=== PATIENT | female | born 2000 | race Caucasian/White ===

== ENCOUNTER 2023-10-19 17:16 | Outpatient (CLI) | payer MEDICAID, SELFPAY ==
[2023-10-19 15:05] LABS: HCG Quant, Pregnancy 15 mIU/mL (1-3)
--- OUTSIDE RECORDS SUMMARY | 2023-10-19 17:19 | XMS_ITS | Encounter Summary ---
Author Organization [facility] Address [address] [place] [address] Care Team Providers Care Home Organizer Name Role Phone Kristine Jackson Primary Care Provider [phone] Encounter Details Date Type Department Care Team (Late st Contact Info) Description 07/05/2023 Lab Requisition [facility] Pathology & Laboratory Medicine - [facility] [address] [place] [address] Outr Resulting Lab, Provider Social History Tobacco Use Types Packs/Day Years Used Date Smoking Tobacco: Never Smokeless Tobacco: Never Alcohol Use Standard Drinks/Week Comments No 0 (1 standard drink = 0.6 oz pur e alcohol) Interpersonal Safety Answer Date Record ed Physically Hurt Never 10/08/2019 Verbally Threaten Not on file 10/08/2019 Sex and Gender Information Value Date Recorded Sex Assigned at Not on file Gender Identity Female 03/07/2022 7:44 EST Sexual Orientation Not on file documented as of this encounter Functional Status Functional Status Response Date of Assess ment Are you deaf or do you have serious difficulty h earing? No 03/06/2022 Are you blind or do you have serious difficulty seeing, even when wearing glasses? No 03/06/2022 Do you have serious difficul ty walking or climbing stairs? (5 years old or older) No 03/06/2022 Do you have difficulty dress ing or bathing? (5 years old or older) No 03/06/2022 Because of a physical, menta l, or emotional condition, do you have difficulty doing errands alone such as visiting a doctor's office or shopping? (15 years old or older) No 03/06/2022 Cognitive Status Response Date of Assessm ent Because of a physical, menta l, or emotional condition, do you have serious difficulty concentrating, remembering, or making decisions? (5 years old or older) No-hx of TBI that affects memory 03/06/2022 documented as of this encounter Plan of Treatment Not on file documented as of this encounter Procedures Procedure Name Priority Date/Time Associated Diagnosis Comments SYPHILIS SEROLOGY Routine 07/05/2023 17: 03 EDT HEPATITIS C AB W REFLEX TO HCV RNA BY PCR Routine 07/05/2023 17:03 EDT PROGESTERONE Routine 07/05/2023 17:03 EDT RUBELLA IGG ANTIBODY Routine 07/05/2023 17:03 EDT HEPATITIS B SURFACE ANTIGEN Routine 07/05/2023 17:03 EDT HIV 1/2 ANTIGEN AND ANTIBODY, 4TH GENERATION Routine 07/05/2023 17:03 EDT documented in this encounter Results * HEPATITIS C AB W REFLEX TO HCV RNA BY PCR (07/05/2023 17:03 EDT) Hep C Antibody Negative Negative 07/07/2023 8:28 EDT [facility] Blood VENOUS BLOOD / Unknown 07/05/2023 17:03 EDT 07/06/2023 21:17 EDT Provider Outr Resulting Lab CHEMISTRY & BLOOD GAS ORDERABLES [facility] [address] [place] [address] * SYPHILIS SEROLOGY (07/05/2023 17:03 EDT) Syphilis Serology Negative Negative 07/07/2023 10:54 EDT [facility] Blood VENOUS BLOOD / Unknown 07/05/2023 17:03 EDT 07/06/2023 21:17 EDT Provider Outr Resulting Lab IMMUNOLOGY A ND SEROLOGY ORDERABLES Performing Organization Address City/[facility]/ZIP Co de Phone Number [facility] [address] [place] [address] * HIV 1/2 ANTIGEN AND ANTIBODY, 4TH GENERATION (07/05/2023 17:03 EDT) HIV 1 and 2 Antibody/p24 Antigen, 4th Generation Negative Negative 07/07/2023 9:53 EDT [facility] Comment:If acute HIV-1 infec tion is suspected in a high risk patient, submit plasma specimen for HIV-1 RNA quantitation test. Blood VENOUS BLOOD / Unknown 07/05/2023 17:03 EDT 07/06/2023 21:17 EDT Narrative [facility] - 07/07/2023 9:53 EDT Fourth Generation assay performed on the Siemens Centaur XPT. Provider Outr Resulting Lab IMMUNOLOGY A ND SEROLOGY ORDERABLES Performing Organization Address [facility]/RUST Co de Phone Number [facility] [address] [place] [id number] * RUBELLA IGG ANTIBODY (07/05/2023 17:03 EDT) Rubella IgG Ab Positive See Note 07/07/2023 10:56 EDT [facility] Comment:Positive for IgG ant ibodies to Rubella virus. Blood VENOUS BLOOD / Unknown 07/05/2023 17:03 EDT 07/06/2023 21:17 EDT Provider Outr Resulting Lab CHEMISTRY & BLOOD GAS ORDERABLES Performing Organization Address City/[facility]/ZIP Co de Phone Number [facility] [address] [place], [place] [address] * HEPATITIS B SURFACE ANTIGEN (07/05/2023 17:03 EDT) Pathologist [facility] Hep B Surface Ag Negative Negative 07/07/2023 9:21 EDT [facility] Blood VENOUS BLOOD / Unknown 07/05/2023 17:03 EDT 07/06/2023 21:17 EDT Provider Outr Resulting Lab CHEMISTRY & BLOOD GAS ORDERABLES [facility] [address] [place] [address] * PROGESTERONE (07/05/2023 17:03 EDT) [facility] [place] Progesterone 3.7 See Table ng/mL 07/06/2023 23:14 EDT [facility] Comment: Female Reference Ranges: PHYSIOLOGICAL STATUS ?REFERENCE RANGE ? Pre-Pubertal: ? <= 0.2 ng/mL Menstruating: (Non-) Follicular Phase: ? <= 1.4 ng/mL Luteal Phase: ? 3.3 - 25.6 ng/mL Mid-luteal Phase: ? 4.4 - 28.0 ng/mL Postmenopausal: ? <= 0.7 ng/mL : -------- First Trimester: ?11.2 - 90.0 ng/mL Second Trimester: ? 25.6 - 89.4 ng/mL Third Trimester: ?48.4 - 422.5ng/mL For ectopic , consult a pathologist. Blood VENOUS BLOOD / Unknown 07/05/2023 17:03 EDT 07/06/2023 21:17 EDT Provider Outr Resulting Lab CHEMISTRY & BLOOD GAS ORDERABLES [facility] [address] [place], [place] [id number] documented in this encounter Visit Diagnoses Not on filedocumented in this encounter Care Teams Home Organizer Relationship Specialty Start Date End Date Kristine Jackson [address] [place] [address] [address] [place] [id number] PCP - General 03/06/22 documented as of this encounter
--- OUTSIDE RECORDS SUMMARY | 2023-10-19 17:19 | XMS_ITS | Clinical Summary ---
Author Organization [facility] Address [address] [place] [address] Care Team Providers Care Data Lead Name Role Phone Kristine Jackson Primary Care Provider [phone] Allergies Active Allergy Reactions Criticality Noted Date Comments Sulfamethoprim 01/06/2017 Hives per patient and step mother Penicillins 01/06/2017 Hives per step mother Medications Medication Sig Dispensed Refills Start Date End Date Status oxyCODONE (ROXICODONE) 5 mg immediate release tablet Take 1 Tablet by mouth every 4 hours as needed for Pain. Daily Max: 30 mg 7 Tablet 03/12/2022 Active Additional Information Patient not taking.Reported on 03/17/2022 polyethylene glycol 3350 (MIRALAX) 17 gram packet Take 17 g by mouth 2 times daily as needed (constipation). 10 Each 03/12/2022 Active Additional Information Patient not taking.Reported on 03/17/2022 Active Problems Problem Noted Date Diagnosed Date Pre-eclampsia in third trimester 03/06/2022 Last Assessment & Plan: - BP check today, normotensive. Plan to reduce her meds to 200mg Labetalol PO BID. - Plan for repeat BP check in clinic today. Recommend making the appointment and then cancelling if she ends up getting seen closer to home 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 ([facility]) 12/27/2016 Overview: Subdural hemorrhage, right parietal skull fracture, suspected diffuse axonal injury Fracture of temporal bone with routine healing 1 Poor growth affecting management of mother in third trimester Antepartum anhydramnios in third trimester Breech presentation, no version Encounters Date Type Department Care Team Description 10/19/2023 Lab Requisition [facility] Pathology & Laboratory Medicine - [address] [address] Outr Resulting Lab, Provider from Last 3 Months Surgical History Surgery Date Site/Laterality Comments APPENDECTOMY SALPINGECTOMY ruptured ectopic Medical History Medical History Date Comments 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 ([facility]) 12/27/2016 Subdural hemorrhage, right p arietal skull fracture, suspected diffuse axonal injury Fracture of temporal bone wi th routine healing 12/27/2016 Status post fall from horse Social History Tobacco Use Types Packs/Day Years Used Date Smoking Tobacco: Never Smokeless Tobacco: Never Tobacco Cessation:Counseling Given: Not Answered Alcohol Use Standard Drinks/Week Comments No 0 (1 standard drink = 0.6 oz pur e alcohol) Interpersonal Safety Answer Date Record ed Physically Hurt Never 10/08/2019 Verbally Threaten Not on file 10/08/2019 Sex and Gender Information Value Date Recorded Sex Assigned at Not on file Gender Identity Female 03/07/2022 7:44 EST Sexual Orientation Not on file Obstetrics History Para Term AB IAB SAB Ectopic Multiple Livin g Live Births 3 1 1 2 1 0 1 1 Date Outcome GA Total Labor Labor/2nd/3rd Weight Sex Type Anes PTL Evie A1 A5 Name Clin AB Ectopic 023 36w 3d 1490 g (3 lb 4.6 oz) M CS-LS T Livin g 7 9 [facility] Víctor Maharaj MD Delivery Location:[facility] [address] [facility]) Last Filed Vital Signs Vital Sign Reading Time Taken Comments Blood Pressure 111/62 03/17/2022 1352 EST Pulse 72 01/14/2017 0656 EST Temperature 36.5 ??C (97.7 ??F) 03/12/2022 1207 EST Respiratory Rate 16 03/12/2022 1207 EST Oxygen Saturation 99% 03/12/2022 1207 EST Inhaled Oxygen Concentration - - Weight 79.4 kg (175 lb) 03/06/2022 1851 EST Height 157.5 cm (5' 2) 03/06/2022 1851 EST Body Mass Index 32.01 03/06/2022 1851 EST Plan of Treatment Health Maintenance Due Date Last Done Comments Hepatitis B Vaccine (1 of 3 - 19+ 3-dose series) 08/10/2019 COVID-19 Vaccine ( - 2022-2 4 season) 2022 Hepatitis C Screen Completed 07/05/2023, 0 08/06/2021, 12/05/2019 Procedures Procedure Name Priority Date/Time Associated Diagnosis Comments HEPATITIS C AB W REFLEX TO HCV RNA BY PCR Routine 07/05/2023 17:03 EDT from Last 3 Months or Most Recently Relevant to Health Maintenance Results * HEPATITIS C AB W REFLEX TO HCV RNA BY PCR (07/05/2023 17:03 EDT) Hep C Antibody Negative Negative 07/07/2023 8:28 EDT [facility] Blood VENOUS BLOOD / Unknown 07/05/2023 17:03 EDT 07/06/2023 21:17 EDT Provider Outr Resulting Lab CHEMISTRY & BLOOD GAS ORDERABLES [facility] [address] [place] [address] from Last 3 Months or Most Recently Relevant to Health Maintenance Rachel Rios Personal/Family Self [address] [place] [address] [facility] [place] [address] Rachel Rios Personal/Family Self [address] [place] [address] [facility] [place] [address] Rachel Rios Personal/Family Self [address] [place] [address] [place] [address] Rachel Rios Personal/Family Self [address] [place] [address] [place] [address] Rachel Rios Personal/Family Self [address] [facility] [place] [address] Rachel Rios Personal/Family Self [address] [facility] [address] [place] [address] Rachel Rios Personal/Family Self [address] [facility] [address] [place] [address] Advance Directives For more information, please contact: [phone] * Full Code (Latest Code Status on File) Date Activated Date Inactivated Comments 03/06/2022 18:47 03/12/2022 16:19 Question Answer Comments When the patient has NO PULSE: Full Code / CPR Who Made the Decision? Default/Not Discussed * Full Code Date Activated Date Inactivated Comments 01/01/2017 16:17 01/14/2017 17:29 Question Answer Comments Reason for decision includes: Full code consistent with overall plan of care Who participated in the discussion? Not Discusse d Care Teams Data Lead Relationship Specialty Start Date End Date Kristine Jackson [address] [place] [address] [place] [address] PCP - General 03/06/22
--- OUTSIDE RECORDS SUMMARY | 2023-10-19 17:19 | XMS_ITS | Encounter Summary ---
Author Organization [facility] Address [address] [place] [address] Care Team Providers Care Rug Scratcher Name Role Phone Manuel Kristine Primary Care Provider [phone] Encounter Details Date Type Department Care Team (Late st Contact Info) Description 07/12/[address] [facility] Pathology & Laboratory Medicine - [facility] [address] [place] [address] Deacon Fortune MD [facility] [place] [address] Encounter for other general examination Social History Tobacco Use Types Packs/Day Years [...] Procedure Name Priority Date/Time Associated Diagnosis Comments SURGICAL PATHOLOGY Today 07/11/2023 15 :00 EDT Encounter for other general examination documented in this encounter Results * SURGICAL PATHOLOGY (07/11/2023 15:00 EDT) Note to Patient The following pathology results have been interpreted by your pathologist and may be available to you before your health provider has had the opportunity to review them. Please allow time for your provider to receive these results and explore management options, if applicable. 07/14/2023 12:27 [facility] Final Diagnosis A. UTERINE CONTENTS, EVACUATION: - Gestational-type endometrium and decidua with extensive breakdown changes. - No chorionic villi or trophoblastic tissue identified. See comment. 07/14/2023 12:27 [facility] Diagnosis Comment Results were discussed with Dr. Deacon Fortune on 07/14/23 at 12:25 pm. 07/14/2023 12:27 [facility] Attestation By the signature below, the attending physician certifies that they have 1) personally conducted a gross and/or microscopic examination of the described specimen(s), and/or personally interpreted the results of laboratory testing of the described specimen(s), and 2) personally rendered or confirmed the above diagnosis. 07/14/2023 12:27 [facility] at 1227 Clinical History Spontaneous vs ectopic 07/14/2023 12:27 [facility] Gross Description A. Received in formalin labelled with proper patient identification (initials W, K) and not otherwise specified is a 4.5 x 3.5 x 2.5 cm aggregate of soft mckeon brown soft tissue. Scant possible chorionic villi are identified. No parts are present. The specimen is entirely submitted in [id number]. SAEID GUSTAFSON(ASCP) 07/13/2023 9:13 07/14/2023 12:27 EDT [facility] Performing Lab [facility] 07/14/2023 12:27 EDT [facility] Scanned Images 07/14/2023 12:27 EDT [facility] Tissue ENDOMETRIAL STRUCTURE / Unknown 07/11/2023 15:00 EDT 07/13/2023 8:48 EDT Deacon Fortune MD PATHOLOGY ORDER [place] [facility] [address] [place] [address] documented in this encounter Visit Diagnoses Diagnosis Encounter for other general examination documented in this encounter Care Teams Rug Scratcher Relationship Specialty Start Date End Date Kristine Jackson [address] [place] [address] [place] [address] PCP - General 03/06/22 documented as of this encounter
--- OUTSIDE RECORDS SUMMARY | 2023-10-19 17:19 | XMS_ITS | Encounter Summary ---
Author Organization [facility] Address [address] [place] [address] Care Team Providers Care Masonry Contractor Name Role Phone Kristine Jackson Primary Care Provider [phone] Encounter Details Date Type Department Care Team (Latest Contact Info) Description 03/18/2022 20:59 EST - 03/20/2022 16:50 EST Hospital Encounter [facility] [address] [place] [address] Unknown, Provider, Discharge Disposition: Home or Self Care Social History Tobacco Use Types Packs/Day Years [...] 7:44 EST Sexual Orientation Not on file COVID-19 Exposure Response Date Recorded In the last 10 days, have yo u been in contact with someone who was confirmed or suspected to have Coronavirus/COVID-19? No / Unsure 03/06/2022 18:51 EST documented as of this encounter Functional Status [...] memory 03/06/2022 documented as of this encounter Medications at Time of Discharge Medication Sig Dispensed Refills Start Date End Date oxyCODONE (ROXICODONE) 5 mg immediate release tablet Take 1 Tablet by mouth every 4 hours as needed for Pain. Daily Max: 30 mg 7 Tablet 03/12/2022 polyethylene glycol 3350 (MIRALAX) 17 gram packet Take 17 g by mouth 2 times daily as needed (constipation). 10 Each 03/12/2022 acetaminophen (TYLENOL) 500 mg tablet Take 2 Tablets by mouth every 8 hours for 10 days. 60 Tablet 03/12/2022 03/22/2022 ibuprofen (MOTRIN) 800 mg tablet Take 1 Tablet by mouth every 8 hours for 10 days. 30 Tablet 03/12/2022 03/22/2022 labetalol (NORMODYNE) 200 mg tablet Take 2 Tablets by mouth every 12 hours for 14 days. 56 Tablet 03/12/2022 03/26/2022 norethindrone (MICRONOR) 0.35 mg tablet Take 1 Tablet by mouth daily for 90 days. 30 Tablet 2 03/12/2022 06/10/2022 documented as of this encounter Discharge Disposition Disposition Code Departure Means Destination Home or Self [facility] documented in this encounter Plan of Treatment Not on file documented as of this encounter Visit Diagnoses Not on filedocumented in this encounter Care Teams Masonry Contractor Relationship Specialty Start Date End Date Kristine Jackson [address] [place] [address] [place] [address] PCP - General 03/06/22 documented as of this encounter
--- OUTSIDE RECORDS SUMMARY | 2023-10-19 17:19 | XMS_ITS | Encounter Summary ---
Author Organization [facility] Address [address] [place] [address] Care Team Providers Care Property Officer Name Role Phone Kristine Jackson Primary Care Provider [phone] Encounter Details Date Type Department Care Team (Late st Contact Info) Description 10/19/2023 Lab Requisition [facility] Pathology & Laboratory Medicine - [facility] [address] [place] [address] Outr Resulting Lab, Provider Social History Tobacco [...] as of this encounter Plan of Treatment Scheduled Orders Name Type Priority Associated Diagnoses Orde r Schedule PROGESTERONE Lab Routine Ordered: documented as of this encounter Visit Diagnoses Not on filedocumented in this encounter Care Teams Property Officer Relationship Specialty Start Date End Date Kristine Jackson [address] [place] [address] LEWIS BOWMAN [id number] PCP - General 03/06/22 documented as of this encounter
--- OUTSIDE RECORDS SUMMARY | 2023-10-19 17:19 | XMS_ITS | Referral Summary ---
Author Organization [facility] Address [address] [place] [address] Care Team Providers Care Event Manager Name Role Phone Kristine Jackson Primary Care Provider Encounters Date Type Department Care Team Description 10/19/2023 Lab Requisition [facility] Pathology & Laboratory Medicine - [address] [address] Outr Resulting Lab, Provider from Last 3 Months Allergies Active Allergy Reactions Criticality Noted Date [...] depressed skull fracture with loss of consciousness ([facility]) 12/27/2016 Overview: Subdural hemorrhage, right parietal skull fracture, suspected diffuse axonal injury Fracture of temporal bone with routine healing 1 Poor growth affecting management of mother in third trimester Antepartum anhydramnios in third trimester Breech presentation, no version Social History Tobacco Use Types Packs/Day Years [...] 7:44 EST Sexual Orientation Not on file Last Filed Vital Signs Vital Sign Reading [...] Body Mass Index 32.01 03/06/2022 1851 EST Functional Status Functional Status Response Date of [...] No-hx of TBI that affects memory 03/06/2022 Plan of Treatment Not on file Procedures Procedure Name Priority Date/Time Associated Diagnosis Comments HEPATITIS C AB W REFLEX TO HCV RNA BY PCR Routine 07/05/2023 17:03 EDT from Last 3 Months or Most Recently Relevant to Health Maintenance Results * HEPATITIS C AB W REFLEX TO HCV RNA BY PCR (07/05/2023 17:03 EDT) Hep C Antibody Negative Negative 07/07/2023 8:28 EDT [facility] Blood VENOUS BLOOD / Unknown 07/05/2023 17:03 EDT 07/06/2023 21:17 EDT Provider Outr Resulting Lab CHEMISTRY & BLOOD GAS ORDERABLES [facility] [address] [place] [address] from Last 3 Months or Most Recently Relevant to Health Maintenance Advance Directives For more information, please contact: [phone] * Full Code (Latest Code Status on [...] the discussion? Not Discusse d Care Teams Event Manager Relationship Specialty Start Date End Date Kristine Jackson [facility] [place] [address] PCP - General 03/06/22
--- OUTSIDE RECORDS SUMMARY | 2023-10-19 17:20 | XMS_ITS | Encounter Summary ---
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 Name Role Phone Kristine Jackson Primary Care Provider [phone] Reason for Referral * Consult (Urgent) - Receiving Office to Obtain Authorization Specialty Diagnoses / Procedures Referred By Caro bernard Referred To Contact Diagnoses Pre-eclampsia in third trimester Brittani Quintana [address] [place] [address] [facility] [address] [place] [address] Referral ID Status Reason Start Date Expiration Date Visits Requested Visits Authorized [id number] Receiving Office to Obtain Authorization Specialty Services Required 03/12/2022 1 1 Question Answer Reason for Request: 3-5d BP check, PEC w/ SF * Specialty Diagnoses / Procedures Referred By Caro bernard Referred To Contact Brittani Quintana [address] [place] [phone] Referral ID Status Reason Start Date Expiration Date Visits Re quested Visits Authorized Comments See your hand assembler for puller over within the next week for a BP check. * Specialty Diagnoses / Procedures Referred By Contac t Referred To Contact Brittani Quintana [address] [place] [phone] Referral ID Status Reason Start Date Expiration Date Visits Re quested Visits Authorized Reason for Visit * Reason Comments Hypertension * Auth/Cert (Routine) Specialty Diagnoses / Procedures Referred By Caro bernard Referred To Contact Diagnoses Preeclampsia, severe, third trimester ? Preeclampsia; Imminent Delivery Referral ID Status Reason Start Date Expiration Date Visits Re quested Visits Authorized [id number] 1 1 Encounter Details Date Type Department Care Team (Late st Contact Info) Description 03/06/2022 18:38 EST - 03/12/2022 14:07 EST Hospital Encounter [facility] [address] [place] [address] [id number] Abbie Isidro MD [address] [place] [phone] Miranda Valencia MD [address] [place] [phone] Sherly Nelson MD [address] [place] [phone] Víctor Bui MD [address] [place] [phone] Poor growth affecting management of mother in third trimester, single or unspecified fetus (Primary Dx); Anhydramnios in third trimester, single or unspecified fetus; Breech presentation, single or unspecified fetus; Pre-eclampsia in third trimester; Breast feeding problem in Discharge Disposition: Home or Self Care Social [...] 18:51 EST documented as of this encounter Last Filed Vital Signs Vital Sign Reading Time Taken Comments Blood Pressure 132/85 03/12/2022 1207 EST Pulse - - Temperature 36.5 ??C (97.7 ??F) 03/12/2022 1207 EST Respiratory Rate 16 03/12/2022 1207 EST Oxygen Saturation 99% 03/12/2022 1207 EST Inhaled Oxygen Concentration - - Weight 79.4 kg (175 lb) 03/06/2022 1851 EST Height 157.5 cm (5' 2) 03/06/2022 1851 EST Body Mass Index 32.01 03/06/2022 1851 EST documented in this encounter Functional Status Functional Status Response [...] memory 03/06/2022 documented as of this encounter Discharge Summaries * Quintana, Brittani - 03/12/2022 1407 EST Department of PANEL MONITOR Maternal Discharge Summary Information for the patient's : Jaclyn Rios [[id number]] Monie Rios Maternal Name: Rachel Rios : 2000 Attending: No att. providers found Admission: 03/06/2022 Discharge: 03/12/22 Reason for Admission: Admission indication: Other (comment) Principal/Final Diagnosis: Pre-eclampsia in third trimester Delivery Indications: Maternal Indications for delivery: Indication for delivery: Abnormal testing Oligohydramnios Principal Procedure: Low Segment Transverse Secondary Procedures: none Hospital Course: Rachel Rios is an 21 y.o. who presented at 36+1 after transport with concern for worsening HTN dx. She had a known dx of gHTN on lab 100 BID and was found to have worsening BP's, new FGR abn dopplers at OSH and was then transported. She med criteria for PEC wo SF on admission to [facility]. FGR was confirmed with EFW < 1% and elevated RI. US also revealed anyhdramnios. FHTcat I consistently. Decision made to optimize for PTD with BMZ and then deliver at end of the BMZ window. Delivery via LTCS was planned given in benson breech presentation and infant not a candidate for ECV due to FGR and anhydramnios. She was taken to the OR for delivery at 36+3 and underwent primary LTCS. See operative note for further detail. Delivery of live male infant from SA position. APGARS 7/9. Placenta delivered with controlled traction, normal morphology. Uterine tone remained firm. EBL 700cc. The patient's received 20mg nifedipine, then transitioned to 200mg labetolol Bid and recieved 24 hours of PP Magnesium for SR Bps. She had persistent MR Bps after magnesium and her labetolol was increased to 400mg BID on discharge. She obtained good pain control, tolerated a regular diet, was ambulating and voiding independently. Her lochia was within normal limits and she initiated pumping for baby in NICU. The patient was subsequently discharged on POD#4 with instructions to follow-up for 1 week BP check and routine care at 6 weeks. Hospital Problems: Active Hospital Problems Diagnosis Date Noted ??? *Pre-eclampsia in third trimester 03/06/2022 ??? Poor growth affecting management of mother in third trimester ??? Antepartum anhydramnios in third trimester ??? Breech presentation, no version Allergies: Bactrim [sulfamethoprim] and Penicillins Medications during current : No medications prior to admission. LABOR INFORMATION Labor Onset: None Labor Analgesia: Spinal, Amniotic Fluid Color: Duration Rupture of Membranes: 0.00 hours 0.00 minutes DELIVERY INFORMATION Low Segment Transverse ; Delivery / Repair Anesthesia: Spinal, EBL: Placenta: Method: Manual Removal Labor and Delivery Complications and/or Procedures: None INFORMATION Date: 03/08/2022 Time: 1405 Weight: 1490 g (3 lb 4.6 oz) Sex: male Apgars: 7 9 Clinical Issues Needing Follow-up: PEC w/ SF dx based on SR BP, on 400mg Labetolol BID on discharge, home with BP cuff Contraception Plan: minipill Other: none Results Pending at Discharge: Test results still pending from this admission Procedure Component Value Units Date/Time SURGICAL PATHOLOGY [[id number]] Collected: 03/08/22 1419 Lab Status: In process Specimen: Tissue from Placenta, third trimester Updated: 03/10/22 0850 Follow-up appointments and procedures Keep all scheduled appointments Authorizing Provider: Brittani Quintana You should follow up with your Natural Resources Manager See your hand assembler for puller over within the next week for a BP check. Authorizing Provider: Brittani Quintana Amb Consult/Follow Up Obstetrics Reason for Request: 3-5d BP check, PEC w/ SF Authorizing Provider: Brittani Quintana Condition at Discharge: stable Discharge Disposition: nearby [facility] for NICU baby Brittani Quintana MD 03/12/2022 17:48 Associated attestation - Whitney Mathews MD - 03/12/2022 1800 EST I was present for critical portions of the exam, evaluation and plan. documented in this encounter Discharge Instructions * Discharge Instr - AVS First Page* Brittani Quintana - 03/12/2022 7:46 EST Take your blood pressure before you take your labetalol. The NICU nurses can also help you take your blood pressures when you visit. If you have a blood pressure that is less than 120 on the top number or less than 70 on the bottom number, do not take your medication. If you have a blood pressure more than 150 on the top number or more than 110 on the bottom number please call the office. documented in this encounter Medications at Time of Discharge [...] 03/12/2022 06/10/2022 documented as of this encounter Ordered Prescriptions Prescription Sig Dispensed Refills Start Date End Da te polyethylene glycol 3350 (MIRALAX) 17 gram packet Take 17 g by mouth 2 times daily as needed (constipation). 10 Each 03/12/2022 oxyCODONE (ROXICODONE) 5 mg immediate release tablet Take 1 Tablet by mouth every 4 hours as needed for Pain. Daily Max: 30 mg 7 Tablet 03/12/2022 norethindrone (MICRONOR) 0.35 mg tablet Take 1 Tablet by mouth daily for 90 days. 30 Tablet 2 03/12/2022 06/10/2022 labetalol (NORMODYNE) 200 mg tablet Take 2 Tablets by mouth every 12 hours for 14 days. 56 Tablet 03/12/2022 03/26/2022 ibuprofen (MOTRIN) 800 mg tablet Take 1 Tablet by mouth every 8 hours for 10 days. 30 Tablet 03/12/2022 03/22/2022 acetaminophen (TYLENOL) 500 mg tablet Take 2 Tablets by mouth every 8 hours for 10 days. 60 Tablet 03/12/2022 03/22/2022 documented in this encounter Discharge Disposition Disposition Code Departure Means Destination Comment s Home or Self Retirement to hotel for now to be close to baby in NICU documented in this encounter Progress Notes * Brittani Quintana - 03/12/2022 06 EST Postoperative Progress Note CC: s/p LTCS at 36+3 for worsening PEC wo SF, new FGR and abnormal dopplers, breech presentation S: Doing well, pain well controlled. Ambulating and voiding independently. Tolerating regular diet without nausea/vomiting. Passing flatus, no BM. Lochia minimal. doing well in NICU. Planning to discharge to a hotel today with CM support. Hoping to go home with a breast pump. Does not have ablood pressure cuff The patient denies CP/SOB/AKBAR/Dizziness/F/C/LE pain. O: Temp: [35.6 ??C (96.1 ??F)-36.6 ??C (97.9 ??F)] 36.5 ??C (97.7 ??F) (03/12/22253) BP: (119-139)/(54-94) (!) 139/94 (03/12/22253) SpO2: [94 %-98 %] 98 % (03/12/22253) Resp: [16-18] 18 (03/12/22253) Heart Rate: [79 BPM-91 BPM] Intake/Output Summary (Last 24 hours) at 03/12/2022 06 Last data filed at 03/12/2022 0315 Gross per 24 hour Intake 1280 ml Output 900 ml Net 380 ml UOP: voiding independently Gen: NAD Resp: breathing comfortably on room air CV: RR Abd: not examined, patient requesting to sleep A/P: Rachel Rios is a 21 y.o. POD#4 s/p LTCS at 36w3d for PEC wo SF and FGR w abnormal dopplers and breech presentation. Pt recovering well. BP normotensive to MR. Otherwise VSS and adequate UOP. Routine Care - Continue current pain regimen. Encourage IS, ambulation, PO intake; support BF. Continue routine post-op/post- care. - s/p [place] - Preop Hct 35. EBL 700cc. AM Hct 37.1 - Rh pos, rubella imm, varicella imm - male in nicu, circumcision desired Hx Asthma: - as was single event, likely ok for hemabate if needed PEC w SF - dx based on sustained SR BP, UPC 0.45, short acting anti-HTN to date: 20mg PO nifedipine, currentlong acting HTN regimen: labetalol 200mg BID, s/p mag for 24 hours pp, ending at 1/3 900AM. Decreased to 1.5->1g/hour at 2200 for headache, weakness - MR Bps since magnesium, consider increase in long-acting medication on d/c if persistently elevated Dispo - Contraception: Discussed POD#3, hoping for minipill-> OCP. Follow up at post- visit. - depression: Discussed POD#3. Patient aware of signs/symptoms Will continue to monitor. - Likely d/c home POD#3-4 BRITTANI TONGMUSSEN 03/12/22 6:26 Obstetrics & Gynecology, PGY-1 Pager [phone] Associated attestation - Whitney Mathews MD - 03/12/2022 0843 EST Attestation statement: I performed or was present during the leigh or critical portions of the visit and participated in the management of the patient. I agree with the findings and plan of care documented in the resident's/fellow's note. * Diana Santacruz MSW - 03/11/2022 5190 EST CM/SW Note: ?? Checked in with Simeonn today. When Kim is ready to discharge we will see if a hotel is available for a week. I let them know that after a week we can book a hotel room a few nights a week and the other nights they will have to go home, a gas card can be provided for help with transportation. ?? Kim received WIC and [employer] [place] and asked about how she can apply for [employer]- I let her know Iwill email her the website that has the online application and will provide her with contact information for her local ESD office. ?? Kim and Rick did not have any other needs at this time. ?? SADI Jerome [phone] Pager: [phone] * Brittani Quintana - 03/11/2022 0658 EST Postoperative Progress Note CC: s/p LTCS at 36+3 for worsening PEC wo SF, new FGR and abnormal dopplers, breech presentation S: Doing well, pain well controlled. Ambulating and voiding independently. Tolerating regular diet without nausea/vomiting. Passing flatus, no BM. Lochia minimal. Infant doing well in NICU. The patient denies CP/SOB/AKBAR/Dizziness/F/C/LE pain. O: Temp: [35.3 ??C (95.5 ??F)-37 ??C (98.6 ??F)] 35.6 ??C (96.1 ??F) (03/11/22647) BP: (101-138)/(58-92) 138/90 (03/11/22647) SpO2: [94 %-100 %] 96 % (03/11/22647) Resp: [16-18] 18 (03/11/22647) Heart Rate: [79 BPM-105 BPM] Intake/Output Summary (Last 24 hours) at 03/11/2022657 Last data filed at 03/11/2022 0200 Gross per 24 hour Intake 900 ml Output 900 ml Net 0 ml UOP: 900/2 hrs Gen: NAD Resp: CTAB CV: RR Abd: soft, minimally tender, nondistended, incisional bandage c/d/i, fundus at 1cm below umbilicus Ext: minimal PE A/P: Rachel Rios is a 21 y.o. POD#3 s/p LTCS at 36w3d for PEC wo SF and FGR w abnormal dopplers and breech presentation. Pt recovering well. BP normotensive to MR. Otherwise VSS and adequate UOP. Routine Care - Continue current pain regimen. Encourage IS, ambulation, PO intake; support BF. Continue routine post-op/post- care. - s/p [place] - Preop Hct 35. EBL 700cc. AM Hct 37.1 - Rh pos, rubella imm, varicella imm - male infant in nicu, circumcision desired Hx Asthma: - as was single event, likely ok for hemabate if needed PEC w SF - dx based on sustained SR BP, UPC 0.45, short acting anti-HTN to date: 20mg PO nifedipine, currentlong acting HTN regimen: labetalol 200mg BID, s/p mag for 24 hours pp, ending at 1/3 900AM. Decreased to 1.5->1g/hour at 2200 for headache, weakness Dispo - Contraception: Discussed POD#3, hoping for minipill-> OCP. Follow up at post- visit. - depression: Discussed POD#3. Patient aware of signs/symptoms Will continue to monitor. - Likely d/c home POD#3-4 BRITTANI QUINTANA 03/11/22 7:01 Obstetrics & Gynecology, PGY-1 Pager [phone] Associated attestation - Rosalinda Levin MD - 03/11/2022 8309 EST Attestation statement: I saw and examined the patient. I agree with the resident's/fellow's findings and plans as documented. POD#3 s/p LTCS at 36w3d for PEC w/SF ad FGR with abnormal dopplers and breech presentation - recovering well, meeting all post-op milestones - continue labetalol 200mg BID, will need 1wk BP check and to be d/c with a home BP cuff - anticipate discharge to local hotel tomorrow, coordinating with rn case management - male infant in NICU, parents desire circ before discharge in the future Rosalinda Levin MD 03/11/2022 17:34 Obstetrics and Gynecology * Kathya Mccarthy RN - 03/10/2022 1130 EST Care assumed. Pt found sitting up chair. 18g in left arm SL. Pt voiding adequately PRN. Pt reports a slight headache since she got up to walk with previous RN around 1030, denies blurred vision, RUQ pain or SOB. Pt reports her gas pain is 5/10, requests medication for that now and to visit baby in NICU. FOB and mom supportive at . Plan to maintain comfort and transfer to [place] [address] when a bed becomes available. Pt agrees with plan. 1150 Pt wants to visit NICU now and take simethicone when she returns. Off unit by WC with FOB. 1250 Pt back from NICU, reports her headache has resolved, reports passing gas, sitting up to pump. 1305 Pt pumped x15 min, colostrum taken to NICU, declines removal of her dressing at this time, denies further needs. 1522 Pt back from NICU, reports feeding baby while she was there. 1615 Pt requests medication for pain, I don't want to get behind. Agreed to remove incisional dressing. Reports slight headache has returned, I'm just so tired and stressed. Denies blurred vision, RUQ pain or SOB. Encouraged to rest. VSS. Transferred to [place] [address]. * Purvi Gagnon MD - 03/10/2022 0312 EST Magnesium Shift Progress Note CC: 21 y.o. POD#1 from pLTCS for PEC w/o SF severe FGR, anhydramnios, elevated RI, now w/ PEC w/ SF Shift resident: PURVI GAGNON MD Shift provider: Kymberly Phelps MD [employer] - Routine PP care, support BF/pumping - VTE ppx: SCDs (CS, PEC) - PPD: will discuss - Contraception: will discuss Active Problems: - PEC w SF: dx based on sustained SR BP, UPC 0.45, short acting anti-HTN to date: 20mg PO nifedipine, current long acting HTN regimen: labetalol 200mg BID, serum labs WNL, continue mag for 24 hours pp, ending at 1/3 900AM Recent Labs 03/08/22 1223 03/09/22 1020 03/09/22 1021 WBC 19.45* 19.48* -- HCT 35.5 37.1 -- HGB 12.0 12.9 -- PLT 253 261 -- CREATININE -- -- 0.62 ALT -- -- 19 AST -- -- 32 LDH -- -- 278* Assessment/Plan/Updates: 10:30: Denies s/sx PEC, UOP 550cc/2h, BPs normotensive, PE notable for 1+ DTRs and CTAB. No currentsigns of mag toxicity, continue current plan. MD Elia 10:34 12:30: Denies s/sx PEC. Normotensive. UOP not yet recorded. 1+ DTRs, lungs CTAB. Serum labwork WNL.No current signs of mag toxicity. Continue mag x24hr pp. MD Elia 12:36 14:50: Denies s/sx PEC. On the bedside commode and feeling fine. Wants to go visit in NICU. BP normotensive. UOP 250cc/3hr. 1+ DTRs, lungs CTAB. No current sign of mag toxicity. Okay to go to NICU with 1:1 RN support. Continue mag x24hr pp. MD Elia 15:15 16:59 Back from NICU, baby doing well. Pt feeling tired, but denies si/sx PEC. BP normotensive. XUP420ep/2hr. 2+ DTRs, lungs CTAB. No current sign of mag toxicity. Continue mag x24hr pp. MD Elia 16:59 22:00: 1+ biceps DTR, lungs CTAB, Mag level 6.8. UOP 450cc/1hr. Trying to rest in between checks. Continue mag x24hrs PP. If urine output decreases, then will send mag level and decr to 1.5g/hr 23:00 Rachel has a headache and is feeling light headed. Decr mag infusion to 1.5g/hr. Drawing maglevel now. PE unchanged. H Vigne 03:00: 2+ biceps DTR, lungs CTAB. AKBAR resolved. Mag infusing at 1g/hr due to Mag level of 7.1 and patient feeling light headed. UOP 525/3hrs H Chelsi Gagnon MD Building Performance Specialist PGY-3 Pager [phone] Associated attestation - Víctor Bui MD - 03/10/2022 1327 EST Attending attestation statement: I saw and examined the patient with the resident. I agree with thefindings and plan of care documented in the resident's note. POD#2 now off magnesium, doing well. Plan transfer back to when census allows. Víctor Bui MD * Tamara Krishnamurthy RN - 03/09/2022 1932 EST 1914: Assumed care of patient, bedside report from Destiny Francois RN. PPD 1 @ 36w3d s/p C/S r/t PEC w/o SF, breech presentation, severe FGR w/ abnormal dopplers, & near anyhydramnios. Now w/ PEC w/ SF on Mg @ 2g/hr. Partner Rick and mother Misti at bedside for support. Baby vickie Anaya in NICU. 1944: assisted OOB to commode, increased shakiness with pain d/t movemenc t, tolerated standing boubacar few steps to commode well. Education provided regarding safe mvmt r/t incision/splinting to reduce pain aggravation. 2099: pt feeling better than earlier after resting, encouraged to use breastpump if able, assistance provided. 2129: Abdominal binder applied to assist with pain with ambulation/transfers OOB, rating 5/10 to commode, improves with rest. 34mL colostrum brought to NICU. 2254: Abdominal binder removed per pt request, reporting inc dizziness/ AKBAR/ mild blurry vision withtransfer to commode, verbalizing sx of feeling drunk, assisted back to bed, BP WNL, reflexes morehyperreflexive, Dr Gagnon notified 0: Dr Gagnon at bedside to assess patient, mg decreased to 1.5g/hr and lab order pending to recheck Mg 2348: Mg level 7.1, Dr Gagnon notified, order received to decrease Mg to 1g/hr. 2357: pt verbalizing mild improvement to sx, speech rate improved, AKBAR remains mild, Mg decreased per MAR. 0030: Mg check WNL, pt feeling significantly better, to commode and NICU to see . 0115: back to room, pt tolerated visit well, breast pump assistance provided. 0140: breastmilk brought to NCU. 0550: OOB to commode, improved tolerance of transfer, encouraged to use breast pump, setup assistance provided. 0630: 95mL breastmilk broughtt to NICU. 0715: Report to Geo Jimenez RN, pt stable. * Mary Kate Wolfe MD - 03/09/2022 1234 EST Magnesium Shift Progress Note CC: 21 y.o. at 36w3d, POD#1 from pLTCS for PEC w/o SF severe FGR, anhydramnios, elevated RI, now w/ PEC w/ SF Shift resident: MARY KATE WOLFE MD Shift provider: Sherly Nelson MD [employer] - Routine PP care, support BF/pumping - VTE ppx: SCDs (CS, PEC) - PPD: will discuss - Contraception: will discuss Active Problems: - PEC w SF: dx based on sustained SR BP, UPC 0.45, short acting anti-HTN to date: 20mg PO nifedipine, current long acting HTN regimen: labetalol 200mg BID, serum labs WNL, continue mag for 24 hours pp, ending at 1/3 900AM Recent Labs 03/06/22 1922 03/06/22201303/08/22 1223 03/09/22 1020 03/09/22 1021 WBC 16.14* -- 19.45* 19.48* -- HCT 38.4 -- 35.5 37.1 -- HGB 13.5 -- 12.0 12.9 -- PLT 233 -- 253 261 -- CREATININE 0.53 -- -- -- 0.62 ALT 19 -- -- -- 19 AST 24 -- -- -- 32 URICACID 6.5 -- -- -- -- LDH 189 -- -- -- 278* FIBRINOGEN -- 688* -- -- -- Assessment/Plan/Updates: 10:30: Denies s/sx PEC, UOP 550cc/2h, BPs normotensive, PE notable for 1+ DTRs and CTAB. No currentsigns of mag toxicity, continue current plan. MD Elia 10:34 12:30: Denies s/sx PEC. Normotensive. UOP not yet recorded. 1+ DTRs, lungs CTAB. Serum labwork WNL.No current signs of mag toxicity. Continue mag x24hr pp. MD Elia 12:36 14:50: Denies s/sx PEC. On the bedside commode and feeling fine. Wants to go visit in NICU. BP normotensive. UOP 250cc/3hr. 1+ DTRs, lungs CTAB. No current sign of mag toxicity. Okay to go to NICU with 1:1 RN support. Continue mag x24hr pp. MD Elia 15:15 16:59 Back from NICU, baby doing well. Pt feeling tired, but denies si/sx PEC. BP normotensive. [id number]/2hr. 2+ DTRs, lungs CTAB. No current sign of mag toxicity. Continue mag x24hr pp. MD Elia 16:59 MARY KATE WOLFE MD 03/09/2022 12:34 * Darlene Muse MD - 03/09/2022 1014 EST ACUTE PAIN SERVICE OB Neuraxial long-acting opioid FOLLOW UP Subjective 24H UPDATE: Brief: 1-3 elements or 15 minutes (CPT 79120) The patient is OBANESPOD#: POD #1 from delivery under neuraxial anesthesia. The patient received neuraxial morphine intraoperatively and is being followed by OB Anesthesia for her pain and side effect management. The patient reports Excellent postop analgesia and currently has mild pain. She has not required oral or IV opioids for breakthrough pain. She feels her symptoms were managed adequately. She is not experiencing side effects at this time. The patient has not experienced respiratory depression. Incisional/surgical PAIN Quality Quality: dull Severity: mild Modifying Factors Modifiers: Hurts when getting up REVIEW OF SYSTEMS over past 24H: Review of Systems Billing Requirements: Brief: N/A or 15 minutes (CPT 58040) Constitutional: Urinary: Musculoskeletal: Yes No Yes No Yes No [] [x] Sedation [] [x] Urinary retention: Straight cath: None [] [x] Backache Neurological: Gastrointestinal: Integumentary: Yes No Yes No Yes No [] [] Neck pain [] [x] Postop itching was None [] [x] Positional Headache [] [x] Postop Nausea/vomiting was None [] [] Diplopia [] [] Tinnitus [] [x] Lower extremity numbness [] [x] Lower extremity weakness Objective PHYSICAL EXAM: Physical Exam Billing Requirements: Brief: 1 system or 15 minutes (09602) BP 116/64 Temp (!) 35.3 ??C (95.5 ??F) (Temporal) Resp 18 Ht 157.5 cm (62) Wt 79.4 kg (175lb) SpO2 98% Unknown BMI 32.01 kg/m?? Within patient's normal range and Appropriate for condition Normal chest excursion and without accessory muscle use cardiovascular exam: VSS and Appears well perfused Urinary function: Voiding well, NO postop urinary dysfunction Mental Status: awake and alert; oriented to person, place, and time R vs L Lower Extremity strength: Ambulating unassisted without difficulty Ambulating unassisted without difficulty Recovery: satisfied LABORATORIES: @Platelet count if continuous post- epidural Assessment & Plan ASSESSMENT: Post- pain well managed This is a 21 y.o. year old female with a medical history of severe pre-eclampsia and FGR. 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 1. Opioid risk tool assessment: Low risk of opioid misuse (score 0-3) (Opioid Risk Tool Link) RECOMMENDATIONS: (New recommendations Bolded) Intrathecal Morphine: ??? Intrathecal morphine requires respiratory and sedation monitoring x 12-24 hours based on # riskfactors for respiratory depression after long acting neuraxial opioid. o No risk factors = Level 1 (Resp rate/pattern and POSS score every 2H x 12H. The OB Anesthesia Service is the only service who may write for additional opioid pain medications or sedatives for the first 24 hours following placement of the neuraxial morphine. Opioids: ??? The expected number of tablets of oxycodone necessary on discharge for this specific surgery is0-10 tablets of oxycodone 5 mg PO to be ordered at discharge by the primary service. Non-Opioid Adjuncts ??? Acetaminophen: OBACETAMINOPHEN: Continue acetaminophen 1000 mg every 8 hours through discharge.. Limit course to 7 days. Not recommended on discharge for those patients with alcohol use disorder. ??? NSAIDs: OBNSAIDs: Continue Ketorolac every 6 hours x 3 doses followed by Ibuprofen and ContinueIbuprofen 800 mg every 8 hours through discharge ??? Additional Regional/Neuraxial Analgesia: No additional regional/neuraxial local anesthetic technique recommended ??? Other: None Activity ??? OBACTIVITY: Patient ambulating in room and to bathroom OB anesthesiology plans to sign off on today or choose date: today 24 hours after delivery and completion of the intrathecal morphine or continuous epidural protocol. Thank you for including the Obstetric Anesthesia Service in the care of this patient. Please contact us (pager #[phone] or phone #[phone]) with any questions or concerns. DARLENE MUSE MD 03/09/2022 10:14 PGY-3, Consulting Psychiatrist * Mary Kate Wolfe MD - 03/09/2022 0943 EST Magnesium Shift Progress Note CC: 21 y.o. at 36w3d, POD#1 from pLTCS for PEC w/o SF severe FGR, anhydramnios, elevated RI, now w/ PEC w/ SF Shift resident: MARY AKTE WOLFE MD Shift provider: Sherly Nelson MD Global - Routine PP care, support BF/pumping - VTE ppx: SCDs (CS, PEC) - PPD: will discuss - Contraception: will discuss Active Problems: - PEC w SF: dx based on sustained SR BP, UPC 0.45, short acting anti-HTN to date: 20mg PO nifedipine, current long acting HTN regimen: labetalol 200mg BID, serum labs pending, continue mag for 24 hours pp, ending at 1/3 900AM Recent Labs 03/06/22192103/06/22201303/08/22 1223 WBC 16.14* -- 19.45* HCT 38.4 -- 35.5 HGB 13.5 -- 12.0 PLT 233 -- 253 CREATININE 0.53 -- -- ALT 19 -- -- AST 24 -- -- URICACID 6.5 -- -- LDH 189 -- -- FIBRINOGEN -- 688* -- Assessment/Plan/Updates: 10:30: Denies s/sx PEC, UOP 550cc/2h, BPs normotensive, PE notable for 1+ DTRs and CTAB. No currentsigns of mag toxicity, continue current plan. MD Elia 10:34 MARY KATE WOLFE MD 03/09/2022 9:43 Associated attestation - Sherly Nelson MD - 03/09/2022 1147 EST Pt seen and agree. Tolerating magnesium. Pain controlled. Afebrile Bp max 164/118, 166/109 s/p PO nifedipine Now 100-120s/50s-76 P 90 Net +645 mL UOP >250 per hour Cr 0.62 ALT/AST 19/32 Hct 37.1 Plts 261 POD#1 s/p primary CD for breech, oligohydramnios, PEC now with SF. Brought back to L&D for 24 hours magnesium sz ppx. BPs improved with PO nifedipine, continue labetalol 200 BID. Watch UOP * Pilar Francois, [facility] - 03/09/2022 0840 EST 8:40 Pt arrived from for severe range BP. Pt reports feeling lightheaded and having mild blurry vision. 8:45 MD Wolfe at bedside. Plan to do 24hrs of magnesium 0911: mag started 1400: pt requesting to go see baby vickie Anaya in the NICU. Per MD Wolfe, ok as long as RN stays with pt 1505: pt brought to NICU 1625: pt back to M710 1745: pt reporting dizziness and SOB, is visibly shaky. MD Wolfe aware, will draw magnesium level * Mary Kate Wolfe MD - 03/09/2022 0828 EST OB Update Note BP sustained SR. 166/109 > 164/118. HR 63. S: Denies visual changes, AKBAR, SOB, RUQ pain, or new LE edema. O: Patient Vitals for the past 4 hrs: BP Temp Temp src Resp SpO2 03/09/22 0813 (!) 164/118 -- -- 18 98 % 03/09/22 0800 (!) 166/109 -- -- -- -- 03/09/22 0753 -- (!) 35.3 ??C (95.5 ??F) Temporal 18 97 % Gen: NAD CV: RRR Resp: Lung CTAB Neuro: 1+ patellar reflexes Ext: no peripheral edema A/P: Rachel Rios is a 21 y.o. on POD#1 from pLTCS at 36+3 for PEC w/o SF, now with sustained SR BP and new diagnosis of PEC w/ SF. - Nifedipine PO IR now - Repeat HELLP labs now - Bring to L&D for 24 hr mag - post SR BP vitals per protocol - q1hr RN mag check, q2hr mag check - CTM symptoms Discussed with Dr. Nelson. Mary Kate Wolfe MD 03/09/22 8:31 OBGYN PGY-2 Pager #[phone] * Mary Kate Wolfe MD - 03/09/2022 0607 EST Postoperative Progress Note CC: s/p LTCS at 36+3 for worsening PEC wo SF, new FGR and abnormal dopplers, breech presentation S: Doing well, pain well controlled. Able to ambulate to bathroom without dizziness, not yet voided(4hr since gresham removal), about to try again. Tolerating regular diet without nausea/vomiting. Passing flatus, no BM. Lochia minimal. doing well in NICU. The patient denies CP/SOB/AKBAR/Dizziness /F/C/LE pain. O: Temp: [35.2 ??C (95.4 ??F)-36.4 ??C (97.5 ??F)] (!) 35.5 ??C (95.9 ??F) (03/09/22418) BP: (106-154)/(65-103) (!) 153/86 (03/09/22418) SpO2: [97 %-100 %] 97 % (03/09/22418) Resp: [13-18] 18 (03/09/22418) Heart Rate: [66 BPM-102 BPM] Intake/Output Summary (Last 24 hours) at 03/09/2022 0607 Last data filed at 03/09/2022 0420 Gross per 24 hour Intake 3570 ml Output 2160 ml Net 1410 ml UOP: 700/7 hrs Gen: NAD Resp: CTAB CV: RR Abd: soft, minimally tender, nondistended, incisional bandage c/d/i, fundus at 1cm below umbilicus Ext: minimal PE A/P: Rachel Rios is a 21 y.o. POD#1 s/p LTCS at 36w3d for PEC wo SF and FGR w abnormal dopplers and breech presentation. Pt recovering well. BP normotensive to MR. Otherwise VSS and adequate UOP. Routine Care - Continue current pain regimen. Encourage IS, ambulation, PO intake; support BF. Continue routine post-op/post- care. - D/C Gresham with ambulation - Preop Hct 35. EBL 700cc. AM CBC ordered - Rh pos, rubella imm - varicella UNK, Ab ordered - male infant in nicu, circumcision desired Hx Asthma: - as was single event, likely ok for hemabate if needed PEC w/o SF - q4hr vitals - continue labetalol 100mg BID - watch for SR BP, treat with IV antihypertensive - repeat labs if BP escalating Dispo - Contraception: Not yet discussed. Follow up at post- visit. - depression: Not yet discussed. Will continue to monitor. - Likely d/c home POD#3-4 Mary Kate Wolfe MD 03/09/22 6:08 OBGYN PGY-2 Pager #[phone] * Ramu Burns MD - 03/08/20222024 EST Postoperative Progress Note CC: s/p LTCS at 36+3 for worsening PEC w SF, new FGR and abnormal dopplers, breech presentation S: Pt in NICU x2, subjective obtained in NICU. Doing well, pain well controlled. Says she definitely feels the incision but it is feeling better than she expected. Tolerating regular diet without nausea/vomiting, has mostly been sipping cold drinks. Not yet passing flatus, no BM. Gresham in place. Lochia minimal. The patient denies CP/SOB/AKBAR/Dizziness/F/C/LE pain. O: Temp: [35.2 ??C (95.4 ??F)-36.4 ??C (97.5 ??F)] 36 ??C (96.8 ??F) (03/08/221911) BP: (106-156)/(63-103) 106/65 (03/08/221911) SpO2: [95 %-100 %] 97 % (03/08/221911) Resp: [13-18] 16 (03/08/221911) Heart Rate: [70 BPM-102 BPM] Intake/Output Summary (Last 24 hours) at 03/08/20222024 Last data filed at 03/08/2022 1600 Gross per 24 hour Intake 2945 ml Output 1850 ml Net 1095 ml UOP: 220 cc/6 hrs Gen: NAD Resp: CTAB Remainder of exam deferred, interview in NICU A/P: Rachel Rios is a 21 y.o. POD#0 s/p LTCS at 36w3d for PEC w SF and FGR w abnormal dopplers and breech presentation. Pt recovering well. BP normotensive to MR. Otherwise VSS and adequate UOP. Routine Care - Continue current pain regimen. Encourage IS, ambulation, PO intake; support BF. Continue routine post-op/post- care. - D/C [place] with ambulation - Preop Hct 35. EBL 700cc. AM CBC ordered - Rh pos, rubella imm - varicella UNK, Ab ordered - male in nicu, circumcision desired Hx Asthma: - as was single event, likely ok for hemabate if needed Dispo - Contraception: Not yet discussed. Follow up at post- visit. - depression: Not yet discussed. Will continue to monitor. - Likely d/c home POD#3-4 RAMU BURNS MD OBGYN PGY-1 [phone] * Sinai España RN - 03/08/2022 1624 EST 1620 review of BP with . OK to transfer to . * Ida Enriquez RN - 03/08/2022 1229 EST 1205: Pt transferred to L&D for delivery. Anticipate C/S delivery for breech, PEC w/o SF, FGR and oligo. Report given to Oliver MILLAN at bedside. * Oliver Garg RN - 03/08/2022 1215 EST 1210 - pt transferred from [facility] for c/section for breech positioning and complicated by PEC w/out SF, FGR and Oligohydramnios. Pt has not eaten or drank anything besides sips (for meds) since last night. Pt has saline lock in place in left forearm. Pt into room 1 and EFM applied. 1217 - Phlebotomy in to see pt. Drawing blood for cbc. 1223 - Dr Bui in to see pt, u/s breech presentation confirmed 1335 - To OR, see intraop flowsheet and delivery summary. 1508 - pt out of OR, feeling shaky. Asking if she can have something for my anxiety, I always shake like this when I'm anxious. Explained shaking could be because of cold daily body temp or normal reaction to delivery. Pt agreed to wait for anxiolytic. Maurice hugger blanket applied. * Abbie Isidro MD - 03/08/2022 0811 EST NST Report Baseline Heart Rate: 135 Accelerations: present Movement: present Decelerations: absent Contractions: absent Interpretation: reactive Co-sign Provider (Physician Name): MD Alejandro NST [id number] LUZ PAGAN RN [facility] Attending Addendum: I have reviewed the NST above- it is reactive. I agree with the assessment. Abbie Isidro MD * Gege Mae MD - 03/08/2022 0642 EST Antepartum Progress Note CC: PEC wo SF, FGT HD: 3 Overnight Events: - NAEON Subjective: Feeling overall well this morning. Reports symptoms of GERD, similar to prior to admission and throughout . Has been using Tums but would be interested in trying something in addition, discussed pepcid. Denies AKBAR, vision changes, RUQ pain, worsening swelling. Denies cx, LOF, VB. Good FM Objective: BP 138/78 (BP Cuff Location: Left arm, BP Patient Position: Lying right side) Temp 36.2 ??C (97.2 ??F) (Temporal) Resp 18 Ht 157.5 cm (62) Wt 79.4 kg (175 lb) SpO2 95% BMI 32.01 kg/m?? Gen: NAD Resp: CTAB CV: RR Abdomen: Soft, non-tender, gravid Extremities: WWP Labs CBC: Recent Labs 03/06/221921 WBC 16.14* RBC 4.44 HGB 13.5 HCT 38.4 MCV 87 MCH 30.4 MCHC 35.2 PLT 233 BMP: Recent Labs 12/30/22 1922 CREATININE 0.53 LFT: Recent Labs 03/06/22 1922 AST 24 ALT 19 Imaging OB US (03/06): 36+1, benson breech, plac fundal, RONDA 0.3cm, EFW 1765 < 1%, AC < 1%, Abn dops with elevated RI Assessment/Plan: 21 y.o. @ 36w3d admitted after transport due to concern for severe preeclampsia and growth restriction. Known dx of gHTN previously, evaluation consistent with PEC without SF. New FGR with anhydramnios concerning for an evolving hypertensive picture, however FHR monitoring is consistently cat I. She was initiated on a BMZ course and transferred to given tracing stability. Intermittently MR BP, other VSS. AUOP. ?? Preeclampsia without SF: - SR BP prior to leaving [facility] and possibly one in transport, unknown if >4 hours apart - New proteinuria, diagnosis at least consistent with preeclampsia without severe features - Serum labs WNL on admission - Denies sx of severe disease - s/p Mag during transport, discontinued on arrival - Continue labetalol 100 BID ?? FGR/anyhydramnios/FWB: - dx at 36+1 today at [facility] - Cat 1 FHT on arrival - S/p BMZ 03/06- @ 1400, will be through window today - S/p NICU consult - Discussing delivery at completion of steroid window vs. Repeat dopplers today and if stable proceeding with ongoing monitoring, with ultimately latest delivery being at 37+0 - NPO this morning while still discussing del timing giving possibility of del today ?? Delivery Planning: - breech presentation, would not offer ECV due to size - Signed CS consent - S/p anesthesia consult ?? Hx Asthma: - as was single event, likely ok for hemabate if needed ?? GERD - Tums PRN - Will add pepcid today Global Rh + GBS unk No data recorded Gege Mae MD Obstetrics and Gynecology, PGY-4 Pager #[phone] 03/08/22 6:42 Associated attestation - Víctor Bui MD - 03/08/2022 0950 EST Attending attestation statement: I saw and examined the patient with the resident. I agree with thefindings and plan of care documented in the resident's note. Discussed ongoing plan with patient, will discuss w/ MFM and consider timing of delivery. Made NPO this AM in anticipation of potential delivery pending AM NST and discussion with MFM. Víctor Bui MD * Karen Arevalo RN - 03/07/2022 1130 EST NST Report Baseline Heart Rate: 135 Accelerations: present Movement: present Decelerations: Present - possible variable with poor tracing Contractions: Rare.. Pt felt 1 mild ctx at 1055, lasting 30 seconds. Interpretation: reactive NST [id number]. Pt left on to monitor an extra 10 min after the possible variable. Pt is monitored BID and will have second NST this evening. Co-sign Provider (Physician Name): KAREN AREVALO RN Associated attestation - Theresa Mccauley MD - 03/08/2022 0158 EST I reviewed the above NST. It is reactive. I agree with the assessment. Theresa Mccauley MD Fellow Maternal Medicine 03/08/22 * Gege Mae MD - 03/07/2022 0642 EST Antepartum Progress Note CC: PEC wo SF, FGT HD: 2 Overnight Events: - Admitted after transport, evaluated for PEC, dx with PEC wo SF - FGR confirmed and found to have anhydramnios Subjective: Denies AKBAR, vision changes, RUQ pain, worsening swelling. Denies cx, LOF, VB. Good FM Objective: BP 110/80 (BP Cuff Location: Left arm, BP Patient Position: Supine) Temp 36.4 ??C (97.5 ??F) (Temporal) Resp 20 Ht 157.5 cm (62) Wt 79.4 kg (175 lb) SpO2 99% BMI 32.01 kg/m?? Gen: NAD Resp: CTAB CV: RR Abdomen: Soft, non-tender, gravid Extremities: WWP Labs CBC: Recent Labs 03/06/221921 WBC 16.14* RBC 4.44 HGB 13.5 HCT 38.4 MCV 87 MCH 30.4 MCHC 35.2 PLT 233 BMP: Recent Labs 03/06/221921 CREATININE 0.53 LFT: Recent Labs 03/06/221921 AST 24 ALT 19 Imaging OB US (03/06): 36+1, benson breech, plac fundal, RONDA 0.3cm, EFW 1765 < 1%, AC < 1%, Abn dops with elevated RI Assessment/Plan: 21 y.o. @ 36w2d admitted after transport due to concern for severe preeclampsia and growth restriction. Known dx of gHTN previously, evaluation consistent with PEC without SF. New FGR with anhydramnios concerning for an evolving hypertensive picture, however FHR monitoring is consistently cat I. She was initiated on a BMZ course and transferred to given tracing stability. Intermittently MR BP, other VSS. AUOP. ?? Preeclampsia without SF: - SR BP prior to leaving [facility] and possibly one in transport, unknown if >4 hours apart - New proteinuria, diagnosis at least consistent with preeclampsia without severe features - Serum labs WNL on admission - Denies sx of severe disease - s/p Mag during transport, discontinued on arrival - Upper MR BPs, will continue to monitor closely for s/sx of severe disease ?? FGR/anyhydramnios/FWB: - dx at 36+1 today at [facility] - Cat 1 FHT on arrival - S/p BMZ 03/06 @ 1400 today, second dose today - S/p NICU consult - Will likely move toward delivery at completion of the BMZ window, would deliver sooner if concernon NST's ?? Delivery Planning: - breech presentation, would not offer ECV due to size - Signed CS consent - S/p anesthesia consult ?? Hx Asthma: - as was single event, likely ok for hemabate if needed ?? Global Rh + GBS unk No data recorded Gege Mae MD Obstetrics and Gynecology, PGY-4 Pager #[phone] 03/07/22 6:42 Associated attestation - Theresa Mccauley MD - 03/07/20222123 EST I saw and examined the patient and reviewed her vitals and labs on 03/07/22. I agree with the findings and plan of care as documented in Dr Mae's note. 21 y.o. at 36w2d gestation admitted with PreE w/o SF and FGR. We discussed continued inpatient monitoring of blood pressures. Given normal labs and normal to low mild blood pressures will not repeat serum labs today. Asymptomatic at this time of preE symptoms. Completed BMZ course today. Tentative plan for repeat UA dopplers tomorrow or Wednesday. Discussed delivery at 37 weeks if not sooner via section given current breech presentation. Theresa Mccauley MD Obstetrics/Gynecology * Mary Kate Wolfe MD - 03/07/2022 0031 EST OB Update Note Pt feeling well. BP stable normotensive to low MR for several hours. Serum labwork WNL, UPC 0.45. FHT Cat I for several hours. At this point, stable for transfer to for continued monitoring until delivery. - q4 hr vitals - continue lab 100mg BID - strict Is/Os - q8 doptones, daily NST - Labs PRN - BMZ #2 ordered for tomorrow Mary Kate Wolfe MD 03/07/22 0:34 OBGYN PGY-2 Pager #[phone] * Yolanda Rea RN - 03/06/20221947 EST Assumed care of patient from [facility] San at 1915 Patient transferred from [facility] for PEC w/u and FGR. RONDA also known to be low. SRBP noted at [facility] prior to transfer. The patient was given first dose of BMZ at 1345 along with a 4g Mg bolus at 1350. Pt arriving via ambulance at 1850 Normal movement per patient. Patient reports some squiggly lines here and there with vision, but notes feeling anxious. Denies AKBAR or VB, but does report that overnight on Wednesday she woke up with a large amount of clear fluid on her bed and was unsure if she had incontinence. Also reportsheartburn at this time. Denies RUQ pain. She is havign some cramping - feeling it tight at fundus. 2004 Pt to bay with MD Parikh. 2104 US complete. RONDA 0.3. Pt thinks she had a gush of fluid during US. MD Valencia applied nitrizine paper to r/o PROM and nitrizine paper was negative. Pt cleared to eat. 2244 Anesthesia at bedside to consult. 0020 pt given clearance to transfer to [facility]. 005 Patient transferred to [facility] with all of her belongings. Bedside report given to RN. * Mena Kaur RN - 03/06/2022 184 EST Pt arrived to R 11 via transport from [facility] at 36+1 with dx of GHTN and FGR. Pt to the bathroom to void, instructions given for UA, changing into gown. [address] Wolfe to the bedside for eval and US 1915 IV started, labs drawn and sent. \19:20 GBS collected by MD Wolfe 1930 Report to Yolanda Walden RN documented in this encounter H&P Notes * Miranda Valencia MD - 03/06/2022 1847 EST Department of Obstetrics History & Physical Admit Date: 03/06/2022 Chief Complaint Patient presents with ??? Hypertension Admission indication: Other (comment) Maternal transport/Outside delivery: Yes Patient transported from: hospital Sending hospital name: [facility] Sending provider name: [facility] HPI: Rachel Rios is a 21 y.o. at 36w1d presenting as transport due to concern for preeclampsia and new growth restriction and oligohydramnios. Currently she is feeling well. Denies contractions, LOF, VB. +FM. Denies headache, vision changes, SOB, RUQ pain. complicated by: - hx of ruptured ectopic - hx of non-ruptured appendectomy - hx of TBI - hx of mild asthma, single event as child - anxiety Review of Systems: see above Current Complications: Diabetes: None Hypertension: Preeclampsia w/o severe features Pulmonary disease: Asthma Psychiatric disease: Anxiety Substance abuse: None Infection during current : None Testing: Dx requiring follow-up: Breech Medication Exposure: No data recorded Labs: Rh +/ Antibody screen neg / Rubella imm / Varicella unk / RPR neg / Gonorrhea neg / Chlamydia neg / Hepatitis B neg / Hepatitis C neg / HIV neg / 1hr GTT unk / 3hr GTT unk / GBS unk Ultrasound 36+1: breech, EFW 3 lb 7 oz, <3%ile, AC measuring 31 wk, oligo 0.78 cm OB History Para Term AB Living 3 2 SAB IAB Ectopic Multiple Live Births 1 # Outcome Date GA Lbr Román/2nd Weight Sex Delivery Anes PTL Lv 3 Current 2 Ectopic 1 AB Previous Complications: No data recorded Past Medical History Past Surgical History Past Medical History: Diagnosis Date ??? Fracture of temporal bone with routine healing 12/27/2016 Status post fall from horse ??? 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 ([facility] ([facility])12/27/2016 Subdural hemorrhage, right parietal skull fracture, suspected diffuse axonal injury Past Surgical History: Procedure Laterality Date ??? APPENDECTOMY ??? SALPINGECTOMY ruptured ectopic Past Gynecological History Social History See above Social History Tobacco Use ??? Smoking status: Never ??? Smokeless tobacco: Never Substance Use Topics ??? Alcohol use: No reports no history of drug use. Medications Allergies Medications Prior to Admission Medication Sig Dispense Refill Last Dose ??? acetaminophen (TYLENOL) 650 mg/20.3 mL solution Take 20.3 mL by mouth every 4 hours as needed for Pain. ??? ibuprofen (MOTRIN) 400 mg tablet Take 1 Tab by mouth every 4 hours. 40 Tab 0 ??? oxyCODONE (ROXICODONE) 5 mg immediate release tablet Take 1 Tab by mouth every 6 hours as needed for Pain. Daily Max: 20 mg 10 Tab 0 ??? traZODone (DESYREL) 50 mg tablet Take 0.5 Tabs by mouth at bedtime. 20 Tab 0 Allergies Allergen Reactions ??? Bactrim [Sulfamethoprim] Hives per patient and step mother ??? Penicillins Hives per step mother Objective: Weights Weight : 79.4 kg (175 lb) Patient Vitals for the past 8 hrs: BP Heart Rate Resp Temp SpO2 03/06/22 1948 (!) 132/94 82 BPM 16 -- -- 03/06/22 185 (!) 149/99 85 BPM 16 36.1 ??C (97 ??F) 99 % General: NAD Cardiovascular: RRR Respiratory: CTAB Abdomen: soft, gravid Extremities: WWP Physical Presentation: Breech FHT: 130 baseline. mod variability, + accels, no decels; Cat I tracing. TOCO: 2-3 in 10 min SSE: deferred SVE: deferred Recent Labs 03/06/221921 WBC 16.14* HCT 38.4 HGB 13.5 PLT 233 CREATININE 0.53 ALT 19 AST 24 URICACID 6.5 LDH 189 Latest Reference Range & Units 03/06/22 19:24 UPRO mg/mg Cr, Ur <0.30 mg/mg Creatinine 0.45 (H) (H): Data is abnormally high Assessment/Problems/Plan: Rachel Rios is a 21 y.o. at 36w1d presenting as transport due to concern for severe preeclampsia and growth restriction. MR BP on arrival with normal labs except new proteinuria. Cat 1 FHT. Preeclampsia: - SR BP prior to leaving [facility] and possibly one in transport, unknown if >4 hours apart - New proteinuria, diagnosis at least consistent with preeclampsia without severe features - Serum labs WNL on admission - Denies sx of severe disease - s/p Mag during transport, discontinued on arrival - Upper MR BPs, will continue to monitor closely for s/sx of severe disease FGR/FWB: - dx at 36+1 today at [facility] - Cat 1 FHT on arrival - Repeat routine anatomy scan now with dopplers, if abnormal dopplers, may need delivery - BMZ given at 1400 today, ordered for #2 - Peds consult pending US results - Repeat dopplers in 2-3 days Delivery Planning: - breech presentation, would not offer ECV due to size - will sign CS consent - anesthesia consult Hx Asthma: - as was single event, likely ok for hemabate if needed Global Rh + GBS unk No data recorded Discussed with Dr. Valencia. MAXINE WALLS MD 03/06/2022 20:11 Attestation: I performed or was present during the leigh or critical portions of the visit and participated in the management of the patient on 03/06/2022. I agree with the findings and plan of care documented in the resident's/fellow's note. Blood pressures only mildly elevated on arrival here. Magnesium sulfate discontinued. HELLP labs normal with P:C 0.45--discussed presentation c/w preeclampsia--no documentation of sustained severe HTN at [facility], but discussed if develops recurrent severe HTN, would move to delivery. Fetus breech with severe FGR <1% (EFW 1765 g) and anhydramnios. Umbilical artery dopplers with elevated resistance--single screen of AEDF, but could not reproduce with multiple measurements. +bladder. No clinical signs of ROM--tested vaginal discharge during US with nitrazine paper and was negative. Cat 1 FHTs. Will follow BPs closely, continue BMZ series. Low threshold to move to delivery if any signs of progressing disease or distress. If has larger gush of fluid, would perform SSE to assess for PROM. Discussed would absolutely not expectantly manage past 37w0d, and highly likely to need delivery in next 24-48 hours. Recommend inpatient management until delivery. Miranda Valencia MD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 [facility] [address] [place] [address] * CREATININE (03/09/2022 10:21 EST) Creatinine 0.62 0.52 - 1.04 mg/dL 03/09/2022 11:39 EST [facility] eGFR 130 >60 mL/min/1.73 m2 03/09/2022 11:39 EST [facility] Blood VENOUS BLOOD / Unknown Venipuncture / Unknown 03/09/2022 10:21 EST 03/09/2022 11:10 EST Mary Kate Scott MD CHEMISTRY & BLOOD GA S ORDERABLES Performing Organization Address City/[facility]/ZIP Co de Phone Number [facility] [address] [place] [address] * (ABNORMAL) LDH (03/09/2022 10:21 EST) LDH 278(H) 120 - 246 U/L 03/09/2022 11:39 EST [facility] Blood VENOUS BLOOD / Unknown Venipuncture / Unknown 03/09/2022 10:21 EST 03/09/2022 11:10 EST Mary Kate Scott MD CHEMISTRY & BLOOD GA S ORDERABLES Performing Organization Address City/[facility] Co de Phone Number [facility] [address] [place] [address] * VARICELLA IGG ANTIBODY (03/09/2022 10:21 EST) Varicella IgG Ab Positive See Note 03/09/2022 13:14 EST [facility] Comment:Presence of detectab le Varicella Zoster virus IgG antibodies. Blood VENOUS BLOOD / Unknown Venipuncture / Unknown 03/09/2022 10:21 EST 03/09/2022 11:10 EST Gege Mae MD IMMUNOLOGY AND SEROL DELORIS ORDERABLES [facility] [address] [place] [address] * (ABNORMAL) COMPLETE BLOOD COUNT (03/09/2022 10:20 EST) WBC 19.48(H) 4.00 - 12.40 K/cmm 03/09/2022 11:16 [facility] RBC 4.31 3.86 - 5.04 M/cmm 03/09/2022 11:16 [facility] Hemoglobin 12.9 11.6 - 15.2 gm/dL 03/09/2022 11:16 [facility] HCT 37.1 34.9 - 44.4 % 03/09/2022 11:16 [facility] MCV 86 81 - 98 fl 03/09/2022 11:16 [facility] MCH 29.9 26.7 - 33.3 pg 03/09/2022 11:16 [facility] MCHC 34.8 32.1 - 35.9 gm/dL 03/09/2022 11:16 [facility] RDW-CV 12.5 <14.7 % 03/09/2022 11:16 [facility] RDW-SD 39.4 <50.4 fl 03/09/2022 11:16 [facility] PLT 261 141 - 377 K/cmm 03/09/2022 11:16 [facility] MPV 10.1 9.5 - 12.7 fl 03/09/2022 11:16 [facility] Blood VENOUS BLOOD / Unknown Venipuncture / Unknown 03/09/2022 10:20 EST 03/09/2022 11:10 EST Gege Mae MD HEMATOLOGY & PF4 ORD ERABLES [facility] [address] [place] [address] * SURGICAL PATHOLOGY (03/08/2022 14:19 [facility]) Note to Patient The following pathology results have been interpreted by your pathologist and may be available to you before your health provider has had the opportunity to review them. Please allow time for your provider to receive these results and explore management options, if applicable. 03/19/2022 15:13 [facility] Final Diagnosis A. PLACENTA: Macario placenta, 314 grams (<10th %ile for 36 and 3/7 weeks gestational age). Disc: - Maternal vascular malperfusion: small placenta by weight (if complete), accelerated villous maturation, chorangiosis, normoblastemia, placental infarct, villous agglutination, decidual arteriopathy, increased perivillous fibrin, and septal thrombus. Membranes: - Decidual arteriopathy. Umbilical cord: - 3 vessels. - No significant histopathologic changes. 03/19/2022 15:13 [facility] Attestation By the signature below, the attending physician certifies that they have 1) personally conducted a gross and/or microscopic examination of the described specimen(s), and/or personally interpreted the results of laboratory testing of the described specimen(s), and 2) personally rendered or confirmed the above diagnosis. 03/19/2022 15:13 [facility] at 1513 Clinical History FGR less than 1st % and anhydramnios 36+3 weeks; breech 03/19/2022 15:13 [facility] Gross Description A. Received fresh labelled with proper patient identification (initials W, K) and 1. Placenta 36+ 3, 233 KS W is an intact macario placenta. There is an 8.0 cm in length by 1.0 cm in diameter attached, three vessel white focally blue umbilical cord. It demonstrates paracentral insertion 5.0 cm from the nearest disc margin. There are 2 coils on this segment of cord. The membranes are complete, light ponce, translucent, smooth, with marginate insertion. The point of rupture is 7.0 cm from the disc margin. The disk is 314 g (trimmed, formalin fixed), 16.0 x 14.0 x 3.0 cm and ovoid. One side of the placenta has a thin area which measures 7.0 cm in width by 2.5 cm from placental margin towards center with a thickness ranging from 1.5 cm to 0.5 cm. The opposite side of the placenta has a thin area at the placental margin that measures 9.0 cm in width by 4.0 cm from placental margin towards center with a thickness ranging from 1.1 cm to 0.6 cm. These 2 thin areas comprise roughly 1/6th of the total placental tissue. The surface is blue-mckeon focally pale ponce-white with a magistral vascular pattern. There are no lesions present on the surface. The maternal surface is blue-mckeon focally ponce-white with an intact and complete basal plate. There is a small amount of adherent blood clot. There is no indentation. The cut surface of the placental parenchyma is spongy and beefy red-brown. There are several scattered firm white focally red and ponce-red areas, 2 of which are in the thin portions of the placenta while the remaining areas are in the outer 1/3 of the placenta. These areas range from 2.5 cm to 0.5 cm in greatest dimension and comprise no greater than 5% of the total placental tissue. [employer] sections are submitted as follows: BLOCK LEIGH A1- membrane roll and cross-section of end of cord A2- membrane roll and cross-section of cord 5 cm from insertion site A3- full thickness outer 1/3 placental disc adjacent to umbilical cord insertion site A4- full-thickness central 2/3 placental disc A5- full-thickness central 2/3 placental disc A6- full-thickness outer 1/3 placental disc including firm white focally red area SAEID MURPHY(ASCP) 03/11/2022 9:01 03/19/2022 15:13 [facility] Performing Lab [facility] 15:13 [facility] Scanned Images 03/19/2022 15:13 [facility] Tissue PLACENTAL STRUCTURE / Unknown 03/08/2022 14:19 EST 03/10/2022 8:50 EST Comment:Pre-op diagnosis: FG R less than 1st % and anhydramnios 36+3 weeks Breech Víctor Bui MD PATHOLOGY ORDERABL ES [facility] [address] [place] [address] * (ABNORMAL) COMPLETE BLOOD COUNT (03/08/2022 12:23 EST) WBC 19.45(H) 4.00 - 12.40 K/cmm 03/08/2022 12:38 [facility] RBC 4.03 3.86 - 5.04 M/cmm 03/08/2022 12:38 [facility] Hemoglobin 12.0 11.6 - 15.2 gm/dL 03/08/2022 12:38 [facility] HCT 35.5 34.9 - 44.4 % 03/08/2022 12:38 [facility] MCV 88 81 - 98 fl 03/08/2022 12:38 [facility] MCH 29.8 26.7 - 33.3 pg 03/08/2022 12:38 [facility] MCHC 33.8 32.1 - 35.9 gm/dL 03/08/2022 12:38 [facility] RDW-CV 12.5 <14.7 % 03/08/2022 12:38 [facility] RDW-SD 40.0 <50.4 fl 03/08/2022 12:38 [facility] PLT 253 141 - 377 K/cmm 03/08/2022 12:38 [facility] MPV 9.9 9.5 - 12.7 fl 03/08/2022 12:38 [facility] Blood VENOUS BLOOD / Unknown Venipuncture / Unknown 03/08/2022 12:23 EST 03/08/2022 12:29 EST Gege Mae MD HEMATOLOGY & PF4 ORD ERABLES [facility] [address] [place] [address] * COVID-19 TEST [facility] PCR (03/06/2022 22:02 EST) Swab BOTH ANTERIOR NARES / Unknown Swab / Unknown 03/06/2022 22:02 EST 03/06/2022 22:18 EST Miranda Valencia MD MICROBIOLOGY - GE NERAL ORDERABLES Performing Organization Address [facility] Co de Phone Number [facility] [address] [place] [address] * COVID-19 TESTING (03/06/2022 22:02 EST) COVID-19 rt-PCR Result Negative Negative 03/07/2022 2:27 EST [facility] Comment: This test has not been FDA cleared or approved. This test has been authorized by FDA under an EUA for use by authorized laboratories. This test has been authorized only for detection of nucleic acid from 2019-nCoV, not for any other viruses or pathogens. This test is only authorized for the duration of the declaration that circumstances exist justifying the authorization of emergency use of in vitro diagnostic tests for detection and/or diagnosis of 2019-nCoV under section 564(b)(1) of Act, 21 U.S.C ?? 360bbb-3(b) (1), unless the authorization is terminated or revoked sooner. Negative results do not preclude 2019-nCoV infection and should not be used as the sole basis for treatment or other patient management decisions. Negative results must be combined with clinical observations, patient history, and epidemiological information. Performed on the Canburgher Fusion instrument Performing Lab [place] [facility] 03/07/2022 2:27 EST [facility] Swab BOTH ANTERIOR NARES / Unknown Swab / Unknown 03/06/2022 22:02 EST 03/06/2022 22:18 EST Miranda Valencia MD MICROBIOLOGY - GE NERAL ORDERABLES Performing Organization Address [facility] Co de Phone Number [facility] [address] [place] [address] * POC LD US ROUTINE 2ND TRIMESTER OB (03/06/2022 21:39 EST) Anatomical Region Laterality Modality Ultrasound 03/06/2022 20:1 2 EST Narrative 03/07/2022 4:06 EST Indication ======== FGR, Amniotic fluid: oligohydramnios Preeclampsia ========= Number of fetuses: 1 Dating ====== Method of dating: ??based on the LMP LMP on: ?06/26/2021 GA by LMP ??36 w + 1 d RAMIRO by LMP : ? 04/02/2022 Ultrasound examination on: 03/06/2022 GA by U/S based upon: ??AC, BPD, Femur, HC GA by U/S ??31 w + 4 d RAMIRO by U/S: ?05/04/2022 Assigned: ??based on the LMP, selected on 03/06/2022 Assigned GA ?36 w + 1 d Assigned RAMIRO: ??04/02/2022 General Evaluation Cardiac activity Present. FHR 131 bpm. movements: visualized. Presentation: benson breech, spine anterior Placenta: Fundal Umbilical cord: Cord vessels: 3 vessel cord. Insertion site: placental insertion: poorly seen Amniotic fluid: Amount of AF: normal. MVP 0.3 cm. RONDA 0.3 cm. Q1 0.0 cm, Q2 0.0 cm, Q3 0.3 cm, Q4 0.0 cm Biometry Standard BPD ?79.5 mm 31w 6d <1% Hadlock OFD ?109.0 mm ?36w 0d 47% Rafael HC 292.0 mm ?31w 3d 1% Chervenak Cerebellum tr ??42.6 mm 34w 4d 45% Camp AC 264.7 mm ?30w 4d <1% Hadlock Femur ??62.6 mm 32w 2d 1% Rafael Humerus ?54.2 mm 31w 4d <1% Rafael HC / AC ?1.10 EFW ?1,765 g ??<1% Melgar EFW (lb) ?? 3 lb EFW (oz) ?? 14 oz EFW by: ?Hadlock ([id number]) Head / Face / Neck Cephalic index 0.73 ? <1% Nicolaides Extremities / Bony Struc FL / BPD ?? 0.79 FL / HC ?0.21 FL / AC ?0.24 Other Structures FHR ?131 bpm Anatomy Cranium: ?? normal Lateral ventricles: ?normal Choroid plexus: ?normal Midline falx: ??normal Cavum septi pellucidi: normal Cerebellum: ?normal Cisterna magna: ?normal Lips: ??not adequately visualized 4-chamber view: ?normal RVOT view: normal LVOT view: normal 3-vessel view: normal 6-lsrlob-mnnknat view: normal Cord insertion: ?not adequately visualized Stomach: ?? normal Kidneys: ?? normal Bladder: ?? normal Abdomen Abdom. wall: ?? not adequately visualized Cervical spine: ?normal Thoracic spine: ?normal Lumbar spine: ??normal Sacral spine: ??not adequately visualized Arms: ??not adequately visualized Legs: ??not adequately visualized sex: unreported Wants to know sex: ?? no Doppler Arterial Umbilical A PI 1.39 ? >99% Niraj Umbilical A RI 0.76 ? 99% Niraj Umbilical A PS 34.01 cm/s ?? 2% Ebbing Umbilical A ?ED ?8.04 cm/s Umbilical A TAmax ??18.69 cm/s ?? <1% Ebbing Umbilical A MD 7.89 cm/s Umbilical A S / D ??4.25 ? >99% Niraj Umbilical A HR 128 bpm Impression: ?Abnormal Doppler study Maternal Structures Uterus / Cervix Uterus: ?Appears normal Cervix: ?Appears normal Ovaries / Tubes / Adnexa Rt ovary: ??Visualized, normal appearance Lt ovary: ??Visualized, normal appearance Method ====== Voluson E10, Transabdominal ultrasound examination. View: Limited by low amniotic fluid volume and position Impression ========= [id number] Obstetrical ultrasound with and maternal evaluation This is a macario gestation. Biometry is lagging menstrual dating by nearly 5 weeks. EFW <1%, AC <1%. The lip/nose, extremities, distal spine and umbilical cord insertion are poorly seen due to position and low fluid. Otherwise, anatomy appears normal as noted above; however, ultrasound cannot detect all anomalies. There is trunk and extremity movement noted. There is severe oligohydramnios, with only one measurable pocket of 0.3 cm. [id number] Umbilical artery Doppler study Doppler waveforms of the umbilical artery are abnormal, with increased resistance (RI 99%). There was a single set of waveforms with absent end-diastolic flow, but this could not be reproduced despite multiple measurements. Follow-up ======== Inpatient admission. DATE OF SERVICE: 03/06/2022 Procedure Note Miranda Valencia MD - 03/07/2022 Indication ======== FGR, Amniotic fluid: oligohydramnios Preeclampsia ========= Number of fetuses: 1 Dating ====== Method of dating: based on the LMP LMP on: 06/26/2021 GA by LMP 36 w + 1 d RAMIRO by LMP : 04/02/2022 Ultrasound examination on: 03/06/2022 GA by U/S based upon: AC, BPD, Femur, HC GA by U/S 31 w + 4 d RAMIRO by U/S: 05/04/2022 Assigned: based on the LMP, selected on 03/06/2022 Assigned GA 36 w + 1 d Assigned RAMIRO: 04/02/2022 General Evaluation Cardiac activity Present. FHR 131 bpm. movements: visualized.Presentation: benson breech, spine anterior Placenta: Fundal Umbilical cord: Cord vessels: 3 vessel cord. Insertion site: placentalinsertion: poorly seen Amniotic fluid: Amount of AF: normal. MVP 0.3 cm. RONDA 0.3 cm. Q1 0.0 cm,Q2 0.0 cm, Q3 0.3 cm, Q4 0.0 cm Biometry Standard BPD 79.5 mm 31w 6d <1% Hadlock OFD 109.0 mm 36w 0d 47% Rafael HC 292.0 mm 31w 3d 1% [place] Cerebellum tr 42.6 mm 34w 4d 45% Camp AC 264.7 mm 30w 4d <1% Hadlock Femur 62.6 mm 32w 2d 1% Rafael Humerus 54.2 mm 31w 4d <1% Rafael HC / AC 1.10 EFW 1,765 g <1% Melgar EFW (lb) 3 lb EFW (oz) 14 oz EFW by: Hadlock ([id number]) Head / Face / Neck Cephalic index 0.73 <1% Nicolaides Extremities / Bony Struc FL / BPD 0.79 FL / HC 0.21 FL / AC 0.24 Other Structures FHR 131 bpm Anatomy Cranium: normal Lateral ventricles: normal Choroid plexus: normal Midline falx: normal Cavum septi pellucidi: normal Cerebellum: normal Cisterna magna: normal Lips: not adequately visualized 4-chamber view: normal RVOT view: normal LVOT view: normal 3-vessel view: normal 0-lcltkg-lhopsxt view: normal Cord insertion: not adequately visualized Stomach: normal Kidneys: normal Bladder: normal Abdomen Abdom. wall: not adequately visualized Cervical spine: normal Thoracic spine: normal Lumbar spine: normal Sacral spine: not adequately visualized Arms: not adequately visualized Legs: not adequately visualized sex: unreported Wants to know sex: no Doppler Arterial Umbilical A PI 1.39 >99% Niraj Umbilical A RI 0.76 99% Niraj Umbilical A PS 34.01 cm/s 2% Ebbing Umbilical A ED 8.04 cm/s Umbilical A TAmax 18.69 cm/s <1% Ebbing Umbilical A MD 7.89 cm/s Umbilical A S / D 4.25 >99% Niraj Umbilical A HR 128 bpm Impression: Abnormal Doppler study Maternal Structures Uterus / Cervix Uterus: Appears normal Cervix: Appears normal Ovaries / Tubes / Adnexa Rt ovary: Visualized, normal appearance Lt ovary: Visualized, normal appearance Method ====== Voluson E10, Transabdominal ultrasound examination. View: Limited by lowamniotic fluid volume and position Impression ========= [id number] Obstetrical ultrasound with and maternal evaluation This is a macario gestation. Biometry is lagging menstrual dating by nearly 5 weeks. EFW <1%, AC <1%. The lip/nose, extremities, distal spine and umbilical cord insertion arepoorly seen due to position and low fluid. Otherwise, anatomyappears normal as noted above; however, ultrasound cannot detect all anomalies. There is trunk and extremity movement noted. There is severeoligohydramnios, with only one measurable pocket of 0.3 cm. [id number] Umbilical artery Doppler study Doppler waveforms of the umbilical artery are abnormal, with increasedresistance (RI 99%). There was a single set of waveforms with absentend-diastolic flow, but this could not be reproduced despite multiple measurements. Follow-up ======== Inpatient admission. DATE OF SERVICE: 03/06/2022 Mary Kate Scott MD [facility] ORDERABLES * GROUP B STREP PCR (03/06/2022 20:14 EST) [facility] Group B Strep PCR Negative Negative 03/08/2022 12:37 EST [facility] Swab POOLED SPECIMEN FROM VAGINAL INTROITUS AND RECTAL SWAB / Unknown Swab / Unknown 03/06/2022 20:14 EST 03/06/2022 22:12 EST Mary Kate Scott MD MICROBIOLOGY - [facility] ORDERABLES [facility] [address] [place] [address] * (ABNORMAL) FIBRINOGEN (03/06/2022 20:14 EST) [facility] Fibrinogen 688(H) 171 - 384 mg/dL 03/06/2022 20:51 EST [facility] Blood VENOUS BLOOD / Unknown Venipuncture / Unknown 03/06/2022 20:14 EST 03/06/2022 20:33 EST Mary Kate Scott MD HEMATOLOGY & PF4 ORD ERABLES Performing Organization Address [facility] Co de Phone Number [facility] [address] [place] [address] * (ABNORMAL) PRE-ECLAMPSIA PROTEIN/CREATININE RATIO, URINE (03/06/2022 19:24 EST) Total Protein, Urine 19 See Note mg/dL 03/06/2022 19:53 EST [facility] Comment:Reference range not established. Creatinine, Urine 42.3 See Note mg/dL 03/06/2022 19:53 EST [facility] Comment:Reference range not established. Pre-Eclampsia Protein/Creat inine Ratio, Urine 0.45(H) <0.30 mg/mg Creatinine 03/06/2022 19:53 EST [facility] Urine URINE / Unknown Urine Collect / Unknown 03/06/2022 19:24 EST 03/06/2022 19:35 EST Mary Kate Scott MD URINALYSIS ORDERABLE S Performing Organization Address [facility] Co de Phone Number [facility] [address] [place] [address] * ALT (03/06/2022 19:22 EST) ALT 19 <35 U/L 03/06/2022 19:55 EST [facility] Blood VENOUS BLOOD / Unknown Venipuncture / Unknown 03/06/2022 19:22 EST 03/06/2022 19:35 EST Mary Kate Scott MD CHEMISTRY & BLOOD GA S ORDERABLES Performing Organization Address [facility] Co de Phone Number [facility] [address] [place] [address] * AST (03/06/2022 19:22 EST) AST 24 15 - 46 U/L 03/06/2022 19:55 EST [facility] Blood VENOUS BLOOD / Unknown Venipuncture / Unknown 03/06/2022 19:22 EST 03/06/2022 19:35 EST Mary Kate Scott MD CHEMISTRY & BLOOD GA S ORDERABLES Performing Organization Address City/[facility] Co de Phone Number [facility] [address] [place] [address] * CREATININE (03/06/2022 19:22 EST) Creatinine 0.53 0.52 - 1.04 mg/dL 03/06/2022 19:55 EST [facility] eGFR 135 >60 mL/min/1.73 m2 03/06/2022 19:55 EST [facility] Blood VENOUS BLOOD / Unknown Venipuncture / Unknown 03/06/2022 19:22 EST 03/06/2022 19:35 EST Mary Kate Scott MD CHEMISTRY & BLOOD GA S ORDERABLES Performing Organization Address [facility] Co de Phone Number [facility] [address] [place] [address] * URIC ACID (03/06/2022 19:22 EST) Uric Acid 6.5 2.2 - 7.7 mg/dL 03/06/2022 19:55 EST [facility] Blood VENOUS BLOOD / Unknown Venipuncture / Unknown 03/06/2022 19:22 EST 03/06/2022 19:35 EST Mary Kate Scott MD CHEMISTRY & BLOOD GA S ORDERABLES Performing Organization Address [facility] Co de Phone Number [facility] [address] [place] [address] * LDH (03/06/2022 19:22 EST) LDH 189 120 - 246 U/L 03/06/2022 19:55 [facility] Blood VENOUS BLOOD / Unknown Venipuncture / Unknown 03/06/2022 19:22 EST 03/06/2022 19:35 EST Mary Kate Scott MD CHEMISTRY & BLOOD GA S ORDERABLES [facility] [address] [place] [address] * (ABNORMAL) COMPLETE BLOOD COUNT (03/06/2022 19:22 EST) WBC 16.14(H) 4.00 - 12.40 K/cmm 03/06/2022 19:48 [facility] RBC 4.44 3.86 - 5.04 M/cmm 03/06/2022 19:48 [facility] Hemoglobin 13.5 11.6 - 15.2 gm/dL 03/06/2022 19:48 [facility] HCT 38.4 34.9 - 44.4 % 03/06/2022 19:48 [facility] MCV 87 81 - 98 fl 03/06/2022 19:48 [facility] MCH 30.4 26.7 - 33.3 pg 03/06/2022 19:48 [facility] MCHC 35.2 32.1 - 35.9 gm/dL 03/06/2022 19:48 [facility] RDW-CV 12.7 <14.7 % 03/06/2022 19:48 [facility] [facility] RDW-SD 39.1 <50.4 fl 03/06/2022 19:48 [facility] PLT 233 [id number] - 377 K/cmm 03/06/2022 19:48 [facility] MPV 9.9 9.5 - 12.7 fl 03/06/2022 19:48 [facility] Blood VENOUS BLOOD / Unknown Venipuncture / Unknown 03/06/2022 19:22 EST 03/06/2022 19:35 EST Mary Kate Scott MD HEMATOLOGY & PF4 ORD ERABLES Performing Organization Address City/[facility] Co de Phone Number [facility] [address] [place] [address] * TYPE AND SCREEN (03/06/2022 19:21 EST) ABO A 03/06/2022 20:14 EST [facility] Rh Factor Positive 03/06/2022 20:14 EST [facility] Antibody Screen Negative 03/06/2022 20:14 EST [facility] Specimen Expires: 03/09/2022 @ 23:59 03/06/2022 20:14 EST [facility] Blood VENOUS BLOOD / Unknown Venipuncture / Unknown 03/06/2022 19:21 EST 03/06/2022 19:36 EST Miranda Valencia MD BLOOD BANK TESTS Performing Organization Address [facility] Co de Phone Number [facility] [address] [place] [address] documented in this encounter Visit Diagnoses Diagnosis Pre-eclampsia in third trimester- Primary Mild or unspecified pre-eclampsia, antepartum Poor growth affecting management of mother in third trimester, single or unspecified fetus Anhydramnios in third trimester, single or unspecified fetus Breech presentation, single or unspecified fetus Pre-eclampsia in third trimester Mild or unspecified pre-eclampsia, antepartum Breast feeding problem in Feeding problems in Poor growth affecting management of mother in third trimester Antepartum anhydramnios in third trimester Breech presentation, no version Breech presentation without mention of version, unspecified as to episode of care documented in this encounter Admitting Diagnoses Diagnosis Preeclampsia, severe, third trimester documented in this encounter Administered Medications Inactive Administered Medications - up to 3 most recent administrations Medication Order MAR Action Action Date Dose Rate Site acetaminophen (TYLENOL) tablet 1,000 mg 1,000 mg, oral, EVERY 8 HOURS, First dose on 03/08/22 at 2300, Until Discontinued, Routine Given 03/12/2022 14:00 EST 1,000 mg Given 03/12/2022 4:26 EST 1,000 mg Given 03/11/2022 20:33 EST 1,000 mg betamethasone (CELESTONE SOLUSPAN) 6 mg/mL injection 12 mg 12 mg, intramuscular, EVERY 24 HOURS, 1 dose, First dose on 03/07/22 at 1400, Routine Given 03/07/2022 13:53 EST 12 mg calcium carbonate (TUMS) tablet 500 mg (200 mg elemental calcium) 2 Tablet 2 Tablet, oral, 4 TIMES DAILY PRN, Starting on 03/07/22 at 0031, Until Wed03/08/22 at 1700, Heartburn, Routine, Release Given 03/08/2022 5:26 EST 2 Tablets Given 03/08/2022 1:01 EST 2 Tablets Given 03/07/2022 8:58 EST 2 Tablets diphenhydrAMINE (BENADRYL) capsule 25 mg 25 mg, oral, EVERY 6 HOURS PRN, Starting on Wed03/08/22 at 1700, Until Wed03/12/22 at 1619, Itching, nausea/vomiting, Routine diphenhydrAMINE (BENADRYL) injection 12.5 mg 12.5 mg, intravenous, EVERY 6 HOURS PRN, Starting on Wed03/08/22 at 1700, Until Wed03/12/22 at 1619, Itching, nausea/vomiting, Routine diphenhydrAMINE (BENADRYL) injection 12.5 mg 12.5 mg, intramuscular, EVERY 6 HOURS PRN, Starting on Wed03/08/22 at 1700, Until Wed03/12/22 at 1619, Itching, nausea/vomiting, Routine famotidine (PEPCID) injection 20 mg 20 mg, intravenous, 2 TIMES DAILY, First dose on Wed03/08/22 at 0945, Until Discontinued, Routine Given 03/08/2022 9:59 EST 20 mg hydrOXYzine (ATARAX) tablet 50 mg 50 mg, oral, 4 TIMES DAILY PRN, Starting on Wed03/08/22 at 1735, Until Wed03/12/22 at 1619, Itching, Routine ibuprofen (MOTRIN) tablet 800 mg 800 mg, oral, EVERY 8 HOURS, First dose on Wed03/09/22 at 1700, Until Discontinued, Routine Given 03/12/2022 14:00 EST 80 0 mg Given 03/12/2022 4:26 EST 800 mg Given 03/11/2022 20:33 EST 800 mg ketOROLAC (TORADOL) 30 mg/mL (1 mL) injection 1 dose, Starting on Wed03/09/22 at 1112, Until Wed03/09/22 at 1116 ketOROLAC (TORADOL) injection 15 mg 15 mg, intravenous, EVERY 6 HOURS, 3 doses, First dose on Wed03/08/22 at 2100, Last dose on Wed03/09/22 at 0900, Routine Given 03/09/2022 11:16 EST 15 mg Given 03/09/2022 4:31 EST 15 mg Given 03/08/2022 22:16 EST 15 mg labetalol (NORMODYNE) tablet 100 mg 100 mg, oral, EVERY 12 HOURS, First dose on Wed03/06/22 at 2200, Until Discontinued, Routine Given 03/08/2022 9:45 EST 1 00 mg Given 03/07/2022 21:27 EST 100 mg Given 03/07/2022 8:53 EST 100 mg labetalol (NORMODYNE) tablet 200 mg 200 mg, oral, EVERY 12 HOURS, First dose (after last modification) on Wed03/09/22 at 0900, Until Discontinued, Routine Given 03/11/2022 20:36 EST 200 mg Given 03/11/2022 9:47 EST 200 mg Given 03/10/2022 21:19 EST 200 mg labetalol (NORMODYNE) tablet 400 mg 400 mg, oral, EVERY 12 HOURS, First dose (after last modification) on Wed03/12/22 at 0900, Until Discontinued, Routine Given 03/12/2022 9:38 EST 400 mg lactated ringers (LR) infusion at 25 mL/hr, intravenous, CONTINUOUS, Starting on Wed03/09/22 at 1045, Until Wed03/10/22 at 1618, Routine Rate Documented 03/10/2022 7:10 EST 25 mL/h r Rate Documented 03/09/2022 19:44 EST 25 mL/hr New Bag 03/09/2022 9:10 EST 25 mL/hr magnesium sulfate in water 40 gram/1,000 mL (4 %) IVPB pre-mix 1 g/hr (25 mL/hr), intravenous, CONTINUOUS, Starting on Wed03/09/22 at 0915, Until Wed03/10/22 at 0931, Routine Rate Documented 03/10/2022 7:10 EST 1 g/hr 25 mL/h r Rate Change-ICU/L&D Only 03/09/2022 23:57 EST 1 g/hr 2 5 mL/hr Rate Change-ICU/L&D Only 03/09/2022 23:02 EST 1.5 g/hr 3 7.5 mL/hr magnesium sulfate IVPB 4 g 100 mL 4 g, intravenous, Administer over 20 Minutes, NOW X1, 1 dose, On Wed03/09/22 at 0915, STAT Given 03/09/2022 9:11 EST 4 g 300 mL/hr multivitamin vit-iron fumarate-FA (STUARTNATAL) 27 mg iron- 1 mg tablet 1 Tablet 1 Tablet, oral, DAILY, First dose on Wed03/09/22 at 0900, Until Discontinued, Routine Given 03/11/2022 9:47 EST 1 Tablet Given 03/10/2022 9:36 EST 1 Tablet Given 03/09/2022 11:02 EST 1 Tablet nalbuphine (NUBAIN) injection 10 mg 10 mg, intramuscular, EVERY 6 HOURS PRN, Starting on Wed03/08/22 at 1700, Until Wed03/12/22 at 1619, Itching, Routine nalbuphine (NUBAIN) injection 4 mg 4 mg, intravenous, EVERY 3 HOURS PRN, Starting on Wed03/08/22 at 1700, Until Wed03/12/22 at 1619, Itching, Routine NIFEdipine immediate release (PROCARDIA) 10 mg capsule 1 dose, Starting on Wed03/09/22 at 0820, Until Wed03/09/22 at 0822 NIFEdipine immediate release (PROCARDIA) capsule 10 mg 10 mg, oral, NOW X1, 1 dose, On Wed03/09/22 at 0845 Given 03/09/2022 8:22 EST 20 mg ondansetron (PF) (ZOFRAN) injection 4 mg 4 mg, intravenous, EVERY 4 HOURS PRN, Starting on Wed03/08/22 at 1220, Until Wed03/08/22 at 1700, Nausea, Vomiting, itching, pre-op x1, Routine, Release Given 03/08/2022 13:32 EST 4 mg oxyCODONE (ROXICODONE) immediate release tablet 2.5-5 mg 2.5-5 mg, oral, EVERY 4 HOURS PRN, Starting on Wed03/08/22 at 1700, Until Felicia 03/12/22 at 1619, Pain, Routine Given 03/12/2022 14:00 EST 5 mg Given 03/12/2022 10:00 EST 5 mg Given 03/12/2022 2:54 EST 5 mg simethicone (MYLICON) chewable tablet 80 mg 80 mg, oral, EVERY 6 HOURS PRN, Starting on Wed03/10/22 at 1137, Until Wed03/12/22 at 1619, Flatulence, Routine Given 03/10/2022 13:05 EST 80 mg sodium chloride (OCEAN) 0.65 % nasal spray 2 [place] 2 [place], nasal - both, PRN, Starting on Wed03/09/22 at 2333, Until Wed03/12/22 at 1619, Congestion, Routine sodium chloride 0.9 % (flush) flush 5 mL 5 mL, intravenous, EVERY 8 HOURS, First dose on Wed03/08/22 at 1730, Until Discontinued, Routine Given 03/11/2022 23:14 EST 5 mL Given 03/11/2022 15:33 EST 5 mL Given 03/11/2022 9:48 EST 5 mL sodium citrate-citric acid (BICITRA) 500-334 mg/5 mL solution 30 mL 30 mL, oral, PRE-OP ONCE, 1 dose, On Wed03/08/22 at 1245, Routine, Pre-Delivery Given 03/08/2022 13:32 EST 30 mL documented in this encounter Discontinued Medications Medication Sig Discontinue Reason Start Date End Da te acetaminophen (TYLENOL) 650 mg/20.3 mL solution Take 20.3 mL by mouth every 4 hours as needed for Pain. 01/14/2017 03/12/2022 oxyCODONE (ROXICODONE) 5 mg immediate release tablet Take 1 Tab by mouth every 6 hours as needed for Pain. Daily Max: 20 mg 01/14/2017 03/12/2022 traZODone (DESYREL) 50 mg tablet Take 0.5 Tabs by mouth at bedtime. 01/14/2017 03/12/2022 ibuprofen (MOTRIN) 400 mg tablet Take 1 Tab by mouth every 4 hours. 01/14/2017 03/12/2022 multivit-minerals/folic acid (ADULT MULTIVITAMIN GUMMIES ORAL) Take by mouth daily. 03/12/2022 labetalol (NORMODYNE) 100 mg tabletIndications:hyperte nsion Take 100 mg by mouth 2 times daily. 03/12/2022 documented as of this encounter Historical Medications * This list may reflect changes made after this encounter. Medication Sig Dispensed Refills Start Date End Date labetalol (NORMODYNE) 100 mg tabletIndications:hyperten jamie Take 100 mg by mouth 2 times daily. 03/12/2022 multivit-minerals/folic acid (ADULT MULTIVITAMIN GUMMIES ORAL) Take by mouth daily. 03/12/2022 added in this encounter Active and Recently Administered Medications Times are shown in EST. Scheduled Medication Order 03/10/2022 03/11/2022 03/12/2022 acetaminophen (TYLENOL) tablet 1,000 mg 1,000 mg, oral, EVERY 8 HOURS, First dose on Wed03/08/22 at 2300, Until Discontinued, Routine 0143 (Given - Provider: Catherine Oneal RN)0936 (Given - Provider: Carolina Jimenez RN)1832 (Given - Provider: Delmi Hayward RN) 0307 (Given - Provider: Delmi Hayward RN)1056 (Given - Provider: Raina Johnson RN)2032 (Given - Provider: Delmi Hayward RN) 0426 (Given - Provider: Fred Stauffer RN)1000 (Canceled Entry - Provider: Masha Jenkins RN)1400 (Given - Provider: Masha Jenkins RN) ibuprofen (MOTRIN) tablet 800 mg(Linked Group 1) 800 mg, oral, EVERY 8 HOURS, First dose on Wed03/09/22 at 1700, Until Discontinued, Routine 0143 (Given - Provider: Catherine Oneal RN)0936 (Given - Provider: Carolina Jimenez RN)1833 (Given - Provider: Delmi aHyward RN) 0307 (Given - Provider: Delmi Hayward RN)1056 (Given - Provider: Raina Johnson, MONTY)2032 (Given - Provider: Delmi Hayward RN) 0426 (Given - Provider: Fred Stauffer RN)0858 (Not Given - Provider: Masha Jenkins RN - Reason: Order parameters not met)1400 (Given - Provider: Masha Jenkins RN) labetalol (NORMODYNE) tablet 200 mg (CANCELED) 200 mg, oral, EVERY 12 HOURS, First dose (after last modification) on Wed03/09/22 at 0900, Until Discontinued, Routine 0936 (Given - Provider: Carolina Jimenez RN)2118 (Given - Provider: Delmi Hayward, MONTY) 0947 (Given - Provider: Raina Johnson, MONTY)2035 (Given - Provider: Delmi Hayward RN) labetalol (NORMODYNE) tablet 400 mg 400 mg, oral, EVERY 12 HOURS, First dose (after last modification) on Felicia 03/12/22 at 0900, Until Discontinued, Routine 09 (Given - Provider: Masha Jenkins RN) multivitamin vit-iron fumarate-FA (STUARTNATAL) 27 mg iron- 1 mg tablet 1 Tablet 1 Tablet, oral, DAILY, First dose on Wed03/09/22 at 0900, Until Discontinued, Routine 0936 (Given - Provider: Carolina Jimenez RN) 0947 (Given - Provider: Raina Johnson, MONTY) 0900 (Not Given - Provider: Masha Jenkins RN - Reason: Patient/family refused) senna (SENOKOT) tablet 2 Tablet 2 Tablet, oral, AT BEDTIME, First dose on Wed03/08/22 at 2100, Until Discontinued, Routine 2100 (Canceled Entry - Provider: Batch Job User Admin - Comment: Automatically canceled at discontinue of medication order) 2032 (Not Given - Provider: Delmi Hayward RN - Reason: Patient/family refused) sodium chloride 0.9 % (flush) flush 5 mL(Linked Group 2) 5 mL, intravenous, EVERY 8 HOURS, First dose on 03/08/22 at 1730, Until Discontinued, Routine 0202 (Not Given - Provider: Tamara Krishnamurthy RN - Reason: Other - Comment: continuous IVF)0917 (Not Given - Provider: Carolina Jimenez RN - Reason: Order parameters not met)1600 (Canceled Entry - Provider: Batch Job User Admin - Comment: Automatically canceled at discontinue of medication order) 0000 (Canceled Entry - Provider: Batch Job User Admin - Comment: Automatically canceled at discontinue of medication order)0948 (Given - Provider: Raina Johnson, RN)1533 (Given - Provider: Delmi Hayward, RN)2314 (Given - Provider: Delmi Hayward, MONTY) 0800 (Not Given - Provider: Masha Jenkins RN - Reason: Loss of IV access)1600 (Canceled Entry - Provider: Batch Job User Admin - Comment: Automatically canceled at discontinue of medication order) Continuous Medication Order 03/10/2022 03/11/2022 03/12/2022 lactated ringers (LR) infusion (CANCELED) at 25 mL/hr, intravenous, CONTINUOUS, Starting on Wed03/09/22 at 1045, Until Wed03/10/22 at 1618, Routine 0710 (Rate Documented - Provider: Tamara Krishnamurthy RN) magnesium sulfate in water 40 gram/1,000 mL (4 %) IVPB pre-mix ()(Linked Group 3) 1 g/hr (25 mL/hr), intravenous, CONTINUOUS, Starting on Wed03/09/22 at 0915, Until Wed03/10/22 at 0931, Routine 0710 (Rate Documented - Provider: Tamara Krishnamurthy RN)0905 (Completed - Provider: Carolina Jimenez RN) PRN Medication Order 03/10/2022 03/11/2022 03/12/2022 calcium carbonate (TUMS) tablet 500 mg (200 mg elemental calcium) 2 Tablet 2 Tablet, oral, EVERY 2 HOURS PRN, Starting on 03/08/22 at 1700, Until Felicia 03/12/22 at 1619, Heartburn, Indigestion, Routine diphenhydrAMINE (BENADRYL) capsule 25 mg(Linked Group 4) 25 mg, oral, EVERY 6 HOURS PRN, Starting on 03/08/22 at 1700, Until Felicia 03/12/22 at 1619, Itching, nausea/vomiting, Routine diphenhydrAMINE (BENADRYL) injection 12.5 mg(Linked Group 4) 12.5 mg, intravenous, EVERY 6 HOURS PRN, Starting on 03/08/22 at 1700, Until Felicia 03/12/22 at 1619, Itching, nausea/vomiting, Routine diphenhydrAMINE (BENADRYL) injection 12.5 mg(Linked Group 4) 12.5 mg, intramuscular, EVERY 6 HOURS PRN, Starting on 03/08/22 at 1700, Until Felicia 03/12/22 at 1619, Itching, nausea/vomiting, Routine hydrOXYzine (ATARAX) tablet 50 mg 50 mg, oral, 4 TIMES DAILY PRN, Starting on 03/08/22 at 1735, Until Felicia 03/12/22 at 1619, Itching, Routine lanolin HPA (LANSINOH) cream topical, PRN, Starting on 03/08/22 at 1700, Until Felicia 03/12/22 at 1619, After , breast feeding nalbuphine (NUBAIN) injection 10 mg(Linked Group 5) 10 mg, intramuscular, EVERY 6 HOURS PRN, Starting on 03/08/22 at 1700, Until Felicia 03/12/22 at 1619, Itching, Routine nalbuphine (NUBAIN) injection 4 mg(Linked Group 5) 4 mg, intravenous, EVERY 3 HOURS PRN, Starting on 03/08/22 at 1700, Until Felicia 03/12/22 at 1619, Itching, Routine oxyCODONE (ROXICODONE) immediate release tablet 2.5-5 mg 2.5-5 mg, oral, EVERY 4 HOURS PRN, Starting on 03/08/22 at 1700, Until Felicia 03/12/22 at 1619, Pain, Routine 0308 (Given - Provider: Tamara Krishnamurthy RN)0942 (Given - Provider: Carolina Jimenez RN)1607 (Given - Provider: Kathya Mccarthy RN)2119 (Given - Provider: Delmi Hayward RN) 0307 (Given - Provider: Delmi Hayward RN)1307 (Given - Provider: Raina Johnson RN)1712 (Given - Provider: Delmi Hayward RN) 0254 (Given - Provider: Delmi Hayward RN)1000 (Given - Provider: Masha Jenkins, MONTY)1400 (Given - Provider: Masha Jenkins RN) polyethylene glycol 3350 (MIRALAX) packet 17 g 17 g, oral, 2 TIMES DAILY PRN, Starting on 03/08/22 at 1700, Until Felicia 5/23 at 1619, Constipation, Routine simethicone (MYLICON) chewable tablet 80 mg 80 mg, oral, EVERY 6 HOURS PRN, Starting on Wed03/10/22 at 1137, Until Wed03/12/22 at 1619, Flatulence, Routine 1305 (Given - Provider: Kathya Mccarthy RN) sodium chloride (OCEAN) 0.65 % nasal spray 2 [place] 2 [place], nasal - both, PRN, Starting on Wed03/09/22 at 2333, Until Wed03/12/22 at 1619, Congestion, Routine Linked Groups Order Group 1: ketOROLAC (TORADOL) injection 15 mg (COMPLETED) 15 mg, intravenous, EVERY 6 HOURS, 3 doses, First dose on Wed03/08/22 at 2100, Last dose on Wed03/09/22 at 0900, Routine Followed by ibuprofen (MOTRIN) tablet 800 mgJump to med 800 mg, oral, EVERY 8 HOURS, First dose on Wed03/09/22 at 1700, Until Discontinued, Routine Group 2: Change IV to Saline Lock (CANCELED) Routine, ONE TIME, On Wed03/08/22 at 1705, For 1 occurrence, Once PO intake tolerated and oxytocin infusion complete. And sodium chloride 0.9 % (flush) flush 5 mLJump to med 5 mL, intravenous, EVERY 8 HOURS, First dose on Wed03/08/22 at 1730, Until Discontinued, Routine Group 3: magnesium sulfate IVPB 4 g 100 mL (COMPLETED) 4 g, intravenous, Administer over 20 Minutes, NOW X1, 1 dose, On Wed03/09/22 at 0915, STAT Followed by magnesium sulfate in water 40 gram/1,000 mL (4 %) IVPB pre-mix ()Jump to med 1 g/hr (25 mL/hr), intravenous, CONTINUOUS, Starting on Wed03/09/22 at 0915, Until Wed03/10/22 at 0931, Routine Group 4: diphenhydrAMINE (BENADRYL) capsule 25 mgJump to med 25 mg, oral, EVERY 6 HOURS PRN, Starting on Wed03/08/22 at 1700, Until Wed03/12/22 at 1619, Itching, nausea/vomiting, Routine Or diphenhydrAMINE (BENADRYL) injection 12.5 mgJump to med 12.5 mg, intravenous, EVERY 6 HOURS PRN, Starting on 03/08/22 at 1700, Until Felicia 03/12/22 at 1619, Itching, nausea/vomiting, Routine Or diphenhydrAMINE (BENADRYL) injection 12.5 mgJump to med 12.5 mg, intramuscular, EVERY 6 HOURS PRN, Starting on Wed03/08/22 at 1700, Until Felicia 03/12/22 at 1619, Itching, nausea/vomiting, Routine Group 5: nalbuphine (NUBAIN) injection 4 mgJump to med 4 mg, intravenous, EVERY 3 HOURS PRN, Starting on Wed03/08/22 at 1700, Until Felicia 03/12/22 at 1619, Itching, Routine Or nalbuphine (NUBAIN) injection 10 mgJump to med 10 mg, intramuscular, EVERY 6 HOURS PRN, Starting on Wed03/08/22 at 1700, Until Felicia 03/12/22 at 1619, Itching, Routine documented in this encounter Orders Medications Ordered That Bernard ht Not Have Been Administered Count Last Ordered Date First Ordered Date calcium GLUconate 100 mg/mL (10%) injection 1,000 mg 2 03/09/2022 03/06/2022 labetalol (NORMODYNE) tablet 100 mg 1 03/09 labetalol (TRANDATE) 5 mg/mL injection 1 NIFEdipine immediate release (PROCARDIA) capsule 20 mg 1 03/09/2022 sodium chloride (OCEAN) 0.65 % nasal spray 2 [place] 1 03/09/2022 calcium carbonate (TUMS) tab let 500 mg (200 mg elemental calcium) 2 Tablet 1 03/08/2022 ceFAZolin (ANCEF) syringe 2 g 2 03/08/2022 diphenhydrAMINE (BENADRYL) capsule 25 mg 1 03/08/2022 diphenhydrAMINE (BENADRYL) i njection 12.5 mg 2 03/08/2022 famotidine (PEPCID) injection 20 mg 1 03/08 HYDROmorphone (PF) (DILAUDID ) 0.5 mg/0.5 mL syringe 0.2-0.6 mg 1 03/08/2022 hydrOXYzine (ATARAX) tablet 50 mg 1 023 lanolin HPA (LANSINOH) cream 1 03/08/2022 nalbuphine (NUBAIN) injection 10 mg 1 03/08 nalbuphine (NUBAIN) injection 4 mg 1 2022 naloxone (NARCAN) injection 0.2 mg 1 2022 ondansetron (ZOFRAN-ODT) dis integrating tablet 4 mg 2 03/08/2022 03/06/2022 oxytocin for 30 units/500 mL 1 0 03/08/2022 oxytocin in lactated ringers 30 unit/500 mL infusion solution 2 03/08/2022 polyethylene glycol 3350 (UT RALAX) packet 17 g 1 03/08/2022 senna (SENOKOT) tablet 2 Tablet 1 acetaminophen (TYLENOL) tablet 650 mg 1 multivitamin vit-ir on fumarate-FA (STUARTNATAL) 27 mg iron- 1 mg tablet 1 Tablet 1 03/07/2022 lactated ringers (LR) infusion 1 03/06/2022 lactated ringers BOLUS 500 mL 1 03/06/2022 lidocaine (PF) 10 mg/mL (1 % ) injection 2 mg 1 03/06/2022 lidocaine 1 % injection 20 mL 1 03/06/2022 magnesium sulfate in water 4 0 gram/1,000 mL (4 %) IVPB pre-mix 1 03/06/2022 miSOPROStol (CYTOTEC) tablet 200 mcg 1 02/07 miSOPROStol (CYTOTEC) tablet 800 mcg 1 02/07 ondansetron (PF) (ZOFRAN) injection 4 mg 1 03/06/2022 oxytocin for induction/augme ntation 30 units/500 mL 1 03/06/2022 tranexamic acid (CYKLOKAPRON ) injection 1,000 mg 1 03/06/2022 Diet Count Last Ordered Date First Orde red Date DISCHARGE DIET 1 03/12/2022 Nursing Count Last Ordered Date First Orde red Date ACTIVITY INSTRUCTIONS 3 03/12/2022 BATHING INSTRUCTIONS 2 03/12/2022 WOUND CARE INSTRUCTIONS 3 03/12/2022 Admission Count Last Ordered Date First Orde red Date ADMIT TO INPATIENT 1 03/06/2022 Transfer Count Last Ordered Date First Orde red Date TRANSFER PATIENT 3 03/10/2022 03/07/2022 Discharge Count Last Ordered Date First Orde red Date DISCHARGE PATIENT 1 03/12/2022 Legal Count Last Ordered Date First Orde red Date MISCELLANEOUS DISCHARGE INSTRUCTIONS 3 07/2022 Equipment Count Last Ordered Date First Orde red Date GENERIC DME ORDER 2 03/12/2022 03/08/2022 HOSPITAL GRADE BREAST PUMP 1 03/12/2022 documented in this encounter Care Teams Self Propelled Dredge Operator Relationship Specialty Start Date End Date Kristine Jackson [address] [place] [address] [place] [address] PCP - General 03/06/22 documented as of this encounter
--- OUTSIDE RECORDS SUMMARY | 2023-10-19 17:20 | XMS_ITS | Encounter Summary ---
Author Organization [facility] Address [address] [place] [address] Care Team Providers Care Strategy Consultant Name Role Phone CateDeacon Primary Care Provider Kristine Jackson Primary Care Provider Encounter Details Date Type Department Care Team (Late st Contact Info) Description 08/26/2021 Lab Requisition [facility] - [facility] [address] [place] [address] Phillip Candelaria MD [address] [place] [phone] state, incidental; Encounter for screening for malignant neoplasm of cervix Social History Tobacco Use Types Packs/Day Years [...] you have serious difficulty h earing? No 01/01/2017 Are you blind or do you have serious difficulty seeing, even when wearing glasses? No 01/01/2017 Do you have serious difficul ty walking or climbing stairs? (5 years old or older) No 01/01/2017 Do you have difficulty dress ing or bathing? (5 years old or older) No 01/01/2017 Because of a physical, menta l, or emotional condition, do you have difficulty doing errands alone such as visiting a doctor's office or shopping? (15 years old or older) No 01/01/2017 Cognitive Status Response Date of Assessm ent Because of a physical, menta l, or emotional condition, do you have serious difficulty concentrating, remembering, or making decisions? (5 years old or older) No 01/01/2017 documented as of this encounter Plan of Treatment Not on file documented as of this encounter Procedures Procedure Name Priority Date/Time Associated Diagnosis Comments PAP TEST Today 08/26/2021 14:30 EDT documented in this encounter Results * PAP TEST (08/26/2021 14:30 EDT) Specimens A. Cervix and/or Endocervix , ThinPrep Imaging System with Manual Evaluation 09/01/2021 14:07 EDT [facility] Specimen Adequacy Satisfactory for Evaluation - transformation zone component present 09/01/2021 14:07 EDT [facility] General Categorization Negative for intraepithelial lesion or malignancy 09/01/2021 14:07 EDT [facility] Attestation . 09/01/2021 14:07 EDT [facility] at 1407 Clinical History SEE BELOW 09/02/19 14:07 EDT [facility] Performing Lab [facility] 09/01/2021 14:07 EDT [facility] Scanned Images 09/01/2021 14:07 EDT [facility] Papanicolaou smear specimen (specimen) CERVIX UTERI STRUCTURE / Unknown 08/26/2021 14:30 EDT 08/28/2021 10:42 EDT Phillip Candelaria MD PATHOLOGY [facility] [address] [place] [address] documented in this encounter Visit Diagnoses Diagnosis state, incidental Encounter for screening for malignant neoplasm of cervix Screening for malignant neoplasm of the cervix documented in this encounter Care Teams Strategy Consultant Relationship Specialty Start Date End Date Deacon Esposito DO [address] [place] [address] PCP - General 01/05/17 03/05/22 Kristine Jackson [address] [place] [id number] PCP - General 03/06/22 documented as of this encounter
--- OUTSIDE RECORDS SUMMARY | 2023-10-19 17:20 | XMS_ITS | Encounter Summary ---
Author Organization [facility] Address [address] [place] [address] Care Team Providers Care Convenience Store Clerk Name Role Phone Kristine Jackson Primary Care Provider [phone] Reason for Visit * Reason Comments Routine Visit BP check * Consult (Urgent) - Receiving Office to Obtain Authorization Specialty Diagnoses / Procedures Referred By Caro bernard Referred To Contact Diagnoses Pre-eclampsia in third trimester Brittani Quintana [address] [place] [address] [facility] [address] [place] [address] Referral ID Status Reason Start Date Expiration Date Visits Requested Visits Authorized [id number] Receiving Office to Obtain Authorization Specialty Services Required 03/12/2022 1 1 Encounter Details Date Type Department Care Team (Late st Contact Info) Description 03/17/2022 14:00 EST Visit [facility] Women's Services - [facility] [address], [place] [id number] Ivanna Sanon MD [address] [place] [address] Pre-eclampsia in third trimester (Primary Dx) Social History Tobacco Use Types Packs/Day Years [...] Blood Pressure 111/62 03/17/2022 1352 EST Pulse - - Temperature - - Respiratory Rate - - Oxygen Saturation - - Inhaled Oxygen Concentration - - Weight - - Height - - Body Mass Index - - documented in this encounter Functional Status Functional [...] memory 03/06/2022 documented as of this encounter Progress Notes * Sammie Brown MA - 03/17/2022 1400 EST Procedure: Procedures * Sammie Brown MA - 03/17/2022 1400 EST Patient seen today for a blood pressure check s/p CS 1/1/23. The BP was 111/62 and taken on the left arm using an adult regular cuff. Appropriate staff was notified. * Ivanna Sanon MD - 03/17/2022 1400 EST [facility] VISIT NOTE Subjective: HPI: Rachel Rios is an 21 y.o. who is 1 week s/p pLTCS after diagnosis of severe preeclampsia s/p 24 hours magnesium and presents for BP check. Feeling well overall. Incision feels numb and tingling. Denies AKBAR, vision changes, or RUQ/epigastric pain. Hopeful that baby gets discharged from NICU on . Objective: BP 111/62 (BP Cuff Location: Left arm, BP Patient Position: Sitting, BP Cuff Sizes: Adult, regular) Yes Physical Exam: GEN: NAD, cooperative, alert, answer questions appropriately CV: regular rate and rhythm PULM: good inspiratory effort bilaterally Assesment: Rachel Rios is an 21 y.o. who presents for 1 week BP check after pLTCS and 24 hours of magnesium. We discussed going down on her labetalol dose: now transition to 200mg labetalol PO BID. Also discussed getting a BP cuff. Gave her a med assistance phone number to call through the hospital, she could try to use her mom's cuff when she gets home (currently 2 hours away from home), or asking other people to check her BP. She plans to follow-up with her provider at [facility] radiotelephone operator. We discussed also having them follow her BP's once she is able to take her baby home. Plan: Rachel was seen today for routine visit. Diagnoses and all orders for this visit: Pre-eclampsia in third trimester Pre-eclampsia in third trimester - BP check today, normotensive. Plan to reduce her meds to 200mg Labetalol PO BID. - Plan for repeat BP check in clinic today. Recommend making the appointment and then cancelling ifshe ends up getting seen closer to home Patient's plan of care with directly discussed and developed with attending physician Dr. Kendrick. Ivanna Sanon MD, PGY-4 Department of Obstetrics and Gynecology [facility] 03/17/2022 14:22 * Bandar Kendrick MD - 03/17/2022 1400 EST I have reviewed the record and I have discussed this patient's care with the resident. I agree withthe assessment and plan as stated in the note. documented in this encounter Miscellaneous Notes * Assessment & Plan Note - Ivanna Sanon MD - 03/17/2022 1421 ESTAssociated Problem(s): Pre-eclampsia in third trimester - BP check today, normotensive. Plan to reduce her meds to 200mg Labetalol PO BID. - Plan for repeat BP check in clinic today. Recommend making the appointment and then cancelling ifshe ends up getting seen closer to home documented in this encounter Plan of Treatment Not on file documented as of this encounter Visit Diagnoses Diagnosis Pre-eclampsia in third trimester- Primary Mild or unspecified pre-eclampsia, antepartum documented in this encounter Care Teams Convenience Store Clerk Relationship Specialty Start Date End Date Kristine Jackson [address] [place] [address] [place] [address] PCP - General 03/06/22 documented as of this encounter
--- OUTSIDE RECORDS SUMMARY | 2023-10-19 17:20 | XMS_ITS | Encounter Summary ---
Author Organization [facility] Address [address] [place] [address] Care Team Providers Care Terminal Clerk Name Role Phone Deacon Esposito DO Primary Care Provider [phone] Kristine Jackson Primary Care Provider [phone] Encounter Details Date Type Department Care Team (Late st Contact Info) Description 08/26/2021 Lab Requisition [facility] Pathology & Laboratory Medicine - [facility] [address] [place] [address] Outr Resulting Lab, Provider Social History Tobacco [...] Procedure Name Priority Date/Time Associated Diagnosis Comments CHLAMYDIA/N. GONORRHOEAE AMPLIFIED NUCLEIC ACID, THINPREP Routine 08/26/2021 14:30 EDT documented in this encounter Results * CHLAMYDIA/N. GONORRHOEAE AMPLIFIED RNA, THINPREP (08/26/2021 14:30 EDT) Neisseria gonorrhoeae Result Negative Negative 08/28/2021 8:41 EDT [facility] Chlamydia trachomatis Result Negative Negative 08/28/2021 8:41 EDT [facility] Papanicolaou smear specimen (specimen) CERVIX UTERI STRUCTURE / Unknown 08/26/2021 14:30 EDT 08/27/2021 8:07 EDT Provider Outr Resulting Lab MICROBIOLOGY - GENERAL ORDERABLES [facility] [address] [place] [address] documented in this encounter Visit Diagnoses Not on filedocumented in this encounter Care Teams Terminal Clerk Relationship Specialty Start Date End Date Deacon Esposito DO [address] [place] [id number] PCP - General 01/05/17 03/05/22 Kristine Jackson [address] [place] [address] [place] [address] PCP - General 03/06/22 documented as of this encounter
--- OUTSIDE RECORDS SUMMARY | 2023-10-19 17:20 | XMS_ITS | Encounter Summary ---
Author Organization [facility] Address [address] [place] [address] Care Team Providers Care Bottom Sander Name Role Phone Deacon Esposito DO Primary Care Provider Kristine Jackson Primary Care Provider [phone] Encounter Details Date Type Department Care Team (Late st Contact Info) Description 04/13/2019 Lab Requisition [facility] Pathology & Laboratory Medicine - [facility] [address] [place] [address] Unknown, Provider, Social History Tobacco Use Types Packs/Day Years Used Date Smoking Tobacco: Never Smokeless Tobacco: Never Alcohol Use Standard Drinks/Week Comments No 0 (1 standard drink = 0.6 oz pur e alcohol) Sex and Gender Information Value Date Recorded [...] on filedocumented in this encounter Care Teams Bottom Sander Relationship Specialty Start Date End Date Deacon Esposito DO [address] [place] [id number] PCP - General 01/05/17 03/05/22 Kristine Jackson [address] [place] [address] [place] [address] PCP - General 03/06/22 documented as of this encounter
--- OUTSIDE RECORDS SUMMARY | 2023-10-19 17:20 | XMS_ITS | Encounter Summary ---
Author Organization [facility] Address [address] [place] [address] Care Team Providers Care It Consulting Manager Name Role Phone Cate Deacon Bray Primary Care Provider [phone] Kristine Jackson Primary Care Provider Encounter Details Date Type Department Care Team (Late st Contact Info) Description 01/30/2020 Lab Requisition [facility] Pathology & Laboratory Medicine - [facility] [address] [place] [address] Katie Still MD [address] [place] [phone] Encounter for screening for other viral diseases Social History Tobacco Use Types Packs/Day Years [...] Procedure Name Priority Date/Time Associated Diagnosis Comments ZZCOVID-19 TEST [facility] PCR Today 01/30/2020 13:00 EST Encounter for screening for other viral diseases COVID-19 TESTING Today 01/30/2020 13:0 0 EST Encounter for screening for other viral diseases documented in this encounter Results * COVID-19 TEST [facility] PCR (01/30/2020 13:00 EST) Swab ENTIRE NASOPHARYNX / Unknown 01/30/2020 13:00 EST 01/30/2020 20:49 EST Katie Still MD MICROBIOLOGY - GENER AL ORDERABLES Performing Organization Address City/State/[facility] Co de Phone Number [facility] [address] [place] [address] * COVID-19 TESTING (01/30/2020 13:00 EST) COVID-19 rt-PCR Result Negative Negative 01/31/2020 22:22 EST [facility] Comment: This test has not [...] history, and epidemiological information. Performed on the [employer] [place] Fusion instrument Performing Lab [place] [facility] 01/31/2020 22:22 EST [facility] Swab ENTIRE NASOPHARYNX / Unknown 01/30/2020 13:00 EST 01/30/2020 20:49 EST Katie Still MD MICROBIOLOGY - GENER AL ORDERABLES [facility] [address] [place] [address] documented in this encounter Visit Diagnoses Diagnosis Encounter for screening for other viral diseases documented in this encounter Care Teams It Consulting Manager Relationship Specialty Start Date End Date Deacon Esposito DO [address] [place] [id number] PCP - General 01/05/17 03/05/22 Kristine Jackson [address] [place] [address] [place] [address] PCP - General 03/06/22 documented as of this encounter
--- OUTSIDE RECORDS SUMMARY | 2023-10-19 17:20 | XMS_ITS | Encounter Summary ---
Author Organization [facility] Address [address] [place] [address] Care Team Providers Care Returned Telephone Equipment Appraiser Name Role Phone Kristine Jackson Primary Care Provider [phone] Reason for Visit * Reason Comments Hypertension * Auth/Cert (Routine) Specialty Diagnoses / Procedures Referred By Contac t Referred To Contact Diagnoses Preeclampsia, severe, third trimester ? Preeclampsia; Imminent Delivery Referral ID Status Reason Start Date Expiration Date Visits Re quested Visits Authorized [id number] 1 1 Encounter Details Date Type Department Care Team (Late st Contact Info) Description 03/08/2022 13:00 EST - 03/08/2022 15:[address] [facility] [address], [place] [address] Víctor Bui MD [address] [facility], [address] [place] [address] SECTION Surgery Details Date/Time Status Location OR Service Patient Class Case Class Case Type Trauma Case? 03/08/22 1300 Posted [employer] L&D ML&D OR 02 Gynecology Inpatient Panel 1 Procedure LRB Anes Op Region Wound Class Comments SECTION N/A Abdomen Class II/ Vinh an Contaminated Surgeon Surgeon Role Service Panel Víctor Bui MD Primary Gynecology 1 Gege Mae MD Resident - Assisting Obstetrics 1 documented in this encounter Social History Tobacco Use Types Packs/Day Years [...] Sign Reading Time Taken Comments Blood Pressure 121/84 03/08/2022 1457 EST Pulse - - Temperature 35.5 ??C (95.9 ??F) 03/08/2022 1457 EST Respiratory Rate 18 03/08/2022 1457 EST Oxygen Saturation 98% 03/08/2022 1457 EST Inhaled Oxygen Concentration - - Weight [...] as of this encounter Discharge Summaries * Brittani Quintana - 03/12/2022 1407 EST Department of INFORMATION SYSTEMS SECURITY DEVELOPER Maternal Discharge Summary Information for the patient's : Jaclyn Rios [[id number]] Monie Rios Maternal Name: Rachel Rios : [...] for PEC wo SF on admission to [facility]. FGR was confirmed with EFW < 1% [...] Procedure Component Value Units Date/Time SURGICAL PATHOLOGY [[id number]] Collected: 03/08/22 1419 Lab Status: In process Specimen: Tissue from Placenta, third trimester Updated: 03/10/22 0850 Follow-up appointments and procedures Keep all scheduled appointments Authorizing Provider: Brittani Quintana You should follow up with your Bacteriology Teacher See your spice cleaner within the next week for a BP check. Authorizing Provider: Brittani Quintana Amb Consult/Follow Up Obstetrics Reason for Request: 3-5d BP check, PEC w/ SF Authorizing Provider: Brittani Quintana Condition at Discharge: stable Discharge Disposition: [facility] for NICU baby Brittani Quintana MD 03/12/2022 [...] Means Destination Comment s Home or Self Custodial to hotel for now to be close to baby in NICU documented in this encounter Progress Notes * Brittani Quintana - 03/12/2022 0626 EST Postoperative Progress Note CC: s/p LTCS [...] BPM] Intake/Output Summary (Last 24 hours) at 03/12/2022625 Last data filed at 03/12/2022 0315 Gross [...] - Likely d/c home POD#3-4 BRITTANI QUINTANA 03/12/22 6:26 Obstetrics & Gynecology, PGY-1 Pager [phone] Associated attestation - Whitney Mathews MD - 03/12/2022 0843 EST Attestation statement: I performed or was present during the leigh or critical portions of the visit and participated in the management of the patient. I agree with the findings and plan of care documented in the resident's/fellow's note. * Diana Santacruz MSW - 03/11/2022 7210 EST CM/SW Note: ?? Checked in with [place] today. When Kim is ready to discharge we will see if a hotel is available for a week. I let them know that after a week we can book a hotel room a few nights a week and the other nights they will have to go home, a gas card can be provided for help with transportation. ?? Kim received W[employer] and [employer] [place] and asked about how she can apply for [employer]- I let her know Iwill email her the website that has the online application and will provide her with contact information for her local ESD office. ?? Kim and Rick did not have any other needs at this time. ?? SADI Jerome [phone] Pager: #[phone] * Brittani Quintana - 03/11/2022657 EST Postoperative Progress Note CC: s/p LTCS [...] mag for 24 hours pp, ending at / 900AM. Decreased to 1.5->1g/hour at 2200 for headache, weakness Dispo - Contraception: Discussed POD#3, hoping for minipill-> OCP. Follow up at post- visit. - depression: Discussed POD#3. Patient aware of signs/symptoms Will continue to monitor. - Likely d/c home POD#3-4 BRITTANI QUINTANA 03/11/22 7:01 Obstetrics & Gynecology, PGY-1 Pager [phone] Associated attestation - Rosalinda Levin MD - 03/11/2022 9099 EST Attestation statement: I saw and examined [...] BP cuff - anticipate discharge to local [facility] tomorrow, coordinating with top case assembler - male in NICU, parents desire circ before discharge [...] Plan to maintain comfort and transfer to [place] [address] when a bed becomes available. Pt agrees [...] SOB. Encouraged to rest. VSS. Transferred to [place] [address]. * Purvi Gagnon MD - 03/10/2022 0312 [...] tired, but denies si/sx PEC. BP normotensive. HHX134on/2hr. 2+ DTRs, lungs CTAB. No current sign [...] 1.5g/hr. Drawing maglevel now. PE unchanged. H Vigngeo 03:00: 2+ biceps DTR, lungs CTAB. AKBAR resolved. Mag infusing at 1g/hr due to Mag level of 7.1 and patient feeling light headed. UOP 525/3hrs H Chelsi Gagnon MD Bulking Machine Operator PGY-3 Pager [phone] Associated attestation - Víctor Bui MD - 03/10/2022 1327 EST Attending attestation statement: I saw and examined the patient with the resident. I agree with thefindings and plan of care documented in the resident's note. POD#2 now off magnesium, doing well. Plan transfer back to when census allows. Víctor Bui MD * Tamara Krishnamurthy, RN - 03/09/2022 1932 EST 1914: Assumed [...] BP WNL, reflexes morehyperreflexive, Dr Gagnon notified 2299: Dr Gagnon at bedside to assess patient, [...] and feeling fine. Wants to go visit infant in NICU. BP normotensive. UOP 250cc/3hr. 1+ DTRs, lungs CTAB. No current sign of mag toxicity. Okay to go to NICU with 1:1 RN support. Continue mag x24hr pp. MD Elia 15:15 16:59 Back from NICU, baby doing well. Pt feeling tired, but denies si/sx PEC. BP normotensive. [id number]/2hr. 2+ DTRs, lungs CTAB. No current sign of mag toxicity. Continue mag x24hr pp. MD Elia 16:59 MARY KATE WOLFE MD 03/09/2022 12:34 * Darlene Muse MD - 03/09/2022 1014 EST ACUTE PAIN SERVICE OB Neuraxial long-acting opioid FOLLOW UP Subjective 24H UPDATE: Brief: 1-3 elements or 15 minutes (CPT 45662) The patient is OBANESPOD#: POD #1 from [...] Requirements: Brief: N/A or 15 minutes (CPT 36836) Constitutional: Urinary: Musculoskeletal: Yes No Yes No [...] Requirements: Brief: 1 system or 15 minutes (19175) BP 116/64 Temp (!) 35.3 ??C (95.5 [...] of this patient. Please contact us (pager #[phone] or phone #[phone]) with any questions or concerns. DARLENE MUSE MD 03/09/2022 10:14 PGY-3, Binding Folder Machine * Mary Kate Wolfe MD - 03/09/2022 [...] 900AM Recent Labs 03/06/22 1922 03/06/22201303/08/22 1223 WBC 16.14* -- 19.45* HCT 38.4 [...] 200 BID. Watch UOP * Pilar Francois, RN - 03/09/2022 0840 EST 8:40 Pt arrived [...] Wolfe MD 03/09/22 8:31 OBGYN PGY-2 Pager #[phone] * Mary Kate Wolfe MD - 03/09/2022 [...] Wolfe MD 03/09/22 6:08 OBGYN PGY-2 Pager #[phone] * Ramu Burns MD - 03/08/20222024 EST [...] Co-sign Provider (Physician Name): MD Alejandro NST [id number] LUZ PAGAN RN M Attending Addendum: I have reviewed the NST [...] SF: - SR BP prior to leaving [facility] and possibly one in transport, unknown if >4 hours apart - New proteinuria, diagnosis at least consistent with preeclampsia without severe features - Serum labs WNL on admission - Denies sx of severe disease - s/p Mag during transport, discontinued on arrival - Continue labetalol 100 BID ?? FGR/anyhydramnios/FWB: - dx at 36+1 today at [facility] - Cat 1 FHT on arrival - [...] Mae MD Obstetrics and Gynecology, PGY-4 Pager #[phone] 03/08/22 6:42 Associated attestation - Víctor Bui [...] 1055, lasting 30 seconds. Interpretation: reactive NST [id number]. Pt left on to monitor an extra [...] SF: - SR BP prior to leaving [facility] and possibly one in transport, unknown if [...] FGR/anyhydramnios/FWB: - dx at 36+1 today at [facility] - Cat 1 FHT on arrival - [...] Mae MD Obstetrics and Gynecology, PGY-4 Pager #[phone] 03/07/22 6:42 Associated attestation - Theresa Mccauley MD - 03/07/20224 EST I saw and examined the patient [...] Wolfe MD 03/07/22 0:34 OBGYN PGY-2 Pager #[phone] * Yolanda Rea RN - 03/06/2022 194 EST Assumed care of patient from MONTY San at 1915 Patient transferred from [facility] for PEC w/u and FGR. RONDA also known to be low. SRBP noted at [facility] prior to transfer. The patient was given [...] fundus. 2004 Pt to bay with MD Valencia and Kyle. 2104 US complete. RONDA 0.3. Pt thinks she had a gush of fluid during US. MD Valencia applied nitrizine paper to r/o PROM and nitrizine paper was negative. Pt cleared to eat. 224 Anesthesia at bedside to consult. 0020 pt given clearance to transfer to [facility]. 0050 Patient transferred to [facility] with all of her belongings. Bedside report given to RN. * Mena Kaur, MONTY - 03/06/2022 184 EST Pt arrived to [facility] 11 via transport from [facility] at 36+1 with dx of GHTN and [...] depressed skull fracture with loss of consciousness ([facility]) ([facility])12/27/2016 Subdural hemorrhage, right parietal skull fracture, suspected [...] 132/94 82 BPM 16 -- -- 03/06/22 1851 (!) 149/99 85 BPM 16 36.1 ??C (97 ??F) 99 % General: NAD Cardiovascular: RRR Respiratory: CTAB Abdomen: soft, gravid Extremities: WWP Physical Presentation: Breech FHT: 130 baseline. mod variability, + accels, no decels; Cat I tracing. TOCO: 2-3 in 10 min SSE: deferred SVE: deferred Recent Labs 03/06/22 1922 WBC 16.14* HCT 38.4 HGB 13.5 PLT [...] Preeclampsia: - SR BP prior to leaving [facility] and possibly one in transport, unknown if >4 hours apart - New proteinuria, diagnosis at least consistent with preeclampsia without severe features - Serum labs WNL on admission - Denies sx of severe disease - s/p Mag during transport, discontinued on arrival - Upper MR BPs, will continue to monitor closely for s/sx of severe disease FGR/FWB: - dx at 36+1 today at [facility] - Cat 1 FHT on arrival - [...] preeclampsia--no documentation of sustained severe HTN at [facility], but discussed if develops recurrent severe [...] of Service: 03/08/2022 Surgeon: Víctor Bui MD Tag Machine Operator: Gege Mae MD Procedure: Low Transverse Section [...] for PEC wo SF on admission to [facility]. FGR was confirmed with EFW < 1% [...] of the procedure. Findings: 1. Viable male infant born at 1405 with Apgars of 7 at 1 minute and 9 at 5 minutes, weighing 1490g. 2. Normal uterus, tubes and ovaries. Narrative: The patient was taken to the operating room with an IV in place. A [employer] WHO checklist was performed with the patient's [...] The bladder blade was removed and the 's sacrum delivered atraumatically. The infant was dried and stimulated, the cord was [...] to incision. The patient was taken to [place] [address] [address] Bui was present throughout the entire procedure. Estimated blood loss: 700cc IV fluids: 1 L Urine Output: 20 cc Specimens Sent: Placenta, cord gases Retained Materials: [place] Complications: None [address]: [address] Mae MD Obstetrics and Gynecology, PGY-4 Pager #[phone] 03/08/22 15:10 Associated attestation - Víctor Bui [...] the original note were not included. [facility] Consult Initial Consult Consult Requested [...] P1 Social History: Lives with Rick in [place] Does not have to RTW or [...] chloride (OCEAN) 0.65 % nasal spray 2 [place], nasal - both, PRN sodium chloride 0.9 % (flush) flush 5 mL, intravenous, Q8H Maternal Anatomy: NTA - was not due to pump. Reports leaking of milk starting at 16 weeks. Reports Jaclyn was able to latch right away. Pertinent Infant History: NICU - in transition unit, parents state he has a cold Current Infant Medications: Information for the patient's : Jaclyn Rios [[id number]] Breast Milk Identification, oral, PRN sucrose 24% (TOOTSWEET) solution 0.1-0.3 mL, oral, PRN Anatomy: TRAMAINE - nb located in NNTS Infants Current Weight: (!) 1470 g (3 lb 3.9 oz) Change from Weight: -1% Information for the patient's : Jaclyn Rios [[id number]] Output for the past 24 hrs: Stool [...] Community resources, QR codes for web sites: [facility] [employer] , [facility], [facility], Infant risk center, [employer], [...] inpatient Outpatient Follow Up: CRISTEL NELSON MSN ARMY MANAGER DEPARTMENT [employer] RN IBCLC 03/12/2022 11:01 * Plan of [...] Outcome: Met This Shift Flowsheets (Taken 03/11/2022 0924) Area of Focus: Pain/ Comfort Goal This [...] 20mg already given. 0840: Pt transferred to . Report given to Pilar * Plan of [...] by Low Segment Transverse . BBRachel Rios [id number] at Gestational Age: 36w3d, Delivered by Low [...] hemorrhage: None Blood Loss Mother: Rachel Rios #[id number] Start of Mother's Information Delivery Blood Loss 03/08/22 1335 - 03/08/22 1506 Filed Blood Loss- Anesthesia 700 mL Total 700 mL End of Mother's Information Mother: Rachel Rios #[id number] Uterotonics/PPH Procedures: Uterine massage, Oxytocin, Blood Products Transfused: (if applicable) Labor Length Duration of 1st Stage: hours minutes Duration of 2nd Stage: hours minutes Duration of 3rd Stage: 0 hours 0 minutes Duration of Cord Clamp Delay: seconds Precipitous Labor (<3 hours): No Prolonged Labor (>20 hours): No : Date of : 03/08/2022 Time of : [...] for PEC wo SF on admission to [facility]. FGR was confirmed withEFW < 1% and [...] Mae MD Obstetrics and Gynecology, PGY-4 Pager #[phone] 03/08/22 15:09 Associated attestation - Víctor Bui MD - 03/08/2022 1713 EST Attestation statement: I was present for [...] EST) 03/16/2022 13:5 4 EST Scan 2 Valve Repairer Reclamation PROCEDURE/MINOR ROSLYN GICAL ORDERABLES * (ABNORMAL) MAGNESIUM (03/09/2022 23:13 EST) Magnesium 7.1(HH) 1.7 - 2.8 mg/dL 03/09/2022 23:48 EST [facility] Blood VENOUS BLOOD / Unknown Venipuncture / Unknown 03/09/2022 23:13 EST 03/09/2022 23:18 EST Purvi Gagnon MD CHEMISTRY & BLOOD GAS ORDERABLES Performing Organization Address City/[facility]/ZIP Co de Phone Number [facility] [address] [place] [address] * (ABNORMAL) MAGNESIUM (03/09/2022 18:28 EST) Magnesium 6.8(HH) 1.7 - 2.8 mg/dL 03/09/2022 18:59 EST [facility] Blood VENOUS BLOOD / Unknown Venipuncture / Unknown 03/09/2022 18:28 EST 03/09/2022 18:32 EST Maxine Shah MD CHEMISTRY & BLOOD GA S ORDERABLES Performing Organization Address City/[facility]/ZIP Co de Phone Number [facility] [address] [place] [address] * ALT (03/09/2022 10:21 EST) ALT 19 <35 U/L 03/09/2022 11:39 EST [facility] Blood VENOUS BLOOD / Unknown Venipuncture / Unknown 03/09/2022 10:21 EST 03/09/2022 11:10 EST Mary Kate Scott MD CHEMISTRY & BLOOD GA S ORDERABLES Performing Organization Address [facility]/ZIP Co de Phone Number [facility] [address] [place] [address] * AST (03/09/2022 10:21 EST) AST 32 15 - 46 U/L 03/09/2022 11:39 EST [facility] Blood VENOUS BLOOD / Unknown Venipuncture / Unknown 03/09/2022 10:21 EST 03/09/2022 11:10 EST Mary Kate Scott MD CHEMISTRY & BLOOD GA S ORDERABLES Performing Organization Address City/[facility] Co de Phone Number [facility] [address] [place] [address] * CREATININE (03/09/2022 10:21 EST) Creatinine 0.62 0.52 - 1.04 mg/dL 03/09/2022 11:39 EST [facility] eGFR 130 >60 mL/min/1.73 m2 03/09/2022 11:39 EST [facility] Blood VENOUS BLOOD / Unknown Venipuncture / Unknown 03/09/2022 10:21 EST 03/09/2022 11:10 EST Mary Kate Scott MD CHEMISTRY & BLOOD GA S ORDERABLES Performing Organization Address City/[facility]/ZIP Co de Phone Number [facility] [address] [place] [address] * (ABNORMAL) LDH (03/09/2022 10:21 EST) LDH 278(H) 120 - 246 U/L 03/09/2022 11:39 EST [facility] Blood VENOUS BLOOD / Unknown Venipuncture / Unknown 03/09/2022 10:21 EST 03/09/2022 11:10 EST Mary Kate Scott MD CHEMISTRY & BLOOD GA S ORDERABLES Performing Organization Address City/[facility]/ZIP Co de Phone Number [facility] [address] [place] [address] * VARICELLA IGG ANTIBODY (03/09/2022 10:21 EST) Varicella IgG Ab Positive See Note 03/09/2022 13:14 EST [facility] Comment:Presence of detectab le Varicella Zoster virus IgG antibodies. Blood VENOUS BLOOD / Unknown Venipuncture / Unknown 03/09/2022 10:21 EST 03/09/2022 11:10 EST Gege Mae MD IMMUNOLOGY AND SERSVETLANA PUENTES ORDERABLES [facility] [address] [place] [address] * (ABNORMAL) COMPLETE BLOOD COUNT (03/09/2022 10:20 EST) WBC 19.48(H) 4.00 - 12.40 K/cmm 03/09/2022 11:16 [facility] RBC 4.31 3.86 - 5.04 M/cmm 03/09/2022 11:16 [facility] Hemoglobin 12.9 11.6 - 15.2 gm/dL 03/09/2022 11:16 [facility] HCT 37.1 34.9 - 44.4 % 03/09/2022 11:16 [facility] MCV 86 81 - 98 fl 03/09/2022 11:16 [facility] MCH 29.9 26.7 - 33.3 pg 03/09/2022 11:16 [facility] MCHC 34.8 32.1 - 35.9 gm/dL 03/09/2022 11:16 [facility] RDW-CV 12.5 <14.7 % 03/09/2022 11:16 [facility] RDW-SD 39.4 <50.4 fl 03/09/2022 11:16 [facility] PLT 261 141 - 377 K/cmm 03/09/2022 11:16 [facility] MPV 10.1 9.5 - 12.7 fl 03/09/2022 11:16 [facility] Blood VENOUS BLOOD / Unknown Venipuncture / Unknown 03/09/2022 10:20 EST 03/09/2022 11:10 EST Gege Mae MD HEMATOLOGY & PF4 ORD ERABLES [facility] [address] [place] [address] * SURGICAL PATHOLOGY (03/08/2022 14:19 [facility]) Note to Patient The following pathology results have been interpreted by your pathologist and may be available to you before your health provider has had the opportunity to review them. Please allow time for your provider to receive these results and explore management options, if applicable. 03/19/2022 15:13 [facility] Final Diagnosis A. PLACENTA: Macario placenta, 314 grams (<10th %ile for 36 and 3/7 weeks gestational age). Disc: - Maternal vascular malperfusion: small placenta by weight (if complete), accelerated villous maturation, chorangiosis, normoblastemia, placental infarct, villous agglutination, decidual arteriopathy, increased perivillous fibrin, and septal thrombus. Membranes: - Decidual arteriopathy. Umbilical cord: - 3 vessels. - No significant histopathologic changes. 03/19/2022 15:13 [facility] Attestation By the signature below, the attending physician certifies that they have 1) personally conducted a gross and/or microscopic examination of the described specimen(s), and/or personally interpreted the results of laboratory testing of the described specimen(s), and 2) personally rendered or confirmed the above diagnosis. 03/19/2022 15:13 [facility] at 1513 Clinical History FGR less than 1st % and anhydramnios 36+3 weeks; breech 03/19/2022 15:13 [facility] Gross Description A. Received fresh [...] than 5% of the total placental tissue. Account Processor sections are submitted as follows: BLOCK LEIGH [...] area SAEID MURPHY(ASCP) 03/11/2022 9:01 03/19/2022 15:13 EST [facility] Performing Lab [facility] 15:13 EST [facility] Scanned Images 03/19/2022 15:13 EST [facility] Tissue PLACENTAL STRUCTURE / Unknown 03/08/2022 14:19 EST 03/10/2022 8:50 EST Comment:Pre-op diagnosis: FG R less than 1st % and anhydramnios 36+3 weeks Breech Víctor Bui MD PATHOLOGY ORDERABL ES Performing Organization Address City/[facility]/ZIP Co de Phone Number [facility] [address] [place] [address] * (ABNORMAL) COMPLETE BLOOD COUNT (03/08/2022 12:23 EST) WBC 19.45(H) 4.00 - 12.40 K/cmm 03/08/2022 12:38 [facility] RBC 4.03 3.86 - 5.04 M/cmm 03/08/2022 12:38 [facility] Hemoglobin 12.0 11.6 - 15.2 gm/dL 03/08/2022 12:38 [facility] HCT 35.5 34.9 - 44.4 % 03/08/2022 12:38 [facility] MCV 88 81 - 98 fl 03/08/2022 12:38 [facility] MCH 29.8 26.7 - 33.3 pg 03/08/2022 12:38 [facility] MCHC 33.8 32.1 - 35.9 gm/dL 03/08/2022 12:38 [facility] RDW-CV 12.5 <14.7 % 03/08/2022 12:38 [facility] RDW-SD 40.0 <50.4 fl 03/08/2022 12:38 [facility] PLT 253 141 - 377 K/cmm 03/08/2022 12:38 [facility] MPV 9.9 9.5 - 12.7 fl 03/08/2022 12:38 [facility] Blood VENOUS BLOOD / Unknown Venipuncture / Unknown 03/08/2022 12:23 EST 03/08/2022 12:29 EST Gege Mae MD HEMATOLOGY & PF4 ORD ERABLES [facility] [address] [place] [address] * COVID-19 TEST [facility] PCR (03/06/2022 22:02 EST) Swab BOTH ANTERIOR NARES / Unknown Swab / Unknown 03/06/2022 22:02 EST 03/06/2022 22:18 EST Miranda Valencia MD MICROBIOLOGY - GE NERAL ORDERABLES Performing Organization Address [facility] Co de Phone Number [facility] [address] [place] [address] * COVID-19 TESTING (03/06/2022 22:02 EST) COVID-19 rt-PCR Result Negative Negative 03/07/2022 2:27 EST [facility] Comment: This test has [...] history, and epidemiological information. Performed on the [employer] Fusion instrument Performing Lab [place] [facility] 03/07/2022 2:27 EST [facility] Swab BOTH ANTERIOR NARES / Unknown Swab / Unknown 03/06/2022 22:02 EST 03/06/2022 22:18 EST Miranda Valencia MD MICROBIOLOGY - GE NERAL ORDERABLES Performing Organization Address [facility]/ZIP Co de Phone Number [facility] [address] [place] [id number] * POC LD US ROUTINE 2ND TRIMESTER [...] (oz) ?? 14 oz EFW by: ?Hadlock ([id number]) Head / Face / Neck Cephalic index [...] normal LVOT view: normal 3-vessel view: normal 5-ygnswq-pskwsmg view: normal Cord insertion: ?not adequately visualized [...] amniotic fluid volume and position Impression ========= [id number] Obstetrical ultrasound with and maternal evaluation This [...] only one measurable pocket of 0.3 cm. [id number] Umbilical artery Doppler study Doppler waveforms of [...] EFW (oz) 14 oz EFW by: Hadlock ([id number]) Head / Face / Neck Cephalic index [...] normal LVOT view: normal 3-vessel view: normal 4-pkybtb-ycyqkld view: normal Cord insertion: not adequately visualized [...] lowamniotic fluid volume and position Impression ========= [id number] Obstetrical ultrasound with and maternal evaluation This [...] only one measurable pocket of 0.3 cm. [id number] Umbilical artery Doppler study Doppler waveforms of the umbilical artery are abnormal, with increasedresistance (RI 99%). There was a single set of waveforms with absentend-diastolic flow, but this could not be reproduced despite multiple measurements. Follow-up ======== Inpatient admission. DATE OF SERVICE: 03/06/2022 Mary Kate Scott MD [facility] ORDERABLES * GROUP B STREP PCR (03/06/2022 20:14 EST) [facility] Group B Strep PCR Negative Negative 03/08/2022 12:37 EST [facility] Swab POOLED SPECIMEN FROM VAGINAL INTROITUS AND RECTAL SWAB / Unknown Swab / Unknown 03/06/2022 20:14 EST 03/06/2022 22:12 EST Mary Kate Scott MD MICROBIOLOGY - [facility] ORDERABLES [facility] [address] [place] [address] * (ABNORMAL) FIBRINOGEN (03/06/2022 20:14 EST) [facility] Fibrinogen 688(H) 171 - 384 mg/dL 03/06/2022 20:51 EST [facility] Blood VENOUS BLOOD / Unknown Venipuncture / Unknown 03/06/2022 20:14 EST 03/06/2022 20:33 EST Mary Kate Scott MD HEMATOLOGY & PF4 ORD ERABLES Performing Organization Address [facility] Co de Phone Number [facility] [address] [place] [address] * (ABNORMAL) PRE-ECLAMPSIA PROTEIN/CREATININE RATIO, URINE (03/06/2022 19:24 EST) Total Protein, Urine 19 See Note mg/dL 03/06/2022 19:53 EST [facility] Comment:Reference range not established. Creatinine, Urine 42.3 See Note mg/dL 03/06/2022 19:53 EST [facility] Comment:Reference range not established. Pre-Eclampsia Protein/Creat inine Ratio, Urine 0.45(H) <0.30 mg/mg Creatinine 03/06/2022 19:53 EST [facility] Urine URINE / Unknown Urine Collect / Unknown 03/06/2022 19:24 EST 03/06/2022 19:35 EST Mary Kate Scott MD URINALYSIS ORDERABLE S Performing Organization Address [facility] Co de Phone Number [facility] [address] [place] [address] * ALT (03/06/2022 19:22 EST) ALT 19 <35 U/L 03/06/2022 19:55 EST [facility] Blood VENOUS BLOOD / Unknown Venipuncture / Unknown 03/06/2022 19:22 EST 03/06/2022 19:35 EST Mary Kate Scott MD CHEMISTRY & BLOOD GA S ORDERABLES Performing Organization Address [facility] Co de Phone Number [facility] [address] [place] [address] * AST (03/06/2022 19:22 EST) AST 24 15 - 46 U/L 03/06/2022 19:55 EST [facility] Blood VENOUS BLOOD / Unknown Venipuncture / Unknown 03/06/2022 19:22 EST 03/06/2022 19:35 EST Mary Kate Scott MD CHEMISTRY & BLOOD GA S ORDERABLES Performing Organization Address City/[facility]/ZIP Co de Phone Number [facility] [address] [place] [address] * CREATININE (03/06/2022 19:22 EST) Creatinine 0.53 0.52 - 1.04 mg/dL 03/06/2022 19:55 EST [facility] eGFR 135 >60 mL/min/1.73 m2 03/06/2022 19:55 EST [facility] Blood VENOUS BLOOD / Unknown Venipuncture / Unknown 03/06/2022 19:22 EST 03/06/2022 19:35 EST Mary Kate Scott MD CHEMISTRY & BLOOD GA S ORDERABLES Performing Organization Address City/[facility]/ZIP Co de Phone Number [facility] [address] [place] [address] * URIC ACID (03/06/2022 19:22 EST) Uric Acid 6.5 2.2 - 7.7 mg/dL 03/06/2022 19:55 EST [facility] Blood VENOUS BLOOD / Unknown Venipuncture / Unknown 03/06/2022 19:22 EST 03/06/2022 19:35 EST Mary Kate Scott MD CHEMISTRY & BLOOD GA S ORDERABLES Performing Organization Address City/[facility]/ZIP Co de Phone Number [facility] [address] [place] [address] * LDH (03/06/2022 19:22 EST) LDH 189 120 - 246 U/L 03/06/2022 19:55 EST [facility] Blood VENOUS BLOOD / Unknown Venipuncture / Unknown 03/06/2022 19:22 EST 03/06/2022 19:35 EST Mary Kate Scott MD CHEMISTRY & BLOOD GA S ORDERABLES Performing Organization Address City/[facility]/ZIP Co de Phone Number [facility] [address] [place] [address] * (ABNORMAL) COMPLETE BLOOD COUNT (03/06/2022 19:22 EST) WBC 16.14(H) 4.00 - 12.40 K/cmm 03/06/2022 19:48 [facility] RBC 4.44 3.86 - 5.04 M/cmm 03/06/2022 19:48 [facility] Hemoglobin 13.5 11.6 - 15.2 gm/dL 03/06/2022 19:48 [facility] HCT 38.4 34.9 - 44.4 % 03/06/2022 19:48 [facility] MCV 87 81 - 98 fl 03/06/2022 19:48 [facility] MCH 30.4 26.7 - 33.3 pg 03/06/2022 19:48 [facility] MCHC 35.2 32.1 - 35.9 gm/dL 03/06/2022 19:48 [facility] RDW-CV 12.7 <14.7 % 03/06/2022 19:48 [facility] RDW-SD 39.1 <50.4 fl 03/06/2022 19:48 [facility] PLT 233 141 - 377 K/cmm 03/06/2022 19:48 [facility] MPV 9.9 9.5 - 12.7 fl 03/06/2022 19:48 [facility] Blood VENOUS BLOOD / Unknown Venipuncture / Unknown 03/06/2022 19:22 EST 03/06/2022 19:35 EST Mary Kate Scott MD HEMATOLOGY & PF4 ORD ERABLES [facility] [address] [place] [address] * TYPE AND SCREEN (03/06/2022 19:21 EST) ABO A 03/06/2022 20:14 EST [facility] Rh Factor Positive 03/06/2022 20:14 EST [facility] Antibody Screen Negative 03/06/2022 20:14 EST [facility] Specimen Expires: 03/09/2022 @ 23:59 03/06/2022 20:14 EST [facility] Blood VENOUS BLOOD / Unknown Venipuncture / Unknown 03/06/2022 19:21 EST 03/06/2022 19:36 EST Miranda Valencia MD BLOOD BANK TESTS Performing Organization Address [facility] de Phone Number [facility] [address] [place] [address] documented in this encounter Visit Diagnoses Not on filedocumented in this encounter Admitting Diagnoses Diagnosis Preeclampsia, [...] mg Given 03/11/2022 20:33 EST 1,000 mg diphenhydrAMINE (BENADRYL) capsule 25 mg 25 mg, [...] Until Wed03/12/22 at 1619, Itching, nausea/vomiting, Routine hydrOXYzine (ATARAX) [...] mg Given 03/11/2022 20:33 EST 800 mg labetalol (NORMODYNE) tablet 400 mg 400 mg, oral, EVERY 12 HOURS, First dose (after last modification) on Wed03/12/22 at 0900, Until Discontinued, Routine Given 03/12/2022 9:38 EST 400 mg multivitamin vit-iron fumarate-FA (STUARTNATAL) 27 mg iron- 1 mg tablet 1 Tablet 1 Tablet, oral, DAILY, First dose on Wed03/09/22 at 0900, Until Discontinued, Routine Given 03/11/2022 9:47 EST 1 T ablet Given 03/10/2022 9:36 EST 1 Tablet Given 03/09/2022 11:02 EST 1 Tablet nalbuphine (NUBAIN) injection 10 mg 10 mg, intramuscular, EVERY 6 HOURS PRN, Starting on Wed03/08/22 at 1700, Until Wed03/12/22 at 1619, Itching, Routine nalbuphine (NUBAIN) injection 4 mg 4 mg, intravenous, EVERY 3 HOURS PRN, Starting on Wed03/08/22 at 1700, Until Wed03/12/22 at 1619, Itching, Routine oxyCODONE (ROXICODONE) immediate release tablet 2.5-5 mg 2.5-5 mg, oral, EVERY 4 HOURS PRN, Starting on Wed03/08/22 at 1700, Until Wed03/12/22 at 1619, Pain, Routine Given 03/12/2022 14:00 EST 5 mg Given 03/12/2022 10:00 EST 5 mg Given 03/12/2022 2:54 EST 5 mg simethicone (MYLICON) chewable tablet 80 mg 80 mg, oral, EVERY 6 HOURS PRN, Starting on Wed03/10/22 at 1137, Until Wed03/12/22 at 1619, Flatulence, Routine Given 03/10/2022 13:05 EST 80 mg sodium chloride (OCEAN) 0.65 % nasal spray 2 Hague 2 Hague, nasal - both, PRN, Starting on Wed03/09/22 at 2333, Until Wed03/12/22 at 1619, Congestion, Routine sodium chloride 0.9 % (flush) flush 5 mL 5 mL, intravenous, EVERY 8 HOURS, First dose on Wed03/08/22 at 1730, Until Discontinued, Routine Given 03/11/2022 23:14 EST 5 mL Given 03/11/2022 15:33 EST 5 mL Given 03/11/2022 9:48 EST 5 mL documented in this encounter Discontinued Medications [...] Carolina Jimenez RN)1833 (Given - Provider: Delmi Hayward RN) 0307 [...] Routine 0936 (Given - Provider: Carolina Jimenez RN)2119 (Given - Provider: Delmi Hayward RN) 0947 (Given - Provider: Raina Johnson RN)203 (Given - Provider: Delmi Hayward RN) labetalol (NORMODYNE) tablet 400 mg 400 mg, oral, EVERY 12 HOURS, First dose (after last modification) on Felicia 03/12/22 at 0900, Until Discontinued, Routine 0938 (Given - Provider: Masha Jenkins RN) multivitamin vit-iron fumarate-FA (STUARTNATAL) 27 mg iron- 1 mg tablet 1 Tablet 1 Tablet, oral, DAILY, First dose on Wed03/09/22 at 0900, Until Discontinued, Routine 0936 (Given - Provider: Carolina Jimenez RN) 0947 (Given - Provider: Raina Johnson RN) 0900 (Not Given - Provider: Masha Jenkins RN - Reason: Patient/family refused) senna (SENOKOT) tablet 2 Tablet 2 Tablet, oral, AT BEDTIME, First dose on 03/08/22 at 2100, Until Discontinued, Routine 2100 (Canceled [...] of medication order)0948 (Given - Provider: Raina Johnson RN)1533 (Given - Provider: Delmi Hayward RN)2314 (Given - Provider: Delmi Hayward RN) 0800 (Not Given - Provider: Masha Jenkins [...] oral, EVERY 2 HOURS PRN, Starting on Wed03/08/22 at 1700, Until Wed03/12/22 at 1619, Heartburn, Indigestion, Routine diphenhydrAMINE (BENADRYL) [...] Until Wed03/12/22 at 1619, Itching, nausea/vomiting, Routine hydrOXYzine (ATARAX) tablet 50 mg 50 mg, oral, 4 TIMES DAILY PRN, Starting on Wed03/08/22 at 1735, Until Wed03/12/22 at 1619, Itching, Routine lanolin HPA (LANSINOH) [...] Carolina Jimenez RN)1607 (Given - Provider: Kathya Mccarthy, MONTY)2119 (Given - Provider: Delmi Hayward RN) 0307 (Given - Provider: Delmi Hayward, MONTY)1307 (Given - Provider: Raina Johnson RN)1712 (Given - Provider: Delmi Hayward RN) 0254 (Given - Provider: Delmi Hayward RN)1000 (Given - Provider: Masha Jenkins, MONTY)1400 (Given - Provider: Masha Jenkins RN) polyethylene glycol 3350 (MIRALAX) packet 17 g 17 g, oral, 2 TIMES DAILY PRN, Starting on 03/08/22 at 1700, Until Felicia 03/12/22 at 1619, Constipation, Routine simethicone (MYLICON) chewable tablet 80 mg 80 mg, oral, EVERY 6 HOURS PRN, Starting on Wed03/10/22 at 1137, Until Felicia 03/12/22 at 1619, Flatulence, Routine 1305 (Given - Provider: Kathya Mccarthy, MONTY) sodium chloride (OCEAN) 0.65 % nasal spray 2 Hague 2 Hague, nasal - both, PRN, Starting on Wed03/09/22 [...] Until Wed03/12/22 at 1619, Itching, nausea/vomiting, Routine Group 5: [...] Count Last Ordered Date First Ordered Date labetalol (NORMODYNE) tablet 400 mg 1 03/12 simethicone (MYLICON) chewab le tablet 80 mg 1 03/10/2022 calcium GLUconate 100 mg/mL (10%) injection 1,000 mg 2 03/09/2022 03/06/2022 labetalol (NORMODYNE) tablet 100 mg 2 03/0903/06/2022 labetalol (NORMODYNE) tablet 200 mg 1 03/09 labetalol (TRANDATE) 5 mg/mL injection 1 lactated ringers (LR) infusion 2 03/09/2022 03/06/2022 magnesium sulfate in water 4 0 gram/1,000 mL (4 %) IVPB pre-mix 2 03/09/2022 03/06/2022 magnesium sulfate IVPB 4 g 100 mL 1 023 NIFEdipine immediate release (PROCARDIA) capsule 10 mg 1 03/09/2022 NIFEdipine immediate release (PROCARDIA) capsule 20 mg 1 03/09/2022 sodium chloride (OCEAN) 0.65 % nasal spray 2 Hague 1 03/09/2022 acetaminophen (TYLENOL) tablet 1,000 mg 1 0 03/08/2022 calcium carbonate (TUMS) tab let 500 mg (200 mg elemental calcium) 2 Tablet 2 03/08/2022 12/03/2021 ceFAZolin (ANCEF) syringe 2 g 2 03/08/2022 diphenhydrAMINE (BENADRYL) capsule 25 mg 1 03/08/2022 diphenhydrAMINE (BENADRYL) i njection 12.5 mg 2 03/08/2022 famotidine (PEPCID) injection 20 mg 2 03/08 HYDROmorphone (PF) (DILAUDID ) 0.5 mg/0.5 mL syringe 0.2-0.6 mg 1 03/08/2022 hydrOXYzine (ATARAX) tablet 50 mg 1 023 ibuprofen (MOTRIN) tablet 800 mg 1 03/08/19 23 ketOROLAC (TORADOL) injection 15 mg 1 03/08 lanolin HPA (LANSINOH) cream 1 03/08/2022 multivitamin vit-ir on fumarate-FA (STUARTNATAL) 27 mg iron- 1 mg tablet 1 Tablet 2 03/08/2022 03/07/2022 nalbuphine (NUBAIN) injection 10 mg 1 03/08 nalbuphine (NUBAIN) injection 4 mg 1 2022 naloxone (NARCAN) injection 0.2 mg 1 2022 ondansetron (PF) (ZOFRAN) injection 4 mg 2 03/08/2022 03/06/2022 ondansetron (ZOFRAN-ODT) dis integrating tablet 4 mg 2 03/08/2022 03/06/2022 oxyCODONE (ROXICODONE) immed iate release tablet 2.5-5 mg 1 03/08/2022 oxytocin for 30 units/500 mL 1 0 03/08/2022 oxytocin in lactated ringers 30 unit/500 mL infusion solution 2 03/08/2022 polyethylene glycol 3350 ([place] RALAX) packet 17 g 1 03/08/2022 senna (SENOKOT) tablet 2 Tablet 1 3 sodium chloride 0.9 % (flush) flush 5 mL 1 03/08/2022 sodium citrate-citric acid ( BICITRA) 500-334 mg/5 mL solution 30 mL 1 03/08/2022 acetaminophen (TYLENOL) tablet 650 mg 1 betamethasone (CELESTONE TARA USPAN) 6 mg/mL injection 12 mg 1 03/06/2022 lactated ringers BOLUS 500 mL 1 03/06/2022 lidocaine (PF) 10 mg/mL (1 % ) injection 2 mg 1 03/06/2022 lidocaine 1 % injection 20 mL 1 03/06/2022 miSOPROStol (CYTOTEC) tablet 200 mcg 1 02/07 miSOPROStol (CYTOTEC) tablet 800 mcg 1 02/07 oxytocin for induction/augme ntation 30 units/500 mL [...] 03/12/2022 documented in this encounter Care Teams Returned Telephone Equipment Appraiser Relationship Specialty Start Date End Date Kristine Jackson [address] [place] [address] [place] [address] PCP - General 03/06/22 documented as of this encounter
--- OUTSIDE RECORDS SUMMARY | 2023-10-19 17:20 | XMS_ITS | Encounter Summary ---
Author Organization [facility] Address [address] [place] [address] Care Team Providers Care Print Producer Name Role Phone Deacon Esposito DO Primary Care Provider Kristine Jackson Primary Care Provider [phone] Encounter Details Date Type Department Care Team (Late st Contact Info) Description 12/05/2019 Lab Requisition [facility] Pathology & Laboratory Medicine - [facility] [address] [place] [address] Outr Resulting Lab, Provider Social History Tobacco [...] REFLEX TO HCV RNA BY PCR Routine 12/05/2019 11:36 EDT HEPATITIS B SURFACE ANTIGEN Routine 12/05/2019 11:36 EDT HIV 1/2 ANTIGEN AND ANTIBODY, 4TH GENERATION Routine 12/05/2019 11:36 EDT documented in this encounter Results * HEPATITIS B SURFACE ANTIGEN (12/05/2019 11:36 EDT) Hep B Surface Ag Negative Negative 12/06/2019 9:50 EDT [facility] Blood VENOUS BLOOD / Unknown 12/05/2019 11:36 EDT 12/05/2019 21:38 EDT Provider Outr Resulting Lab CHEMISTRY & BLOOD GAS ORDERABLES [facility] [address] [place] [address] * HIV 1/2 ANTIGEN AND ANTIBODY, 4TH GENERATION (12/05/2019 11:36 EDT) HIV 1 and 2 Antibody/p24 Antigen, 4th Generation Negative Negative 12/06/2019 10:23 EDT [facility] Comment: If acute HIV-1 infection is suspected in a high risk ??patient, submit plasma specimen for HIV-1 RNA quantitation test. Fourth Generation assay performed on the Siemens Storieaur. Blood VENOUS BLOOD / Unknown 12/05/2019 11:36 EDT 12/05/2019 21:38 EDT Provider Outr Resulting Lab IMMUNOLOGY A ND SEROLOGY ORDERABLES Performing Organization Address City/[facility]/ZIP Co de Phone Number [facility] [address] [place] [address] * HEPATITIS C AB W REFLEX TO HCV RNA BY PCR (12/05/2019 11:36 EDT) Hep C Antibody Negative Negative 12/06/2019 10:29 EDT [facility] Blood VENOUS BLOOD / Unknown 12/05/2019 11:36 EDT 12/05/2019 21:38 EDT Provider Outr Resulting Lab CHEMISTRY & BLOOD GAS ORDERABLES Performing Organization Address City/[facility] Co de Phone Number [facility] [address] [place] [address] documented in this encounter Visit Diagnoses Not on filedocumented in this encounter Care Teams Print Producer Relationship Specialty Start Date End Date Deacon Esposito DO [address] [place] [id number] PCP - General 01/05/17 03/05/22 Kristine Jackson [address] [place] [address] [address] [place], [place] [id number] PCP - General 03/06/22 documented as of this encounter
--- OUTSIDE RECORDS SUMMARY | 2023-10-19 17:20 | XMS_ITS | Encounter Summary ---
Author Organization [facility] Address [address] [place] [address] Care Team Providers Care Technical Support Associate Name Role Phone Cate Deacon Bray Primary Care Provider Kristine Jackson Primary Care Provider [phone] Encounter Details Date Type Department Care Team (Late st Contact Info) Description 12/19/2019 Lab Requisition [facility] Pathology & Laboratory Medicine - [facility] [address] [place] [address] Katie Still MD [address] [place] [address] [phone] Encounter for screening for other viral diseases [...] Procedure Name Priority Date/Time Associated Diagnosis Comments DO NOT ORDER STANDALONE - BROAD COVID TEST Today 12/19/2019 13:45 EDT Encounter for screening for other viral diseases COVID-19 TESTING Today 12/19/2019 13:4 5 EDT Encounter for screening for other viral diseases documented in this encounter Results * DO NOT ORDER STANDALONE - BROAD COVID TEST (12/19/2019 13:45 EDT) COVID-19 rt-PCR Result NEGATIVE Negative 12/20/2019 21:09 EDT [facility] Comment: 2019-novel Coronavirus (2019-nCoV) not detected by the qRT-PCR assay. Consider testing for other respiratory viruses or re-collecting for 2019-nCoV testing. Note: Optimum timing for peak viral levels during infections caused by 2019-nCoV have not been determined. Collection of multiple specimens from the same patient may be necessary to detect the virus. Limitations Positive results are indicative of active infection with SARS-CoV-2 but do not rule out bacterial infection or co-infection with other viruses. The agent detected may not be the definite cause of disease. In addition, detection of viral RNA may not indicate the presence of infectious virus or that SARS-CoV-2 is the causative agent for clinical symptoms. Negative results do not preclude SARS-CoV-2 infection and should not be used as the sole basis for patient management decisions. Negative results must be combined with clinical observations, patient history, and epidemiological information. False negative results may also occur if amplification inhibitors are present in the specimen or if inadequate numbers of organisms are present in the specimen. Optimum specimen types and timing for peak viral levels during infections caused by SARS-CoV-2 have not been fully determined. Collection of multiple specimens (types and time points) from the same patient may be necessary to detect the virus. The test was validated for use with upper respiratory specimens obtained via nasopharyngeal or oropharyngeal swabs in VTM, UTM, M4, M5, M6, saline, and MTM media. The performance of this test has not been established for other specimens. Specimens collected using other FDA recommended Specimen Collection Materials listed in the FDA COVID-19 [employer] communication (June 01, 2019) are processed with the caveat that they were not all validated for use with this test and the result must be interpreted in this context. Furthermore, a false negative results may occur if a specimen is improperly collected, transported or handled. If the virus mutates in the RT-PCR target region, SARS-CoV-2 may not be detected or may be detected less predictably. Inhibitors or other types of interference may produce a false negative result. An interference study evaluating the effect of common cold medications was not performed. This test is not FDA-cleared but its performance characteristics were established by our CLIA-certified, CAP-accredited, high complexity laboratory in accordance with CLIA regulations, [employer] (CAP) guidelines (May 25, 2019), and FDA guidance (May 06, 2019). This test is only for use under the Food and Drug Administration's Emergency Use Authorization. Swab ENTIRE NASOPHARYNX / Unknown 12/19/2019 13:45 EDT 12/19/2019 21:48 EDT Katie Still MD MICROBIOLOGY - GENER AL ORDERABLES [facility] [place], [place] * COVID-19 TESTING (12/19/2019 13:45 EDT) COVID-19 rt-PCR Result NEGATIVE Negative 12/20/2019 23:41 EDT [facility] Comment: 2019-novel Coronavirus (2019-nCoV) not detected by the qRT-PCR assay. Consider testing for other respiratory viruses or re-collecting for 2019-nCoV testing. Note: Optimum timing for peak viral levels during infections caused by 2019-nCoV have not been determined. Collection of multiple specimens from the same patient may be necessary to detect the virus. Limitations Positive results are indicative of active infection with SARS-CoV-2 but do not rule out bacterial infection or co-infection with other viruses. The agent detected may not be the definite cause of disease. In addition, detection of viral RNA may not indicate the presence of infectious virus or that SARS-CoV-2 is the causative agent for clinical symptoms. Negative results do not preclude SARS-CoV-2 infection and should not be used as the sole basis for patient management decisions. Negative results must be combined with clinical observations, patient history, and epidemiological information. False negative results may also occur if amplification inhibitors are present in the specimen or if inadequate numbers of organisms are present in the specimen. Optimum specimen types and timing for peak viral levels during infections caused by SARS-CoV-2 have not been fully determined. Collection of multiple specimens (types and time points) from the same patient may be necessary to detect the virus. The test was validated for use with upper respiratory specimens obtained via nasopharyngeal or oropharyngeal swabs in VTM, UTM, M4, M5, M6, saline, and MTM media. The performance of this test has not been established for other specimens. Specimens collected using other FDA recommended Specimen Collection Materials listed in the FDA COVID-19 [employer] communication (June 01, 2019) are processed with the caveat that they were not all validated for use with this test and the result must be interpreted in this context. Furthermore, a false negative results may occur if a specimen is improperly collected, transported or handled. If the virus mutates in the RT-PCR target region, SARS-CoV-2 may not be detected or may be detected less predictably. Inhibitors or other types of interference may produce a false negative result. An interference study evaluating the effect of common cold medications was not performed. This test is not FDA-cleared but its performance characteristics were established by our CLIA-certified, CAP-accredited, high complexity laboratory in accordance with CLIA regulations, [employer] (CAP) guidelines (May 25, 2019), and FDA guidance (May 06, 2019). This test is only for use under the Food and Drug Administration's Emergency Use Authorization. Performing Lab [facility] 12/20/2019 23:41 EDT [facility] Swab ENTIRE NASOPHARYNX / Unknown 12/19/2019 13:45 EDT 12/19/2019 21:48 EDT Katie Still MD MICROBIOLOGY - GENER AL ORDERABLES [facility] [address] [place] [address] [facility] [place], [place] documented in this encounter Visit Diagnoses Diagnosis Encounter for screening for other viral diseases documented in this encounter Care Teams Technical Support Associate Relationship Specialty Start Date End Date Deacon Esposito DO [address] [place] [id number] PCP - General 01/05/17 03/05/22 Kristine Jackson [address] [place] [address] [place], [place] [id number] PCP - General 03/06/22 documented as of this encounter
--- OUTSIDE RECORDS SUMMARY | 2023-10-19 17:20 | XMS_ITS | Encounter Summary ---
Author Organization [facility] Address [address] [place] [address] Care Team Providers Care Carry Out Clerk And Shelf Stocker Name Role Phone Deacon Esposito DO Primary Care Provider [phone] Reason for Visit * Office Procedure (Routine) - Closed Specialty Diagnoses / Procedures Referred By Caro bernard Referred To Contact Neurology Diagnoses New onset seizure ([facility]) Procedures EEG ChristinMargo MD [address] [place] [phone] [facility] Neuromusc & Clin Neurophys [address] [place] [address] Referral ID Status Reason Start Date Expiration Date Visits Re quested Visits Authorized [id number] Closed 1 1 Encounter Details Date Type Department Care Team (Late st Contact Info) Description 12/06/2017 9:54 EDT - 12/06/2017 23:59 EDT Hospital Encounter [facility] Neurophysiology - [facility] [address] [place] [address] Unknown, Provider, Bulmaro Quesada MD PhD [address] [facility] [place] [id number] Seizure (HCC-CMS) Discharge Disposition: Auto Discharge Social History Tobacco Use Types Packs/Day Years [...] No 01/01/2017 documented as of this encounter Discharge Diagnoses Diagnosis R56.9 Unspecified convulsions-R56.9[ICD-10-CM] documented in this encounter Medications at Time of Discharge Medication Sig Dispensed Refills Start Date End Date acetaminophen (TYLENOL) 650 mg/20.3 mL solution Take 20.3 mL by mouth every 4 hours as needed for Pain. 01/14/2017 03/12/2022 ibuprofen (MOTRIN) 400 mg tablet Take 1 Tab by mouth every 4 hours. 40 Tab 01/14/2017 03/12/2022 oxyCODONE (ROXICODONE) 5 mg immediate release tablet Take 1 Tab by mouth every 6 hours as needed for Pain. Daily Max: 20 mg 10 Tab 01/14/2017 03/12/2022 traZODone (DESYREL) 50 mg tablet Take 0.5 Tabs by mouth at bedtime. 20 Tab 01/14/2017 03/12/2022 documented as of this encounter Discharge Disposition Disposition Code Departure Means Destination Auto Discharge Home documented in this encounter Procedure Notes * Bulmaro Quesada MD PhD - 12/06/2017 0809 EDT [facility] Name: Rachel Liu Clinical Neurophysiology Laboratory [address] : [address] [place], [place] Date: 12/06/2017 Electroencephalogram Report Referring Physician: Dr Margo Rosales Study Number: [id number] Clinical Indication: 17 year old woman with seizure like episodes after a fall with significant head injury. Medications: See EPIC Technical Description: Standard EEG: An in-laboratory digital EEG is performed utilizing silver-silver chloride electrodesplaced according to the International 10-20 system of electrode placement. CPZ serves as the recording reference electrode. The following additional electrodes are also placed: ECG electrodes , anterior temporal electrodes The study begins at 1103 until 1133 with a total study duration of 30 minutes. During this study the following states were recorded: Wake Subject factors: Cooperative The patient and/or caregivers report:Unknown hours of sleep night before study; Estimated average Unknown hours of sleep Previous EEG Study? No Findings: 1. The waking cerebral background activity is characterized by a posterior dominant rhythm of 9.5 Hz that is symmetric, synchronous and reactive to eye opening. In addition there is mild intermittentright temporoparietal slowing of moderate amplitude in the low theta range. 2. Hyperventilation is performed for just over 3 minutes, with good patient effort. Photic stimulation is performed in the usual fashion. 3. Drowsiness is recorded but no stage N2 sleep is attained. Impression: Mildly abnormal EEG due to intermittent right temporoparietal slowing. Clinical Correlation: Intermittent right temporoparietal focal slowing is suggestive of cerebral dysfunction in that area, and would be consistent with the patient's history of traumatic brain injuryon that side. No seizures nor interictal epileptiform discharges were present to support the diagnosis of epilepsy. Absence of such discharges does not exclude the diagnosis of epilepsy. If clinical concern for seizure remains, a prolonged or sleep-deprived EEG may be considered. Clint Nelson MD PGY 5 CNL Fellow 12/06/2017 13:45 I have reviewed the study and made corrections as needed. Bulmaro Quesada MD, PhD ABPN Certified Neurology ABCN Certified Clinical Neurophysiology documented in this encounter Plan of Treatment Not on file documented as of this encounter Visit Diagnoses Diagnosis Seizure ([facility]) Other convulsions documented in this encounter Care Teams Carry Out Clerk And Shelf Stocker Relationship Specialty Start Date End Date Deacon Esposito DO [address] [place] [address] PCP - General 01/05/17 03/05/22 documented as of this encounter
--- OUTSIDE RECORDS SUMMARY | 2023-10-19 17:20 | XMS_ITS | Encounter Summary ---
Author Organization [facility] Address [address] [place] [address] Care Team Providers Care Kitchen Worker Name Role Phone Kristine Jackson Primary Care Provider [phone] Reason for Visit * Auth/Cert (Routine) Specialty Diagnoses / Procedures Referred By Contac t Referred To Contact Diagnoses Preeclampsia, severe, third trimester ? Preeclampsia; Imminent Delivery Referral ID Status Reason Start Date Expiration Date Visits Re quested Visits Authorized [id number] 1 1 Encounter Details Date Type Department Care Team (Late st Contact Info) Description 03/06/2022 23:59 EST Anesthesia Event [facility] [address] [place] [address] Cassia Rivera MD [address] [id number] Anesthesia Record Procedure Summary Procedure Name Responsible Anesthesiologist Anesthesia Start Time Anesthesia Stop Time LABOR CONSULT Events No events on file. Meds * Agents No agents on file. * Blood No blood administrations on file. Lines, Drains, and Airways No LDAs on file. documented in this encounter Social History Tobacco Use Types Packs/Day Years Used Date Smoking Tobacco: Never Smokeless Tobacco: Never Alcohol Use Standard Drinks/Week Comments No 0 (1 standard drink = 0.6 oz pur e alcohol) Interpersonal Safety Answer Date Record ed Physically Hurt Never 10/08/2019 Verbally Threaten Not on file 10/08/2019 Comments Yes Sex and Gender Information Value Date Recorded [...] No 01/01/2017 documented as of this encounter OR Notes * Anesthesia Preprocedure Evaluation - Guevara-Cassia Wang MD - 03/06/2022 2301 EST Anesthesia Preprocedure Evaluation Patient Medical History, including Anesthesia History reviewed. Chart and Nursing Notes reviewed, including NPO status and Medication History. Additional ROS/History Findings: 21 yo F @ 36w1d presenting with c/f severe pre-eclampsia and FGR. 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 Distant hx of childhood asthma, not on inhalers - No known pulmonary or cardiac disease, no inhaler use - No known kidney or liver disease, no bleeding disorders, no blood thinner use; plt 233, Hb 13.5 - allergy to bactrim and penicillins - No known personal or family hx of anesthesia complications OB ERAS CHECKLIST: - Respiratory depression risk factors: None. - STOP BANG score: None. STOP BANG score must be =/> 3 in order to acquire 1 risk factor for respiratory depression. - Anticipated monitoring: Level 1 = every 2H RR + POSS score for 0-12 hours after delivery. - Post-op pain risk factors: None. Because she does not have risk factors, the following additional neuraxial or regional anesthetic technique will be added to her post- pain management plan: None, other than long acting neuraxial opioid Allergies Allergen Reactions ??? Bactrim [Sulfamethoprim] Hives per patient and step mother ??? Penicillins Hives per step mother Patient is now. (-) thrombocytopenia, coagulation factor disease, anticoagulation therapy Review of Systems Respiratory: Negative for shortness of breath and wheezing. Cardiovascular: Negative for leg swelling. Past Medical History: Diagnosis Date ??? Fracture of temporal bone with routine healing 12/27/2016 Status post fall from horse ??? 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 Informed consent obtained from patient and spouse. Specific risks discussed were bleeding, headache, incomplete block, nerve damage, dental injury, infection, nausea and vomiting. Code status discussed? No The preoperative history and physical which was performed within 30 days of this procedure, has been reviewed and the clinically appropriate elements of the physical examination have been repeated. There are no changes to the documented history and physical or, if so, such changes are documented inthis note Obstetrics patient pre-procedure anesthesia evaluation included a discussion of epidural, spinal, general, and TAP block mode(s) of anesthesia. Risks discussed included: Bleeding, infection, nerve injury, spinal headaches, high spinals, hematomas, and low blood pressures with under-perfusion. The possibilities of inadequate epidural/block, block failure, and possible block replacement were also discussed. All patient's questions were answered to their satisfaction. PAT Note Notes from 02/04/22 through 03/06/22 No notes of this type exist for this encounter. documented in this encounter Plan of Treatment Not on file documented as of this encounter Visit Diagnoses Not on filedocumented in this encounter Care Teams Kitchen Worker Relationship Specialty Start Date End Date Kristine Jackson [address] [place] [address] [place] [address] PCP - General 03/06/22 documented as of this encounter
--- OUTSIDE RECORDS SUMMARY | 2023-10-19 17:20 | XMS_ITS | Encounter Summary ---
Author Organization [facility] Address [address] [place] [address] Care Team Providers Care Pullman Clerk Name Role Phone Manuel Kristine Primary Care Provider [phone] Encounter Details Date Type Department Care Team (Latest Contact Info) Description 03/06/2022 Travel Social History Tobacco Use Types Packs/Day Years [...] on filedocumented in this encounter Care Teams Pullman Clerk Relationship Specialty Start Date End Date Kristine Jackson [address] [place] [address] [place] [address] PCP - General 03/06/22 documented as of this encounter
--- OUTSIDE RECORDS SUMMARY | 2023-10-19 17:20 | XMS_ITS | Encounter Summary ---
Author Organization [facility] Address [address] [place] [address] Care Team Providers Care Space Sciences Director Name Role Phone Deacon Esposito DO Primary Care Provider [phone] Kristine Jackson Primary Care Provider [phone] Encounter Details Date Type Department Care Team (Late st Contact Info) Description 08/06/2021 Lab Requisition [facility] Pathology & Laboratory Medicine - [facility] [address] [place] [address] Outr Resulting Lab, Provider Social History Tobacco [...] Date/Time Associated Diagnosis Comments SYPHILIS SEROLOGY Routine 08/06/2021 13: 06 EDT HEPATITIS C AB W REFLEX TO HCV RNA BY PCR Routine 08/06/2021 13:06 EDT PROGESTERONE Routine 08/06/2021 13:06 EDT RUBELLA IGG ANTIBODY Routine 08/06/2021 13:06 EDT HEPATITIS B SURFACE ANTIGEN Routine 08/06/2021 13:06 EDT HIV 1/2 ANTIGEN AND ANTIBODY, 4TH GENERATION Routine 08/06/2021 13:06 EDT documented in this encounter Results * HEPATITIS C AB W REFLEX TO HCV RNA BY PCR (08/06/2021 13:06 EDT) Hep C Antibody Negative Negative 08/07/2021 10:50 EDT [facility] Blood VENOUS BLOOD / Unknown 08/06/2021 13:06 EDT 08/06/2021 20:49 EDT Provider Outr Resulting Lab CHEMISTRY & BLOOD GAS ORDERABLES [facility] [address] [place] [address] * HIV 1/2 ANTIGEN AND ANTIBODY, 4TH GENERATION (08/06/2021 13:06 EDT) HIV 1 and 2 Antibody/p24 Antigen, 4th Generation Negative Negative 08/07/2021 10:38 EDT [facility] Comment:If acute HIV-1 infec tion is suspected in a high risk patient, submit plasma specimen for HIV-1 RNA quantitation test. Blood VENOUS BLOOD / Unknown 08/06/2021 13:06 EDT 08/06/2021 20:49 EDT Narrative [facility] - 08/07/2021 10:38 EDT Fourth Generation assay performed on the Siemens Centaur XPT. Provider Outr Resulting Lab IMMUNOLOGY A ND SEROLOGY ORDERABLES Performing Organization Address City/[facility]/ZIP Co de Phone Number [facility] [address] [place] [address] * SYPHILIS SEROLOGY (08/06/2021 13:06 EDT) Syphilis Serology Negative Negative 08/07/2021 11:12 EDT [facility] Blood VENOUS BLOOD / Unknown 08/06/2021 13:06 EDT 08/06/2021 20:49 EDT Provider Outr Resulting Lab IMMUNOLOGY A ND SEROLOGY ORDERABLES Performing Organization Address [facility]/[place] Co de Phone Number [facility] [address] [place] [address] * RUBELLA IGG ANTIBODY (08/06/2021 13:06 EDT) Rubella IgG Ab Positive See Note 08/07/2021 11:09 EDT [facility] Comment:Positive for IgG ant ibodies to Rubella virus. Blood VENOUS BLOOD / Unknown 08/06/2021 13:06 EDT 08/06/2021 20:49 EDT Provider Outr Resulting Lab CHEMISTRY & BLOOD GAS ORDERABLES Performing Organization Address [facility]/[place] Co de Phone Number [facility] [address] [place] [address] * HEPATITIS B SURFACE ANTIGEN (08/06/2021 13:06 EDT) Hep B Surface Ag Negative Negative 08/07/2021 9:53 EDT [facility] Blood VENOUS BLOOD / Unknown 08/06/2021 13:06 EDT 08/06/2021 20:49 EDT Provider Outr Resulting Lab CHEMISTRY & BLOOD GAS ORDERABLES [facility] [address] [place] [address] * PROGESTERONE (08/06/2021 13:06 EDT) Progesterone 34.0 See Table ng/mL 08/06/2021 21:40 EDT [facility] Comment: Female Reference Ranges: PHYSIOLOGICAL STATUS ?EXPECTED RANGE ? >= 18 Yrs Menstruating: (Non-) Follicular Phase: ? <= 1.4 ng/mL Luteal Phase: ? 3.3 - 25.6 ng/mL Mid-luteal Phase: ? 4.4 - 28.0 ng/mL Postmenopausal: ? <= 0.7 ng/mL : -------- First Trimester: ?11.2 - 90.0 ng/mL Second Trimester: ? 25.6 - 89.4 ng/mL Third Trimester: ?48.4 - 422.5ng/mL For ectopic , consult a pathologist Reference Ranges for female patients <18 years old have not been established. Blood VENOUS BLOOD / Unknown 08/06/2021 13:06 EDT 08/06/2021 20:49 EDT Provider Outr Resulting Lab CHEMISTRY & BLOOD GAS ORDERABLES [facility] [address] [place] [address] documented in this encounter Visit Diagnoses Not on filedocumented in this encounter Care Teams Space Sciences Director Relationship Specialty Start Date End Date Deacon Esposito DO [address] [place] [address] [id number] PCP - General 01/05/17 03/05/22 Kristine Jackson [address] [place] [address] [address] [place] [id number] PCP - General 03/06/22 documented as of this encounter
--- OUTSIDE RECORDS SUMMARY | 2023-10-19 17:20 | XMS_ITS | Encounter Summary ---
Author Organization [facility] Address [address] [place] [address] Care Team Providers Care Beer Still Runner Compounder Name Role Phone Cate Deacon Bray Primary Care Provider [phone] Kristine Jackson Primary Care Provider [phone] Encounter Details Date Type Department Care Team (Late st Contact Info) Description 02/20/2020 Lab Requisition [facility] Pathology & Laboratory Medicine - [address] [address] Katie Still MD [address] [place] [address] [phone] Contact with and (suspected) exposure to other viral communicable diseases Social History Tobacco Use Types Packs/Day [...] ORDER STANDALONE - BROAD COVID TEST Today 02/20/2020 13:45 EST Contact with and (suspected) exposure to other viral communicable diseases COVID-19 TESTING Today 02/20/2020 13:4 5 EST Contact with and (suspected) exposure to other viral communicable diseases documented in this encounter Results * DO NOT ORDER STANDALONE - BROAD COVID TEST (02/20/2020 13:45 EST) COVID-19 rt-PCR Result NEGATIVE Negative 02/23/2020 8:45 EST [facility] Comment: 2019-novel Coronavirus (2019-nCoV) not detected [...] in accordance with CLIA regulations, College of [employer] (CAP) guidelines (May 25, 2019), and FDA guidance (May 06, 2019). This test is only for use under the Food and Drug Administration's Emergency Use Authorization. Swab NASAL / Unknown 02/20/2020 1 3:45 EST 02/20/2020 21:12 EST Katie Still MD MICROBIOLOGY - GENER AL ORDERABLES [facility] [place] * COVID-19 TESTING (02/20/2020 13:45 EST) COVID-19 rt-PCR Result NEGATIVE Negative 02/23/2020 10:05 EST [facility] Comment: 2019-novel Coronavirus (2019-nCoV) not detected [...] in accordance with CLIA regulations, College of [employer] (CAP) guidelines (May 25, 2019), and FDA guidance (May 06, 2019). This test is only for use under the Food and Drug Administration's Emergency Use Authorization. Performing Lab [facility] 02/23/2020 10:05 EST [facility] Swab NASAL / Unknown 02/20/2020 1 3:45 EST 02/20/2020 21:12 EST Katie Still MD MICROBIOLOGY - GENER AL ORDERABLES [facility] [address] [place] [address] [facility] [place] documented in this encounter Visit Diagnoses Diagnosis Contact with and (suspected) exposure to other viral communicable diseases documented in this encounter Care Teams Beer Still Runner Compounder Relationship Specialty Start Date End Date Deacon Esposito DO [address] [place] [id number] PCP - General 01/05/17 03/05/22 Kristine Jackson [address] [place] [address] [place] [address] PCP - General 03/06/22 documented as of this encounter
--- OUTSIDE RECORDS SUMMARY | 2023-10-19 17:20 | XMS_ITS | Encounter Summary ---
Author Organization [facility] Address [address] [place] [address] Care Team Providers Care Scale Mechanic Name Role Phone CateDeacon Primary Care Provider [phone] Kristine Jackson Primary Care Provider [phone] Encounter Details Date Type Department Care Team (Late st Contact Info) Description 12/26/2019 Lab Requisition [facility] Pathology & Laboratory Medicine - [facility] [address] [place] [address] Phillip Candelaria MD [address] [place] [phone] Encounter for other general examination Social History [...] Date/Time Associated Diagnosis Comments SURGICAL PATHOLOGY Today 12/25/2019 20 :37 EDT documented in this encounter Results * SURGICAL PATHOLOGY (12/25/2019 20:37 EDT) Final Diagnosis A. RIGHT FALLOPIAN TUBE, RIGHT SALPINGECTOMY: - Fallopian tube with chorionic villi consistent with tubal . 12/29/2019 9:40 [facility] Attestation There was significant resident/fellow involvement in the diagnostic evaluation of this case. By the signature below, the attending physician certifies that they have personally conducted a gross and/or microscopic examination of the described specimens and rendered or confirmed the above diagnosis. 12/29/2019 9:40 [facility] at 0940 Clinical History Preoperative Dx: Ectopic Postoperative Dx: Right ectopic 12/29/2019 9:40 [facility] Gross Description A. Received in formalin labelled with proper patient identification (initials W, K) and A. Right fallopian tube is a fimbriated fallopian tube (4.2 cm in length, ranging from 1.5 cm to 2.0 cm in diameter). The dilated portion of tube is at the ampulla and has an intact wall. The cut surface of this region is ponce-mckeon and spongy with a small amount of possible white villous tissue. tissue is not identified. The serosa is ponce-purple and smooth. The remaining cut surface is ponce-white with a pinpoint lumen. The specimen is entirely submitted as A1-A5. KARIN ARROYO DO 12/27/2019 13:59 12/29/2019 9:40 EDT [facility] Resident/You w: Karin Arroyo DO 12/29/2019 9:40 EDT [facility] Performing Lab [facility] 12/29/2019 9:40 EDT [facility] Scanned Images 12/29/2019 9:40 EDT [facility] Tissue ENTIRE FALLOPIAN TUBE / Unknown 12/25/2019 20:37 EDT 12/27/2019 9:56 EDT Phillip Candelaria MD PATHOLOGY [facility] [address] [place] [address] documented in this encounter Visit Diagnoses Diagnosis Encounter for other general examination documented in this encounter Care Teams Scale Mechanic Relationship Specialty Start Date End Date Deacon Esposito DO [address] [place] [address] PCP - General 01/05/17 03/05/22 Kristine Jackson [address] [place] [address] [place] [address] PCP - General 03/06/22 documented as of this encounter
--- OUTSIDE RECORDS SUMMARY | 2023-10-19 17:20 | XMS_ITS | Encounter Summary ---
Author Organization [facility] Address [address] [place] [address] Care Team Providers Care Registered Nurse Post Partum Name Role Phone Cate Deacon Bray Primary Care Provider Kristine Jackson Primary Care Provider [phone] Encounter Details Date Type Department Care Team (Late st Contact Info) Description 02/14/2020 Lab Requisition [facility] Pathology & Laboratory Medicine - [address] [address] Katie Still MD [address] [place] [address] [phone] Contact with and (suspected) exposure to other [...] Priority Date/Time Associated Diagnosis Comments ZZCOVID-19 TEST [facility] PCR Today 02/13/2020 13:36 EST Contact with and (suspected) exposure to other viral communicable diseases COVID-19 TESTING Today 02/13/2020 13:3 6 EST Contact with and (suspected) exposure to other viral communicable diseases documented in this encounter Results * COVID-19 TEST [facility] PCR (02/13/2020 13:36 EST) Swab ENTIRE NASOPHARYNX / Unknown 02/13/2020 13:36 EST 02/14/2020 0:48 EST Katie Still MD MICROBIOLOGY - GENER AL ORDERABLES [facility] [address] [place] [address] * COVID-19 TESTING (02/13/2020 13:36 EST) COVID-19 rt-PCR Result Negative Negative 02/14/2020 14:16 EST [facility] Comment: This test has not [...] history, and epidemiological information. Performed on the [employer] [place] Fusion instrument Performing Lab [facility] 02/14/2020 14:16 EST [facility] Swab 02/13/2020 13:3 6 EST 02/14/2020 0:48 EST Katie Still MD MICROBIOLOGY - GENER AL ORDERABLES [facility] [address] [place] [address] documented in this encounter Visit Diagnoses Diagnosis Contact with and (suspected) exposure to other viral communicable diseases documented in this encounter Care Teams Registered Nurse Post Partum Relationship Specialty Start Date End Date Deacon Esposito DO [address] [place] [id number] PCP - General 01/05/17 03/05/22 Kristine Jackson [address] [place] [address] [address] [place], [place] [id number] PCP - General 03/06/22 documented as of this encounter
--- OUTSIDE RECORDS SUMMARY | 2023-10-19 17:20 | XMS_ITS | Encounter Summary ---
Author Organization [facility] Address [address] [place] [address] Care Team Providers Care Pug Mill Operator Name Role Phone Kristine Jackson Primary Care Provider [phone] Reason for Visit * Auth/Cert (Routine) Specialty Diagnoses / Procedures Referred By Contac t Referred To Contact Diagnoses Preeclampsia, severe, third trimester ? Preeclampsia; Imminent Delivery Referral ID Status Reason Start Date Expiration Date Visits Re quested Visits Authorized [id number] 1 1 Encounter Details Date Type Department Care Team (Late st Contact Info) Description 03/08/2022 13:37 EST Anesthesia Event [facility] Unit [address] [place], [place] [phone] Satya Gutierrez MD [address] [facility], Level 2 [place] [phone] Phi Muse MD Anesthesia Record Procedure Summary Procedure Name Responsible Anesthesiologist Anesthesia Start Time Anesthesia Stop Time SECTION (Abdomen) Satya Gutierrez MD 03/08/22 1337 03/08/22 1503 Events Date Time Event Comment 03/08/2022 1337 An Start The patient was re-evaluated immediately before moderate or deep sedation use, before anesthesia induction, or before the anesthesia procedure. 1337 An Start Data 1348 Block Placed Spinal placed 1353 Anesthesia Ready 1359 Haseeb Skin incision b y surgeon. 1404 Uterine Incision 1406 Baby Delivered 1448 an stop data 1503 Handoff to RN I completed my handoff to the receiving nurse during which we: 1. Identified the patient 2. Identified the responsible provider 3. Reviewed the pertinent medical history 4. Discussed the surgical course 5. Reviewed intra-op anesthesia management and issues during anesthesia 6. Set expectations for post-procedure period 7. Allowed opportunity for questions and acknowledgement of understanding. 1503 An Stop Meds Name Total bupivacaine 0.75%-dextrose 8 .25% PF (SENSORCAINE) intrathecal injection 1.6 mL fentanyl citrate (PF) injection 15 mcg morphine PF 1 mg/mL (DURAMORPH) 0.1 mg phenylephrine pre-made bag 20 mg/250 mL 700 mcg metoCLOPramide injection 10 mg ceFAZolin (ANCEF) IVPB (2 g Premade Bag) 2,000 mg oxytocin vial 1 Units oxytocin for 30 units/500 mL 12,585 charan-units acetaminophen 10 mg/ml 100 mL infusion 1 ,000 mg ketOROLAC injection 30 mg lactated ringers (LR) infusion 1,000 mL * Agents Name O2 N2O Air * Blood No blood administrations on file. Lines, Drains, and Airways Type Details Placement Removal Wound 03/08/22; 1441; Incision; Lower; Abdomen 03/08/22 1441 by Yolanda Garg, MONTY Peripheral IV 03/06/22; 1915; 03/09/22; 18; 1.25; Protect IV Plus; Distal, Left, Posterior; Forearm; 03/12/22; 0830; Per protocol, Discharged, Per order; No complications, Catheter intact, Dressing applied 03/06/22 1915 by Mena Kaur, MONTY 03/12/22 0830 by Masha Jenkins, MONTY Urethral Catheter 03/08/22; 1356; Inserted by RN; Selected surgical procedures/Epidural; 16 fr; 10 ml; Yes; 03/09/22; 0200 03/08/22 1356 by Yolanda Garg RN 03/09/22 0200 by Delmi Hayward RN documented in this encounter Social History Tobacco [...] memory 03/06/2022 documented as of this encounter OR Notes * Anesthesia Postprocedure Evaluation - Phi Muse MD - 03/08/2022 1503 EST Patient: Rachel Rios Vital signs were reviewed with the recovery nurse. Complete vitals history is available in the Epicflowsheets. Vitals Value Taken Time BP 124/74 03/08/22 1503 Temp 35.5 03/08/22 1503 Resp 21 03/08/22 1503 Pulse From Oximetry 81 03/08/22 1503 SpO2 99 % 03/08/22 1503 Heart Rate 82 BPM 03/08/22 1503 Vitals shown include unvalidated device data. Last Pain Score - Numeric Pain Level (Scale 1-10): 0 Type of Anesthesia - spinal Anesthesia Post Evaluation Post-procedure vitals reviewed and are stable. Level of consciousness: awake Temperature status: normothermia and patient returned to pre-procedure baseline Respiratory status: airway patent, stable and room air Cardiovascular status: stable Hydration status: adequate Nausea/Vomiting: none Pain management: adequate Post-Op Assessment: patient tolerated procedure well with no complications Patient participation: able to participate Disposition: inpatient Anesthesia Complications: No apparent anesthesia complications PERIOPERATIVE Risk Factors for respiratory depression identified in THIS patient included: None. THIS patient's Level of Respiratory and Sedation Monitoring: No change from preop Level of Respiratory and Sedation Monitoring * Anesthesia Preprocedure Evaluation - Phi Muse MD - 03/08/2022 8821 EST Anesthesia Preprocedure Evaluation Patient Medical History, [...] skull fracture with loss of consciousness ([facility]) ([facility])12/27/2016 Subdural hemorrhage, right parietal skull fracture, suspected diffuse axonal injury Relevant Problems CARDIOVASCULAR (+) Pre-eclampsia in third trimester Physical Exam Airway Mallampati: II [...] to their satisfaction. PAT Note Notes from 02/06/22 through 03/08/22 No notes of this type exist for this encounter. * Anesthesia Procedure Notes - Phi Muse MD - 03/08/2022 1351 EST Associated Order(s): Spinal Block Spinal Block Start time: 03/08/2022 13:46 End time: 03/08/2022 13:49 Staffing Performed: resident/REGIONAL BUSINESS MANAGER/AA Anesthesiologist: Satya Gutierrez MD Resident/REGIONAL BUSINESS MANAGER: Phi Muse MD Preanesthetic Checklist Completed: patient identified, IV checked, risks and benefits discussed, surgical consent, monitorsand equipment checked, pre-op evaluation and timeout performed Spinal Block Patient position: sitting Prep: ChloraPrep, site prepped and draped, skin prep agent completely dried prior to procedure, sterile gloves, mask used and subcutaneous lidocaine Patient monitoring: heart rate, continuous pulse ox and BP cuff Patient sedation: no sedation Approach: midline Location: L3-4 Injection technique: single-shot Needle Needle type: pencil-tip Needle gauge: 25 G Needle length: 1.5 in Assessment Events: cerebrospinal fluid and no paresthesia documented in this encounter Plan of Treatment Not on file documented as of this encounter Procedures Procedure Name Priority Date/Time Associated Diagnosis Comments ANESTHESIA SPINAL BLOCK Routine 03/08/2022 13:51 EST documented in this encounter Results * Spinal Block (03/08/2022 13:51 EST) Narrative Phi Muse MD - 03/08/2022 13:51 EST Phi Muse MD ? 03/08/2022 13:52 Spinal Block Start time: 03/08/2022 13:46 End time: 03/08/2022 13:49 Staffing Performed: resident/REGIONAL BUSINESS MANAGER/AA Anesthesiologist: Satya Gutierrez MD Resident/REGIONAL BUSINESS MANAGER: Phi Muse MD Preanesthetic Checklist Completed: patient identified, IV checked, risks and benefits discussed, surgical consent, monitors and equipment checked, pre-op evaluation and timeout performed Spinal Block Patient position: sitting Prep: ChloraPrep, site prepped and draped, skin prep agent completely dried prior to procedure, sterile gloves, mask used and subcutaneous lidocaine Patient monitoring: heart rate, continuous pulse ox and BP cuff Patient sedation: no sedation Approach: midline Location: L3-4 Injection technique: single-shot Needle Needle type: pencil-tip Needle gauge: 25 G Needle length: 1.5 in Assessment Events: cerebrospinal fluid and no paresthesia Satya Gutierrez MD ANESTHESIA ORDERABLE S documented in this encounter Visit Diagnoses Not on filedocumented in this encounter Administered Medications Inactive Administered Medications - up to 3 most recent administrations Medication Order MAR Action Action Date Dose Rate Site acetaminophen (OFIRMEV) IV solution intravenous, PRN, Starting on 03/08/22 at 1414, Until 03/08/22 at 1503, Routine, Anesthesia Intraprocedure Given 03/08/2022 14:14 EST 1,000 mg bupivacaine 0.75% in dextrose 8.25% (intrathecal) PF (SENSORCAINE) 0.75 % (7.5 mg/mL) injection intrathecal, PRN, Starting on 03/08/22 at 1348, Until 03/08/22 at 1503, Routine, Anesthesia Intraprocedure Given 03/08/2022 13:48 EST 1.6 mL ceFAZolin in dextrose (iso-os) piggyback 2 g/100 mL intravenous, Administer over 30 Minutes, PRN, Starting on 03/08/22 at 1348, Until 03/08/22 at 1503, Routine, Anesthesia Intraprocedure Given 03/08/2022 13:48 EST 2,000 mg fentaNYL citrate (PF) injection intrathecal, PRN, Starting on 03/08/22 at 1348, Until 03/08/22 at 1503, Routine, Anesthesia Intraprocedure Given 03/08/2022 13:48 EST 15 mcg ketOROLAC (TORADOL) injection intravenous, PRN, Starting on 03/08/22 at 1434, Until 03/08/22 at 1503, Routine, Anesthesia Intraprocedure Given 03/08/2022 14:34 EST 30 mg lactated ringers (LR) infusion intravenous, FA IP EQF CONTINUOUS PRN FOR ONE STEP MEDS, Starting on 03/08/22 at 1337, Until 03/08/22 at 1503, Routine, Anesthesia Intraprocedure New Bag 03/08/2022 13:37 EST metoclopramide (REGLAN) injection intravenous, PRN, Starting on 03/08/22 at 1324, Until 03/08/22 at 1503, Routine, Anesthesia Intraprocedure Given 03/08/2022 13:24 EST 10 mg morphine (PF) (DURAMORPH) injection intrathecal, PRN, Starting on 03/08/22 at 1348, Until 03/08/22 at 1503, Routine, Anesthesia Intraprocedure Given 03/08/2022 13:48 EST 0.1 mg oxytocin (PITOCIN) injection intravenous, PRN, Starting on 03/08/22 at 1406, Until 03/08/22 at 1503, Routine, Anesthesia Intraprocedure Given 03/08/2022 14:06 EST 1 Units oxytocin for 30 units/500 mL 95-334 charan-units/min (95-334 mL/hr), intravenous, Continuous PRN, Starting on Wed03/08/22 at 1320, Until Wed03/08/22 at 1646, Routine, Pre-Delivery Rate Change 03/08/2022 14:36 EST 95 charan-units/min 95 mL/hr New Bag 03/08/2022 14:06 EST 334 charan-units/min 334 mL /hr phenylephrine HCl in 0.9% NaCl (NEO_SYNEPHRINE) 20 mg/250 mL (80 mcg/mL) infusion solution intravenous, FA IP EQF CONTINUOUS PRN FOR ONE STEP MEDS, Starting on Wed03/08/22 at 1348, Until Wed03/08/22 at 1503, Routine, Anesthesia Intraprocedure Rate Change 03/08/2022 13:53 EST 25 mcg/min 18.75 mL/hr New Bag 03/08/2022 13:48 EST 60 mcg/min 45 mL/hr documented in this encounter Care Teams Pug Mill Operator Relationship Specialty Start Date End Date Kristine Jackson [address] [place] [address] [place] [address] PCP - General 03/06/22 documented as of this encounter
--- OUTSIDE RECORDS SUMMARY | 2023-10-19 17:20 | XMS_ITS | Encounter Summary ---
Author Organization [facility] Address [address] [place] [address] Care Team Providers Care Entry Operator Name Role Phone Manuel Kristine Primary Care Provider [phone] Encounter Details Date Type Department Care Team (Latest Contact Info) Description 03/17/2022 Encounter Social History Tobacco Use Types Packs/Day Years [...] memory 03/06/2022 documented as of this encounter Miscellaneous Notes * Note - Maranda Fermin RN - 03/17/20222219 EST This note was copied from a baby's chart. 03/17/22: Met with mom and dad at bedside while mom was holding Jaclyn. Rachel is pumping large volumes without issue (filling 3 large medela bottles per pump ~ >500mL). She has been pumping Q2-2.5hrs around the clock. I explained to Rachel that while this intensive schedule is helpful in establishing supply in the early few days, she can space her pumps out to x8/day (including ) and should allow herself to sleep 4hrs uninterrupted at night. Suggested expressing to comfort between pump sessions if uncomfortably full. She denies breast/nipple pain. Encouraged lots of rest and self-care, especially throughout these final days of Jaclyn's NICU stay. Plan to continue to check inand offer support as pumping schedule adjusts. Irwin Fermin RN IBCLC documented in this encounter Plan of Treatment Not on file documented as of this encounter Visit Diagnoses Not on filedocumented in this encounter Care Teams Entry Operator Relationship Specialty Start Date End Date Kristine Jackson [address] [place] [address] [place] [address] PCP - General 03/06/22 documented as of this encounter
--- OUTSIDE RECORDS SUMMARY | 2023-10-19 17:20 | XMS_ITS | Encounter Summary ---
Author Organization [facility] Address [address] [place] [address] Care Team Providers Care Wheel Installer Name Role Phone Deacon Esposito DO Primary Care Provider Kristine Jackson Primary Care Provider [phone] Encounter Details Date Type Department Care Team (Late st Contact Info) Description 11/22/2019 Lab Requisition [facility] Pathology & Laboratory Medicine - [facility] [address] [place] [address] Outr Resulting Lab, Provider Social History Tobacco [...] ORDER STANDALONE - BROAD COVID TEST Today 11/22/2019 9:48 EDT COVID-19 TESTING Routine 11/22/2019 9:48 EDT documented in this encounter Results * DO NOT ORDER STANDALONE - BROAD COVID TEST (11/22/2019 9:48 EDT) COVID-19 rt-PCR Result NEGATIVE Negative 11/23/2019 13:18 EDT [facility] Comment: 2019-novel Coronavirus (2019-nCoV) not detected [...] in accordance with CLIA regulations, [employer] (CAP) guidelines (May 25, 2019), and FDA guidance (May 06, 2019). This test is only for use under the Food and Drug Administration's Emergency Use Authorization. Swab ENTIRE NASOPHARYNX / Unknown 11/22/2019 9:48 EDT 11/22/2019 16:53 EDT Provider Outr Resulting Lab MICROBIOLOGY - GENERAL ORDERABLES [facility] [place], [place] * COVID-19 TESTING (11/22/2019 9:48 EDT) Pathologist [facility] COVID-19 rt-PCR Result NEGATIVE Negative 11/23/2019 14:21 EDT [facility] Comment: 2019-novel Coronavirus [...] in accordance with CLIA regulations, [employer] of [employer] (CAP) guidelines (May 25, 2019), and FDA guidance (May 06, 2019). This test is only for use under the Food and Drug Administration's Emergency Use Authorization. Performing Lab [facility] 11/23/2019 14:21 EDT [facility] Swab 11/22/2019 9:48 EDT 11/22/2019 16:53 EDT Provider Outr Resulting Lab MICROBIOLOGY - GENERAL ORDERABLES [facility] [address] [place] [address] [facility] [place] documented in this encounter Visit Diagnoses Not on filedocumented in this encounter Care Teams Wheel Installer Relationship Specialty Start Date End Date Deacon Esposito DO [address] [place] [address] PCP - General 01/05/17 03/05/22 Kristine Jackson [address] [place] [address] [address] [place], [place] [phone] PCP - General 03/06/22 documented as of this encounter
--- OUTSIDE RECORDS SUMMARY | 2023-10-19 17:20 | XMS_ITS | Encounter Summary ---
Author Organization [facility] Address [address] [place] [address] Care Team Providers Care Fishing Vessel Captain Name Role Phone Kristine Jackson Primary Care Provider [phone] Reason for Visit * Auth/Cert (Routine) Specialty Diagnoses / Procedures Referred By Contac t Referred To Contact Diagnoses Preeclampsia, severe, third trimester ? Preeclampsia; Imminent Delivery Referral ID Status Reason Start Date Expiration Date Visits Re quested Visits Authorized [id number] 1 1 Encounter Details Date Type Department Care Team (Late st Contact Info) Description 03/09/2022 10:14 EST Anesthesia Event [facility] [address] [place] [address] Phi Muse MD Anesthesia Record Procedure Summary Procedure Name Responsible Anesthesiologist Anesthesia Start Time Anesthesia Stop Time ANESTHESIA PAIN SERVICE Events No events on file. Meds * Agents No agents on file. * Blood No blood administrations on file. Lines, Drains, and Airways Type Details Placement Removal Wound 03/08/22; 1441; Inci jamie; Lower; Abdomen 03/08/22 1441 by Yolanda Garg RN documented in this encounter Social History [...] Recorded In the last 10 days, have анна u been in contact with someone who [...] on filedocumented in this encounter Care Teams Fishing Vessel Captain Relationship Specialty Start Date End Date Kristine Jackson [address] [place] [address] [place] [id number] PCP - General 03/06/22 documented as of this encounter
--- OUTSIDE RECORDS SUMMARY | 2023-10-19 17:20 | XMS_ITS | Encounter Summary ---
Author Organization [facility] Address [address] [place] [address] Care Team Providers Care Riding Teacher Name Role Phone Deacon Esposito DO Primary Care Provider Kristine Jackson Primary Care Provider [phone] Encounter Details Date Type Department Care Team (Late st Contact Info) Description 07/21/2020 Lab Requisition [facility] Pathology & Laboratory Medicine - [facility] [address] [place], [place] [id number] Outr Resulting Lab, Provider Social History Tobacco [...] Associated Diagnosis Comments CHLAMYDIA/N. GONORRHOEAE AMPLIFIED NUCLEIC ACID Routine 07/21/2020 16:25 EDT documented in this encounter Results * CHLAMYDIA/N. GONORRHOEAE AMPLIFIED RNA (07/21/2020 16:25 EDT) Neisseria gonorrhoeae Result Negative Negative 07/23/2020 14:53 EDT [facility] Chlamydia trachomatis Result Negative Negative 07/23/2020 14:53 EDT [facility] Swab ENTIRE WALL OF CERVIX / Unknown 07/21/2020 16:25 EDT 07/22/2020 21:26 EDT Provider Outr Resulting Lab MICROBIOLOGY - GENERAL ORDERABLES [facility] [address] [place] [address] documented in this encounter Visit Diagnoses Not on filedocumented in this encounter Care Teams Riding Teacher Relationship Specialty Start Date End Date Deacon Esposito DO [address] [place] [id number] PCP - General 01/05/17 03/05/22 Kristine Jackson [address] [place] [address] [place] [id number] PCP - General 03/06/22 documented as of this encounter
--- OUTSIDE RECORDS SUMMARY | 2023-10-19 17:21 | XMS_ITS | Encounter Summary ---
Author Organization [facility] Address [address] [place] [address] Care Team Providers Care Power Equipment Mechanics Instructor Name Role Phone Zina Daly MD Primary Care Provider [phone] Deacon Esposito DO Primary Care Provider [phone] Reason for Referral * PT/OT/ST (Routine) - Closed Specialty Diagnoses / Procedures Referred By Contac t Referred To Contact Speech & Language Pathology Diagnoses Closed traumatic brain injury with depressed skull fracture with loss of consciousness, initial encounter ([facility]) Cognitive deficits Jus Atkinson MD [address] [place] [address] [facility] Op Speech Language Pathology [address] [place] [address] Referral ID Status Reason Start Date Expiration Date V isits Requested Visits Authorized [id number] Closed Specialty Services Required 01/13/2017 1 1 Question Answer Reason for Request: Traumatic brain injury/subdural hematoma status post fall from horse 12/27/2016 Type of ARMATURE REPAIRER Eval: Communication-Cognitive Eval & Treat Expected Discharge Date (Inpatient Only): 01/14/2017 Comments Stanton cervical collar at all times * PT/OT/ST (Routine) - Closed Specialty Diagnoses / Procedures Referred By Contac t Referred To Contact Diagnoses Closed traumatic brain injury with depressed skull fracture with loss of consciousness, initial encounter ([facility]) Cognitive deficits Jus Atkinson MD [address] [place] [phone] Referral ID Status Reason Start Date Expiration Date V isits Requested Visits Authorized [id number] Closed Specialty Services Required 01/13/2017 1 1 Question Answer Reason for Request: Traumatic brain injury/subdural hematoma/occipital fractures status post fall from horse Expected Discharge Date (Inpatient Only): 01/14/2017 Date of Onset or Injury: 12/27/2016 Comments Stanton cervical collar at all times * PT/OT/ST (Routine) - Closed Specialty Diagnoses / Procedures Referred By Contac t Referred To Contact Diagnoses Closed traumatic brain injury with depressed skull fracture with loss of consciousness, initial encounter ([facility]) Cognitive deficits Jus Atkinson MD [address] [place] [phone] Referral ID Status Reason Start Date Expiration Date V isits Requested Visits Authorized [id number] Closed Specialty Services Required 01/13/2017 1 1 Question Answer Reason for Request: Traumatic brain injury/subdural hematoma status post fall from horse Expected Discharge Date (Inpatient Only): 01/14/2017 Date of Onset or Injury: 12/27/2016 Comments Stanton cervical collar at all times Encounter Details Date Type Department Care Team (Latest Contact Info) Description 01/01/2017 16:14 EDT - 01/14/2017 11:44 EST Hospital Encounter [facility] Unit Level [address] [place] [id number] Jus Atkinson MD [address] [place] [phone] Closed traumatic brain injury with depressed skull fracture with loss of consciousness, initial encounter ([facility] ([facility]) (Primary Dx); Cognitive deficits Discharge Disposition: Home or Self Care Social [...] on file documented as of this encounter Last Filed Vital Signs Vital Sign Reading Time Taken Comments Blood Pressure 111/55 01/14/2017 0656 EST Pulse 72 01/14/2017 0656 EST Temperature 35.8 ??C (96.4 ??F) 01/14/2017 0656 EST Respiratory Rate 14 01/14/2017 0656 EST Oxygen Saturation 99% 01/01/2017 1700 EDT Inhaled Oxygen Concentration - - Weight 61.2 kg (134 lb 14.4 oz) 01/01/2017 1700 EDT Height 162.6 cm (5' 4) 01/01/2017 1700 EDT Body Mass Index 23.16 01/01/2017 1700 EDT Body Mass Index Percentile 75.53% 01/01/2017 170 0 EDT Growth Chart: [facility] (Girls, 2- 20 Years) documented in this encounter Functional Status Functional [...] as of this encounter Discharge Diagnoses Diagnosis S02.0XXD Fracture of vault of skull, subsequent encounter for fracture with routine healing-S02.0XXD[ICD-10-CM] N39.0 Urinary tract infection, site not specified-N39.0[ICD-10-CM] F41.9 Anxiety disorder, unspecified-F41.9[ICD-10-CM] S06.6X1D Traumatic subarachnoid hemorrhage with loss of consciousness of 30 minutes or less, subsequent encounter-S06.6X1D[ICD-10-CM] S02.19XD Other fracture of base of skull, subsequent encounter for fracture with routine healing-S02.19XD[ICD-10-CM] V80.010D Animal-rider injured by fall from or being thrown from horse in noncollision accident, subsequent encounter-V80.010D[ICD-10-CM] S06.2X1D Diffuse traumatic brain injury with loss of consciousness of 30 minutes or less, subsequent encounter-S06.2X1D[ICD-10-CM] R41.89 Other symptoms and signs involving cognitive functions and awareness-R41.89[ICD-10-CM] H91.8X1 Other specified hearing loss, right ear-H91.8X1[ICD-10-CM] H02.401 Unspecified ptosis of right eyelid-H02.401[ICD-10-CM] R47.1 Dysarthria and anarthria-R47.1[ICD-10-CM] B96.20 Unsp Escherichia coli as the cause of diseases [facility]-B96.20[ICD-10-CM] documented in this encounter Discharge Summaries * Jus Atkinson MD - 01/14/2017 1018 EST Discharge Summary Date of Service: 01/14/2017 Chief Complaint/Reason for Admission: Traumatic Brain injury Admission date: 01/01/2017 Discharge date: 01/14/2017 Condition at Discharge: Good Assessment at Discharge: Temp: [35.8 ??C (96.4 ??F)] (), Pulse: [72] (), Resp: [14] (), BP: (111)/(55) (), SpO2: -- () Past Medical History: Diagnosis Date ??? Fracture of temporal bone with routine healing 12/27/2016 Status post fall from horse ??? 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 (HCC) 12/27/2016 Subdural hemorrhage, right parietal skull fracture, suspected diffuse axonal injury History of Illness Prior to Rehabilitation Admission: Per HPI 01/01/2017: Patient is a 16-year-old female with a history of migraine who was admitted to [facility] on 12/27/2016 after being thrown from a horse. She reportedly was sitting in the horse was not moving when the animal got spooked and through Rachel to the ground. She had 1 minute of loss of consciousness. Upon regaining consciousness he reportedly was lethargic and combative. Initially taken [facility], she was disoriented and lethargic but following commands. Her GCSwas reported at 13. CT scan of the head showed a right parietal skull fracture extending to the skull base and a left subdural hematoma. ?? She was transported to [facility] for further management, requiring fentanyl to keep her calm during transport. She was loaded with Keppra. At [facility], she had a GCS of 9, FAST exam was negative. CT scan of the head, face and cervical spine with a mildly displaced fracturewith depression to the right parietal bone extending to the mastoid bone to the condylar fossa and right sphenoid bone. She has small amount of pneumocephalus. She had a fracture line to the anteriorposterior nguyen of the right sphenoid sinus extending to the right carotid canal. There were blood products in the right middle cranial fossa anterior to the mastoid bone and areas of subarachnoid hemorrhage in the basilar cisterns. She had a small amount of intraventricular hemorrhage the fourth ventricle. Cervical spine with no fracture or malalignment. ET scan of the temporal bone with a highly comminuted fracture of the right mastoid bone, the middle ear ossicles being intact without evidence of dislocation. There was evidence of a right tympanic facial nerve canal fracture but no osseousfragments projecting into the facial nerve canal in the inner ear structures were intact. She was evaluated by ENT and no additional intervention required. CT angiogram with no traumatic vascular injury identified. ?? No surgical intervention has been required. She has been maintained in a Mcgrath J collar secondary to midline neck pain on exam. Flexion-extension films have not been completed secondary to ongoing pain and patient's inability to actively participate in the exam. Her hospital course is been notable for some intermittent agitation. Diffuse axonal injury has been suspected by MRI not completed to evaluate for structural changes. She has been cleared for a regular consistency diet but p.o. intake has been limited, with the patient taking in [employer] consistently. Speech able toparticipate in all therapies but remained with significant functional and cognitive deficits. Case was discussed with Dr. Sameer Kim, pediatric resident at [facility] who reassured me the patient wasmedically and neurologically stable, and participating in all therapies. She has been evaluated anddetermined to be an appropriate candidate for acute inpatient rehabilitation. ?? Patient transferred to acute rehab 01/01/2017 Problems Addressed During Rehabilitation Admission: 1. ??Traumatic brain injury: Left subdural hematoma, question diffuse axonal injury status post being thrown from a horse 12/27/2016:??Patient with residual??cognitive impairments, but has some relative strengths with regards to overall awareness of her environment. Patient underwent comprehensive r ehabilitation program including OT, PT, ARMATURE REPAIRER and 24 hour rehab nursing. Patient progressed functionally and on discharge is ambulating independently without a adaptive device. She able complete activities of daily living independently. She does remain with some decreased memory and attention, as well as decreased problem solving for complex tasks. ? 2. ??Right parietal bone fracture: Reportedly extensive mastoid bone to the condylar fossa and right sphenoid bone. ??Continued cervical??collar when out of bed. ??Flexion-extension films were not completed as she remained tender through her cervical spine, has follow-up care at [facility]. ? 3. ??Nutrition: Good p.o. intake through her hospitalization on a regular consistency diet no additional intervention required. ?? 4. ??Right temporal bone fracture: No additional intervention required. ??[facility]She does have impaired hearing on the right, and is already set up for audiometric testing after discharge. ?? 5. ??Anxiety: Long-standing. SSRIs were considered, however family was adverse to initiating and nomedications were started. ?? 6. Trazodone at bedtime to promote sleep Disposition: The patient is being discharged to home 01/14/2017. Assistance to be provided by family. Caregiver training completed Continued outpatient services to include PT, OT, and ARMATURE REPAIRER have been requested. Restrictions: Stanton Collar on whenever transferring or ambulatory No future appointments. Last Lab Results at Discharge: BUN: Lab Results Component Value Date BUN 9 01/02/2017 Creatinine: Lab Results Component Value Date CREATININE 0.50 01/02/2017 CBC: Lab Results Component Value Date WBC 8.09 01/02/2017 RBC 4.40 01/02/2017 HGB 13.3 01/02/2017 HCT 37.6 01/02/2017 MCV 86 01/02/2017 MCH 30.2 01/02/2017 MCHC 35.4 01/02/2017 PLT 264 01/02/2017 Electrolytes: Lab Results Component Value Date NA 141 01/02/2017 K 3.8 01/02/2017 CL 99 01/02/2017 CO2 27 01/02/2017 Medications at Discharge: Rachel Liu [place] Medication Instructions [id number] Printed on:01/14/17 1018 Medication Information acetaminophen (TYLENOL) 650 mg/20.3 mL solution Take 20.3 mL by mouth every 4 hours as needed for Pain. ibuprofen (MOTRIN) 400 mg tablet Take 1 Tab by mouth every 4 hours. oxyCODONE (ROXICODONE) 5 mg immediate release tablet Take 1 Tab by mouth every 6 hours as needed for Pain. Daily Max: 20 mg traZODone (DESYREL) 50 mg tablet Take 0.5 Tabs by mouth at bedtime. cc: Primary Care Provider: Deacno Esposito [address] [place] [id number] Referring Provider: Carlos Cortes [address] [place] [address] Discharge Summary Completed: yes 50 minutes total time spent on discharge today including discussion and instruction to patient and caregiver, preparation of records, prescriptions and referrals. documented in this encounter Discharge Instructions * Discharge Instructions* Georgiana Noriega OT - 01/14/2017 16:23 EST Inpatient Rehabilitation Brain Injury Team Discharge Instructions You are still healing from your brain injury. We recommend that you follow these guidelines to keepyourself safe and to continue your recovery. ??? You need to be supervised at all times by a family member or by someone that they have selected. As you get better, your need for supervision will likely decrease. Your therapists will help you and your family figure out when this can happen. ??? You need to use the following medical equipment: a helmet whenever you are out of bed; a c-collar at all times. ??? Your Physical Therapist will help you improve your balance and work towards return to dance- I would not do any type of dancing, jumping, running, etc until a Physical Therapist States it is okay. ??? You are able to get dressed, clean up, and complete other self-care activities on your own except for showering. You should have someone nearby when bathing. Your Occupational Therapist will helpyou improve your independence with practical skills. ??? You need a doctor???s approval before you return to work. ??? Do not drive a car, motorcycle or other motor vehicle (tractor, truck, snowmobile) until you have completed driver recruiter???s rehabilitation and received permission from your therapists and doctor. In [place], the MV-80U.1 form needs to be signed by a doctor and filed with DMV. ??? Absolutely no drinking of alcoholic beverages until discussed with your doctor. Absolutely no use of illegal drugs. ??? Do not use power tools, fire arms, or other dangerous equipment. ??? Do not operate the cooking stove or microwave without supervision. ??? Avoid sports and activities that could cause you to injure your head and/or body until approvedby your doctor. This includes sports like soccer, skating, biking, skiing, and swimming. ??? Do not climb ladders or participate in other activities that involve climbing. ??? Please take all medications as prescribed and with supervision. ??? Please continue to use your memory journal, daily assortment planner, or other device at home to write down important dates, appointments, and events from your day. This will help improve your memory. ??? To continue your recovery, we recommend that you participate in all your Physical , Occupational and Speech Language therapy appointments until your treatment team agrees that they are no longer necessary. For questions please call [phone], give the name of the therapist you wish to talk to and theywill call you back GENA Thank you for your cooperation. We wish you a speedy recovery. Clinician Signature/Date/Time: RAAD Perry 01/12/2017 12:55 Clinician Signature/Date/Time: Georgiana Noriega OT Clinician Signature/Date/Time:Magalis Abbott PT * Discharge Instr - Other Orders* Brielle Epps RN - 01/07/2017 8:32 EDT Follow-up outpatient therapy appointments are scheduled at [facility] as follows: Wednesday02/05/17 OT @10am PT @11am ARMATURE REPAIRER- TBD Please call [phone] to change or cancel these appointments. Please schedule an appointment with Deacon Esposito within 2 weeks. The contact information for your PCP is: Deacon Esposito [address] [place] [address] / [facility] [phone] At that visit you will need to get refills on all new prescriptions started in this hospitalizationif they need to be continued. All prescriptions written by your Rehabilitation Physician are for 30 DAYS ONLY, and will need to be renewed by your PCP. Please bring this After Visit Summary to that appointment. documented in this encounter Medications at Time [...] 01/14/2017 03/12/2022 documented as of this encounter Ordered Prescriptions Prescription Sig Dispensed Refills Start Date End Da te ibuprofen (MOTRIN) 400 mg tablet Take 1 Tab by mouth every 4 hours. 40 Tab 01/14/2017 03/12/2022 traZODone (DESYREL) 50 mg tablet Take 0.5 Tabs by mouth at bedtime. 20 Tab 01/14/2017 03/12/2022 oxyCODONE (ROXICODONE) 5 mg immediate release tablet Take 1 Tab by mouth every 6 hours as needed for Pain. Daily Max: 20 mg 10 Tab 01/14/2017 03/12/2022 acetaminophen (TYLENOL) 650 mg/20.3 mL solution Take 20.3 mL by mouth every 4 hours as needed for Pain. 01/14/2017 03/12/2022 documented in this encounter Discharge Disposition Disposition Code Departure Means Destination Home or Self Care documented in this encounter Progress Notes * Georgiana Noriega OT - 01/14/2017 1144 EST Rehabilitation Therapies Inpatient Rehabilitation [facility] Occupational Therapy Discontinue/Discharge Note Date of Service: 01/14/2017 Precautions: ?? Mcgrath J Collar: On when out of bed, may be off when in bed ?? Full code ?? Activity as tolerated SUBJECTIVE: Pt reporting being excited to return home. OBJECTIVE: Interventions completed today: Start time: 900 minute(s) Total Therapy Minutes: 30 minute(s) Session One: Therapeutic Activities -Completed pt/family training and reviewed therapy discharge recommendations/guidlines for safety and energy conservation. Pt and family verbilized understanding. Vital Signs: Vital signs have been stable with interventions and were not monitored. Patient/Family Education: Topic: Compensatory strategies Energy conservation D/C planning Adaptive equipment Safety awareness Head injury Return to driving Learner: patient and family Method: verbal Barriers to Learning: none noted Outcome: verbalized understanding and reinforcement needed / plan: Continue to reinforce with outpatient OT Team Communication: Communication with team regarding discharge planning In this reporting period 01/01/2017 to 01/14/2017, the patient has been seen by Occupational Therapyfor: 60-90 minutes 5 out of 7 times a week. Interventions have included: Occupation Based Activity - Basic Activities of Daily Living, Occupation Based Activity - Instrumental Activities of Daily Living, Purposeful Activity, Preparatory Method - Exercise, Preparatory Method - Neuromuscular Education, Preparatory Method - Cognitive Re-training, Patient/Family Education and Standardized Cognitive Testing Relevant Objective Findings: Body Functions and Performance Skills: Mental Functions: RLA level 8 as best judged by this health science writer. [place] (RLA) Levels of Consciousness Scale The patient's current score is RLA Level VIII: Purposeful and appropriate. Able to complete familiar tasks when working in a distracting environment for at least one hour. Able to use memory device to recall daily schedule. Able to acknowledge impairment but unable to self monitor and recognize a problem while it is happening. Overstates abilities. At risk for depression, irritable, low-frustration tolerance, and being self-centered. Cognitive FIM Comprehension: FIM 5 - Standby Prompting - Understands basic communication more than 90% of the therapy session Expression: FIM 5 - Standby Prompting - Expresses basic needs and ideas more than 90% of the therapy session Social Interaction: FIM 5 - Patient requires supervision (monitoring, verbal control, cuing or coaxing) only under stressful or unfamiliar conditions, but less than 10% of the therapy session. May require encouragement to initiate participation. Problem Solving: FIM 5 - Supervision - Patient requires supervision (e.g., cuing or coaxing) to solve routine problems only under stressful or unfamiliar conditions, but no more than 10% of the therapy session. Memory: FIM 5 - Supervision - Patient requires prompting (e.g., cuing, repetition, reminders) only under stressful or unfamiliar conditions, but no more than 10% of therapy session. Neuromusculoskeletal and Movement Related Functions: ?? B UE AROM WFL MMT UPPER QUARTER ?? Shoulder: Right Left Flexion 3+/5 3+/5 Extension 3+/5 3+/5 Abduction 3+/5 3+/5 Elbow: Right Left Flexion 3+/5 3+/5 Extension 3+/5 3+/5 Wrist: Right Left Flexion 4/5 4/5 Extension 3+/5 3+/5 Gross Grasp 3+/5 4/5 ?? Areas of Occupation and Performance Skills: Basic Activities of Daily Living: Feeding FIM 7 Independent with regular diet Grooming FIM 7 Independent with grooming all items. Bathing FIM 5 Requires set-up, supervision and/or cueing to bathe all 10 body parts (supervision) Upper Body Dressing FIM 7 Independent dressing and undressing UB Lower Body Dressing FIM 7 Independent dressing and undressing LB Toileting: FIM 7 FIM & Independent managing clothing and hygiene Toilet Transfer FIM 7 Independent with standard height toilet transfer Tub Transfer: FIM 5 Requires set-up, supervision &/or cueing to transfer in & out of tub (supervision and shower chair) Functional Mobility: Modified independent Instrumental Activities of Daily Living: Pt can complete basic age appropriate home management tasks with supervision. May require cues to initiate. ASSESSMENT: Rachel Liu is a 16 y.o. female admitted on 01/01/2017 due to functional limitations s/p subdural hematoma, parietal and mastoid fractures and suspected diffuse axonal injury. She presented to the rehabilitation at time of evaluation with pain, fatigue, decreased strength, poor activity tolerance, decreased sitting balance, impaired standing balance, poor functional mobility, limited attention and cognitive deficits impacting her ability to independently complete self-care, household management, leisure activities, and school. Prior to admission, the patient was independent in all aspectsof ADLs and IADLs. This patient has made excellent gains in occupational therapy and is discharginghome with 28/09 supervision from family. She is now completing most ADLs at a modified independent level and is ambulating with no assistive device independently. Per MD's order, pt should be wearing Mcgrath J collar when out of bed but can take it off when showering. Pt and family verbalizing understanding of this. Pt has intermittent pain that impacts participation in functional activities. She beth efits from encouragement to fully participate in some activities. Adaptive equipment for home includes a shower chair. Outpatient occupational therapy follow-up is recommended at this time. GOALS: Short Term Goals: 10 days ?? Pt will tolerate 30 minutes of sitting upright in wheelchair for increased ability to participate in ADLs. MET ?? As a measure of improved attention to task, pt will complete 5 minutes of ADL routine with minimal verbal cues to attend. MET ?? Pt will be orientated to facility name, location and date with use of memory aids as needed. MET ?? Pt will complete toilet transfer with min contact assist x 2. MET ?? Pt will complete simple seated sponge bath with mod assist x 1 and AE as needed. MET ?? Pt will complete tub shower transfer with close supervision and AE as needed. MET ?? Pt will complete upper body dressing with min contact assist x 1. MET ?? Pt will complete lower body dressing with mod assist x 1. MET ?? Pt will follow 2 step directions when completing tabletop activity to demonstrate improved ability to follow simple instructions during novel tasks. MET ?? Penitentiary Goals: 3-4 weeks ?? Pt will complete toileting with supervision. MET ?? Pt will complete toilet transfer with supervision. MET ?? Pt will bath with supervision. MET ?? Pt will complete tub shower transfer with close supervision and AE as needed. MET ?? Pt will complete upper body dressing with modified independence. MET ?? Pt will complete lower body dressing with modified independence. MET ?? Pt will complete basic food prep with supervision only. DISCONTINUE (not a goal for pt) ?? Pt will complete simple home management tasks, demonstrating good safety awareness and balance throughout. MET ?? Pt/family will verbalize understanding of recommendations for AE. MET ?? Pt/family will verbalize understanding of fall prevention strategies. MET ?? Pt/family will verbalize understanding of energy conservation techniques. MET ?? Pt/family will verbalize understanding of recommendation for return to driving. MET PLAN: Patient is discharged from occupational therapy. Discharge Plan: Home with 28/09 supervision Follow-up Services: Outpatient occupational therapy Discharge Equipment: Shower Chair Pager: [phone] Georgiana Noriega OTR/L 01/14/2017 * Jus Atkinson MD - 01/13/2017 1022 EST Physiatry Progress Note Admit Date: 01/01/2017 Hospital Day: LOS: 12 days Date of Service: 01/13/2017 Chief Complaint: Traumatic brain injury Subjective: Continued neck pain, tolerating the Stanton collar well. No dysuria. No shortness breath or lightheadedness. Having intermittent anxiety attacks Current Facility-Administered Medications: acetaminophen (TYLENOL) solution unit dose cup 650 mg oral Q4H PRN bisacodyl (DULCOLAX) suppository 10 mg rectal Daily PRN docusate sodium (COLACE) capsule 100 mg oral BID PRN ibuprofen (ADVIL;MOTRIN) suspension 400 mg oral Q4H PRN LORazepam (ATIVAN) concentrated solution 0.5 mg oral AT BEDTIME PRN methocarbamol (ROBAXIN) tablet 500 mg oral QID PRN methyl salicylate-menthol (ANALGESIC BALM) ointment topical BID PRN ondansetron (ZOFRAN-ODT) disintegrating tablet 4 mg oral Q4H PRN oxyCODONE (ROXICODONE) immediate release tablet 5 mg oral Q6H PRN polyethylene glycol 3350 (MIRALAX) packet 17 g oral Daily PRN senna (SENOKOT) tablet 1 Tab oral Daily PRN traZODone (DESYREL) tablet 25 mg oral Daily Objective/Physical Exam: VS: Patient Vitals for the past 8 hrs: BP Pulse Resp Temp 01/13/17 0643 109/59 67 14 36.5 ??C (97.7 ??F) Pain: Patient Vitals for the past 8 hrs: Numeric Pain Level (Scale 1-10) Asleep 01/13/17 0946 2 - 01/13/17 0833 10 - 01/13/17 0630 - Reassessed, sleeping comfortably, RR WNL. 01/13/17 0500 - Reassessed, sleeping comfortably, RR WNL. 01/13/17 0402 - Reassessed, sleeping comfortably, RR WNL. 01/13/17 0320 1 - 01/13/17 0311 - Reassessed, sleeping comfortably, RR WNL. Weight: Weight : 61.2 kg (134 lb 14.4 oz) Glucose Readings (last 8 readings): No results for input(s): GLUCOSEFINGE in the last 72 hours. I&O: No intake or output data in the 24 hours ending 01/13/17 1022 Exam: Gen: Sleepy and restless HEENT: Head: Normocephalic, no lesions, without obvious abnormality. Eye: Normal external eye, conjunctiva, lids cornea, FAUSTINO. Ears: There is ecchymosis around the right ear. Neck : Diffuse non-focal tenderness through the posterior neck, right greater than left. Skin: Abrasion noted at the right shoulder Cardiac: Cor RRR Lungs: Clear bilaterally Abdomen: normal bowel sounds, soft, nontender Musculoskeletal: no joint tenderness, deformity or swelling, no muscular tenderness noted, full range of motion without pain Neuro: She has oriented to the hospital. When given a moment she was aware of that Halloween is next week. She is following basic commands Cranial nerves: CN VII: Right facial droop CN VIII: Impaired hearing on the right Motor: Strength 4/5 throughout and appears symmetric. Tone normal Reflexes: trace and symmetric Sensation: Decreased right facial sensation Cerebellar: Cannot be assessed at this time Labs: I have personally reviewed CBC: Lab Results Component Value Date WBC 8.09 01/02/2017 RBC 4.40 01/02/2017 HGB 13.3 01/02/2017 HCT 37.6 01/02/2017 MCV 86 01/02/2017 MCH 30.2 01/02/2017 MCHC 35.4 01/02/2017 PLT 264 01/02/2017 BMP: Lab Results Component Value Date NA 141 01/02/2017 K 3.8 01/02/2017 CL 99 01/02/2017 CO2 27 01/02/2017 BUN 9 01/02/2017 CREATININE 0.50 01/02/2017 CALCIUM 9.3 01/02/2017 MG 2.1 01/02/2017 Assessment/Problems: (update problem list daily as appropriate) Patient Active Problem List Diagnosis Date Noted ??? (H)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 (HCC) 12/27/2016 Priority: Medium Subdural hemorrhage, right parietal skull fracture, suspected diffuse axonal injury ??? (H)Fracture of temporal bone with routine healing 12/27/2016 Priority: Medium Plan: 1. Traumatic brain injury: Left subdural hematoma, question diffuse axonal injury status post beingthrown from a horse 12/27/2016: Patient with residual cognitive impairments, but has some relative strengths with regards to overall awareness of her environment. Full PT, OT, ARMATURE REPAIRER assessments and therapies to address mobility, self care, cognition. 24 hour rehabnursing for self care deficits planning for outpatient therapies, which have been arranged in a timely manner that we will not need to do home based. 2. Right parietal bone fracture: Reportedly extensive mastoid bone to the condylar fossa and right sphenoid bone. Continue cervical collar when out of bed. Consider flexion-extension films when nontender, likely as an outpatient. Maintain adequate pain control, choosing to use primarily Motrin which he has good effect from prior to admission. ?? 3. Nutrition: Continue supplements and regular consistency diet. Nutrition consult 4. Right temporal bone fracture: No additional intervention required. Reportedly seen by ENT at [facility]. She does have impaired hearing on the right, and is already set up for audiometric testing after discharge. Taper off oxycodone 5. Anxiety: Long-standing. Medical psychology consultation. 6. Escherichia coli UTI: Resolved 7. 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 It was stressful (re: outting). OBJECTIVE: Date of Service: 01/13/2017 Start Time: 1400 Total Therapy minutes: 65 minute(s) comm-cog tx Patient/Family Interview: Kim lives with her father, stepmother and stepsister, Genysis. She shares her time with-her mother (Misti), stepfather ([place]) and two brothers (Luis Alberto and Ross). She loves animals and has 5 dogs at her father's house and 3 dogs, rabbits, cats, horses, chickens, ducks and hamsters at her mother's house. Her favorite animals are owls and pigs. Kim attends [employer], in the [employer]. She loves to play piano, sing (especially ballads),and she also states that she loves to sleep. She earns A's and B's in school and her favorite subject is psychology. She has a boyfriend name Bin. Current Treatment Objectives: Recall: Goal #1: Patient will independently manage a memory journal, including writing the daily therapy schedule and appointment summaries and bring their journal to ARMATURE REPAIRER appointments. 01/12: Following initial cues for organization of entries, the patient writes brief summaries of OT and ARMATURE REPAIRER sessions utilizing complete sentences and adequate syntax. Patient requires encouragement tocomplete summaries secondary to reduced motivation and resistance. She agrees stating, I'll do it if it gets me home. 01/13: Patient did not bring her memory journal or goal sheet with her to ARMATURE REPAIRER session. Patient copied schedule, however did not make entries for this date. Patient instructed to complete entries following session. ARMATURE REPAIRER followed up one- hour after session and patient completed brief, yet accurate entries. Patient shares two questions pertaining to length of time she will need to wear her cervical collar and length of time needed prior to return to school. Patient assisted with creating a Questions tab in her memory journal and instructed to write the questions in her journal. Patient shares that she is unable to recall her questions and requires maximal assistance to recall and formulate quest ions. Goal #2: Patient will track their daily schedule and meet ARMATURE REPAIRER on time for therapy appointments in the ARMATURE REPAIRER office. 01/13: Patient arrived at R2 ARMATURE REPAIRER office in time for appointment. ? Attention: Goal #1: The patient will divide her attention between competing stimuli with 90% accuracy. 01/13: The patient decoded 3-5 letter words spelled backwards while playing Presdoitaire with 90% accuracy with credit given for repeated stimuli x4. Results as follows: 1. 9 6. 15 2. 15 7. 15 3. 9 8. 6/10 4. 9 9. 15 5. 15 10. 9 Auditory Processing: Goal #1: The patient will listen to paragraph-level discourse and answer corresponding given multiple choice options with 90% accuracy. 11/3: Not directly addressed, however in the context of conversational discourse, the patient demonstrates reduced auditory processing of questions resulting in off-topic and tangential commentary that does not pertain to initial question posed by clinician. 01/11: Pursuit Management: Eye Glasses For You: 50% 01/12: FLORI Talk (10 mins 19 secs): Patient listens to a FLORI talk pertaining to Woodrow Burns, a snowboarder from [place] who sustained a TBI. She is instructed to take notes as she listens, however does not.Despite this, she earns a 9/10, 90% accuracy for comprehension question. Patient reports longstanding difficulty dividing attention. Problem Solving: Goal #1: The patient will identify the specific language category, given 3-4 items and add an additional exemplar to the category with 90% accuracy. 01/07: [place] category Identification: 80% accuracy 1. 6 6. 15 2. 15 7. 15 3. 15 8. 15 4. 15 9. 6 5. 15 10. 15 Additional exemplar: 80% accuracy 1. 15 6. 15 2. 15 7. 6 3. 15 8. 6 4. 15 9. 15 5. 15 10. 15 Goal #2: Given information, the patient will draw a logical conclusion 90% of the time. 01/11: Identifying Activities from Descriptions: 90% 1. 9 6. 15 2. 15 7. 15 3. 6 8. 15 4. 15 9. 15 5. 15 10. 15 Goal #3: The patient will solve complex deduction puzzles with 90% accuracy. 01/14: Intermediate (field of 12): 90% accuracy with cue x1 1. 15 6. 15 2. 15 7. 15 3. 15 8. 15 4. 8 9. 15 5. 15 10. 15 Complex (field of 18): , 100% with credit given for self-corrected responses x 2 Patient/Family Education: Topic: Communication-cognitive sequelae of TBI Ongoing education provided to patient/family regarding Communication-cognitive sequelae of TBI TBI discharge instructions Progress to date Discharge planning. Learner: patient Method of Education: Verbal and Written Barriers to Learning/Education: patient's reduced ability to learn/carry over information at this time Patient: was able to verbalize understanding of information and needs further instruction and education Family: was able to verbalize understanding of information and needs further instruction and education Phone call made to patient's guidance counselor at [facility] regarding patient'sprogress to date, current status and anticipated future plan of care. Assessment/Plan ASSESSMENT/CLINICAL IMPRESSIONS: Ms. Liu is a female 16 y.o. 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 The patient demonstrates improved engagement in ARMATURE REPAIRER session in the absence of family members. When family members are present, patient demonstrates reduced engagement/motivation, requires encouragement to complete session objectives and demonstrates a low threshold for challenges. At discharge, the patient has demonstrated excellent gains to date. At this time, patient presents with functioning consistent with mild impairments across cognitive-linguistic domains of attention, memory and higher level cognitive-linguistic skills consistent with communication-cognitive sequelae of traumatic brain injury, RLA Level VIII-IX, as best judged. Patient demonstrates gains in reasoning skills (particularly with multiprocess deductive reasoning). She demonstrates reduced impulsivity when completing structured, therapeutic tasks. She also implements strategies to optimize task organization (e.g., cross-out strategy) in order to systematically complete tasks. The patient demonstrates increased insight into communication-cognitive deficits s/p TBI and reports that a decline in memory is the most noticeable change. Patient demonstrates gains in short-term recall of functional information over the course of several days. The patient struggles to complete some aspects of the [facility] TBI program including asking questions about her medical care and brain injury, arriving to appointments with her memory journal and completing entries regarding appointments. Given patient's age, independence prior to admission, and social/occupational demands, she will benefit from outpatient ARMATURE REPAIRER intervention. Based on the patient's premorbid level of functioning, medical diagnosis, comorbidities and patient/family support, the patient's prognosis is considered: Excellent with anticipation that patient will reconvene her education in high school. Functional Communication Measures ([place] [employer], 2002). The Functional Communication Measures (FCM???s) are a series of 7 point rating scales, ranging fromleast functional (Level 1) to most functional (Level 7). They have been developed by JESSI to describe different aspects of patient???s functional communication and swallowing abilities over the course of ARMATURE REPAIRER intervention. ?? Pragmatics Level 6: Pragmatics are functional in most settings or situations with occasional minimal cues. The majority of the time, the individual is able to modify behaviors in response to subtle feedback from the environment. Writing Level 5: The individual writes sentence-level material containing some complex words. The individual occasionally requires minimal cueing to write more complex sentences and paragraph-level material. The individual occasionally uses compensatory strategies. Memory Level 5: The individual consistently requires minimal cues to recall or use external memory aids for complex and novel information. The individual consistently requires minimal cues to plan and follow through on complex future events (e.g., menu planning and meal preparation, planning a libertarian, etc.) Problem Solving Level 6: Problem solving skills are functional in most settings, but some limitations in problem solving are still apparent in vocational, avocational and social activities. The individual rarely requires minimal cueing/assistance or additional time to generate multiple solutions and carry out steps to complete complex problem solving tasks. He/she usually self- monitors effectiveness of performance and uses strategies when encountering difficulty. Attention Level 6: The individual maintains attention within complex activities, and can attend simultaneously to multiple demands with rare minimal cues. The individual usually uses compensatory strategies when encountering difficulty. The individual has mild difficulty or takes more than a reasonable amount of time to attend to multiple tasks/stimuli. Spoken Language Expression Level 6: The individual is successfully able to communicate in most activities, but some limitations in spoken language are still apparent in vocational, avocational, and social activities. The individual rarely requires minimal cueing to frame complex sentences. The individual usually self-cues when encountering difficulty. Spoken Language Comprehension Level 6: Individual is able to understand communication in most activities, but some limitations in comprehension are still apparent in vocational, avocational, and social activities. The individual rarely requires minimal cueing to understand complex sentences. The individual usually uses compensatory strategies when encountering difficulty. GOALS: Transport Manager Goals: Projected Functional Communication Measures at discharge: Pragmatics Level 6: Pragmatics are functional in most settings or situations with occasional minimal cues. The majority of the time, the individual is able to modify behaviors in response to subtle feedback from the environment. Goal met - discontinue Writing Level 7: The individual's ability to successfully and independently participate in vocational, avocational, and social activities is not limited by writing skills. Independent functioning mayoccasionally include use of compensatory strategies. Goal not met - continue Spoken Language Comprehension Level 7: Individual's ability to independently participate in vocational, avocational, and social activities is not limited by spoken language comprehension. When difficulty with comprehension occurs, the individual consistently uses a compensatory strategy. Goal not met - continue Spoken Language Expression Level 7: The individual's ability to successfully and independently participate in vocational, avocational, and social activities is not limited by spoken language skills. Independent functioning may occasionally include use of self-cueing. Goal not met - continue Attention Level 6: The individual maintains attention within complex activities, and can attend simultaneously to multiple demands with rare minimal cues. The individual usually uses compensatory strategies when encountering difficulty. The individual has mild difficulty or takes more than a reasonable amount of time to attend to multiple tasks/stimuli. Goal met - discontinue Memory Level 6: The individual is able to recall or use external aids/memory strategies for complexinformation and planning complex future events most of the time. When there is a breakdown in the use of recall/memory strategies/external memory aids, the individual occasionally requires minimal cues. These breakdowns may occasionally interfere with the individual's functioning in vocational, avocational, and social activities. Goal not met - continue Problem Solving Level 6: Problem solving skills are functional in most settings, but some limitations in problem solving are still apparent in vocational, avocational and social activities. The individual rarely requires minimal cueing/assistance or additional time to generate multiple solutions and carry out steps to complete complex problem solving tasks. He/she usually self- monitors effectiveness of performance and uses strategies when encountering difficulty. Goal met - discontinue Short Term Goals: Recall: Goal #1: Patient will independently manage a memory journal, including writing the daily therapy schedule and appointment summaries and bring their journal to ARMATURE REPAIRER appointments. Goal not met - continue Goal #2: Patient will track their daily schedule and meet ARMATURE REPAIRER on time for therapy appointments in the ARMATURE REPAIRER office. Goal met - discontinue Attention: Goal #1: The patient will divide her attention between competing stimuli with 90% accuracy. Goal met - discontinue ? Auditory Processing: Goal #1: The patient will listen to paragraph-level discourse and answer corresponding given multiple choice options with 90% accuracy. Goal met - discontinue ? Problem Solving: Goal #1: The patient will identify the specific language category, given 3-4 items and add an additional exemplar to the category with 90% accuracy. Goal not met - continue Goal #2: Given information, the patient will draw a logical conclusion 90% of the time. Goal met - discontinue Goal #3: The patient will solve complex deduction puzzles with 90% accuracy. Goal met - discontinue ? PLAN/RECOMMENDATIONS: Continue/Recommend ARMATURE REPAIRER services: Patient continues to be appropriate for ongoing ARMATURE REPAIRER services via home health care initially with anticipated transition to outpatient services. Anticipate 28/09 supervision initially at discharge. Referrals: Medical Psychology RAAD Perry 01/13/2017 16:44 * Magalis Abbott Maegan - 01/13/2017 0856 EST [facility] Physical Therapy Discontinue/Discharge Note Date of Service: 01/13/2017 PRECAUTIONS: - Level of risk B - Code Status: Full Code - Fall Risk - Mcgrath J color until flex-ex films are able to be done- worn when out of bed SUBJECTIVE: Pt states that she is very excited about going home to see her pets. OBJECTIVE: Intervention Completed Today: Start time: 0900 Total Therapy Minutes: 30 minute(s) Interventions included: Neuromuscular re-education (1): Anticipatory balance reaction: standing on half foam roller with round portion on ground performingtoe taps onto a 16'' cone with min assist of 2 and several uses of hip strategy and a couple of stepping strategies- demonstrating good reactive balance reactions Gait Training (1): Ambulation with balance challenges: - heel walking - toe walking - tandem walking - backwards tandem - karoeke - pt performed all with min ankle sway and distant supervision 2nd Session Time: Start time: 1430 Total Therapy Minutes: 60 minutes Interventions completed today: Neuromuscular re-education (1): Anticipatory balance reaction: - standing on BOSU ball with round portion on ground performing lateral toe taps onto a 16'' cone with min assist of 1 with no loss of balance - ascending and descending BOSU Ball -20x with each LE Gait Training (1): Ambulation with balance challenges: - stepping stone- stepping one to another- pt was able to perform with 75% success rate and other times needed to self-correct - ambulating tandem on half foam roller with round portion on the ground Patient/Family Education: Topic: DC plan and continued therapy Learner: patient Method: verbal Barriers to Learning: none noted Outcome: verbalized understanding Team Communication: Discussed DC with MD and OT. Patient has been seen in physical therapy since 01/02/2017 for Therapeutic exercise, Therapeutic activities, Gait Training, Neuromuscular re-education, Wheelchair training and Self-Care/Home management. In this reporting period to 01/13/2017 the patient has been seen by a physical therapist at a frequency of 1-2 times/day, 5-6 days/week, for 60-90 minutes/day. Relevant Objective Findings: Range of Motion and Joint Integrity: Range of Motion: Upper Quarter: not formally assessed due to high pain and fear avoidance of pain- however not limitations noted during functional mobility Lower Quarter: PROM tested in sitting Hip: Left Right Flexion 130 130 Knee: ? Flexion 130 130 Extension 0 0 Ankle: ? Dorsiflexion neutral neutral Plantarflexion 60 60 ? Muscle Performance: ?? Strength: Lower Quarter: Assessed in:sitting HIP: Left (01/02/2017) Right (01/02/2017) Left (01/13/2017) Right (01/13/2017) Flexion Against gravity Against gravity 07/10 5/5 Knee: ? Flexion Min resistance Min resistance Max resistance Max resistance Extension Against gravity Against gravity 07/10 55 ?? 5 Times Sit to Stand Test (seconds): 5.66 sec 5.66 Age normative values 4.9-7.5 sec (Goldy,2007). Sensation, Reflexes, and Nerve Integrity: Light Touch Sensation: intact sensation to light touch in UE and LE Proprioception:intact at great toe, ankle, and knee ?? Neuromotor Function/Development: Single leg stance: 18 sec on RLE and 17 sec on LLE Four Square: 1st Trial: 11.67 2nd Trial:10.57 ? Norms: > 15 seconds: Multiple chapito < 15 seconds: Non multiple chapito At 15 seconds, the FSST has a positive predictive value of 86% and a negative predictive value of 94% for the sample tested. (Edvin, 2002) PT Outcomes 01/13/2017 01/13/2017 01/13/2017 4 Square Step - Time (sec) 10.57 5-Time Dtz-xp-[id number] (sec) 5.66 Gait Speed - Distance (M) 10 10 Gait Speed - Time (sec) 7.56 5.66 Gait Speed - Velocity (meters/sec) 1.32-self selected gait speed 1.77- fast gait speed SLSB Eyes Open R 18.22 SLSB Eyes Open L 17.2 SLSB Eyes Closed R 15.8 SLSB Eyes Closed L 15.6 ?? Bed Mobility: Sit->supine: independently with flat bed and no rails. Supine->sit: independently with flat bed and no rails. Transfers: Bed < > Chair: stand-step independently Transfers - Bed, Chair, Wheelchair FIM: 7 Wheelchair: The patient is not using a WC. Gait: The patient ambulates independently using none for 1,000 feet. Gait deviations: none noted Walk FIM: 7 Stairs: Patient negotiates independently up and down 40 stairs with no device. Stairs FIM: 7 Self-Care, Home Management, Work, and Leisure: ASSESSMENT: The patient has been appropriate for skilled physical therapy at acute rehab to addressthe physical therapy diagnosis of impaired mobility s/p: TBI. 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 These impairments contribute to the following functional limitations: Including limited community mobility and inability to return to previous level of mobility/activity. Pt's 5x sit to stand and gait speed demonstrated significant improvement in functional mobility and decrease in fall risk and frailty. Pt's 4 square step test also demonstrates significant improvement in functional mobility and decreased risk for falling. However, pt's SLS is significantly below her norm and her age norm-demonstrating that she needs continued skilled physical therapy in order to progress towards prior level of function. Pt has demonstrated significant improvement in functional mobility as visible through decrease in assist required with all mobility. Pt went from dependent with all functional mobility-including requiring 3 assist for bed mobility and sit to stand to being I. This has resulted in pt achieving all of her goals and progressing through the high level TBI program towards a safe DC home. Physical Therapy Prognosis: With continued care of physical therapy and focus on return to dance, expect that patient will be able to return to previous level of function. ALL GOALS HAVE BEEN MET AND DISCONTINUED: Short-Term Goals: 10 days ?? Bed Mobility: In order to progress towards functional I, pt will be able to perform supine<>sit with min assist with head of bed elevated and railing. ?? Transfers: In order to progress towards functional I, pt will be able to perform transfers c minassist of 2 and appropriate assistive device ?? Ambulation: In order to progress towards home DC, pt will be able to ambulate 50' c min-mod assist of 2 on level surfaces with appropriate assistive device. ?? Fall Risk: In order to decrease fall risk, pt will be able to stand with shoulder width base of support and eyes open for 60 seconds with B UE support and contact guard assist of 1. ?? Functional Strength: In order to demonstrate improved functional strength, pt will be able to stand from 22 inches with no UE assist. ?? Pt education: Pt and pt's mother and father will demonstrate safe guarding techniques for transfers. ?? Long-Term Goals: 4 weeks ?? Bed Mobility: In order to progress towards functional I, pt will be able to perform supine<>sit I with flat bed and no bed rail. ?? Transfers: In order to progress towards functional I, pt will be able to perform transfers I c no assistive device. ?? Ambulation: In order to progress towards home DC, pt will be able to ambulate 300' c supervisionon level surfaces. ?? Car Transfers: In order to progress towards home DC, pt will be able to perform car transfer c caregiver and no VC from therapist. ?? Stairs: In order to progress towards prior level of function and DC home, pt will be able to do 12 stairs c 1 railing and supervision. ?? Fall Risk: In order to decrease fall risk, pt will be able to stand with decreased base of support and eyes closed for 60 seconds on uneven surfaces with min signes of instability. ?? Functional Strength: In order to demonstrate improved functional strength, pt will be able to stand from 16 inches with no UE assist. ?? Home Exercise Program: In order to progress towards home DC, pt will be able to complete Home Exercise Program I c visual assist from written instruction. ?? Pt education: Pt and pt's mother and father will demonstrate safe guarding techniques for stairs, car transfer, and ambulation on level and unlevel surfaces. PLAN: D/C Physical Therapy Recommended Discharge Destination: Home with caregiver Recommended Discharge Services: Home health physical therapy Recommended Equipment Needs: No equipment necessary Other recommendations: Recommend gradual return to school and dance. Contact information: Pager: [phone] Magalis Issa Milena 01/13/2017 10:19 * Sidra Alejo CSW - 01/13/2017 0855 EST Social Work D/C Note: Pt. is scheduled for discharge to her father's home on 01/14. Pt. and family education will be complete; equipment needs addressed. Family chose [facility] for follow up PT/OT/ARMATURE REPAIRER services. Pt's family supportive and involved. Pt/family believe they are ready for return home and have the support needed to safely meet pt's care needs. Family will provide transportation to home. Pt's Grandmother confirms this plan. No further intervention indicated; available if needed.ARTIE Macdonald * Georgiana Noriega OT - 01/13/2017 0727 EST Rehabilitation Therapies Inpatient Rehabilitation [facility] Occupational Therapy Encounter Note Date of Service: 01/13/2017 Subjective/Objective SUBJECTIVE: I'm so excited! OBJECTIVE: Session One Start time: 1000 minute(s) Total Therapy Minutes: 60 minute(s) *20 minutes of non-billable transport time. Interventions included: Session One: Therapeutic Activity *Focus of session on improving independence with community reintegration and student financial aid manager in functional setting. Therapist reviewed and assisted pt with decision making as to where to visit. Her grandmother joined but did not assist with session. ?? Community Mobility: Demonstrated good balance and safety while getting in/out of van using arm support and while walking on uneven surfaces in parking lot with modified independence. Ambulated around obstacles within stores with no LOB. Reported fatigue at end of session. Maintained standing position/walking for ~30 minutes. ?? Project Development Leader: Completed monetary exchange when paying for basic item purchase independently with 100% accuracy. Vital signs: Vital signs have been stable with interventions and were not monitored. Patient/Family Education: Topic: Benefits of activity D/C planning Safety awareness Learner: patient and grandmother Method: verbal Barriers to Learning: none noted Outcome: verbalized understanding, returned demonstration and reinforcement needed Team Communication: With PT regarding discharge planning Assessment/Plan ASSESSMENT: Pt demonstrated good progress during outing demonstrating overall improved cognition, student financial aid manager, community mobility and activity tolerance since time of admission. She was fatigued by end of session and verbalized improved insight into her deficits. Reviewed energy conservation principles but continue to reinforce with family. Pt to discharge home tomorrow following family training. PLAN: -Family training prior to d/c Pager: [phone] Georgiana Noriega OT * Brielle Epps RN - 01/12/2017 1558 EST Pt states she had a BM yesterday, but no one saw it. Given colace and senna. Patient declined miralax. Continue with bowel meds since pt is prone to constipation and is on narcotic. * Brielle Epps RN - 01/12/2017 1547 EST Made pt a medication card. Please encourage patient to keep track of medications. * Brielle Epps RN - 01/12/2017 1502 EST Called report to [facility]. Patient will start there and then transition to outpatient therapies. D/c date is , 01/14 to home. Patient and family aware of the date. Y * Brielle Epps RN - 01/12/2017 1501 EST Patient had an anxiety attack today- Dr. Atkinson made aware. No new orders. Patient wanting a medication for anxiety scheduled, but parents are reluctant to use SSRIs. Dr. Atkinson is aware. * Jus Atkinson MD - 01/12/2017 1217 EST Physiatry Progress Note Admit Date: 01/01/2017 Hospital Day: LOS: 11 days Date of Service: 01/12/2017 Chief Complaint: Traumatic brain injury Subjective: Continued posterior neck pain. No shortness breath or lightheadedness. No dysuria. Current Facility-Administered Medications: acetaminophen (TYLENOL) solution unit dose cup 650 mg oral Q4H PRN amantadine HCl (SYMMETREL) solution 50 mg oral DAILY bisacodyl (DULCOLAX) suppository 10 mg rectal Daily PRN docusate sodium (COLACE) capsule 100 mg oral BID PRN ibuprofen (ADVIL;MOTRIN) suspension 400 mg oral Q4H PRN LORazepam (ATIVAN) concentrated solution 0.5 mg oral QID PRN methocarbamol (ROBAXIN) tablet 500 mg oral QID PRN methyl salicylate-menthol (ANALGESIC BALM) ointment topical BID PRN ondansetron (ZOFRAN-ODT) disintegrating tablet 4 mg oral Q4H PRN oxyCODONE (ROXICODONE) immediate release tablet 5 mg oral Q6H PRN polyethylene glycol 3350 (MIRALAX) packet 17 g oral Daily PRN senna (SENOKOT) tablet 1 Tab oral Daily PRN traZODone (DESYREL) tablet 25 mg oral QHS Objective/Physical Exam: VS: Patient Vitals for the past 8 hrs: BP Pulse Heart Rate Resp Temp 01/12/17 0642 95/52 73 69 BPM 14 36.5 ??C (97.7 ??F) Pain: Patient Vitals for the past 8 hrs: Numeric Pain Level (Scale 1-10) Asleep 01/12/17 1000 1 - 01/12/17 0913 6 - 01/12/17 0739 0 Reassessed, sleeping comfortably, RR WNL. 01/12/17 0649 0 Reassessed, sleeping comfortably, RR WNL. 01/12/17 0622 0 Reassessed, sleeping comfortably, RR WNL. 01/12/17 0600 0 Reassessed, sleeping comfortably, RR WNL. 01/12/17 0500 0 Reassessed, sleeping comfortably, RR WNL. Weight: Weight : 61.2 kg (134 lb 14.4 oz) Glucose Readings (last 8 readings): No results for input(s): GLUCOSEFINGE in the last 72 hours. I&O: No intake or output data in the 24 hours ending 01/12/17 1217 Exam: Gen: Sleepy and restless HEENT: Head: Normocephalic, no lesions, without obvious abnormality. Eye: Normal external eye, conjunctiva, lids cornea, FAUSTINO. Ears: There is ecchymosis around the right ear. Neck : Diffuse non-focal tenderness through the posterior neck, right greater than left. Skin: Abrasion noted at the right shoulder Cardiac: Cor RRR Lungs: Clear bilaterally Abdomen: normal bowel sounds, soft, nontender Musculoskeletal: no joint tenderness, deformity or swelling, no muscular tenderness noted, full range of motion without pain Neuro: She has oriented to the hospital. When given a moment she was aware of that Halloween is next week. She is following basic commands Cranial nerves: CN VII: Right facial droop CN VIII: Impaired hearing on the right Motor: Strength 4/5 throughout and appears symmetric. Tone normal Reflexes: trace and symmetric Sensation: Decreased right facial sensation Cerebellar: Cannot be assessed at this time Labs: I have personally reviewed CBC: Lab Results Component Value Date WBC 8.09 01/02/2017 RBC 4.40 01/02/2017 HGB 13.3 01/02/2017 HCT 37.6 01/02/2017 MCV 86 01/02/2017 MCH 30.2 01/02/2017 MCHC 35.4 01/02/2017 PLT 264 01/02/2017 BMP: Lab Results Component Value Date NA 141 01/02/2017 K 3.8 01/02/2017 CL 99 01/02/2017 CO2 27 01/02/2017 BUN 9 01/02/2017 CREATININE 0.50 01/02/2017 CALCIUM 9.3 01/02/2017 MG 2.1 01/02/2017 Assessment/Problems: (update problem list daily as appropriate) Patient Active Problem List Diagnosis Date Noted ??? (H)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 (HCC) 12/27/2016 Priority: Medium Subdural hemorrhage, right parietal skull fracture, suspected diffuse axonal injury ??? (H)Fracture of temporal bone with routine healing 12/27/2016 Priority: Medium Plan: 1. Traumatic brain injury: Left subdural hematoma, question diffuse axonal injury status post beingthrown from a horse 12/27/2016: Patient with residual cognitive impairments, but has some relative strengths with regards to overall awareness of her environment. Full PT, OT, ARMATURE REPAIRER assessments and therapies to address mobility, self care, cognition. 24 hour rehabnursing for self care deficits stop amantadine and monitor. I spent 35 minutes of floor time, greater than 50% of that time was spent face to face with the patient in counseling and coordination of care and counseling including review of therapy goals and barriers to discharge, recovery, functional progress. 2. Right parietal bone fracture: Reportedly extensive mastoid bone to the condylar fossa and right sphenoid bone. Continue cervical collar when out of bed. Consider flexion-extension films when nontender, likely as an outpatient. Maintain adequate pain control, choosing to use primarily Motrin which he has good effect from prior to admission. ?? 3. Nutrition: Continue supplements and regular consistency diet. Nutrition consult 4. Right temporal bone fracture: No additional intervention required. Reportedly seen by ENT at [facility]. She does have impaired hearing on the right, and is already set up for audiometric testing after discharge. Taper off oxycodone 5. Anxiety: Long-standing. Medical psychology consultation. 6. Escherichia coli UTI: Resolved 7. Trazodone at bedtime to promote sleep DVT Prophylaxis: Ambulate Jus Atkinson MD 01/12/2017 12:17 * Georgiana Noriega, OT - 01/12/2017 1154 EST Rehabilitation Therapies Inpatient Rehabilitation [facility] Occupational Therapy Encounter Note Date of Service: 01/12/2017 Subjective/Objective SUBJECTIVE: I want to go shopping when I leave on . OBJECTIVE: Session One Start time: 0830 minute(s) Total Therapy Minutes: 60 minute(s) Interventions included: Session One: Self-Care/Home Management -LB dressing: Retrieved pants and underwear with supervision. Doffed old clothing and donned new with supervision while seated in bed at pt request. Therapeutic Activities -Planned outing with patient and she would like to go local [id number]. Plan to complete tomorrow. *Focus of the following tasks on improving dynamic standing balance and activity tolerance for increased independence with BADLs and light IADLs. -Functional mobility: Ambulated with min contact assist x 1 (for guarding) throughout unit -Dynamic standing balance: ?? Air hockey for ~15 minutes with supervision x 1. No LOB and maintained good attention to task throughout. ?? Played guitar using shoulder strap and sang with good recall of song chords and lyrics. Therapeutic Exercise *Completed B UE strengthening with Level 2 (orange) theraband. ?? Bilateral horizontal abduction: 10 reps x 1 set ?? Shoulder Flexion: 10 reps x 1 set ?? Bicep curls: 10 reps x 1 set Vital signs: Vital signs have been stable with interventions and were not monitored. Patient/Family Education: Topic: Benefits of activity D/C planning Safety awareness Learner: patient and family Method: verbal Barriers to Learning: none noted Outcome: verbalized understanding and reinforcement needed Team Communication: With team at weekly rounds meeting regarding progress and d/c date Assessment/Plan ASSESSMENT: Pt tolerated session well and has made excellent progress since last seen by this health science writer. Question behavioral responses at times when family present for sessions. After discussion with PT and ARMATURE REPAIRER, HLTBI program has begun and pt has been made independent within room and unit. Updated discharge date is now 01/14. Planning on going on an outing tomorrow during session. PLAN: -HLTBI -Outing Pager: [phone] Georgiana Noriega OT * Magalis Abbott - 01/12/2017 0852 EST [facility] Rehabilitation Therapy Inpatient Rehabilitation Center [facility] Physical Therapy Encounter Note Date of Service: 01/12/2017 Subjective/Objective Subjective Pt states that she is having a hard time, that her parents are creating a difficult environment forher and that she is really anxious and things that if she had a little bit of medication it would really help her-however, her parents will not let her take it. Objective Start time: 1330 Total Therapy Minutes: 60 minute(s) Interventions completed today: Neuromuscular re-education (2): Anticipatory and reactive balance: - standing on Anterior/posterior wobble board while tapping cones in all directions and heights ranging from 6 inches to 16 inches with min-mod ankle sway and contact guard assist of 1 for safety - standing on half foam roller with round portion on the ground performing ball tosses with min ankle strategy and 3 incidences of hip strategy with min contact guard assist of 1 for balance - standing on bosu ball performing squats- pt was able to perform task- however, stated it was difficult and that she doesn't like it Gait Training (2): Ambulation: pt demonstrates ambulation of 1,000 ft with no signs of instability- demonstrating progression towards I mobility with all functional mobility Stairs: able to performed 40 stairs with no railing and no signs of instability with step through gait pattern and close supervision for safety Ambulation with balance challenges -pt performed high level ambulation including ambulating on half foam roller with round portion on the ground with a couple of losses of balance but ability to regain balance with stepping strategy and contact guard assist of 1 - pt performed ascending/descending 6 inch step and 2 inch airex with min contact guard assist of 1and no loss of balance Other: discussed HLTBI program- went over the purpose, her assignments for tomorrow-including reading the TBI manual, writing in her journal, and meeting in the gym for therapies- pt stated that she understood all of it and was willing to do it. Patient/Family Education: Topic: HLTBI Learner: patient Method: verbal Barriers to Learning: none noted Outcome: verbalized understanding Team Communication: Patient DC plan was discussed with rehab team- MD, ARMATURE REPAIRER, OT, RN, and case consultant-see round sheet for more information. Assessment/Plan Assessment Pt demonstrates significant improvement in functional mobility as visible through decreased assist required with all functional mobility and improved stability with high level balance activities. This has resulted in pt's initiation of HLTBI program and progressing towards I in room and hallway. 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 OBJECTIVE: Date of Service: 01/12/2017 Start Time: 1110 (session started late due to patient requiring time for transfer to wheelchair) Total Therapy minutes: 50 minute(s) comm-cog tx Patient/Family Interview: Kim lives with her father, stepmother and stepsister, Genysis. She shares her time with-her mother (Misti), stepfather ([place]) and two brothers (Luis Alberto and Ross). She loves animals and has 5 dogs at her father's house and 3 dogs, rabbits, cats, horses, chickens, ducks and hamsters at her mother's house. Her favorite animals are owls and pigs. Kim attends [employer], in the [employer]. She loves to play piano, sing (especially ballads),and she also states that she loves to sleep. She earns A's and B's in school and her favorite subject is psychology. She has a boyfriend name Bin. Current Treatment Objectives: Recall: Goal #1: Patient will independently manage a memory journal, including writing the daily therapy schedule and appointment summaries and bring their journal to ARMATURE REPAIRER appointments. 01/12: Following initial cues for organization of entries, the patient writes brief summaries of OT and ARMATURE REPAIRER sessions utilizing complete sentences and adequate syntax. Patient requires encouragement tocomplete summaries secondary to reduced motivation and resistance. She agrees stating, I'll do it if it gets me home. Goal #2: Patient will track their daily schedule and meet ARMATURE REPAIRER on time for therapy appointments in the ARMATURE REPAIRER office. ? Attention: Goal #1: The patient will attend to basic written directions with 90% accuracy. 11/3: Basic written directions: 50% with errors characterized by decreased attention to details. Results as follows: 1. 8 6. 6 2. 15 7. 15 3. 6 8. 6 4. 15 9. / 5. 15 10. / Probed for complex written directions: 50% accuracy with no credit given for partially correct responses. Results as follows: 1. 6 6. 12 2. 15 7. 12 3. 6 8. 12 4. 15 9. 15 5. 15 10. 15 11: Basic written directions: 88% accuracy 1. 15 6. 15 2. 15 7. 15 3. 15 8. 12 4. 15 9. / 5. 15 10. / Complex written directions: 80% 1. 15 6. 15 2. 15 7. 15 3. 15 8. 15 4. 12 9. 6 5. 10 10. 15 117: Complex written directions: 90% 1. 15 6. 15 2. 15 7. 15 3. 6 8. 15 4. 15 9. 15 5. 15 10. 15 Auditory Processing: Goal #1: The patient will listen to paragraph-level discourse and answer corresponding given multiple choice options with 90% accuracy. 01/08: Not directly addressed, however in the context of conversational discourse, the patient demonstrates reduced auditory processing of questions resulting in off-topic and tangential commentary that does not pertain to initial question posed by clinician. 01/11: Pursuit Management: Eye Glasses For You: 50% 01/12: FLORI Talk (10 mins 19 secs): Patient listens to a FLORI talk pertaining to Woodrow Burns, a snowboarder from [place] who sustained a TBI. She is instructed to take notes as she listens, however does not.Despite this, she earns a 9/10, 90% accuracy for comprehension question. Patient reports longstanding difficulty dividing attention. Problem Solving: Goal #1: The patient will identify the specific language category, given 3-4 items and add an additional exemplar to the category with 90% accuracy. 11/2: [place] category Identification: 80% accuracy 1. 6 6. 15 2. 15 7. 15 3. 15 8. 15 4. 15 9. 6 5. 15 10. 15 Additional exemplar: 80% accuracy 1. 15 6. 15 2. 15 7. 6 3. 15 8. 6 4. 15 9. 15 5. 15 10. 15 Goal #2: Given information, the patient will draw a logical conclusion 90% of the time. 11/6: Identifying Activities from Descriptions: 90% 1. 9 6. 15 2. 15 7. 15 3. 6 8. 15 4. 15 9. 15 5. 15 10. 15 Goal #3: The patient will solve complex deduction puzzles with 90% accuracy. Organization: Goal #1:??Patient will sequence and describe 4-step picture sequences with 80% accuracy. 11/6: The patient sequences and describes 4-steps with 100% accuracy in 3/3 items. Results as follows: T1: + T2: + T3: + Patient/Family Education: Topic: Communication-cognitive sequelae of TBI Ongoing education provided to patient/family regarding Communication-cognitive sequelae of TBI HLTBI program Progress to date Rehab goals. Learner: patient, patient's grandmother Method of Education: Verbal and Written Barriers to Learning/Education: patient's reduced ability to learn/carry over information at this time Patient: was able to verbalize understanding of information and needs further instruction and education Family: was able to verbalize understanding of information and needs further instruction and education Assessment/Plan ASSESSMENT/CLINICAL IMPRESSIONS: Ms. Liu is a female 16 y.o. 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 The patient demonstrates improved engagement in ARMATURE REPAIRER session in the absence of family members. When family members are present, patient demonstrates reduced engagement/motivation, requires encouragement to complete session objectives and demonstrates a low threshold for challenges. Despite this, she demonstrates gains in sustained attention to written directions and in auditory processing skills of discourse. The patient is demonstrating readiness to initiate the HLTBI program which will begin tomorrow. At this time, patient presents with functioning consistent with mild impairments across cognitive-linguistic domains of attention, memory and higher level cognitive-linguistic skills consistent with communication-cognitive sequelae of traumatic brain injury, RLA Level VIII-IX, as best judged. Patient demonstrates mild impairments in reasoning skills (particularly with multiprocess deductive reasoning), consistent with TBI. She continues to demonstrate an impulsive approach when completing structured, therapeutic tasks and as a result, misses details which impedes overall task accuracy. Despite this, she implements organizational techniques including the cross-out strategy to systematically c omplete tasks. The patient demonstrates increased insight into communication- cognitive deficits s/pTBI and reports that a decline in memory is the most noticeable change. Patient demonstrates gains in short-term recall of functional information over the course of several days. Given patient's age,independence prior to admission, and social/occupational demands, she will benefit from intensive ARMATURE REPAIRER intervention. Based on the patient's premorbid level of functioning, medical diagnosis, comorbidities and patient/family support, the patient's prognosis is considered: Excellent with anticipation that patient will return home and reconvene her education in high school. Functional Communication Measures ([place] [employer]- [employer], 2002). The Functional Communication Measures (FCM???s) are a series of 7 point rating scales, ranging fromleast functional (Level 1) to most functional (Level 7). They have been developed by JESSI to describe different aspects of patient???s functional communication and swallowing abilities over the course of ARMATURE REPAIRER intervention. ?? Pragmatics Level 6: Pragmatics are functional in most settings or situations with occasional minimal cues. The majority of the time, the individual is able to modify behaviors in response to subtle feedback from the environment. Writing Level 5: The individual writes sentence-level material containing some complex words. The individual occasionally requires minimal cueing to write more complex sentences and paragraph-level material. The individual occasionally uses compensatory strategies. Memory Level 5: The individual consistently requires minimal cues to recall or use external memory aids for complex and novel information. The individual consistently requires minimal cues to plan and follow through on complex future events (e.g., menu planning and meal preparation, planning a libertarian, etc.) Problem Solving Level 6: Problem solving skills are functional in most settings, but some limitations in problem solving are still apparent in vocational, avocational and social activities. The individual rarely requires minimal cueing/assistance or additional time to generate multiple solutions and carry out steps to complete complex problem solving tasks. He/she usually self- monitors effectiveness of performance and uses strategies when encountering difficulty. Attention Level 6: The individual maintains attention within complex activities, and can attend simultaneously to multiple demands with rare minimal cues. The individual usually uses compensatory strategies when encountering difficulty. The individual has mild difficulty or takes more than a reasonable amount of time to attend to multiple tasks/stimuli. Spoken Language Expression Level 6: The individual is successfully able to communicate in most activities, but some limitations in spoken language are still apparent in vocational, avocational, and social activities. The individual rarely requires minimal cueing to frame complex sentences. The individual usually self-cues when encountering difficulty. Spoken Language Comprehension Level 6: Individual is able to understand communication in most activities, but some limitations in comprehension are still apparent in vocational, avocational, and social activities. The individual rarely requires minimal cueing to understand complex sentences. The individual usually uses compensatory strategies when encountering difficulty. GOALS: Penitentiary Goals: Projected Functional Communication Measures at discharge: Pragmatics Level 6: Pragmatics are functional in most settings or situations with occasional minimal cues. The majority of the time, the individual is able to modify behaviors in response to subtle feedback from the environment. Writing Level 7: The individual's ability to successfully and independently participate in vocational, avocational, and social activities is not limited by writing skills. Independent functioning mayoccasionally include use of compensatory strategies. Spoken Language Comprehension Level 7: Individual's ability to independently participate in vocational, avocational, and social activities is not limited by spoken language comprehension. When difficulty with comprehension occurs, the individual consistently uses a compensatory strategy. Spoken Language Expression Level 7: The individual's ability to successfully and independently participate in vocational, avocational, and social activities is not limited by spoken language skills. Independent functioning may occasionally include use of self-cueing. Attention Level 6: The individual maintains attention within complex activities, and can attend simultaneously to multiple demands with rare minimal cues. The individual usually uses compensatory strategies when encountering difficulty. The individual has mild difficulty or takes more than a reasonable amount of time to attend to multiple tasks/stimuli. Memory Level 6: The individual is able to recall or use external aids/memory strategies for complexinformation and planning complex future events most of the time. When there is a breakdown in the use of recall/memory strategies/external memory aids, the individual occasionally requires minimal cues. These breakdowns may occasionally interfere with the individual's functioning in vocational, avocational, and social activities. Problem Solving Level 6: Problem solving skills are functional in most settings, but some limitations in problem solving are still apparent in vocational, avocational and social activities. The individual rarely requires minimal cueing/assistance or additional time to generate multiple solutions and carry out steps to complete complex problem solving tasks. He/she usually self- monitors effectiveness of performance and uses strategies when encountering difficulty. Short Term Goals: Recall: Goal #1: Patient will independently manage a memory journal, including writing the daily therapy schedule and appointment summaries and bring their journal to ARMATURE REPAIRER appointments. Goal #2: Patient will track their daily schedule and meet ARMATURE REPAIRER on time for therapy appointments in the ARMATURE REPAIRER office. Attention: Goal #1: The patient will attend to basic written directions with 90% accuracy. Goal met - discontinue New Goal #1: The patient will divide her attention between competing stimuli with 90% accuracy. ? Auditory Processing: Goal #1: The patient will listen to paragraph-level discourse and answer corresponding given multiple choice options with 90% accuracy. ? Problem Solving: Goal #1: The patient will identify the specific language category, given 3-4 items and add an additional exemplar to the category with 90% accuracy. Goal #2: Given information, the patient will draw a logical conclusion 90% of the time. Goal #3: The patient will solve complex deduction puzzles with 90% accuracy. ? Organization: Goal #1:??Patient will sequence and describe 4-step picture sequences with 80% accuracy. Goal met -discontinue PLAN/RECOMMENDATIONS: Continue/Recommend ARMATURE REPAIRER services: Given attention gains, session intensity to be increased and patient will be seen for a minimum of 5x/week @ 45-minutes. Patient is demonstrating readiness to initiate the HLTBI program. Anticipate 28/09 supervision initially at discharge. Referrals: Medical Psychology [facility] Perry 01/12/2017 17:18 * Jus Atkinson MD - 01/11/2017 1258 EST Physiatry Progress Note Admit Date: 01/01/2017 Hospital Day: LOS: 10 days Date of Service: 01/11/2017 Chief Complaint: Traumatic brain injury Subjective: No new complaints this AM. Continued neck pain but is tolerating the Stanton collar when out of bed well. No shortness breath or lightheadedness. Current Facility-Administered Medications: acetaminophen (TYLENOL) solution unit dose cup 650 mg oral Q4H PRN amantadine HCl (SYMMETREL) solution 50 mg oral DAILY bisacodyl (DULCOLAX) suppository 10 mg rectal Daily PRN docusate sodium (COLACE) capsule 100 mg oral BID PRN ibuprofen (ADVIL;MOTRIN) suspension 400 mg oral Q4H PRN LORazepam (ATIVAN) concentrated solution 0.5 mg oral QID PRN methocarbamol (ROBAXIN) tablet 500 mg oral QID PRN methyl salicylate-menthol (ANALGESIC BALM) ointment topical BID PRN ondansetron (ZOFRAN-ODT) disintegrating tablet 4 mg oral Q4H PRN oxyCODONE (ROXICODONE) immediate release tablet 5 mg oral Q6H PRN polyethylene glycol 3350 (MIRALAX) packet 17 g oral Daily PRN risperiDONE (RISPERDAL) tablet 1 mg oral Q12H PRN senna (SENOKOT) tablet 1 Tab oral Daily PRN Objective/Physical Exam: VS: Patient Vitals for the past 8 hrs: BP Pulse Resp Temp 01/11/17 0629 104/58 66 14 35.7 ??C (96.3 ??F) Pain: Patient Vitals for the past 8 hrs: Numeric Pain Level (Scale 1-10) Asleep 01/11/17 1028 0 - 01/11/17 0900 0 - 01/11/17 0808 2 - 01/11/17 0626 2 - 01/11/17 0600 0 Reassessed, sleeping comfortably, RR WNL. 01/11/17 0500 0 Reassessed, sleeping comfortably, RR WNL. Weight: Weight : 61.2 kg (134 lb 14.4 oz) Glucose Readings (last 8 readings): No results for input(s): GLUCOSEFINGE in the last 72 hours. I&O: No intake or output data in the 24 hours ending 01/11/17 1258 Exam: Gen: Sleepy and restless HEENT: Head: Normocephalic, no lesions, without obvious abnormality. Eye: Normal external eye, conjunctiva, lids cornea, FAUSTINO. Ears: There is ecchymosis around the right ear. Neck : Diffuse non-focal tenderness through the posterior neck, right greater than left. Skin: Abrasion noted at the right shoulder Cardiac: Cor RRR Lungs: Clear bilaterally Abdomen: normal bowel sounds, soft, nontender Musculoskeletal: no joint tenderness, deformity or swelling, no muscular tenderness noted, full range of motion without pain Neuro: She has oriented to the hospital. When given a moment she was aware of that Halloween is next week. She is following basic commands Cranial nerves: CN VII: Right facial droop CN VIII: Impaired hearing on the right Motor: Strength 4/5 throughout and appears symmetric. Tone normal Reflexes: trace and symmetric Sensation: Decreased right facial sensation Cerebellar: Cannot be assessed at this time Labs: I have personally reviewed CBC: Lab Results Component Value Date WBC 8.09 01/02/2017 RBC 4.40 01/02/2017 HGB 13.3 01/02/2017 HCT 37.6 01/02/2017 MCV 86 01/02/2017 MCH 30.2 01/02/2017 MCHC 35.4 01/02/2017 PLT 264 01/02/2017 BMP: Lab Results Component Value Date NA 141 01/02/2017 K 3.8 01/02/2017 CL 99 01/02/2017 CO2 27 01/02/2017 BUN 9 01/02/2017 CREATININE 0.50 01/02/2017 CALCIUM 9.3 01/02/2017 MG 2.1 01/02/2017 Assessment/Problems: (update problem list daily as appropriate) Patient Active Problem List Diagnosis Date Noted ??? (H)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 (HCC) 12/27/2016 Priority: Medium Subdural hemorrhage, right parietal skull fracture, suspected diffuse axonal injury ??? (H)Fracture of temporal bone with routine healing 12/27/2016 Priority: Medium Plan: 1. Traumatic brain injury: Left subdural hematoma, question diffuse axonal injury status post beingthrown from a horse 12/27/2016: Patient with residual cognitive impairments, but has some relative strengths with regards to overall awareness of her environment. Full PT, OT, ARMATURE REPAIRER assessments and therapies to address mobility, self care, cognition. 24 hour rehabnursing for self care deficits Continue amantadine which may have positive outcome on cognitive outcome and they are in agreement. 2. Right parietal bone fracture: Reportedly extensive mastoid bone to the condylar fossa and right sphenoid bone. Continue cervical collar when out of bed. Consider flexion-extension films when nontender, likely as an outpatient. Maintain adequate pain control ?? 3. Nutrition: Continue supplements and regular consistency diet. Nutrition consult 4. Right temporal bone fracture: No additional intervention required. Reportedly seen by ENT at [facility]. She does have impaired hearing on the right, and is already set up for audiometric testing after discharge. Taper off oxycodone 5. Anxiety: Long-standing. Medical psychology consultation. 6. Escherichia coli UTI: Continue levofloxacin 7. 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 I want to go home. OBJECTIVE: Date of Service: 01/11/2017 Start Time: 1110 Total Therapy minutes: 60 minute(s) comm-cog tx Patient/Family Interview: Kim lives with her father, stepmother and stepsdakota, Gensiddhartha. She shares her time with-her mother (Misti), stepfather ([place]) and two brothers (Luis Alberto and Ross). She loves animals and has 5 dogs at her father's house and 3 dogs, rabbits, cats, horses, chickens, ducks and hamsters at her mother's house. Her favorite animals are owls and pigs. Kim attends [employer], in the [employer]. She loves to play piano, sing (especially ballads),and she also states that she loves to sleep. She earns A's and B's in school and her favorite subject is psychology. She has a boyfriend name Bin. Current Treatment Objectives: Recall: Goal #1: The patient will recall three pieces of novel information following a 30-minute delay [id number]% accuracy across two consecutive sessions. 3: Following a 30-minute delay, the patient is able to 2/3 details in the context of a Getting to Know You game with 67% accuracy. 11/6: Over the course of 2 days, patient recalls 3/3 details pertaining to content on Getting to Know You game with 100% accuracy. ? Attention: Goal #1: The patient will attend to basic written directions with 90% accuracy. 11/3: Basic written directions: 50% with errors characterized by decreased attention to details. Results as follows: 1. 8 6. 6 2. 15 7. 15 3. 6 8. 6 4. 15 9. / 5. 15 10. / Probed for complex written directions: 50% accuracy with no credit given for partially correct responses. Results as follows: 1. 6 6. 12 2. 15 7. 12 3. 6 8. 12 4. 15 9. 15 5. 15 10. 15 11/6: Basic written directions: 88% accuracy 1. 15 6. 15 2. 15 7. 15 3. 15 8. 12 4. 15 9. / 5. 15 10. / Complex written directions: 80% 1. 15 6. 15 2. 15 7. 15 3. 15 8. 15 4. 12 9. 6 5. 10 10. 15 Auditory Processing: Goal #1: The patient will listen to paragraph-level discourse and answer corresponding given multiple choice options with 90% accuracy. 11/3: Not directly addressed, however in the context of conversational discourse, the patient demonstrates reduced auditory processing of questions resulting in off-topic and tangential commentary that does not pertain to initial question posed by clinician. 11/6: Pursuit Management: Eye Glasses For You: 50% ? Problem Solving: Goal #1: The patient will identify the specific language category, given 3-4 items and add an additional exemplar to the category with 90% accuracy. 11/2: [place] category Identification: 80% accuracy 1. 6 6. 15 2. 15 7. 15 3. 15 8. 15 4. 15 9. 6 5. 15 10. 15 Additional exemplar: 80% accuracy 1. 15 6. 15 2. 15 7. 6 3. 15 8. 6 4. 15 9. 15 5. 15 10. 15 Goal #2: Given information, the patient will draw a logical conclusion 90% of the time. 11/6: Identifying Activities from Descriptions: 90% 1. 9 6. 15 2. 15 7. 15 3. 6 8. 15 4. 15 9. 15 5. 15 10. 15 Goal #3: The patient will solve basic deduction puzzles with 90% accuracy. 01/07: Alfredo'marissa Closet: 89% accuracy 1. 6/10 6. 10 2. 15 7. 10 3. 15 8. 15 4. 15 9. 15 5. 10 10. / ??11/6: Garden Plots: 100% 1. 15 6. 15 2. 15 7. 15 3. 15 8. 15 4. 15 9. 15 5. 15 10. 15 11. 15 12. 15?? Organization: Goal #1:??Patient will sequence and describe 4-step picture sequences with 80% accuracy. 116: The patient sequences and describes 4-steps with 100% accuracy in 3/3 items. Results as follows: T1: + T2: + T3: + Patient/Family Education: Topic: Communication-cognitive sequelae of TBI Ongoing education provided to patient/family regarding Communication-cognitive sequelae of TBI HLTBI program Progress to date Obtained authorization to disclose protected health information from mother (form signed) Rehab goals. Learner: patient, patient's motherMisti and patient's stepfather [place] Method of Education: Verbal and Written Barriers to Learning/Education: patient's reduced ability to learn/carry over information at this time Patient: was able to verbalize understanding of information and needs further instruction and education Family: was able to verbalize understanding of information and needs further instruction and education Assessment/Plan ASSESSMENT/CLINICAL IMPRESSIONS: Ms. Liu is a female 16 y.o. 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 The patient requires encouragement to engage in session and demonstrates a low threshold for challenges resulting in reduced motivation and frustration at times. She continues to demonstrate an impulsive approach when completing structured, therapeutic tasks and as a result, missesdetails which impedes overall task accuracy. Despite this, she implements organizational techniquesincluding the cross-out strategy to systematically complete tasks. Patient demonstrates gains in short-term recall of functional information over the course of several days. The patient is demonstrating readiness to initiate the HLTBI program. At this time, patient presents with functioning consistent with mild impairments across cognitive-linguistic domains of attention, memory and higher level cognitive-linguistic skills consistent with communication-cognitive sequelae of traumatic brain injury, RLA Level VIII-IX, as best judged. Patient demonstrates mild impairments in reasoning skills (particularly with multiprocess deductive reasoning), consistent with TBI. Verbal discourse is fluent, however patient demonstrates reduced auditory processing in conversation resulting in off-topic and tangential commentary. The patient demonstrates increased insight into communication-cognitive deficits s/p TBI and reports that a decline in memory is the most noticeable change. Given patient's age, independence prior to admission, and social/occupational demands, she will benefit from intensive ARMATURE REPAIRER intervention. Based on the patient's premorbid level of functioning, medical diagnosis, comorbidities and patient/family support, the patient's prognosis is considered: Excellent with anticipation that patient will return home and reconvene her education in high school. Functional Communication Measures ([place] Speech- Language- Hearing [employer], 2002). The Functional Communication Measures (FCM???s) are a series of 7 point rating scales, ranging fromleast functional (Level 1) to most functional (Level 7). They have been developed by JESSI to describe different aspects of patient???s functional communication and swallowing abilities over the course of ARMATURE REPAIRER intervention. ?? Pragmatics Level 6: Pragmatics are functional in most settings or situations with occasional minimal cues. The majority of the time, the individual is able to modify behaviors in response to subtle feedback from the environment. Writing Level 5: The individual writes sentence-level material containing some complex words. The individual occasionally requires minimal cueing to write more complex sentences and paragraph-level material. The individual occasionally uses compensatory strategies. Memory Level 5: The individual consistently requires minimal cues to recall or use external memory aids for complex and novel information. The individual consistently requires minimal cues to plan and follow through on complex future events (e.g., menu planning and meal preparation, planning a libertarian, etc.) Problem Solving Level 6: Problem solving skills are functional in most settings, but some limitations in problem solving are still apparent in vocational, avocational and social activities. The individual rarely requires minimal cueing/assistance or additional time to generate multiple solutions and carry out steps to complete complex problem solving tasks. He/she usually self- monitors effectiveness of performance and uses strategies when encountering difficulty. Attention Level 5: The individual maintains attention within simple living activities with occasional minimal cues within distracting environments. The individual requires increased cueing to start, continue, and change attention during complex activities. Spoken Language Expression Level 6: The individual is successfully able to communicate in most activities, but some limitations in spoken language are still apparent in vocational, avocational, and social activities. The individual rarely requires minimal cueing to frame complex sentences. The individual usually self-cues when encountering difficulty. Spoken Language Comprehension Level 6: Individual is able to understand communication in most activities, but some limitations in comprehension are still apparent in vocational, avocational, and social activities. The individual rarely requires minimal cueing to understand complex sentences. The individual usually uses compensatory strategies when encountering difficulty. GOALS: Transport Manager Goals: Projected Functional Communication Measures at discharge: Pragmatics Level 6: Pragmatics are functional in most settings or situations with occasional minimal cues. The majority of the time, the individual is able to modify behaviors in response to subtle feedback from the environment. Writing Level 7: The individual's ability to successfully and independently participate in vocational, avocational, and social activities is not limited by writing skills. Independent functioning mayoccasionally include use of compensatory strategies. Spoken Language Comprehension Level 7: Individual's ability to independently participate in vocational, avocational, and social activities is not limited by spoken language comprehension. When difficulty with comprehension occurs, the individual consistently uses a compensatory strategy. Spoken Language Expression Level 7: The individual's ability to successfully and independently participate in vocational, avocational, and social activities is not limited by spoken language skills. Independent functioning may occasionally include use of self-cueing. Attention Level 6: The individual maintains attention within complex activities, and can attend simultaneously to multiple demands with rare minimal cues. The individual usually uses compensatory strategies when encountering difficulty. The individual has mild difficulty or takes more than a reasonable amount of time to attend to multiple tasks/stimuli. Memory Level 6: The individual is able to recall or use external aids/memory strategies for complexinformation and planning complex future events most of the time. When there is a breakdown in the use of recall/memory strategies/external memory aids, the individual occasionally requires minimal cues. These breakdowns may occasionally interfere with the individual's functioning in vocational, avocational, and social activities. Problem Solving Level 6: Problem solving skills are functional in most settings, but some limitations in problem solving are still apparent in vocational, avocational and social activities. The individual rarely requires minimal cueing/assistance or additional time to generate multiple solutions and carry out steps to complete complex problem solving tasks. He/she usually self- monitors effectiveness of performance and uses strategies when encountering difficulty. Short Term Goals: Recall: Goal #1: The patient will recall three pieces of novel information following a 30-minute delay [id number]% accuracy across two consecutive sessions. Goal met - discontinue New Goal #1: Patient will independently manage a memory journal, including writing the daily therapy schedule and appointment summaries and bring their journal to [facility] REPAIRER appointments. New Goal #2: Patient will track their daily schedule and meet [facility]MATURE REPAIRER on time for therapy appointments in the [facility]URE REPAIRER office. Attention: Goal #1: The patient will attend to basic written directions with 90% accuracy. ? Auditory Processing: Goal #1: The patient will listen to paragraph-level discourse and answer corresponding given multiple choice options with 90% accuracy. ? Problem Solving: Goal #1: The patient will identify the specific language category, given 3-4 items and add an additional exemplar to the category with 90% accuracy. Goal #2: Given information, the patient will draw a logical conclusion 90% of the time. Goal #3: The patient will solve complex deduction puzzles with 90% accuracy. Goal met - upgraded ? Organization: Goal #1:??Patient will sequence and describe 4-step picture sequences with 80% accuracy. PLAN/RECOMMENDATIONS: Continue/Recommend [facility]MATURE REPAIRER services: Given attention gains, session intensity to be increased and patient will be seen for a minimum of 5x/week @ 45-minutes. Patient is demonstrating readiness to initiate the HLTBI program early next week. Anticipate 24/7 supervision initially at discharge. RAAD Perry 01/11/2017 15:54 * Magalis Abbott - 01/11/2017 0834 EST [facility] Rehabilitation Therapy Inpatient Rehabilitation Center [facility] Physical Therapy Encounter Note Date of Service: 01/11/2017 Subjective/Objective Subjective Pt states that she feels ready to go home. Objective Start time: 0930 Total Therapy Minutes: 30 minute(s) Interventions completed today: Neuromuscular re-education (1): Anticipatory balance: - standing on bosu ball (with round component on the down side) and min assist of 2 to ascend and descend the bosu ball - standing on half foam roller with round portion on the ground - standing on both items performing toe taps to various height objects- pt had no difficulty with hitting the objects but did require assistance with weight shifting and anticipatory balance reactions Sensory training: - standing on half foam roller and BOSU ball with round portion on the ground, standing on wobble boards with decreased base of support and eyes open and eyes closed - min-mod ankle sway with min assist of 2 to maintain her balance Gait Training (1): Ambulation:pt demonstrates decreased instability during ambulation [facility] [place] 2[place] Ambulation with balance challenges: - including tandem ambulation on half foam roller, ambulation on uneven surfaces, stepping over 12'' obstacles, ascending and descending various wobble boards and BOSU ball - pt had several losses of balance but with hip strategy and min assist of 2 she was able to regainit 2nd Session Time: Start time: 1330 Total Therapy Minutes: 60 minutes Interventions completed today: Neuromuscular re-education (1): Anticipatory balance reaction: - ascending and descending tuning board with min contact guard assist of 1- pt had minimal instability when initially standing on it - sit to stands from 18'' mat with B feet on uneven surfaces-performed till fatigue visible throughdecreased eccentric control- which pt was unable to correct even with verbal cues - standing on wobble board and tossing a ball pt required min assist of 1-2 to prevent loss of balance - standing on BOSU ball with flat portion on the ground - pt was given 1-2 step directions of targeted tapping with 1 LE and was able to maintain single leg stance for up to 15 seconds while following multi-step directions with min assist of 1 Gait Training (3): Ambulation: - pt ambulated 150'x3 with close supervision initially and progressed to distant supervision - she demonstrated no signs of instability and ambulated with a natural gait pattern Stairs: - 2x40 steps with 1 railing and a step through gait pattern - close supervision with no signs of instability Ambulation with balance challenges: - tandem ambulation- close supervision initially min-mod hip strategy, however, after the first 4 steps able to perform with minimal sway - tandem ambulation in posterior direction- with close supervision and demonstrated a smooth gait pattern through out the entire exercise - Karaoke- in B directions with close supervision and no loss of balance - pt performed part of her dance routine-which included stepping in multiple direction, changes of gait speed, turns, etc with no losses of balance -ambulating tandem on half foam roller with round portion on the ground- pt was able to perform it with min assist of 1 - she had 3 losses of balance- which she recovered via stepping strategy Coordination via Ladder Drills: - initially both feet into 1- no signs of instability or discoordination - progressed to stepping in and out anterior and posterior direction- with no signs of instability or decreased coordination- added an UE task and increased the steps - pt had a couple of times were she had difficulty performing the task- this could be due to decreased processing or decreased motorplanning secondary to decreased executive function and dual tasking - diagonal stepping in and out of ladder with no signs of instability - pt required close supervision for all with no signs of instability- required min verbal cues to increase the speed of the activity [place]: 1st Trial: 11.67 2nd Trial:10.57 Norms: > 15 seconds: Multiple chapito < 15 seconds: Non multiple chapito At 15 seconds, the FSST has a positive predictive value of 86% and a negative predictive value of 94% for the sample tested. (Edvin, 2002) Patient/Family Education: Topic: Discussed progression towards supervision Learner: patient Method: verbal Barriers to Learning: none noted Outcome: verbalized understanding Team Communication: Discussed pt's progress with ARMATURE REPAIRER and MD. Assessment/Plan Assessment Pt demonstrates significant improvement and has progressed towards supervision for all mobility. Ptis now appropriate for a HLTBI program which will initiate tomorrow afternoon. Plan - HLTBI program - gait training - standing balance - sitting balance - transfers Primary Therapist: Contact information: Pager: [phone] Maaglis Abbott 01/11/2017 8:46 * Inna Sinha OT - 01/11/2017 0732 EST Rehabilitation Therapies Inpatient Rehabilitation [facility] Occupational Therapy Encounter Note Date of Service: 01/11/2017 Subjective/Objective SUBJECTIVE: I hate tests. OBJECTIVE: Start time: 0830 Total Therapy Minutes: 60 minute(s) Interventions included: Self Care UB DRESSING/GROOMING *pt's Mom supervised and provided set-up as pt donned shirt and neck collar. Pt's Mom assisted withhandhold assist to ambulate to sink. Pt brushed teeth in standing with close supervision. Brushed hair seated on bed. Therapeutic Activity: *pt able to pathfind back to room without cues at end of session *pt able to accurately summarize therapy session at the end. Card Game: -pt sustained attention for 10-12 mins of Kwadwo. No deficits noted, with good attention to rules of game. *in prep for possible transition to HLTBI program, assessed ability to set alarm on phone (mom reports she's been getting pt up every morning). Pt able to set alarm for 0800 without cues on her phone. Cognitive Skills Cognistat was administered today. This test was designed to assess intellectual functioning in fivemajor ability areas: language, constructions, memory, calculations, and reasoning. Patient Score: Range (average,mild, moderate, severe) Orientation: mild Attention: Average Constructional Ability: Average Similarities: Average Memory: Average Naming: Screen/Average Calculations: Average Repetition: Average Comprehension: Average Judgement: Screen/Average *provided ed on results of cognitive assessment. Probed options for keeping track of day to day events. Pt used a daily assortment planner at school to keep track of homework. Offered memory journal. Pt not fully receptive. Indicates things are getting better so she may not need it. Vital signs: Vital signs have been stable with interventions and were not monitored. Patient/Family Education: Topic: HLTBI program Learner: patient and family Method: verbal Barriers to Learning: cognitive deficits (pt) Outcome: verbalized understanding Team Communication: n/a Assessment/Plan ASSESSMENT: Pt needed encouragement to persist with Cognitive assessment, which interestingly, she did quite well with, scoring WNL with exception of orientation which was mildly impaired (for date, and town). Feel she'd be a good candidate for the HLTBI program. Kim seems to get more frustrated than one would expect for a [age] year old, with tasks that are somewhat challenging. Question if this decreased frustration tolerance was exaggerated with her Mom present and/or is related to TBI. PLAN: pursue HLTBI program, ? Journal with calendar to help with orientation Pager: [phone] Inna Sinha OT, 01/11/2017, 10:54 * Jus Atkinson MD - 01/10/2017 0823 EST Physiatry Progress Note Admit Date: 01/01/2017 Hospital Day: LOS: 9 days Date of Service: 01/10/2017 Chief Complaint: Traumatic brain injury Subjective: No new complaints this AM. Her step-mother is advocating to get her home soon C Continued intermittent neck pain. Decreased hearing right ear. Current Facility-Administered Medications: acetaminophen (TYLENOL) solution unit dose cup 650 mg oral Q4H PRN amantadine HCl (SYMMETREL) solution 50 mg oral DAILY bisacodyl (DULCOLAX) suppository 10 mg rectal Daily PRN docusate sodium (COLACE) capsule 100 mg oral BID PRN ibuprofen (ADVIL;MOTRIN) suspension 400 mg oral Q4H PRN levOFLOXacin (LEVAQUIN) tablet 500 mg oral DAILY LORazepam (ATIVAN) concentrated solution 0.5 mg oral QID PRN methocarbamol (ROBAXIN) tablet 500 mg oral QID PRN methyl salicylate-menthol (ANALGESIC BALM) ointment topical BID PRN ondansetron (ZOFRAN-ODT) disintegrating tablet 4 mg oral Q4H PRN oxyCODONE (ROXICODONE) solution 5 mg oral Q6H PRN polyethylene glycol 3350 (MIRALAX) packet 17 g oral Daily PRN risperiDONE (RISPERDAL) tablet 1 mg oral Q12H PRN senna (SENOKOT) tablet 1 Tab oral Daily PRN Objective/Physical Exam: VS: No data found. Pain: Patient Vitals for the past 8 hrs: Numeric Pain Level (Scale 1-10) Asleep 01/10/17 0742 - Reassessed, sleeping comfortably, RR WNL. 01/10/17 0600 0 Reassessed, sleeping comfortably, RR WNL. 01/10/17 0514 1 - 01/10/17 0500 0 Reassessed, sleeping comfortably, RR WNL. 01/10/17 0400 0 Reassessed, sleeping comfortably, RR WNL. 01/10/17 0300 0 Reassessed, sleeping comfortably, RR WNL. 01/10/17 0200 0 Reassessed, sleeping comfortably, RR WNL. 01/10/17 0100 0 Reassessed, sleeping comfortably, RR WNL. 01/10/17 0039 2 - Weight: Weight : 61.2 kg (134 lb 14.4 oz) Glucose Readings (last 8 readings): No results for input(s): GLUCOSEFINGE in the last 72 hours. I&O: No intake or output data in the 24 hours ending 01/10/17 08 Exam: Gen: Sleepy and restless HEENT: Head: Normocephalic, no lesions, without obvious abnormality. Eye: Normal external eye, conjunctiva, lids cornea, FAUSTINO. right eyelid droop Ears: There is ecchymosis around the right ear. Nose: Normal external nose, mucus membranes and septum. Neck : Diffuse non-focal tenderness through the posterior neck, right greater than left. Skin: Abrasion noted at the right shoulder Cardiac: Cor RRR Lungs: Clear bilaterally Abdomen: normal bowel sounds, soft, nontender Musculoskeletal: no joint tenderness, deformity or swelling, no muscular tenderness noted, full range of motion without pain Neuro: She has oriented to the hospital. When given a moment she was aware of that Halloween is next week. She is following basic commands Cranial nerves: CN VII: Right facial droop CN VIII: Impaired hearing on the right Motor: Strength 4/5 throughout and appears symmetric. Tone normal Reflexes: trace and symmetric Sensation: Decreased right facial sensation Cerebellar: Cannot be assessed at this time Labs: I have personally reviewed CBC: Lab Results Component Value Date WBC 8.09 01/02/2017 RBC 4.40 01/02/2017 HGB 13.3 01/02/2017 HCT 37.6 01/02/2017 MCV 86 01/02/2017 MCH 30.2 01/02/2017 MCHC 35.4 01/02/2017 PLT 264 01/02/2017 BMP: Lab Results Component Value Date NA 141 01/02/2017 K 3.8 01/02/2017 CL 99 01/02/2017 CO2 27 01/02/2017 BUN 9 01/02/2017 CREATININE 0.50 01/02/2017 CALCIUM 9.3 01/02/2017 MG 2.1 01/02/2017 Assessment/Problems: (update problem list daily as appropriate) Patient Active Problem List Diagnosis Date Noted ??? (H)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 (HCC) 12/27/2016 Priority: Medium Subdural hemorrhage, right parietal skull fracture, suspected diffuse axonal injury ??? (H)Fracture of temporal bone with routine healing 12/27/2016 Priority: Medium Plan: 1. Traumatic brain injury: Left subdural hematoma, question diffuse axonal injury status post beingthrown from a horse 12/27/2016: Patient with residual cognitive impairments, but has some relative strengths with regards to overall awareness of her environment. Full PT, OT, ARMATURE REPAIRER assessments and therapies to address mobility, self care, cognition. 24 hour rehabnursing for self care deficits Continue amantadine which may have positive outcome on cognitive outcome and they are in agreement. 2. Right parietal bone fracture: Reportedly extensive mastoid bone to the condylar fossa and right sphenoid bone. Continue cervical collar when out of bed. Consider flexion-extension films when nontender. Maintain adequate pain control ?? 3. Nutrition: Continue supplements and regular consistency diet. Nutrition consult 4. Right temporal bone fracture: No additional intervention required. Reportedly seen by ENT at [facility]. She does have impaired hearing on the right, and is already set up for audiometric testing after discharge. Taper off oxycodone 5. Anxiety: Long-standing. Medical psychology consultation. 6. Escherichia coli UTI: Continue levofloxacin for three-day course?? DVT Prophylaxis: Ambulate Jus Atkinson MD 01/10/2017 8:23 * Boom Acosta, PT - 01/09/2017 1327 EDT [facility] Rehabilitation Therapy Inpatient Rehabilitation Center [facility] Physical Therapy Encounter Note Date of Service: 01/09/2017 Subjective/Objective Subjective I hate this collar. Do I really have to wear it? Pain: patient reports she takes pain medications on a schedule for 24 hour coverage but did not report any pain throughout session, only distaste for cervical collar Objective Start time: 1400 Total Therapy Minutes: 60 minute(s) Omaira's mother, teaching music lessons, and significant other were present during session. veterinary science teacher assisted in promoting variation in piano playing. Patient responds well to engagement in tasks related to music and theatre and is reluctant to participate in pure PT interventions. Gait belt worn throughout session. Blood pressure 105/60, pulse 86, temperature 36.6 ??C (97.8 ??F), temperature source Tympanic, resp. rate 16, height 162.6 cm (64), weight 61.2 kg (134 lb 14.4 oz), SpO2 99 %. Interventions completed today: Neuromuscular re-education(2): ?? Patient able to sit with erect neutral posture on bench and play piano from memory and from via reading music we could locate on her iPhone. She eventually also eventually began singing lyrics accurately reading them from music she was reading from iphone ?? Patient was able to recall, verbally instruct and perform the choreography she devised for her upcoming performance in the [employer] to the song [employer] Android [employer]. This included 360 degree turns to right and left, forward and backward steps, box front and back crossover steps, shoulder/trunk/pelvis ro tational dissociation and forward and backward short skipping step. Close supervision was provided throughout but patient did not lose balance nor did she complain of dizziness/headache. Gait Training(2): ?? Patient ambulated ~1000' on level and varied indoor terrain initially with Minimal contact assist x 2 due to initial lateral deviation in pathway requiring compensatory steps for balance recovery over first 50 feet then close supervision for remainder ?? Patient ascended and descended 1x18 and 1 x 16 stairs with right side railing. She was initiallyhesitant to descend step over step but gradually increased tolerance and frequency and final 16 steps descending were step over step. No loss of balance and accurate foot placement with normal nadia. Patient/Family Education: Topic: Importance of medical precautions and recovery process, stair climbing Learner: patient and family Method: verbal and demonstration Barriers to Learning: patient is somewhat impulsive (age related vs TBI?) Outcome: needs practice Team Communication: updated nurse on patient status and performance Assessment/Plan Assessment Patient continues to progress mobility tolerance and quality, including addition of descending stairs and performance of more complex fine and gross motor challenges. Patient engagement is most successful when using music and theatre related challenges, which she enjoys. Plan Per primary PT: - gait training - standing balance - sitting balance - transfers Primary Therapist: Magalis Abbott Contact information: Pager: [phone] Boom Acosta, PT 01/09/2017 13:27 * Jus Atkinson MD - 01/09/2017 1204 EDT Physiatry Progress Note Admit Date: 01/01/2017 Hospital Day: LOS: 8 days Date of Service: 01/09/2017 Chief Complaint: Traumatic brain injury Subjective: Complaining of some lightheadedness and dizziness. She reports, confirmed by her mother, that this does happen prior to her injury as well. She states she has some difficulty with sugar. She is refusing a fingerstick at this time. Very alert and conversant, denies any dysuria. He has.Continued intermittent neck pain. Decreased hearing right ear. Current Facility-Administered Medications: acetaminophen (TYLENOL) solution unit dose cup 650 mg oral Q4H PRN amantadine HCl (SYMMETREL) solution 50 mg oral DAILY bisacodyl (DULCOLAX) suppository 10 mg rectal Daily PRN enoxaparin (LOVENOX) injection 40 mg subcutaneous DAILY ibuprofen (ADVIL;MOTRIN) suspension 400 mg oral Q6H PRN levOFLOXacin (LEVAQUIN) tablet 500 mg oral DAILY LORazepam (ATIVAN) concentrated solution 1 mg oral QID PRN methocarbamol (ROBAXIN) tablet 500 mg oral QID PRN methyl salicylate-menthol (ANALGESIC BALM) ointment topical BID PRN ondansetron (ZOFRAN-ODT) disintegrating tablet 4 mg oral Q4H PRN oxyCODONE (ROXICODONE) solution 5 mg oral Q4H PRN polyethylene glycol 3350 (MIRALAX) packet 17 g oral Daily PRN risperiDONE (RISPERDAL) tablet 1 mg oral Q12H PRN Objective/Physical Exam: VS: Patient Vitals for the past 8 hrs: BP Heart Rate Resp Temp 01/09/17 0659 105/60 65 BPM 16 36.6 ??C (97.8 ??F) Pain: Patient Vitals for the past 8 hrs: Numeric Pain Level (Scale 1-10) Asleep 01/09/17 1000 1 - 01/09/17 0912 5 - 01/09/17 0800 - Reassessed, sleeping comfortably, RR WNL. 01/09/17 0735 - Reassessed, sleeping comfortably, RR WNL. 01/09/17 0659 0 - 01/09/17 0636 - Reassessed, sleeping comfortably, RR WNL. 01/09/17 0508 - Reassessed, sleeping comfortably, RR WNL. 01/09/17 0436 2 - Weight: Weight : 61.2 kg (134 lb 14.4 oz) Glucose Readings (last 8 readings): No results for input(s): GLUCOSEFINGE in the last 72 hours. I&O: No intake or output data in the 24 hours ending 01/09/17 1208 Exam: Gen: Sleepy and restless HEENT: Head: Normocephalic, no lesions, without obvious abnormality. Eye: Normal external eye, conjunctiva, lids cornea, FAUSTINO. right eyelid droop Ears: There is ecchymosis around the right ear. Nose: Normal external nose, mucus membranes and septum. Neck : Diffuse non-focal tenderness through the posterior neck, right greater than left. Skin: Abrasion noted at the right shoulder Cardiac: Cor RRR Lungs: Clear bilaterally Abdomen: normal bowel sounds, soft, nontender Musculoskeletal: no joint tenderness, deformity or swelling, no muscular tenderness noted, full range of motion without pain Neuro: She has oriented to the hospital. When given a moment she was aware of that Halloween is next week. She is following basic commands Cranial nerves: CN VII: Right facial droop CN VIII: Impaired hearing on the right Motor: Strength 4/5 throughout and appears symmetric. Tone normal Reflexes: trace and symmetric Sensation: Decreased right facial sensation Cerebellar: Cannot be assessed at this time Labs: I have personally reviewed CBC: Lab Results Component Value Date WBC 8.09 01/02/2017 RBC 4.40 01/02/2017 HGB 13.3 01/02/2017 HCT 37.6 01/02/2017 MCV 86 01/02/2017 MCH 30.2 01/02/2017 MCHC 35.4 01/02/2017 PLT 264 01/02/2017 BMP: Lab Results Component Value Date NA 141 01/02/2017 K 3.8 01/02/2017 CL 99 01/02/2017 CO2 27 01/02/2017 BUN 9 01/02/2017 CREATININE 0.50 01/02/2017 CALCIUM 9.3 01/02/2017 MG 2.1 01/02/2017 Assessment/Problems: (update problem list daily as appropriate) Patient Active Problem List Diagnosis Date Noted ??? (H)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 (HCC) 12/27/2016 Priority: Medium Subdural hemorrhage, right parietal skull fracture, suspected diffuse axonal injury ??? (H)Fracture of temporal bone with routine healing 12/27/2016 Priority: Medium Plan: 1. Traumatic brain injury: Left subdural hematoma, question diffuse axonal injury status post beingthrown from a horse 12/27/2016: Patient with residual cognitive impairments, but has some relative strengths with regards to overall awareness of her environment. Decreased attention for participating in therapies. Full PT, OT, ARMATURE REPAIRER assessments and therapies to address mobility, self care, cognition. 24 hour rehabnursing for self care deficits Continue amantadine which may have positive outcome on cognitive outcome and they are in agreement. 2. Right parietal bone fracture: Reportedly extensive mastoid bone to the condylar fossa and right sphenoid bone. Continue cervical collar when out of bed. Consider flexion-extension films when nontender. Maintain adequate pain control ?? 3. Nutrition: Continue supplements and regular consistency diet. Nutrition consult 4. Right temporal bone fracture: No additional intervention required. Reportedly seen by ENT at [facility]. She does have impaired hearing on the right, and is already set up for audiometric testing after discharge. 5. Anxiety: Long-standing. Medical psychology consultation. 6. Escherichia coli UTI: Continue levofloxacin for three-day course?? DVT Prophylaxis: Ambulate Jus Atkinson MD 01/09/2017 12:08 * Filiberto Lo OT - 01/09/2017 7740 EDT [facility] Rehabilitation Therapy Inpatient Rehabilitation [facility] Occupational Therapy Encounter Note Date of Service: 01/09/2017 Subjective/Objective Subjective I feel nauseated. I just feel really anxious. Objective Session 1: Start time: 1030 Total Therapy Minutes: 60 minute(s) Interventions included: *pt reporting nausea upon entering room. RN called to ask about medication for nausea. RN providingmedicine to assist with nausea. Therapeutic Activities *focus of activity on improving attention to task and improving activity tolerance in prep for ADLsand IADLs. -Pt engaged in game of Ski[place]i. Pt asked to remind therapist of rules. Pt deferred this to her mom, stating she could not remember. -Pt stood for first 2 minutes of game with min contact A x 1 before reporting she did not feel goodand requesting to sit. -Pt finished round of rummy while seated with no redirection for attention. Pt required increased time to count up score. -Pt requesting to play kwadwo. Pt able to attend to game with min redirection due to feelings of nausea and anxiety. Towards end of round, pt noted to look dizzy, when asked she reported feeling light headed and nauseated still. Pt laid back in bed with HOB elevated. BP taken and was WNL. Symptoms discussed with RN and MD and reported pt was able to continue with therapy. Pt willing to continue withtherapy. *During therapeutic exercise, pt experiencing and expressing high levels of anxiety and requiring mod redirection from phone. Skilled discussion regarding pt's anxiety of people visiting and not remembering past events with specific individuals. Reassured pt of the unlikelihood that anyone would bemad or upset with her for not remembering things. To assist with anxiety level, pt educated on and completed diaphragmatic breathing exercises with background music. Pt educated on utilizing techniques daily to assist with anxiety and worrying thoughts. Pt reporting feeling relaxed after implementation of relaxation techniques. Therapeutic Exercise -Pt completed BUE strengthening in prep for ADLs. Pt completed the following exercises with yellow theraband (level 1): -Horizontal Abduction: 1 set x 10 reps -Shoulder Flexion: 1 set x 10 reps Vital signs: Vital signs were monitored and were stable throughout occupational therapy session. Patient/Family Education: Topic: Benefits of activity Cognitive strategies Learner: patient Method: verbal Barriers to Learning: cognitive deficits Outcome: verbalized understanding Team Communication: With RN and Dr. Atkinson re: pt's nausea and light headnesses Assessment/Plan Assessment Pt's anxiety and nausea impacted her activity tolerance and her ability to engage and attend to activities during session. Pt demonstrated good understanding of diaphragmatic breathing and relaxationtechniques. Pt demonstrated good memory and understanding of rules of both games played. Plan Continue with primary therapist's plan of care. Pager: [phone] FILIBERTO LO OT, 01/09/2017, 14:34 * Jus Atkinson MD - 01/08/2017 1043 EDT Physiatry Progress Note Admit Date: 01/01/2017 Hospital Day: LOS: 7 days Date of Service: 01/08/2017 Chief Complaint: Traumatic brain injury Subjective: Very alert and conversant. C/o dysuria. Continued intermittent neck pain. Decreased hearing right ear. Current Facility-Administered Medications: acetaminophen (TYLENOL) solution unit dose cup 650 mg oral Q4H PRN amantadine HCl (SYMMETREL) solution 50 mg oral DAILY bisacodyl (DULCOLAX) suppository 10 mg rectal Daily PRN enoxaparin (LOVENOX) injection 40 mg subcutaneous DAILY ibuprofen (ADVIL;MOTRIN) suspension 400 mg oral Q6H PRN levOFLOXacin (LEVAQUIN) tablet 500 mg oral DAILY LORazepam (ATIVAN) concentrated solution 1 mg oral QID PRN methocarbamol (ROBAXIN) tablet 500 mg oral QID PRN methyl salicylate-menthol (ANALGESIC BALM) ointment topical BID PRN ondansetron (ZOFRAN-ODT) disintegrating tablet 4 mg oral Q4H PRN oxyCODONE (ROXICODONE) solution 5 mg oral Q4H PRN polyethylene glycol 3350 (MIRALAX) packet 17 g oral Daily PRN risperiDONE (RISPERDAL) tablet 1 mg oral Q12H PRN Objective/Physical Exam: VS: Patient Vitals for the past 8 hrs: BP Pulse Resp Temp 01/08/17 0651 100/67 86 16 35.7 ??C (96.3 ??F) Pain: Patient Vitals for the past 8 hrs: Numeric Pain Level (Scale 1-10) Asleep 01/08/17 0918 2 - 01/08/17 0755 4 - 01/08/17 0728 8 - 01/08/17 0654 0 - 01/08/17 0500 - Reassessed, sleeping comfortably, RR WNL. Weight: Weight : 61.2 kg (134 lb 14.4 oz) Glucose Readings (last 8 readings): No results for input(s): GLUCOSEFINGE in the last 72 hours. I&O: No intake or output data in the 24 hours ending 01/08/17 1043 Exam: Gen: Sleepy and restless HEENT: Head: Normocephalic, no lesions, without obvious abnormality. Eye: Normal external eye, conjunctiva, lids cornea, FAUSTINO. right eyelid droop Ears: There is ecchymosis around the right ear. The right tympanic membrane is clear but evidence of blood underlying. Nose: Normal external nose, mucus membranes and septum. Neck : Diffuse non-focal tenderness through the posterior neck, right greater than left. Skin: Abrasion noted at the right shoulder Cardiac: Cor RRR Pulmonary: clear to auscultation bilaterally Abdomen: normal bowel sounds, soft, nontender Musculoskeletal: no joint tenderness, deformity or swelling, no muscular tenderness noted, full range of motion without pain Neuro: She has oriented to the hospital. When given a moment she was aware of that Halloween is next week. She is following basic commands Affect: tearful and emotionally labile Language: Mildly dysarthric speech fluent and spontaneous, volunteers information Cranial nerves: CN VII: Right facial droop CN VIII: Impaired hearing on the right Motor: Strength 4/5 throughout and appears symmetric. Tone normal Reflexes: trace and symmetric Sensation: Decreased right facial sensation Cerebellar: Cannot be assessed at this time Labs: I have personally reviewed CBC: Lab Results Component Value Date WBC 8.09 01/02/2017 RBC 4.40 01/02/2017 HGB 13.3 01/02/2017 HCT 37.6 01/02/2017 MCV 86 01/02/2017 MCH 30.2 01/02/2017 MCHC 35.4 01/02/2017 PLT 264 01/02/2017 BMP: Lab Results Component Value Date NA 141 01/02/2017 K 3.8 01/02/2017 CL 99 01/02/2017 CO2 27 01/02/2017 BUN 9 01/02/2017 CREATININE 0.50 01/02/2017 CALCIUM 9.3 01/02/2017 MG 2.1 01/02/2017 Assessment/Problems: (update problem list daily as appropriate) Patient Active Problem List Diagnosis Date Noted ??? (H)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 (HCC) 12/27/2016 Priority: Medium Subdural hemorrhage, right parietal skull fracture, suspected diffuse axonal injury ??? (H)Fracture of temporal bone with routine healing 12/27/2016 Priority: Medium Plan: 1. Traumatic brain injury: Left subdural hematoma, question diffuse axonal injury status post beingthrown from a horse 12/27/2016: Patient with residual cognitive impairments, but has some relative strengths with regards to overall awareness of her environment. Decreased attention for participating in therapies. Full PT, OT, ARMATURE REPAIRER assessments and therapies to address mobility, self care, cognition. 24 hour rehabnursing for self care deficits Discontinue Keppra as she is greater than 7 days out from injury without any seizure activity. Continue amantadine which may have positive outcome on cognitive outcome and they are in agreement. 2. Right parietal bone fracture: Reportedly extensive mastoid bone to the condylar fossa and right sphenoid bone. Continue cervical collar when out of bed. Consider flexion-extension films when nontender. Maintain adequate pain control ?? 3. Nutrition: Continue supplements and regular consistency diet. Nutrition consult 4. Right temporal bone fracture: No additional intervention required. Reportedly seen by ENT at [facility]. She does have impaired hearing on the right, and is already set up for audiometric testing after discharge. 5. Anxiety: Long-standing. Medical psychology consultation. 6. UTI: h/o recurrent UTI. Has tolerated cipro in the past, and will rx Levaquin pending culture results. ?? 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 OBJECTIVE: Date of Service: 01/08/2017 Start Time: 1345 Total Therapy minutes: 45 minute(s) comm-cog tx Patient/Family Interview: Kim lives with her father, stepmother and eugenia, Gensiddhartha. She shares her time with-her mother (Misti), stepfather ([place]) and two brothers (Luis Alberto and Ross). She loves animals and has 5 dogs at her father's house and 3 dogs, rabbits, cats, horses, chickens, ducks and hamsters at her mother's house. Her favorite animals are owls and pigs. Kim attends [employer], in the [employer]. She loves to play piano, sing (especially ballads),and she also states that she loves to sleep. She earns A's and B's in school and her favorite subject is psychology. She has a boyfriend name Bin. Current Treatment Objectives: Recall: Goal #1: The patient will recall three pieces of novel information following a 30-minute delay [id number]% accuracy across two consecutive sessions. 11/3: Following a 30-minute delay, the patient is able to 2/3 details in the context of a Getting to Know You game with 67% accuracy. ? Attention: Goal #1: The patient will attend to basic written directions with 90% accuracy. 11/3: Basic written directions: 50% with errors characterized by decreased attention to details. Results as follows: 1. 8 6. 6 2. 15 7. 15 3. 6 8. 6 4. 15 9. / 5. 15 10. / Probed for complex written directions: 50% accuracy with no credit given for partially correct responses. Results as follows: 1. 6 6. 12 2. 15 7. 12 3. 6 8. 12 4. 15 9. 15 5. 15 10. 15 Goal #2: Patient will sustain attention to ARMATURE REPAIRER therapy tasks over the course of a 45-minute sessionwithout cues for redirection. 11/2: Patient sustains attention to ARMATURE REPAIRER therapy tasks over the course of 30- minutes with ~3 cues for redirection secondary to increased restlessness associated with pain. 11/3: Patient sustains attention to ARMATURE REPAIRER therapy tasks over the course of 45- minutes with no cues for redirection. ? Auditory Processing: Goal #1: The patient will listen to paragraph-level discourse and answer corresponding given multiple choice options with 90% accuracy. 11/3: Not directly addressed, however in the context of conversational discourse, the patient demonstrates reduced auditory processing of questions resulting in off-topic and tangential commentary that does not pertain to initial question posed by clinician. ? Problem Solving: Goal #1: The patient will identify the specific language category, given 3-4 items and add an additional exemplar to the category with 90% accuracy. 11/2: [place] category Identification: 80% accuracy 1. 6 6. 15 2. 15 7. 15 3. 15 8. 15 4. 15 9. 6 5. 15 10. 15 Additional exemplar: 80% accuracy 1. 15 6. 15 2. 15 7. 6 3. 15 8. 6 4. 15 9. 15 5. 15 10. 15 Goal #2: Given information, the patient will draw a logical conclusion 90% of the time. Goal #3: The patient will solve basic deduction puzzles with 90% accuracy. 11/2: Alfredo's Closet: 89% accuracy 1. 6/10 6. 10 2. 15 7. 10 3. 15 8. 15 4. 15 9. 15 5. 10 10. / ? Organization: Goal #1:??Patient will sequence and describe 4-step picture sequences with 80% accuracy. Patient/Family Education: Topic: Communication-cognitive sequelae of TBI Ongoing education provided to patient/family regarding Communication-cognitive sequelae of TBI Progress to date Rehab goals. Learner: patient and patient's mother, Misti Method of Education: Verbal and Written Barriers to Learning/Education: patient's reduced ability to learn/carry over information at this time Patient: was able to verbalize understanding of information and needs further instruction and education Family: was able to verbalize understanding of information and needs further instruction and education Assessment/Plan ASSESSMENT/CLINICAL IMPRESSIONS: Ms. Liu is a female 16 y.o. 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 The patient demonstrates increased insight into communication-cognitive deficits s/p TBI and reports that a decline in memory is the most noticeable change. Patient demonstrates significant gains in sustained attention to structured therapeutic activities this date. She continues to demonstrate an impulsive approach when following written directions and as a result, misses details which impedes overall task accuracy. Patient demonstrates gains in short-term recall of functionalinformation over short durations, however with increased duration accuracy of short term recall decl arnol. Patient previously presented with puberphonia that her mother reports is behavioral when she is sick or emotional, however this appears to have resolved at this time. Verbal discourse is fluent, however patient demonstrates reduced auditory processing in conversation resulting in off-topic and tangential commentary. At this time, patient presents with functioning consistent with mild-moderate impairments across cognitive-linguistic domains of attention, memory and higher level cognitive-linguistic skills consistent with communication-cognitive sequelae of traumatic brain injury, RLA Level VII, emerging VIII, as best judged. Patient demonstrates mild impairments in reasoning skills (particularly with multiprocess deductive reasoning), consistent with TBI. Patient is currently able to communicate her basic wants and needs and anticipate that she will require assistance to direct her medical care given reduced auditory processing/reasoning. Given patient's age, independence prior to admission, and social/occupational demands, she will benefit from intensive ARMATURE REPAIRER intervention. Based on the patient's premorbid level of functioning, medical diagnosis, comorbidities and patient/family support, the patient's prognosis is considered: Excellent with anticipation that patient will return home and reconvene her education in high school. Given attention gains, patient is appropriate for increased session intensity. Functional Communication Measures ([place] [employer], 2002). The Functional Communication Measures (FCM???s) are a series of 7 point rating scales, ranging fromleast functional (Level 1) to most functional (Level 7). They have been developed by [facility] to describe different aspects of patient???s functional communication and swallowing abilities over the course of ARMATURE REPAIRER intervention. ?? Pragmatics Level 6: Pragmatics are functional in most settings or situations with occasional minimal cues. The majority of the time, the individual is able to modify behaviors in response to subtle feedback from the environment. Writing Level 5: The individual writes sentence-level material containing some complex words. The individual occasionally requires minimal cueing to write more complex sentences and paragraph-level material. The individual occasionally uses compensatory strategies. Memory Level 5: The individual consistently requires minimal cues to recall or use external memory aids for complex and novel information. The individual consistently requires minimal cues to plan and follow through on complex future events (e.g., menu planning and meal preparation, planning a libertarian, etc.) Problem Solving Level 5: The individual demonstrates functional problem solving skills in routine daily activities. He/she rarely requires minimal cueing/assistance or additional time to recognize problems, identify various solutions and carry out steps to complete simple problem solving tasks. The individual usually requires moderate cues/assistance to identify salient features of complex problems and occasionally provides appropriate solutions. He/she usually needs additional time to complete complex problem solving tasks and occasionally self-monitors effectiveness of performance and uses strategies when encountering difficulty. Distant supervision may be required to complete complexproblem solving tasks. Attention Level 5: The individual maintains attention within simple living activities with occasional minimal cues within distracting environments. The individual requires increased cueing to start, continue, and change attention during complex activities. Spoken Language Expression Level 6: The individual is successfully able to communicate in most activities, but some limitations in spoken language are still apparent in vocational, avocational, and social activities. The individual rarely requires minimal cueing to frame complex sentences. The individual usually self-cues when encountering difficulty. Spoken Language Comprehension Level 5: Individual is able to understand communication in structuredconversations with both familiar and unfamiliar communication partners. The individual occasionallyrequires minimal cueing to understand more complex sentences/messages. The individual occasionally i nitiates the use of compensatory strategies when encountering difficulty. GOALS: Transport Manager Goals: Projected Functional Communication Measures at discharge: Pragmatics Level 6: Pragmatics are functional in most settings or situations with occasional minimal cues. The majority of the time, the individual is able to modify behaviors in response to subtle feedback from the environment. Writing Level 7: The individual's ability to successfully and independently participate in vocational, avocational, and social activities is not limited by writing skills. Independent functioning mayoccasionally include use of compensatory strategies. Spoken Language Comprehension Level 7: Individual's ability to independently participate in vocational, avocational, and social activities is not limited by spoken language comprehension. When difficulty with comprehension occurs, the individual consistently uses a compensatory strategy. Spoken Language Expression Level 7: The individual's ability to successfully and independently participate in vocational, avocational, and social activities is not limited by spoken language skills. Independent functioning may occasionally include use of self-cueing. Attention Level 6: The individual maintains attention within complex activities, and can attend simultaneously to multiple demands with rare minimal cues. The individual usually uses compensatory strategies when encountering difficulty. The individual has mild difficulty or takes more than a reasonable amount of time to attend to multiple tasks/stimuli. Memory Level 6: The individual is able to recall or use external aids/memory strategies for complexinformation and planning complex future events most of the time. When there is a breakdown in the use of recall/memory strategies/external memory aids, the individual occasionally requires minimal cues. These breakdowns may occasionally interfere with the individual's functioning in vocational, avocational, and social activities. Problem Solving Level 6: Problem solving skills are functional in most settings, but some limitations in problem solving are still apparent in vocational, avocational and social activities. The individual rarely requires minimal cueing/assistance or additional time to generate multiple solutions and carry out steps to complete complex problem solving tasks. He/she usually self- monitors effectiveness of performance and uses strategies when encountering difficulty. Short Term Goals: Recall: Goal #1: The patient will recall three pieces of novel information following a 30-minute delay [id number]% accuracy across two consecutive sessions. ? Attention: Goal #1: The patient will attend to basic written directions with 90% accuracy. Goal #2: Patient will sustain attention to ARMATURE REPAIRER therapy tasks over the course of a 45-minute sessionwithout cues for redirection. Goal met - discontinue ? Auditory Processing: Goal #1: The patient will listen to paragraph-level discourse and answer corresponding given multiple choice options with 90% accuracy. ? Problem Solving: Goal #1: The patient will identify the specific language category, given 3-4 items and add an additional exemplar to the category with 90% accuracy. Goal #2: Given information, the patient will draw a logical conclusion 90% of the time. Goal #3: The patient will solve basic deduction puzzles with 90% accuracy. ? Organization: Goal #1:??Patient will sequence and describe 4-step picture sequences with 80% accuracy. PLAN/RECOMMENDATIONS: Continue/Recommend ARMATURE REPAIRER services: Given attention gains, session intensity to be increased and patient will be seen for a minimum of 5x/week @ 45-minutes. Patient is demonstrating readiness to initiate the [facility] program early next week. Anticipate 24/ supervision initially at discharge. RAAD Perry 01/08/2017 16:06 * Magalis Abbott - 01/08/2017 0822 EDT [facility] Rehabilitation Therapy [facility] Physical Therapy Encounter Note Date of Service: 01/08/2017 Subjective/Objective Subjective Pt was initially very upset about everyone trying to tell her what to do. It was explained to her that everyone loves and cares for her and that they just want to make sure she is safe. She states that she understands that but it is still very difficult. Objective Start time: 1100 Total Therapy Minutes: 60 minute(s) Interventions completed today: Therapeutic activities (1): pt performed several transfers with mother- who demonstrated safe guarding technique and has been cleared to transfer and ambulate with patient. Gait Training (3): Ambulation: -2x200' with mother- demonstrated safe guarding and has been cleared to ambulate with patient - 800' on level and unlevel surfaces with min assist of 1 and no signs of instability or staggering-demonstrating significant improvement Stairs: - ascending and descending 18 stairs with min assist of 1 - step through gait pattern - use of 1 railing Patient/Family Education: Topic: Pt and pt family education about guarding Learner: patient Method: verbal Barriers to Learning: cognitive deficits-patient, none in parent Outcome: verbalized understanding Team Communication: Discussed upgrade in mobility with RN. Assessment/Plan Assessment Pt demonstrates significant improvement and increased consistency with participation as well as mobility level. This has resulted in progression to 1 assist for transfers and ambulation as well as clearing parent to ambulate with patient. Plan - gait training - standing balance - sitting balance - transfers ?? Primary Therapist: Contact information: Pager: [phone] Magalis Abbott 01/08/2017 10:58 * Georgiana Noriega OT - 01/08/2017 0714 EDT Rehabilitation Therapies Inpatient Rehabilitation [facility] Occupational Therapy Encounter Note Date of Service: 01/08/2017 Subjective/Objective SUBJECTIVE: My boyfriend is coming tomorrow! OBJECTIVE: Session One Start time: 0800 minute(s) Total Therapy Minutes: 60 minute(s) Second session Start Time: 1130 Total Minutes Treatment 2: 30 minute(s) Interventions included: Session One: Self-Care/Home Management *Completed full self care routine this date to progress pt's functional safety and independence with activities of daily living with adaptive equipment as needed. -Showered in a tub/shower combination with tub transfer bench, grab bars and long handled shower hose. Reviewed safe use of all equipment with pt verbalizing good understanding. Min contact assistance to transfer in and out for stabilization. Pt's mother provided assistance with washing hair, but pt washed with washcloth and shaved with supervision. Intermittent assist to reposition shower head. Benefited from cues for hand placement and safety while sliding out of shower. -UB dressing: Assist with getting bra over Mcgrath J collar. Supervision after set-up with shirt. -LB dressing: Close supervision while pt stood to pull up pants. -Completed vision screen and MMT as pt was unable to tolerate during time of evaluation: Therapeutic Activity Vision Screen SUBJECTIVE: Current complaints Pain. Pt unable to give specific details and was frustrated regarding her matted hair during interview portion of assessment. Need to ask again at another point to receive more precise data. OBJECTIVE: Vision history None Corrective lenses: Glasses; distance Observations: Eye alignment: intact Clinical Testing: Near Visual Acuity: 20 / 40 (with glasses) Visual Pimentel: intact Oculomotor Control: impaired . Difficulty maintaining visual focus on pen with jerky movements. Visual Attention (Single Letter Cancellation Test) Time: 135 seconds Score: 104/104 (Scores < 100 indicate impairment) Therapeutic Exercise MMT UPPER QUARTER Shoulder: Right Left Flexion 3+/5 3+/5 Extension 3+/5 3+/5 Abduction 3/5 3/5 Elbow: Right Left Flexion 3+/5 3+/5 Extension 3+/5 3+/5 Wrist: Right Left Flexion 4/5 4/5 Extension 3+/5 3+/5 Gross Grasp 3+/5 4/5 Session Two Therapeutic Activities *Focus of session on improving dynamic seated and standing balance, as well as improving functionalmobility, for improved independence with BADLs and light IADLs. -Functional mobility: Ambulated with handheld min contact assist x 1-2 from room>gym>chapel>room. -Dynamic standing balance: Stood for 10 minutes while playing air hockey with min contact assist x 1 and supervision x 1 for safety. No LOB and good motivation when competing against her mom. -Seated balance: Played piano for ~8 minutes while seated unsupported on bench without LOB. Vital signs: Vital signs have been stable with interventions and were not monitored. Patient/Family Education: Topic: Benefits of activity Compensatory strategies D/C planning Adaptive equipment Safety awareness Learner: patient Method: verbal Barriers to Learning: pain Outcome: verbalized understanding, returned demonstration and reinforcement needed Team Communication: With RN regarding progress Assessment/Plan ASSESSMENT: Pt tolerated session well and continues to make significant progress in OT. She was able to tolerate full scheduled minutes and agreed to complete full ADL routine. Transferring with one assist for guarding using tub transfer bench with maintained sitting balance demonstrating improved strength andactivity tolerance. Dynamic balance while playing piano and air hockey is also much improved. UE strength was assessed and is below normal limits; will benefit from UE strengthening program. Pt's visual scanning, visual pimentel and near point visual acuity were within functional limits. Oculomotor control was difficult for pt to complete with smooth pursuits; to look further into this in upcoming s essions. PLAN: -Work on improving dynamic balance and standing tolerance. Enjoys simple competitive games: Kwadwo, Rummy, air hockey, playing the piano, ball toss, Connect Four and charades (with phone andrea) -Basic snack prep (milkshake, ice cream , cheese/crackers, etc???) with focus on divided attention,item retrieval, dynamic balance and pathfinding. -UE strengthening with theraband -Standardized cognitive testing: MOCA, Cognistat, Trails A and B Pager: [phone] Georgiana Noriega OT * Maria Luz Yanez RN - 01/07/2017 1500 EDT Pt c/o burning and pain with urination. Also, no BM x3 days. Dr. Atkinson called with new orders received. * Mckenna Zheng - 01/07/2017 1436 EDT Images from the original note were not included. This is the initial impairment group category coding for the inpatient rehab facility perspective payment system: * Jus Atkinson MD - 01/07/2017 1252 EDT Physiatry Progress Note Admit Date: 01/01/2017 Hospital Day: LOS: 6 days Date of Service: 01/07/2017 Chief Complaint: Traumatic brain injury Subjective: Difficult to engage her when she is in bed but she is participating in therapies. Continues to have some posterior neck pain, and complaints of decreased hearing in the right ear. Denies dysuria. Current Facility-Administered Medications: acetaminophen (TYLENOL) solution unit dose cup 650 mg oral Q4H PRN amantadine HCl (SYMMETREL) solution 50 mg oral DAILY bisacodyl (DULCOLAX) suppository 10 mg rectal Daily PRN ciprofloxacin-dexamethasone (CIPRODEX) otic suspension 3 Drop right ear BID enoxaparin (LOVENOX) injection 40 mg subcutaneous DAILY ibuprofen (ADVIL;MOTRIN) suspension 400 mg oral Q6H PRN LORazepam (ATIVAN) concentrated solution 1 mg oral QID PRN methocarbamol (ROBAXIN) tablet 500 mg oral QID PRN methyl salicylate-menthol (ANALGESIC BALM) ointment topical BID PRN ondansetron (ZOFRAN-ODT) disintegrating tablet 4 mg oral Q4H PRN oxyCODONE (ROXICODONE) solution 5 mg oral Q4H PRN risperiDONE (RISPERDAL) tablet 1 mg oral Q12H PRN Objective/Physical Exam: VS: Patient Vitals for the past 8 hrs: BP Pulse Resp Temp 01/07/17 0629 108/73 73 16 36.8 ??C (98.2 ??F) Pain: Patient Vitals for the past 8 hrs: Numeric Pain Level (Scale 1-10) Asleep 01/07/17 1120 0 Reassessed, sleeping comfortably, RR WNL. 01/07/17 1038 2 - 01/07/17 0712 0 - 01/07/17 0658 6 - 01/07/17 0641 8 - Weight: Weight : 61.2 kg (134 lb 14.4 oz) Glucose Readings (last 8 readings): No results for input(s): GLUCOSEFINGE in the last 72 hours. I&O: Intake/Output Summary (Last 24 hours) at 01/07/17 1252 Last data filed at 01/06/17 1300 Gross per 24 hour Intake 240 ml Output 350 ml Net -110 ml Exam: Gen: Sleepy and restless HEENT: Head: Normocephalic, no lesions, without obvious abnormality. Eye: Normal external eye, conjunctiva, lids cornea, FAUSTINO. right eyelid droop Ears: There is ecchymosis around the right ear. The right tympanic membrane is clear but evidence of blood underlying. Nose: Normal external nose, mucus membranes and septum. Neck : Diffuse non-focal tenderness through the posterior neck, right greater than left. Skin: Abrasion noted at the right shoulder Cardiac: Cor RRR Pulmonary: clear to auscultation bilaterally Abdomen: normal bowel sounds, soft, nontender Musculoskeletal: no joint tenderness, deformity or swelling, no muscular tenderness noted, full range of motion without pain Neuro: She has oriented to the hospital. When given a moment she was aware of that Halloween is next week. She is following basic commands Affect: tearful and emotionally labile Language: Mildly dysarthric speech fluent and spontaneous, volunteers information Cranial nerves: CN VII: Right facial droop CN VIII: Impaired hearing on the right CN IX-X: No dysphonia, mild dysarthria. Normal palatal and uvular elevation. Motor: Strength 4/5 throughout and appears symmetric. Tone normal Reflexes: trace and symmetric Sensation: Decreased right facial sensation Cerebellar: Cannot be assessed at this time Labs: I have personally reviewed CBC: Lab Results Component Value Date WBC 8.09 01/02/2017 RBC 4.40 01/02/2017 HGB 13.3 01/02/2017 HCT 37.6 01/02/2017 MCV 86 01/02/2017 MCH 30.2 01/02/2017 MCHC 35.4 01/02/2017 PLT 264 01/02/2017 BMP: Lab Results Component Value Date NA 141 01/02/2017 K 3.8 01/02/2017 CL 99 01/02/2017 CO2 27 01/02/2017 BUN 9 01/02/2017 CREATININE 0.50 01/02/2017 CALCIUM 9.3 01/02/2017 MG 2.1 01/02/2017 Assessment/Problems: (update problem list daily as appropriate) Patient Active Problem List Diagnosis Date Noted ??? (H)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 (HCC) 12/27/2016 Priority: Medium Subdural hemorrhage, right parietal skull fracture, suspected diffuse axonal injury ??? (H)Fracture of temporal bone with routine healing 12/27/2016 Priority: Medium Plan: 1. Traumatic brain injury: Left subdural hematoma, question diffuse axonal injury status post beingthrown from a horse 12/27/2016: Patient with residual cognitive impairments, but has some relative strengths with regards to overall awareness of her environment. Decreased attention for participating in therapies. Full PT, OT, ARMATURE REPAIRER assessments and therapies to address mobility, self care, cognition. 24 hour rehabnursing for self care deficits Discontinue Keppra as she is greater than 7 days out from injury without any seizure activity. Continue amantadine which may have positive outcome on cognitive outcome and they are in agreement. 2. Right parietal bone fracture: Reportedly extensive mastoid bone to the condylar fossa and right sphenoid bone. Continue cervical collar when out of bed. Consider flexion-extension films when nontender. Maintain adequate pain control ?? 3. Nutrition: Continue supplements and regular consistency diet. Nutrition consult 4. Right temporal bone fracture: No additional intervention required. Reportedly seen by ENT at [facility]. She does have impaired hearing on the right, and is already set up for audiometric testing after discharge. 5. Anxiety: Long-standing. Medical psychology consultation. ?? DVT Prophylaxis: Pharmacologic Prophylaxis: Enoxaparin (Lovenox) 40 mg SQ daily Jus Atkinson MD 01/07/2017 12:52 * Magalis Abbott - 01/07/2017 0812 EDT [facility] Rehabilitation Therapy [facility]patient [facility] Physical Therapy Encounter Note Date of Service: 01/07/2017 Subjective/Objective Subjective Pt was very fatigued. Objective Start time: 1000 Total Therapy Minutes: 30 minute(s) Interventions completed today: Co-treatment with occupational therapy: due to pt's limited endurance and pt's significant level ofimpairment. Therapeutic activities (1): Sit<>stand: min assist of 1 - performed 10x Standing tolerance: 3x 2 minutes while performing 1 UE task 75% of the time and 25% of the time with no UE support; with min contact guard assist of 2 Gait Training (1): Ambulation: 2x100' with min assist of 2 with significant decreased motor control/staggering gait with ambulation, decreased knee flexion during early stance 2nd Session Time: Start time: 1330 Total Therapy Minutes: 60 minutes Interventions completed today: Neuromuscular re-education (2): Anticipatory balance reaction: - standing on airex with min assist of 1 while performing ball tossing activities- 2x3 minutes - standing with no UE activity acting out charades 2x5 minutes of activity with min assist of 1 andno loss of balance Gait Training (2): Ambulation: 2x100' and 400' with min contact guard assist of 2 with improved stability during single limb stance Working on stepping: using twister pt was able to follow directions with 80% accuracy and min assist of 2 with no loss of balance- pt was able to step in all directions with varying step length with accuracy of targets Patient/Family Education: Topic: Importance of getting out of bed Learner: patient Method: verbal Barriers to Learning: cognitive deficits Outcome: verbalized understanding Team Communication: Discussed pts co-treatments with OT. Assessment/Plan Assessment Pt demonstrates improved standing tolerance as well as decreased assist required for functional transfers and ambulation. Plan - Put together goal sheet for pt to use - continue co-treats - bed mobility - transfers - sitting balance - progress towards ambulation when pt initiates improved weightbearing ?? 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 OBJECTIVE: Date of Service: 01/07/2017 Start Time: 929 (session started late secondary to patient on phone with school psychologist) Total Therapy minutes: 30 minute(s) comm-cog tx Patient/Family Interview: Kim lives with her father, stepmother and stepsdakota Gensiddhartha. She shares her time with-her mother (Misti), stepfather ([place]) and two brothers (Luis Alberto and Ross). She loves animals and has 5 dogs at her father's house and 3 dogs, rabbits, cats, horses, chickens, ducks and hamsters at her mother's house. Her favorite animals are owls and pigs. Kim attends [employer], in the [employer]. She loves to play piano, sing (especially ballads),and she also states that she loves to sleep. She earns A's and B's in school and her favorite subject is psychology. She has a boyfriend name Bin. Current Treatment Objectives: Recall: Goal #1: The patient will be oriented to person, place, time and purpose 100% of the time during a session using an external aid. 01/06: The patient is oriented to month, date, year and reason for admission. She is not oriented tocurrent day. 01/07: The patient is oriented to person, place, time and purpose with 100% accuracy without need for external aid. Goal #2: The patient will recall three pieces of novel information following a 5-minute delay with 100% accuracy across two consecutive sessions. 01/05: Memory: Immediate: Words: 2/5, 40% Sentence: 0/1, 0% Delayed: Patient unable to recall the name of this clinician or her profession. Patient identified an association strategy in order to aid recall of clinician's name by associating it with a character on her favorite TV show, Robert's [employer]. 11/1: Not directly addressed, however the patient recalls this ARMATURE REPAIRER's name utilizing association strategy without cues. 11/2: In the context of a Getting to Know You game, the patient recalls 3/3 details with 100% accuracy folloowing a 5-minute delay given initial repetition of details. ? Attention: Goal #1: The patient will attend to basic written directions with 90% accuracy. Goal #2: Patient will sustain attention to ARMATURE REPAIRER therapy tasks over the course of a 45-minute sessionwithout cues for redirection. 11/2: Patient sustains attention to ARMATURE REPAIRER therapy tasks over the course of 30- minutes with ~3 cues for redirection secondary to increased restlessness associated with pain. ? Auditory Processing: Goal #1: The patient will listen to paragraph-level discourse and answer corresponding given multiple choice options with 90% accuracy. ? Problem Solving: Goal #1: The patient will identify the specific language category, given 3-4 items and add an additional exemplar to the category with 90% accuracy. 11/2: [place] category Identification: 80% accuracy 1. 6 6. 15 2. 15 7. 15 3. 15 8. 15 4. 15 9. 6 5. 15 10. 15 Additional exemplar: 80% accuracy 1. 15 6. 15 2. 15 7. 6 3. 15 8. 6 4. 15 9. 15 5. 15 10. 15 Goal #2: Given information, the patient will draw a logical conclusion 90% of the time. Goal #3: The patient will solve basic deduction puzzles with 90% accuracy. 11/2: Alfredo's Closet: 89% accuracy 1. 6/10 6. 10 2. 15 7. 10 3. 15 8. 15 4. 15 9. 15 5. 10 10. / ? Organization: Goal #1:??Patient will sequence and describe 4-step picture sequences with 80% accuracy. Patient/Family Education: Topic: Communication-cognitive sequelae of TBI Ongoing education provided to patient/family regarding Role of ARMATURE REPAIRER Communication-cognitive sequelae of TBI Rehab Goals. Learner: patient and patient's motherMisti Method of Education: Verbal and Written Barriers to Learning/Education: patient's reduced ability to learn/carry over information at this time and pain Patient: was able to verbalize understanding of information and needs further instruction and education Family: was able to verbalize understanding of information and needs further instruction and education Assessment/Plan ASSESSMENT/CLINICAL IMPRESSIONS: Ms. Liu is a female 16 y.o. 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 Patient's level of alertness much improved this date and as a result, overall attention to structured therapeutic activities improved. Sustained attention appears to be negatively influenced by neck/ear pain resulting in restlessness. Patient demonstrates mild impairments in reasoning skills (particularly with multiprocess deductive reasoning), consistent with TBI. She initially demonstrates an impulsive, disorganized approach to problem solving, however given minimal initial cues, is able to self-correct errors in order to successfully complete task. Patient demonstrates gains in short-term recall of functional information and independently employs memory strategies such as association. At this time, patient presents with functioning consistent with mild-moderate impairments across cognitive-linguistic domains of attention, memory and higher level cognitive-linguistic skills consistent with communication-cognitive sequelae of traumatic brain injury, RLA Level VII, as best judged. Patient presents with puberphonia at baseline that her mother reports is behavioral when she is sickor emotional, that is now exacerbated s/p TBI. Verbal discourse is predominantly fluent and characterized by occasional anomia and occasional use of empty language. This appears to occur in verbal output of increased length and complexity versus short, contextual phrase and sentence-length responses and appears to be more consistent with reduced auditory processing and linguistic organization versus benson language impairment. She demonstrates strengths in verbal reasoning and sequencing skills,however was noted to be mildly impulsive at times in her responses. Patient is currently able to communicate her basic wants and needs and anticipate that she will require assistance to direct her medical care given reduced auditory processing/reasoning. Given patient's age, independence prior to admission, and social/occupational demands, she will benefit from intensive ARMATURE REPAIRER intervention. Based on the patient's premorbid level of functioning, medical diagnosis, comorbidities and patient/family support, the patient's prognosis is considered: Excellent with anticipation that patient will returnhome and reconvene her education in high school. Given attention limitations and pain, patient continues to be appropriate for reduced session intensity. Functional Communication Measures ([place] [employer], 2002). The Functional Communication Measures (FCM???s) are a series of 7 point rating scales, ranging fromleast functional (Level 1) to most functional (Level 7). They have been developed by JESSI to describe different aspects of patient???s functional communication and swallowing abilities over the course of ARMATURE REPAIRER intervention. ?? Pragmatics Level 4: Pragmatics are functional a majority of the time without cues in structured settings or situations with familiar communication partners. With unfamiliar partners or in unstructured settings, the individual needs maximal cues. The individual uses and adheres to common and simple rules of social communication but is unaware of subtle feedback from the environment. Writing Level 3: The individual writes single letters and common words, and with consistent moderate cueing, can write some words that are less familiar, longer, and more complex. Attention Level 3: The individual maintains attention over time to complete simple living tasks of short duration with consistent maximal cueing in the absence of distracting stimuli. Memory Level 3: The individual usually requires maximum cues to recall or use external aids for simple routine and personal information (e.g., schedule, names of familiar staff, location of therapy areas, etc.) in structured environments. Problem Solving Level 3: The individual usually requires moderate cues/assistance and additional time to recognize problems, generate appropriate solutions and/or carry out steps to complete simple problem solving tasks in structured environments, although accuracy may vary. Close supervision is req uired. Spoken Language Expression Level 5: The individual is successfully able to initiate communication using spoken language in structured conversations with both familiar and unfamiliar communication partners. The individual occasionally requires minimal cueing to frame more complex sentences in messages. The individual occasionally self-cues when encountering difficulty. Spoken Language Comprehension Level 5: Individual is able to understand communication in structuredconversations with both familiar and unfamiliar communication partners. The individual occasionallyrequires minimal cueing to understand more complex sentences/messages. The individual occasionally i nitiates the use of compensatory strategies when encountering difficulty. GOALS: Penitentiary Goals: Projected Functional Communication Measures at discharge: Pragmatics Level 6: Pragmatics are functional in most settings or situations with occasional minimal cues. The majority of the time, the individual is able to modify behaviors in response to subtle feedback from the environment. Writing Level 7: The individual's ability to successfully and independently participate in vocational, avocational, and social activities is not limited by writing skills. Independent functioning mayoccasionally include use of compensatory strategies. Spoken Language Comprehension Level 7: Individual's ability to independently participate in vocational, avocational, and social activities is not limited by spoken language comprehension. When difficulty with comprehension occurs, the individual consistently uses a compensatory strategy. Spoken Language Expression Level 7: The individual's ability to successfully and independently participate in vocational, avocational, and social activities is not limited by spoken language skills. Independent functioning may occasionally include use of self-cueing. Attention Level 6: The individual maintains attention within complex activities, and can attend simultaneously to multiple demands with rare minimal cues. The individual usually uses compensatory strategies when encountering difficulty. The individual has mild difficulty or takes more than a reasonable amount of time to attend to multiple tasks/stimuli. Memory Level 6: The individual is able to recall or use external aids/memory strategies for complexinformation and planning complex future events most of the time. When there is a breakdown in the use of recall/memory strategies/external memory aids, the individual occasionally requires minimal cues. These breakdowns may occasionally interfere with the individual's functioning in vocational, avocational, and social activities. Problem Solving Level 6: Problem solving skills are functional in most settings, but some limitations in problem solving are still apparent in vocational, avocational and social activities. The individual rarely requires minimal cueing/assistance or additional time to generate multiple solutions and carry out steps to complete complex problem solving tasks. He/she usually self- monitors effectiveness of performance and uses strategies when encountering difficulty. Short Term Goals: Recall: Goal #1: The patient will be oriented to person, place, time and purpose 100% of the time during a session using an external aid. Goal met - discontinue Goal #2: The patient will recall three pieces of novel information following a 30-minute delay [id number]% accuracy across two consecutive sessions. Goal met - upgraded ? Attention: Goal #1: The patient will attend to basic written directions with 90% accuracy. Goal #2: Patient will sustain attention to ARMATURE REPAIRER therapy tasks over the course of a 45-minute sessionwithout cues for redirection. ? Auditory Processing: Goal #1: The patient will listen to paragraph-level discourse and answer corresponding given multiple choice options with 90% accuracy. ? Problem Solving: Goal #1: The patient will identify the specific language category, given 3-4 items and add an additional exemplar to the category with 90% accuracy. Goal #2: Given information, the patient will draw a logical conclusion 90% of the time. Goal #3: The patient will solve basic deduction puzzles with 90% accuracy. ? Organization: Goal #1:??Patient will sequence and describe 4-step picture sequences with 80% accuracy. PLAN/RECOMMENDATIONS: Continue/Recommend ARMATURE REPAIRER services: Given attention limitations session intensity to be reduced and patient will be seen for a minimum of 5x/week @ 45-minutes. Patient is demonstrating readiness to initiate the [facility] program early next week. Anticipate 28/09 supervision at discharge. RAAD Perry 01/07/2017 11:14 * Georgiana Noriega, OT - 01/07/2017 0756 EDT Rehabilitation Therapies Inpatient Rehabilitation [facility] Occupational Therapy Encounter Note Date of Service: 01/07/2017 Subjective/Objective SUBJECTIVE: This is my guitar now. I love this guitar. OBJECTIVE: Session One Start time: 0800 minute(s) Total Therapy Minutes: 60 minute(s) Second session Start Time: 1000 Total Minutes Treatment 2: 30 minute(s) *Co-treatment with PT due to need for both disciplines simultaneously to progress pt's activity tolerance and functional mobility. ?? Interventions included: Session One: Self-Care/Home Management Basic Activities of Daily Living: Date: 01/07/17 Grooming (brushing teeth) Min contact assist for steadying to complete standing) Upper Body Dressing FIM 5 Requires set-up, supervision &/or cueing. Assist to apply adaptive equipment, compression garments &/or brace (set-up and supervision at seated level with t-shirt and pull-over bra) Lower Body Dressing FIM 4 Requires Contact guard to Min Assist - Patient does 75% or more of LB clothing steps without assist (min contact assist x 1 for steadying while standing to pull up) Toileting: FIM 4 Requires Contact guard to Min Assist - pt does 3/3 items w/only steadying assistance or assist to fasten clothing (min contact assist for steadying) Toilet Transfer FIM 1 Requires Total Assist/Dependent - Patient does less than 25% of effort to transfer on and off or assist of 2 (min contact assist x 2 for steadying to transfer onto raised toiletseat) Functional Mobility: Handheld min contact assist x 2 for ambulation Therapeutic Activity -Sitting balance: Maintained upright seated position on mat for ~10 minutes with intermittently crossed legs while playing guitar. Fluently played guitar without cues needed for accuracy. -Worked on activity tolerance and dynamic balance using BITS. Stood with min contact assist x 2: Trial One: 94.57% general accuracy, 1.37 second reaction time, 60% central fixation accuracy, 87 hits Cognition -Played KWADWO game while seated in recliner to work on attention to task and problem solving. Participated in 10 minute game with good focus and accuracy. Session Two Therapeutic Activities -Functional mobility: Ambulated from room to gym (100') feet with min contact handheld assist x 2 -Completed activities in stance to work on activity tolerance, static balance, following basic visual picture and sustained attention. Stood for ~2 minutes x 3 trials. ?? Pipe tree: Completed diagram #1 with 100% accuracy and min contact assist x 2 for steadying. ?? Theraputty: Removed six golf tees from level one resistance theraputty and completed fine motor coordination exercises. Vital signs: Vital signs have been stable with interventions and were not monitored. Patient/Family Education: Topic: Benefits of activity Compensatory strategies D/C planning Adaptive equipment Safety awareness Learner: patient and family Method: verbal Barriers to Learning: fatigue Outcome: verbalized understanding and reinforcement needed Team Communication: With PT regarding progress Assessment/Plan ASSESSMENT: Pt tolerated sessions well and is making excellent progress in OT. She is making significant gains toward independence with dressing, toileting, grooming and functional mobility. Her sitting balance,dynamic balance, activity tolerance and UE coordination is also improving. Pt's family was present for sessions and were active participants. Plan to cease OT/PT co-treats to assess whether pt can tolerate. PLAN: -Progress ADLs (assess shower transfer and showering) -Vision screen -Assess UE strength -Cognitive testing Pager: [phone] Georgiana Noriega OT * Jus Atkinson MD - 01/06/2017 1325 EDT Physiatry Progress Note Admit Date: 01/01/2017 Hospital Day: LOS: 5 days Date of Service: 01/06/2017 Chief Complaint: Traumatic brain injury Subjective: Complaining of posterior neck pain, although intermittent. Continues to note decreased hearing in the right ear. No shortness of breath or lightheadedness. Denies any headache today Goinglong periods between voids, with urine foul smelling per nursing Current Facility-Administered Medications: acetaminophen (TYLENOL) solution unit dose cup 650 mg oral Q4H PRN amantadine HCl (SYMMETREL) solution 50 mg oral DAILY bacitracin zinc 500 unit/gram ointment topical BID bisacodyl (DULCOLAX) suppository 10 mg rectal Daily PRN ciprofloxacin-dexamethasone (CIPRODEX) otic suspension 3 Drop right ear BID enoxaparin (LOVENOX) injection 40 mg subcutaneous DAILY ibuprofen (ADVIL;MOTRIN) suspension 400 mg oral Q6H PRN levETIRAcetam (KEPPRA) tablet 500 mg oral BID LORazepam (ATIVAN) concentrated solution 1 mg oral QID PRN methocarbamol (ROBAXIN) tablet 500 mg oral QID PRN methyl salicylate-menthol (ANALGESIC BALM) ointment topical BID PRN ondansetron (ZOFRAN-ODT) disintegrating tablet 4 mg oral Q4H PRN oxyCODONE (ROXICODONE) solution 5 mg oral Q4H PRN risperiDONE (RISPERDAL) tablet 1 mg oral Q12H PRN Objective/Physical Exam: VS: Patient Vitals for the past 8 hrs: BP Heart Rate Resp Temp 01/06/17 0624 100/68 72 BPM 16 36.7 ??C (98.1 ??F) Pain: Patient Vitals for the past 8 hrs: Numeric Pain Level (Scale 1-10) Asleep 01/06/17 1217 - Reassessed, sleeping comfortably, RR WNL. 01/06/17 1148 4 - 01/06/17 0930 2 - 01/06/17 0812 2 - 01/06/17 0621 4 - Weight: Weight : 61.2 kg (134 lb 14.4 oz) Glucose Readings (last 8 readings): No results for input(s): GLUCOSEFINGE in the last 72 hours. I&O: Intake/Output Summary (Last 24 hours) at 01/06/17 1325 Last data filed at 01/06/17 1000 Gross per 24 hour Intake 0 ml Output 975 ml Net -975 ml Exam: Gen: Sleepy and restless HEENT: Head: Normocephalic, no lesions, without obvious abnormality. Eye: Normal external eye, conjunctiva, lids cornea, FAUSTINO. right eyelid droop Ears: There is ecchymosis around the right ear. The right tympanic membrane is clear but evidence of blood underlying. Nose: Normal external nose, mucus membranes and septum. Neck : Diffuse non-focal tenderness through the posterior neck, right greater than left. Head: She is visually scanning to the right and left. Skin: Abrasion noted at the right shoulder Cardiac: Cor RRR Pulmonary: clear to auscultation bilaterally Abdomen: normal bowel sounds, soft, nontender Musculoskeletal: no joint tenderness, deformity or swelling, no muscular tenderness noted, full range of motion without pain Neuro: She has oriented to the hospital. When given a moment she was aware of that Halloween is next week. She is following basic commands Affect: tearful and emotionally labile Language: Mildly dysarthric speech fluent and spontaneous, volunteers information Cranial nerves: CN III-IV, : EOMI, No nystagmus. No ptosis or anisocoria is noted. CN V: Normal masseter bulk, tone. CN VII: Right facial droop CN VIII: Impaired hearing on the right CN IX-X: No dysphonia, mild dysarthria. Normal palatal and uvular elevation. Motor: Strength 4/5 throughout and appears symmetric. Tone normal Reflexes: trace and symmetric Sensation: Decreased right facial sensation Cerebellar: Cannot be assessed at this time Labs: I have personally reviewed CBC: Lab Results Component Value Date WBC 8.09 01/02/2017 RBC 4.40 01/02/2017 HGB 13.3 01/02/2017 HCT 37.6 01/02/2017 MCV 86 01/02/2017 MCH 30.2 01/02/2017 MCHC 35.4 01/02/2017 PLT 264 01/02/2017 BMP: Lab Results Component Value Date NA 141 01/02/2017 K 3.8 01/02/2017 CL 99 01/02/2017 CO2 27 01/02/2017 BUN 9 01/02/2017 CREATININE 0.50 01/02/2017 CALCIUM 9.3 01/02/2017 MG 2.1 01/02/2017 Assessment/Problems: (update problem list daily as appropriate) Patient Active Problem List Diagnosis Date Noted ??? (H)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 (HCC) 12/27/2016 Priority: Medium Subdural hemorrhage, right parietal skull fracture, suspected diffuse axonal injury ??? (H)Fracture of temporal bone with routine healing 12/27/2016 Priority: Medium Plan: 1. Traumatic brain injury: Left subdural hematoma, question diffuse axonal injury status post beingthrown from a horse 12/27/2016: Patient with residual cognitive impairments, but has some relative strengths with regards to overall awareness of her environment. Decreased attention for participating in therapies. Full PT, OT, ARMATURE REPAIRER assessments and therapies to address mobility, self care, cognition. 24 hour rehabnursing for self care deficits Discontinue Keppra as she is greater than 7 days out from injury without any seizure activity. Continue amantadine which may have positive outcome on cognitive outcome and they are in agreement. 2. Right parietal bone fracture: Reportedly extensive mastoid bone to the condylar fossa and right sphenoid bone. Continue cervical collar when out of bed. Consider flexion-extension films when nontender. Maintain adequate pain control ?? 3. Nutrition: Continue supplements and regular consistency diet. Nutrition consult 4. Right temporal bone fracture: No additional intervention required. Reportedly seen by ENT at [facility]. She does have impaired hearing on the right, and is already set up for audiometric testing after discharge. 5. Anxiety: Long-standing. Medical psychology consultation. ?? DVT Prophylaxis: Pharmacologic Prophylaxis: Enoxaparin (Lovenox) 40 mg SQ daily Jus Atkinson MD 01/06/2017 13:25 * Georgiana Noriega, OT - 01/06/2017 1310 EDT Rehabilitation Therapies Inpatient Rehabilitation [facility] Occupational Therapy Encounter Note Date of Service: 01/06/2017 Subjective/Objective SUBJECTIVE: I want to play KWADWO. OBJECTIVE: Session One Start time: 1000 minute(s) Total Therapy Minutes: 60 minute(s) Second session Start Time: 1400 Total Minutes Treatment 2: 30 minute(s) Interventions included: Session One: Therapeutic Activities *Focus of session on improving dynamic balance, functional transfers and activity tolerance to increase independence with ADLs. -Bed mobility: Supine-sit EOB with min contact assist x 1 with head of bed elevated and use of arm rails -Bed>w/c transfer: Min contact assist x 2 with cues for hand placement -Functional mobility: Ambulated with mod assist x 2 with hand held assist (200' for first trial [id number]' for second). Rest break provided between trials. -Completed BITS while standing to work on functional reach, activity tolerance, dynamic balance andproblem solving. Alternated between L and R hands when becoming fatigued. Sit>stand with min contact assist x 2. Trial One: 84.85% general accuracy, 1.5 minutes, 1.37 second reaction time Trial Two: 86.96% general accuracy, 75% central fixation accuracy, 2 minutes, 1.49 second reaction time Cognition -Completed personal goal list with sticker reward system to assess and work on graphomotor skills, following simple instructions and attention to task. Discussed obtainable goals and pt copied to large paper using marker. Good accuracy with spelling. Significant right downward slant with all words. Session Two Self-Care/Home Management -Donned pants with min contact assist x 2 for stabilization while standing with some impulsivity noted. Declined to thread pants while standing and completed far reach to access pants. Discussed planto complete full ADL assessment tomorrow during session. -W/C>recliner>bed transfer: Min contact assist x 1 Cognition -Played KWADWO with focus on problem solving and assessing cognition. Pt recalled general rules of game with minimal extra time needed. Participated in 15 minute game with no noted difficulty remaining on task. Matched cards correctly with 1 verbal cue when pt made a mistake regarding rules of game. Vital signs: Vital signs have been stable with interventions and were not monitored. Patient/Family Education: Topic: Benefits of activity D/C planning Safety awareness Learner: patient Method: verbal Barriers to Learning: none noted Outcome: verbalized understanding and reinforcement needed Team Communication: With PT and ARMATURE REPAIRER regarding progress Assessment/Plan ASSESSMENT: Pt tolerated session well and continues to make excellent gains in therapy with activity tolerance,functional mobility, dynamic balance, UE use, attention and participation. Dropping co-treat with PT down to 30 minutes a day and 60 minutes of individual OT session. Discussed with pt and her step-mom progressing pt in independence with ADLs and they are in agreement. Planning to assess tomorrow. PLAN: -Assess/progress ADLs -Vision screen -Assess UE strength -Cognitive testing Pager: [phone] Georgiana Noriega OT * Magalis Abbott - 01/06/2017 1310 EDT [facility] Rehabilitation Therapy Inpatient Rehabilitation Center [facility] Physical Therapy Encounter Note Date of Service: 01/06/2017 Subjective/Objective Subjective Pt stated that she is feeling a little better today and is willing to get out of bed for all meals. Objective Start time: 1000 Total Therapy Minutes: 60 minute(s) Interventions completed today: Co-treatment with occupational therapy: due to pt's level of impairment and need for 2 skilled therapist to ensure pt's safety Therapeutic activities (1): Supine <> sit: with min assist of 1 with bed rail and head of bed elevated to 30 degrees Transfers: with min assist of 2 with significantly improved weightbearing through BLE's Standing tolerance: pt was able to stand up to 2 minutes while performing UE task with some complaint of increased back pain and weakness at the end of the stand- required min assist of 2 to stand Neuromuscular re-education (2): Sitting balance: pt was able to sit and perform a functional reach of up to 4'' in all directions with close supervision and no loss of balance Standing balance: - pt was able to stand with intermittently no UE assist - max of 5 sec with minimal increase in B knee flexion but no buckling - pt was able to perform functional reach while standing with 1 UE assist and the other one reaching as far as 6 inches with min assist of 2 and with fatigue significant increase in knee flexion and up to mod assist of 2 to maintain balance Gait Training (1): Ambulation: - mod assist of 2 with hand held assistance - 200' and 150' - gait deviation: pt demonstrated decreased base of support during double limb stance with some cross over midline/scissoring, during stance phase increased knee flexion in B knees, during initial tomidstance at times- aleja with fatigue- pt had decreased quad activation and required increased assist to prevent fall 2nd Session Time: Start time: 1530 Total Therapy Minutes: 30 minutes Interventions completed today: Therapeutic activities (1): Supine to sit: mod I with bed rail and head of bed elevated to 25 degrees Transfer: with min assist of 2- with Kristal (pt's stepmom) who demonstrated safe guarding and is cleared to assist with pt's transfers and mobility Gait Training (1): short distance mobility in room with B UE support and min assist of 2 with same gait pattern as above Patient/Family Education: Topic: About daily goals and ambulation Learner: patient and family Method: verbal Barriers to Learning: patient- cognitive impairment Outcome: verbalized understanding Team Communication: Discussed progression of co-treatments Assessment/Plan Assessment Pt demonstrates improved activity tolerance and due to this will be progressing towards decreased co-treat time. Pt also demonstrates increased weightbearing abilities during stance time resulting ininitiation of gait training. 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 Session conducted in R2 ARMATURE REPAIRER office. OBJECTIVE: Date of Service: 01/06/2017 Start Time: 1315 Total Therapy minutes: 45 minute(s) comm-cog tx Patient/Family Interview: Kim lives with her father, stepmother and eugenia, Gensiddhartha. She shares her time with-her mother (Misti), stepfather ([place]) and two brothers (Luis Alberto and Ross). She loves animals and has 5 dogs at her father's house and 3 dogs, rabbits, cats, horses, chickens, ducks and hamsters at her mother's house. Her favorite animals are owls and pigs. Kim attends [employer], in the [employer]. She loves to play piano, sing (especially ballads),and she also states that she loves to sleep. She earns A's and B's in school and her favorite subject is psychology. She has a boyfriend name Bin. Current Treatment Objectives: Complete Evaluation: Goal #1: The patient will complete the ARMATURE REPAIRER evaluation in the areas of: verbal expression, auditory comprehension, reading comprehension, written expression and higher level language. The Brief Test of Head Injury (BTHI) was initiated. Patient with fluctuating level of alertness. 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 All standard scores are based on a mean of 10 and standard deviation of 3. Results as follows: Subtest SS %ile I. Orientation/Attention: 9 37 II. Following Commands: 8 25 01/05: The Brief Test of Head Injury (BTHI) was administered. All standard scores are based on a mean of 10 and standard deviation of 3. Results as follows: Subtest SS %ile III. Linguistic Organization: 11 63 IV. Reading Comprehension: 11 63 V. Namin 50 01/06: The Brief Test of Head Injury (BTHI) was administered. All standard scores are based on a mean of 10 and standard deviation of 3. Results as follows: Subtest SS %ile . Memory: 9 37 VII. Visual-Spatial Skills: 9 37 BTHI Total Score: 33 Severity score: 11 (MILD) Continued evaluation conducted using portions of the SCAT-BI. Results as follows: Subtest Recall: Memory for Graphic Elements: 5/6, 83% Naming Pictures (Word Retrieval): 4/6, 67% Reasoning: Multiprocess Reasoning: Analysis: 46, 67% Recall: Goal #1: The patient will be oriented to person, place, time and purpose 100% of the time during a session using an external aid. 01/06: The patient is oriented to month, date, year and reason for admission. She is not oriented tocurrent day. Goal #2: The patient will recall three pieces of novel information following a 5-minute delay with 100% accuracy across two consecutive sessions. 01/05: Memory: Immediate: Words: 2/5, 40% Sentence: 0/1, 0% Delayed: Patient unable to recall the name of this clinician or her profession. Patient identified an association strategy in order to aid recall of clinician's name by associating it with a character on her favorite TV show, [employer]. 01/06: Not directly addressed, however the patient recalls this ARMATURE REPAIRER's name utilizing association strategy without cues. ? Attention: Goal #1: The patient will attend to basic written directions with 90% accuracy. Goal #2: Patient will sustain attention to ARMATURE REPAIRER therapy tasks over the course of a 30-minute sessionwithout cues for redirection. 01/05: Patient requires moderate cues to sustain arousal and attention to structured therapeutic activities this date. 01/06: Patient sustains attention to ARMATURE REPAIRER therapy tasks over the course of a 30- minute session without cues for redirection; however the patient experiences neck pain at the 30-minute pauline that impedesattention to task for the remaining 15-minutes of session. ? Auditory Processing: Goal #1: The patient will listen to paragraph-level discourse and answer corresponding given multiple choice options with 90% accuracy. ? Problem Solving: Goal #1: The patient will identify the specific language category, given 3-4 items and add an additional exemplar to the category with 90% accuracy. Goal #2: Given information, the patient will draw a logical conclusion 90% of the time. Goal #3: The patient will solve basic deduction puzzles with 90% accuracy. ? Organization: Goal #1:??Patient will sequence and describe 4-step picture sequences with 80% accuracy. Patient/Family Education: Topic: Communication-cognitive sequelae of TBI Patient/Family education and training was completed today including the role of Speech-Language Pathology, results of today's exam/recommendations and rehab goals. Learner: patient and patient's stepmotherKristal Method of Education: Verbal and Written Barriers to Learning/Education: patient's reduced ability to learn/carry over information at this time and pain Patient: was able to verbalize understanding of information and needs further instruction and education Family: was able to verbalize understanding of information and needs further instruction and education Assessment/Plan ASSESSMENT/CLINICAL IMPRESSIONS: Ms. Liu is a female 16 y.o. 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 Patient's level of alertness much improved this date and as a result, overall attention to structured therapeutic activities improved. Continued evaluation conducted today revealed functioning consistent with mild impairments in reasoning skills (particularly with multiprocess deductive reasoning), consistent with TBI. Patient demonstrates strengths in verbal reasoning and sequencing skills, however was noted to be mildly impulsive at times in her responses. She demonstrates moderate impairments in short term recall of novel and functional information, however she independently employed an association technique to aid in recall of this therapist's name. At this time, patient presents with functioning consistent with moderate impairments across cognitive-linguistic domains of attention, memory and higher level cognitive-linguistic skills consistent with communication-cognitive sequelae of traumatic brain injury, RLA Level , emerging VII, as best judged. Patient presents with puberphonia at baseline that her mother reports is behavioral when sheis sick or emotional, that is now exacerbated s/p TBI. Verbal discourse is predominantly fluent andcharacterized by occasional anomia, occasional use of empty language, as well as production of language of confusion at times. This appears to occur in verbal output of increased length and complexity versus short, contextual phrase and sentence-length responses and appears to be more consistent with reduced auditory processing and linguistic organization versus benson language impairment. Patientis currently able to communicate her basic wants and needs and anticipate that she will require assi stance to direct her medical care given reduced awareness/insight into deficits and increased fatigue s/p TBI. Given patient's age, independence prior to admission, and social/occupational demands, she will benefit from intensive ARMATURE REPAIRER intervention. Based on the patient's premorbid level of functioning, medical diagnosis, comorbidities and patient/family support, the patient's prognosis is considered: Excellent with anticipation that patient will return home and reconvene her education in high school. Given attention limitations patient continues to be appropriate for reduced session intensity. Functional Communication Measures ([place] [employer], 2002). The Functional Communication Measures (FCM???s) are a series of 7 point rating scales, ranging fromleast functional (Level 1) to most functional (Level 7). They have been developed by JESSI to describe different aspects of patient???s functional communication and swallowing abilities over the course of ARMATURE REPAIRER intervention. ?? Pragmatics Level 4: Pragmatics are functional a majority of the time without cues in structured settings or situations with familiar communication partners. With unfamiliar partners or in unstructured settings, the individual needs maximal cues. The individual uses and adheres to common and simple rules of social communication but is unaware of subtle feedback from the environment. Writing Level 3: The individual writes single letters and common words, and with consistent moderate cueing, can write some words that are less familiar, longer, and more complex. Attention Level 3: The individual maintains attention over time to complete simple living tasks of short duration with consistent maximal cueing in the absence of distracting stimuli. Memory Level 3: The individual usually requires maximum cues to recall or use external aids for simple routine and personal information (e.g., schedule, names of familiar staff, location of therapy areas, etc.) in structured environments. Problem Solving Level 3: The individual usually requires moderate cues/assistance and additional time to recognize problems, generate appropriate solutions and/or carry out steps to complete simple problem solving tasks in structured environments, although accuracy may vary. Close supervision is req uired. Spoken Language Expression Level 5: The individual is successfully able to initiate communication using spoken language in structured conversations with both familiar and unfamiliar communication partners. The individual occasionally requires minimal cueing to frame more complex sentences in messages. The individual occasionally self-cues when encountering difficulty. Spoken Language Comprehension Level 5: Individual is able to understand communication in structuredconversations with both familiar and unfamiliar communication partners. The individual occasionallyrequires minimal cueing to understand more complex sentences/messages. The individual occasionally i nitiates the use of compensatory strategies when encountering difficulty. GOALS: Penitentiary Goals: Projected Functional Communication Measures at discharge: Pragmatics Level 6: Pragmatics are functional in most settings or situations with occasional minimal cues. The majority of the time, the individual is able to modify behaviors in response to subtle feedback from the environment. Writing Level 7: The individual's ability to successfully and independently participate in vocational, avocational, and social activities is not limited by writing skills. Independent functioning mayoccasionally include use of compensatory strategies. Spoken Language Comprehension Level 7: Individual's ability to independently participate in vocational, avocational, and social activities is not limited by spoken language comprehension. When difficulty with comprehension occurs, the individual consistently uses a compensatory strategy. Spoken Language Expression Level 7: The individual's ability to successfully and independently participate in vocational, avocational, and social activities is not limited by spoken language skills. Independent functioning may occasionally include use of self-cueing. Attention Level 6: The individual maintains attention within complex activities, and can attend simultaneously to multiple demands with rare minimal cues. The individual usually uses compensatory strategies when encountering difficulty. The individual has mild difficulty or takes more than a reasonable amount of time to attend to multiple tasks/stimuli. Memory Level 6: The individual is able to recall or use external aids/memory strategies for complexinformation and planning complex future events most of the time. When there is a breakdown in the use of recall/memory strategies/external memory aids, the individual occasionally requires minimal cues. These breakdowns may occasionally interfere with the individual's functioning in vocational, avocational, and social activities. Problem Solving Level 6: Problem solving skills are functional in most settings, but some limitations in problem solving are still apparent in vocational, avocational and social activities. The individual rarely requires minimal cueing/assistance or additional time to generate multiple solutions and carry out steps to complete complex problem solving tasks. He/she usually self- monitors effectiveness of performance and uses strategies when encountering difficulty. Short Term Goals: Complete Evaluation: Goal #1: The patient will complete the ARMATURE REPAIRER evaluation in the areas of: verbal expression, auditory comprehension, reading comprehension, written expression and higher level language. Goal met - discontinue Recall: Goal #1: The patient will be oriented to person, place, time and purpose 100% of the time during a session using an external aid. Goal #2: The patient will recall three pieces of novel information following a 5-minute delay with 100% accuracy across two consecutive sessions. ? Attention: Goal #1: The patient will attend to basic written directions with 90% accuracy. Goal #2: Patient will sustain attention to ARMATURE REPAIRER therapy tasks over the course of a 45-minute sessionwithout cues for redirection. Goal met - upgraded ? Auditory Processing: Goal #1: The patient will listen to paragraph-level discourse and answer corresponding given multiple choice options with 90% accuracy. ? Problem Solving: Goal #1: The patient will identify the specific language category, given 3-4 items and add an additional exemplar to the category with 90% accuracy. Goal #2: Given information, the patient will draw a logical conclusion 90% of the time. Goal #3: The patient will solve basic deduction puzzles with 90% accuracy. ? Organization: Goal #1:??Patient will sequence and describe 4-step picture sequences with 80% accuracy. PLAN/RECOMMENDATIONS: Continue/Recommend ARMATURE REPAIRER services: Given attention limitations session intensity to be reduced and patient will be seen for a minimum of 5x/week @ 45-minutes. RAAD Perry 01/06/2017 16:50 * Shana Johnson RN - 01/05/2017 1108 EDT Assessment done with Xiang Mayer on 01/05 by Shana Johnson RN. Rehab. Case Management Assessment & Initial Discharge Plan Working Diagnosis/Presenting Problem: 16 yo single female with no previous medical history and admitted to Rehab s/p fall from horse who got spooked. Patient with depressed skull fx ,SDH/TBI. Living Arrangements: (with whom; description of house; steps/stairs; railings; ramp) Lives with herfather, Xiang and her step-mother, Kristal and Kristal's daughter, Crystal in 2 story home with 3 steps and 2 railings to enter and they will have a bed for her on the first floor. Identified barriers:She will have 24 hour care. Action to resolve barriers: none Functional Status (psychosocial and physical): Level of functioning AUTO LOCATOR: Independent, good student, active and popular in School. Many talents. 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 Current level of functioning: Max assist for transfers and has done no ambulation. Communication needs: Patient was sllping but has been making needs known. Family functioning: supportive family. Goes to her biological mother's house on where [place] lives. Her dad's mom lives about 8 minutes from his house. All are on good terms with her mom, Misti. The horse accident happened at [place] and dad had asked that she not be on the horses but they were wanting a photograph of her siitting bareback on the horse when the accident occurred. Dad very angry at first but says now that it has actually brought them all closer together. Theyare all having Thanksgiving together. Substance Abuse, (F/U if indicated): no Smoking status, (F/U if indicated): no Behavioral Health Needs: She talks to their Internal Combustion Engine Subassembler's , Priscilla about girl things from time totime. Social Supports: First contact: (name and #) FatherXiang, [phone] or [phone]. Misti, [phone] If 28/09 indicated, who would provide; what level of assist can they provide: Family will collectively provide . Identified caregiver: as above Verified: With Xiang Community Resources: PCP: (last time seen) Deacon Esposito, [phone] and she saw him in July. Pharmacy/location: [facility] in [place] Consent for d/c meds to be filled at [facility] Pharmacy? Yes Patient chose [facility] Pt. chose [facility] if home health services indicated Pt. chose [facility] if outpatient services indicated MOW: declines Medic Alert System: declines CFC/TBI Waiver? Yes, action taken: do not expect to need it. Advanced Directives/DPOA: Yes or No: no Action taken if no: Father is responsible. Cultural/Language/Spiritual Needs: Worship and well connected to Hindu community. Has good suuportand entire family is very spiritual. Insurance/Financial Needs: [place] If no insurance, action taken: none Prescription coverage? yes LTC Medicaid indicated? no Disability needs assessed? Yes, action taken: n/a ST or LT disability through employer n/a Transportation Needs: Who will provide: family Transportation for outpatient f/u? family Action taken to arrange: none Patient Goals: Wants to go home with needed support Assessment and Discharge Care Plan: Identify anticipated d/c plan, destination, and caregivers: Plan is to d/c back to her father's home where she will be supported by all family members. Future school f/u to be assessed by Team. SW will continue to follow and assist with d/c needs. Xiang gave me paperwork from Admissions that Misti has signed but he wanted new copies that he couldsign. Viviana Baptiste/MONTY took paperwork and will give to Registration and relay the message. 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 It won't work. I have to close my eyes to pay attention. OBJECTIVE: Date of Service: 01/05/2017 Start Time: 934 Total Therapy minutes: 25 minute(s) comm-cog tx Patient/Family Interview: Kim lives with her father, stepmother and stepsister, Genysis. She shares her time with-her mother (Misti), stepfather ([place]) and two brothers (Luis Alberto and Ross). She loves animals and has 5 dogs at her father's house and 3 dogs, rabbits, cats, horses, chickens, ducks and hamsters at her mother's house. Her favorite animals are owls and pigs. Kim attends [employer], in the [employer]. She loves to play piano, sing (especially ballads),and she also states that she loves to sleep. She earns A's and b's in school and her favorite subject is psychology. She has a boyfriend name Bin. Current Treatment Objectives: Complete Evaluation: Goal #1: The patient will complete the ARMATURE REPAIRER evaluation in the areas of: verbal expression, auditory comprehension, reading comprehension, written expression and higher level language. The Brief Test of Head Injury (BTHI) was initiated. Patient with fluctuating level of alertness. 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 All standard scores are based on a mean of 10 and standard deviation of 3. Results as follows: Subtest SS %ile I. Orientation/Attention: 9 37 II. Following Commands: 8 25 01/05: The Brief Test of Head Injury (BTHI) was administered. All standard scores are based on a mean of 10 and standard deviation of 3. Results as follows: Subtest SS %ile III. Linguistic Organization: 11 63 IV. Reading Comprehension: 11 63 V. Namin 50 Recall: Goal #1: The patient will be oriented to person, place, time and purpose 100% of the time during a session using an external aid. Goal #2: The patient will recall three pieces of novel information following a 5-minute delay with 100% accuracy across two consecutive sessions. 01/05: Memory: Immediate: Words: 2/5, 40% Sentence: 0/1, 0% Delayed: Patient unable to recall the name of this clinician or her profession. Patient identified an association strategy in order to aid recall of clinician's name by associating it with a character on her favorite TV show, [employer]'s [employer]. ? Attention: Goal #1: The patient will attend to basic written directions with 90% accuracy. Goal #2: Patient will sustain attention to ARMATURE REPAIRER therapy tasks over the course of a 30-minute sessionwithout cues for redirection. 01/05: Patient requires moderate cues to sustain arousal and attention to structured therapeutic activities this date. ? Auditory Processing: Goal #1: The patient will listen to paragraph-level discourse and answer corresponding given multiple choice options with 90% accuracy. ? Problem Solving: Goal #1: The patient will identify the specific language category, given 3-4 items and add an additional exemplar to the category with 90% accuracy. Goal #2: Given information, the patient will draw a logical conclusion 90% of the time. Goal #3: The patient will solve basic deduction puzzles with 90% accuracy. ? Organization: Goal #1:??Patient will sequence and describe 4-step picture sequences with 80% accuracy. Patient/Family Education: Topic: Communication-cognitive sequelae of TBI Patient/Family education and training was completed today including the role of Speech-Language Pathology, results of today's exam/recommendations and rehab goals. Learner: patient Method of Education: Verbal and Written Barriers to Learning/Education: fatigue, patient's level of cooperation and patient's inability to learn/carry over information at this time Patient: needs further instruction and education Family: was not present during today's session Assessment/Plan ASSESSMENT/CLINICAL IMPRESSIONS: Ms. Liu is a female 16 y.o. 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 Although somewhat improved today, reduced arousal continues to impede overall attention to structured therapeutic activities. Based on continued evaluation this date, the patient demonstrates at least moderate impairments in short term recall of novel and functional information. Basic reading comprehension at the word and sentence levels appears intact. At this time, patient presents with functioning consistent with moderate impairments across cognitive-linguistic domains of attention, memory and higher level cognitive-linguistic skills consistent with communication-cognitive sequelae of traumatic brain injury, RLA Level V-, as best judged. Patient presents with puberphonia at baseline that her mother reports is behavioral when she is sick or emotional, that is now exacerbated s/p TBI. The patient is able to respond to basic pointed questions in conversation pertaining to her prior level with mild amount of prompts from her mother. Verbal discourse is predominantly fluent and characterized by occasional anomia, occasional use of empty language, as well as production of language of confusion at times. This appears to occur in verbal output of increased length and complexity versus short, contextual phrase and sentence-length responsesand appears to be more consistent with reduced auditory processing and linguistic organization versus benson language impairment. Patient demonstrated the ability to consistently follow 1 to 3-step directions, however displays decreased auditory processing with increased complexity of content. Patient demonstrates awareness of accident and reason for hospitalization. Patient is currently able to communicate her basic wants and needs and anticipate that she will require assistance to direct her medical care given reduced awareness/insight into deficits and increased fatigue s/p TBI. Given patient's age, independence prior to admission, and social/occupational demands, she will benefit from intensive ARMATURE REPAIRER intervention. Based on the patient's premorbid level of functioning, medical diagnosis, c omorbidities and patient/family support, the patient's prognosis is considered: Excellent with anticipation that patient will return home and reconvene her education in high school. Given attention limitations patient continues to be appropriate for reduced session intensity. Functional Communication Measures ([place] [employer], 2002). The Functional Communication Measures (FCM???s) are a series of 7 point rating scales, ranging fromleast functional (Level 1) to most functional (Level 7). They have been developed by JESSI to describe different aspects of patient???s functional communication and swallowing abilities over the course of ARMATURE REPAIRER intervention. ?? Pragmatics Level 4: Pragmatics are functional a majority of the time without cues in structured settings or situations with familiar communication partners. With unfamiliar partners or in unstructured settings, the individual needs maximal cues. The individual uses and adheres to common and simple rules of social communication but is unaware of subtle feedback from the environment. Writing Level 3: The individual writes single letters and common words, and with consistent moderate cueing, can write some words that are less familiar, longer, and more complex. Attention Level 3: The individual maintains attention over time to complete simple living tasks of short duration with consistent maximal cueing in the absence of distracting stimuli. Memory Level 3: The individual usually requires maximum cues to recall or use external aids for simple routine and personal information (e.g., schedule, names of familiar staff, location of therapy areas, etc.) in structured environments. Problem Solving Level 3: The individual usually requires moderate cues/assistance and additional time to recognize problems, generate appropriate solutions and/or carry out steps to complete simple problem solving tasks in structured environments, although accuracy may vary. Close supervision is req uired. Spoken Language Expression Level 5: The individual is successfully able to initiate communication using spoken language in structured conversations with both familiar and unfamiliar communication partners. The individual occasionally requires minimal cueing to frame more complex sentences in messages. The individual occasionally self-cues when encountering difficulty. Spoken Language Comprehension Level 5: Individual is able to understand communication in structuredconversations with both familiar and unfamiliar communication partners. The individual occasionallyrequires minimal cueing to understand more complex sentences/messages. The individual occasionally i nitiates the use of compensatory strategies when encountering difficulty. GOALS: Penitentiary Goals: Projected Functional Communication Measures at discharge: Pragmatics Level 6: Pragmatics are functional in most settings or situations with occasional minimal cues. The majority of the time, the individual is able to modify behaviors in response to subtle feedback from the environment. Writing Level 7: The individual's ability to successfully and independently participate in vocational, avocational, and social activities is not limited by writing skills. Independent functioning mayoccasionally include use of compensatory strategies. Spoken Language Comprehension Level 7: Individual's ability to independently participate in vocational, avocational, and social activities is not limited by spoken language comprehension. When difficulty with comprehension occurs, the individual consistently uses a compensatory strategy. Spoken Language Expression Level 7: The individual's ability to successfully and independently participate in vocational, avocational, and social activities is not limited by spoken language skills. Independent functioning may occasionally include use of self-cueing. Attention Level 6: The individual maintains attention within complex activities, and can attend simultaneously to multiple demands with rare minimal cues. The individual usually uses compensatory strategies when encountering difficulty. The individual has mild difficulty or takes more than a reasonable amount of time to attend to multiple tasks/stimuli. Memory Level 6: The individual is able to recall or use external aids/memory strategies for complexinformation and planning complex future events most of the time. When there is a breakdown in the use of recall/memory strategies/external memory aids, the individual occasionally requires minimal cues. These breakdowns may occasionally interfere with the individual's functioning in vocational, avocational, and social activities. Problem Solving Level 6: Problem solving skills are functional in most settings, but some limitations in problem solving are still apparent in vocational, avocational and social activities. The individual rarely requires minimal cueing/assistance or additional time to generate multiple solutions and carry out steps to complete complex problem solving tasks. He/she usually self- monitors effectiveness of performance and uses strategies when encountering difficulty. Short Term Goals: Complete Evaluation: Goal #1: The patient will complete the ARMATURE REPAIRER evaluation in the areas of: verbal expression, auditory comprehension, reading comprehension, written expression and higher level language. Recall: Goal #1: The patient will be oriented to person, place, time and purpose 100% of the time during a session using an external aid. Goal #2: The patient will recall three pieces of novel information following a 5-minute delay with 100% accuracy across two consecutive sessions. ? Attention: Goal #1: The patient will attend to basic written directions with 90% accuracy. Goal #2: Patient will sustain attention to ARMATURE REPAIRER therapy tasks over the course of a 30-minute sessionwithout cues for redirection. ? Auditory Processing: Goal #1: The patient will listen to paragraph-level discourse and answer corresponding given multiple choice options with 90% accuracy. ? Problem Solving: Goal #1: The patient will identify the specific language category, given 3-4 items and add an additional exemplar to the category with 90% accuracy. Goal #2: Given information, the patient will draw a logical conclusion 90% of the time. Goal #3: The patient will solve basic deduction puzzles with 90% accuracy. ? Organization: Goal #1:??Patient will sequence and describe 4-step picture sequences with 80% accuracy. PLAN/RECOMMENDATIONS: Continue/Recommend ARMATURE REPAIRER services: Given attention limitations session intensity to be reduced and patient will be seen for a minimum of 5x/week @ 45-minutes. RAAD Perry 01/05/2017 17:47 * Jus Atkinson MD - 01/05/2017 0858 EDT Physiatry Progress Note Admit Date: 01/01/2017 Hospital Day: LOS: 4 days Date of Service: 01/05/2017 Chief Complaint: Traumatic brain injury Subjective: c/o right sided AKBAR, and decreased hearing right ear. Minimal neck pain this AM. + Urinary retention requiring catheterization. Able to play the piano yesterday. No shortness of breath, noGI disturbance Current Facility-Administered Medications: acetaminophen (TYLENOL) solution unit dose cup 650 mg oral Q4H PRN amantadine HCl (SYMMETREL) solution 50 mg oral DAILY bacitracin zinc 500 unit/gram ointment topical BID bisacodyl (DULCOLAX) suppository 10 mg rectal Daily PRN ciprofloxacin-dexamethasone (CIPRODEX) otic suspension 3 Drop right ear BID enoxaparin (LOVENOX) injection 40 mg subcutaneous DAILY ibuprofen (ADVIL;MOTRIN) suspension 400 mg oral Q6H PRN levETIRAcetam (KEPPRA) tablet 500 mg oral BID LORazepam (ATIVAN) concentrated solution 1 mg oral QID PRN methocarbamol (ROBAXIN) tablet 500 mg oral QID PRN ondansetron (ZOFRAN-ODT) disintegrating tablet 4 mg oral Q4H PRN oxyCODONE (ROXICODONE) solution 5 mg oral Q4H PRN risperiDONE (RISPERDAL) tablet 1 mg oral Q12H PRN Objective/Physical Exam: VS: Patient Vitals for the past 8 hrs: BP Heart Rate Resp Temp 01/05/17 0637 105/59 102 BPM 18 36 ??C (96.8 ??F) Pain: Patient Vitals for the past 8 hrs: Numeric Pain Level (Scale 1-10) Asleep 01/05/17 0829 4 - 01/05/17 0654 - Reassessed, sleeping comfortably, RR WNL. 01/05/17 0620 - Reassessed, sleeping comfortably, RR WNL. 01/05/17 0543 0 - 01/05/17 0442 - Reassessed, sleeping comfortably, RR WNL. 01/05/17 0329 - Reassessed, sleeping comfortably, RR WNL. 01/05/17 0220 4 - 01/05/17 0133 - Reassessed, sleeping comfortably, RR WNL. Weight: Weight : 61.2 kg (134 lb 14.4 oz) Glucose Readings (last 8 readings): No results for input(s): GLUCOSEFINGE in the last 72 hours. I&O: Intake/Output Summary (Last 24 hours) at 01/05/17 0858 Last data filed at 01/05/17 0544 Gross per 24 hour Intake 0 ml Output 1125 ml Net -1125 ml Exam: Gen: Sleepy and restless HEENT: Head: Normocephalic, no lesions, without obvious abnormality. Eye: Normal external eye, conjunctiva, lids cornea, FAUSTINO. right eyelid droop Ears: There is ecchymosis around the right ear. The right tympanic membrane is clear but evidence of blood underlying. Nose: Normal external nose, mucus membranes and septum. Neck : She has some diffuse non-focal tenderness through the posterior neck, right greater than left. Head: She is visually scanning to the right and left. Skin: Abrasion noted at the right shoulder Cardiac: Cor RRR Pulmonary: clear to auscultation bilaterally Abdomen: normal bowel sounds, soft, nontender Musculoskeletal: no joint tenderness, deformity or swelling, no muscular tenderness noted, full range of motion without pain Neuro: She has oriented to the hospital. When given a moment she was aware of that Halloween is next week. She is following basic commands Affect: tearful and emotionally labile Language: Mildly dysarthric speech fluent and spontaneous, volunteers information Cranial nerves: CN III-IV, : EOMI, No nystagmus. No ptosis or anisocoria is noted. CN V: Normal masseter bulk, tone. CN VII: Right facial droop CN VIII: Impaired hearing on the right CN IX-X: No dysphonia, mild dysarthria. Normal palatal and uvular elevation. Motor: Strength 4/5 throughout and appears symmetric. Tone normal Reflexes: trace and symmetric Sensation: Decreased right facial sensation Cerebellar: Cannot be assessed at this time Labs: I have personally reviewed CBC: Lab Results Component Value Date WBC 8.09 01/02/2017 RBC 4.40 01/02/2017 HGB 13.3 01/02/2017 HCT 37.6 01/02/2017 MCV 86 01/02/2017 MCH 30.2 01/02/2017 MCHC 35.4 01/02/2017 PLT 264 01/02/2017 BMP: Lab Results Component Value Date NA 141 01/02/2017 K 3.8 01/02/2017 CL 99 01/02/2017 CO2 27 01/02/2017 BUN 9 01/02/2017 CREATININE 0.50 01/02/2017 CALCIUM 9.3 01/02/2017 MG 2.1 01/02/2017 Assessment/Problems: (update problem list daily as appropriate) Patient Active Problem List Diagnosis Date Noted ??? (H)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 (HCC) 12/27/2016 Priority: Medium Subdural hemorrhage, right parietal skull fracture, suspected diffuse axonal injury ??? (H)Fracture of temporal bone with routine healing 12/27/2016 Priority: Medium Plan: 1. Traumatic brain injury: Left subdural hematoma, question diffuse axonal injury status post beingthrown from a horse 12/27/2016: Patient with residual cognitive impairments, but has some relative strengths with regards to overall awareness of her environment. Does appear that she has decreased attention, but some of this may be related to pain Full PT, OT, ARMATURE REPAIRER assessments and therapies to address mobility, self care, cognition. 24 hour rehabnursing for self care deficits Continue Keppra for seizure prophylaxis Continue amantadine which may have positive outcome on cognitive outcome and they are in agreement. I spent 35 minutes of floor time, greater than 50% of that time was spent face to face with the patient in counseling and coordination of care and counseling including review of therapy goals and barriers to discharge, recovery, functional progress. 2. Right parietal bone fracture: Reportedly extensive mastoid bone to the condylar fossa and right sphenoid bone. Continue cervical collar when out of bed. Consider flexion-extension films when nontender. Maintain adequate pain control ?? 3. Nutrition: Continue supplements and regular consistency diet. Nutrition consult 4. Right temporal bone fracture: No additional intervention required. Reportedly seen by ENT at [facility]. She does have impaired hearing on the right, and is already set up for audiometric testing after discharge. 5. Anxiety: Long-standing. Medical psychology consultation. ?? DVT Prophylaxis: Pharmacologic Prophylaxis: Enoxaparin (Lovenox) 40 mg SQ daily Jus Atkinson MD 01/05/2017 8:58 * Magalis Abbott Maegan - 01/05/2017 0808 EDT [facility] Rehabilitation Therapy Inpatient [facility] Physical Therapy Encounter Note Date of Service: 01/05/2017 Subjective/Objective Subjective Pt states that she really has to pee but can't. She also states that she wants to get out of bed but just doesn't feel good. Pt continues to have significant pain in cervical spine- did not provide anumber- however, RN was present during session. Objective Start time: 1100 Total Therapy Minutes: 45 minute(s) Interventions completed today: OT co-treat due to need for two skilled therapists and energy conservation purposes. Therapeutic activities (2): Supine<>sit: min-mod assist of 2 for trunk and leg management this is a significant improvement from previous session Stand<>step transfers: mod-max assist of 2 with assist for LE position and blocking of B knees with step by step directions Sitting tolerance: pt was able to tolerate sitting on commode for 10 minutes with decreased external support Bridging: pt was able to complete 2 bridges with hip clearance of 2 inches from the bed-sufficient for functional mobility such as scooting up in bed and getting dressed Neuromuscular re-education (1): Sitting Balance: - pt had improved ability to maintain midline with no trunk or head support--> she continues to demonstrate decreased ability to maintain postural control resulting in flaccid movements in all directions- however, pt is able to regain it independently- unless she feels assistance than she will depend on the assist provided - pt has improved head control in sitting with decreased movement- which results in improved pain control in sitting Other: RN and nursing assistance observed mobility to ensure continuity of appropriate cues and assistance. 2nd Session Time: Start time: Total Therapy Minutes: minutes Interventions completed today: Therapeutic activities (2): Supine<>sit: - min assist of 1 to ensure that she is stable - use of bed rail and head of bed elevated Rolling: mod I with railing Stand step transfers: - 2x - first one min assist of 1-2 - with improved standing initiation with no buckling during afternoon session, which is a significant improvement from previous session Sitting tolerance: pt is able tolerate 45 minutes out of bed Neuromuscular re-education (2): Sitting balance on edge of bed: - min contact guard assist - with minimal trunk sway in all direction- however, pt was able to return to midline with no losses of balance Sitting balance with lateral support in WC: - pt was able to perform functional reach in all directions with min contact guard assist of 1 withno loss of balance Other: pt had significant increase in arousal with improved voice production through out session Patient/Family Education: Topic: About DC plan and goals pt needs to achieve to meet DC Learner: patient and family Method: verbal Barriers to Learning: cognitive deficits Outcome: verbalized understanding Team Communication: Patient DC plan was discussed with rehab team- MD, ARMATURE REPAIRER, OT, RN, and case consultant-see round sheet for more information. Discussed pt's need to void and pain with RN. Assessment/Plan Assessment Pt continues to be limited by her level of pain as well as her discomfort secondary to difficulty voiding. However, pt has significant improvement in arousal and willingness in participate during first session. During the second session pt had significant improved participation and was very motivated. Plan - Put together goal sheet for pt to use - continue co-treats - bed mobility - transfers - sitting balance - progress towards ambulation when pt initiates improved weightbearing Primary Therapist: Contact information: Pager: [phone] Magalis Abbott 01/05/2017 13:17 * Georgiana Noriega OT - 01/05/2017 0719 EDT Rehabilitation Therapies Inpatient Rehabilitation [facility] Occupational Therapy Encounter Note Date of Service: 01/05/2017 Subjective/Objective SUBJECTIVE: Let me do it. (pt self-initiating opening a package) OBJECTIVE: Session One Start time: 1100 minute(s) Total Therapy Minutes: 45 minute(s) Second session Start Time: 1330 Total Minutes Treatment 2: 60 minute(s) Interventions included: Session One: Self-Care/Home Management *Completed components of care routine this date to progress pt's functional safety and independencewith activities of daily living. Pt presenting with high level of pain which limited session time. ?? Bed mobility: Supine<>sit with min contact/mod assist of 2 for trunk and leg management ?? Stand-step transfer from bed<>w/c: Mod/max assist of 2 for LE management to prevent B kneebuckling and [id number] cues ?? Sitting balance on commode/sitting tolerance: Mod x 1 to remain upright in midline for ~10 minutes. ?? Toileting: Pt unable to void. Straight cathed by RN after bladder scan at pt request secondary to significant discomfort. Provided musical distraction to pt for improved frustration and activity tolerance. ?? LB dressing: Dependent to thread underwear and pants while seated on commode. Max assist to pullup; pt did assist minimally with verbal cues. Session Two Therapeutic Activities *Focus of session on improving sitting tolerance, activity tolerance and participation in meaningful activities for the promotion of increased independence with functional activities. ?? Bed mobility: Supine<>sit with min contact assist/mod x 1 for trunk management ?? Stand-step transfer from bed<>w/c: Mod assist of 1 and min A x 1 and [id number] cues formotor planning ?? Worked on sitting and activity tolerance during the following tasks. Remained upright in wheelchair for 45 minutes with intermittent min contact assist for leaning support. -Piano: Played piano for 1-2 minutes at a time before taking rest break and listening to father play piano. Demonstrated improving cognitive functioning, problem solving and emerging recall of a variety of song chords. -Picking out Halloween outfit. Pt chose hat and donned independently. Opened a small package holding a necklace with self-initated independence. -W/C mobility outside: Dependant to propel. Vital signs: Vital Signs: Position Heart Rate (bpm) Blood Pressure (mmHG) Oxygen Saturation SPO2 Liters of Oxygen Pre: Supine 66 104/64 98 Room air Post: Supine 64 92/62 97 Room air Patient/Family Education: Topic: Benefits of activity Compensatory strategies D/C planning Adaptive equipment Safety awareness Learner: patient and father Method: verbal Barriers to Learning: pain Outcome: verbalized understanding and reinforcement needed Team Communication: With PT and RN regarding progress and functional transfers Assessment/Plan ASSESSMENT: Pt's pain level and activity tolerance fluctuated between sessions today. She demonstrated significantly improved activity and sitting tolerance during second session with improved functional communication skills. Functional transfsers is also increased with arousal level. Pt is motivated by playing the piano with her father and going outside. Pt's father was present for both sessions and actively participated. PLAN: -Co-treatment with PT -Vision screen -Basic ADLs -Work on improving activity tolerance -Progress functional mobility -Assess functional cognition Pager: [phone] Georgiana Noriega OT * Milena Magalis B - 01/04/2017 1616 EDT [facility] Rehabilitation Therapy Inpatient Rehabilitation Center [facility] Physical Therapy Encounter Note Date of Service: 01/04/2017 Subjective/Objective Subjective Pt initially stated that she did not want to get out of bed but was very appreciative at the end ofthe second session. At the end of the second session pt also stated I feel much better than earlier. Objective Start time: 834 Total Therapy Minutes: 45 minute(s) Interventions completed today: Co-treatment with occupational therapy: PT co-treat due to need for two skilled therapists and energy conservation purposes. Vital Signs: Pre-therapy: 104/64 66 hr 98 02 Post-therapy: /62 64 hr 97 02 Therapeutic activities (2): Supine<>sit: mod-max assist of 2 for trunk and leg management Stand<>step transfers: mod-max assist of 2 with assist for LE management to prevent B knee buckling- this may be due to decreased arousal and attention to task- if pt given appropriate cues sheis able to stand with min assist of 1; performed 4x Sitting up in chair: pt was able to tolerate up in WC sitting for 10 minutes Neuromuscular Re-ed (1): Sitting balance: pt was unable to maintain midline sitting balance and difficulty keeping head up- requires mod-max assist of 1-2 to prevent loss of balance- this may be due to pt's decreased arousal 2nd Session Time: Start time: 1430 Total Therapy Minutes: 75 minutes Interventions completed today: Therapeutic activities (2): Supine<>sit: 2x first one required max assist of 2 and second one required min assist of 2 Sit to stand: 4x max assist of 2 for th first one and min assist of 1 Stand step transfers: 4x with initially max assist of 2 with minimal weight bearing through B LE and progression to min assist of 2 Sitting tolerance: pt tolerated 45 minutes out of the WC Neuromuscular re-education (2): Sitting balance: pt performed functional tasks approximately 2-4 inches from center of mass and required min-mod assist of 1 to maintain balance Other: pt was encouraged to hydrate and increased input- during session she ate 2 cookies and drank8 ounces of fluids and shortly after had a successful urine output. Patient/Family Education: Topic: Importance of getting out of bed Learner: patient Method: verbal Barriers to Learning: cognitive deficits Outcome: verbalized understanding Team Communication: Discussed pt's mobility and urine output with RN. Assessment/Plan Assessment Pt demonstrates significant variability in functional mobility based on pt's arousal and willingness to participate. This demonstrates great potential as she progresses through the RLA scale and has improved arousal. Plan - continue co-treats - bed mobility - transfers - sitting balance - progress towards ambulation when pt initiates improved weightbearing Primary Therapist: Contact information: Pager: [phone] Magalis Abbott 01/04/2017 16:18 * Jus Atkinson MD - 01/04/2017 9520 EDT Physiatry Progress Note Admit Date: 01/01/2017 Hospital Day: LOS: 3 days Date of Service: 01/04/2017 Chief Complaint: Traumatic brain injury Subjective: Not wanting to actively participate in my exam. She did participate in therapies this morning, which included OT. Continued intermittent neck discomfort. Decreased hearing out of the right ear. No shortness of breath, no GI disturbance Current Facility-Administered Medications: acetaminophen (TYLENOL) solution unit dose cup 650 mg oral Q4H PRN amantadine HCl (SYMMETREL) solution 50 mg oral DAILY bacitracin zinc 500 unit/gram ointment topical BID bisacodyl (DULCOLAX) suppository 10 mg rectal Daily PRN ciprofloxacin-dexamethasone (CIPRODEX) otic suspension 3 Drop right ear BID enoxaparin (LOVENOX) injection 40 mg subcutaneous DAILY ibuprofen (ADVIL;MOTRIN) suspension 400 mg oral Q6H PRN levETIRAcetam (KEPPRA) tablet 500 mg oral BID LORazepam (ATIVAN) concentrated solution 1 mg oral QID PRN methocarbamol (ROBAXIN) tablet 500 mg oral QID PRN ondansetron (ZOFRAN-ODT) disintegrating tablet 4 mg oral Q4H PRN oxyCODONE (ROXICODONE) solution 5 mg oral Q4H PRN risperiDONE (RISPERDAL) tablet 1 mg oral Q12H PRN Objective/Physical Exam: VS: Patient Vitals for the past 8 hrs: BP Heart Rate Resp Temp 01/04/17 0537 107/65 63 BPM 16 36.8 ??C (98.2 ??F) Pain: Patient Vitals for the past 8 hrs: Numeric Pain Level (Scale 1-10) Asleep 01/04/17 1126 4 - 01/04/17 0928 2 - 01/04/17 0827 2 - 01/04/17 0444 - Reassessed, sleeping comfortably, RR WNL. Weight: Weight : 61.2 kg (134 lb 14.4 oz) Glucose Readings (last 8 readings): No results for input(s): GLUCOSEFINGE in the last 72 hours. I&O: Intake/Output Summary (Last 24 hours) at 01/04/17 1237 Last data filed at 01/03/17 1915 Gross per 24 hour Intake 0 ml Output 650 ml Net -650 ml Exam: Gen: Sleepy and restless HEENT: Head: Normocephalic, no lesions, without obvious abnormality. Eye: Normal external eye, conjunctiva, lids cornea, FAUSTINO. right eyelid droop Ears: There is ecchymosis around the right ear. The right tympanic membrane is clear but evidence of blood underlying. Nose: Normal external nose, mucus membranes and septum. Neck : She has some diffuse non-focal tenderness through the posterior neck, right greater than left. Head extraocular muscles cannot be fully assessed at this time as she is not cooperative. She is visually scanning to the right and left. Skin: Abrasion noted at the right shoulder Cardiac: Cor RRR Pulmonary: clear to auscultation bilaterally Abdomen: normal bowel sounds, soft, nontender Musculoskeletal: no joint tenderness, deformity or swelling, no muscular tenderness noted, full range of motion without pain Neuro: She has oriented to the hospital. When given a moment she was aware of that Halloween is next week. She is following basic commands Affect: tearful and emotionally labile Language: Mildly dysarthric speech fluent and spontaneous, volunteers information Cranial nerves: CN III-IV, : EOMI, No nystagmus. No ptosis or anisocoria is noted. CN V: Normal masseter bulk, tone. CN VII: Right facial droop CN VIII: Impaired hearing on the right CN IX-X: No dysphonia, mild dysarthria. Normal palatal and uvular elevation. Motor: Strength difficult to fully assess but at least 4/5 throughout and appears symmetric. Tone normal Reflexes: trace and symmetric Sensation: Decreased right facial sensation Cerebellar: Cannot be assessed at this time Labs: I have personally reviewed CBC: Lab Results Component Value Date WBC 8.09 01/02/2017 RBC 4.40 01/02/2017 HGB 13.3 01/02/2017 HCT 37.6 01/02/2017 MCV 86 01/02/2017 MCH 30.2 01/02/2017 MCHC 35.4 01/02/2017 PLT 264 01/02/2017 BMP: Lab Results Component Value Date NA 141 01/02/2017 K 3.8 01/02/2017 CL 99 01/02/2017 CO2 27 01/02/2017 BUN 9 01/02/2017 CREATININE 0.50 01/02/2017 CALCIUM 9.3 01/02/2017 MG 2.1 01/02/2017 Assessment/Problems: (update problem list daily as appropriate) Patient Active Problem List Diagnosis Date Noted ??? (H)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 (HCC) 12/27/2016 Priority: Medium Subdural hemorrhage, right parietal skull fracture, suspected diffuse axonal injury ??? (H)Fracture of temporal bone with routine healing 12/27/2016 Priority: Medium Plan: 1. Traumatic brain injury: Left subdural hematoma, question diffuse axonal injury status post beingthrown from a horse 12/27/2016: Patient with residual cognitive impairments, but has some relative strengths with regards to overall awareness of her environment. Does appear that she has decreased attention, but some of this may be related to pain Full PT, OT, ARMATURE REPAIRER assessments and therapies to address mobility, self care, cognition. 24 hour rehabnursing for self care deficits Continue Keppra for seizure prophylaxis Continue amantadine which may have positive outcome on cognitive outcome and they are in agreement. ?? Impairment Group Closed Traumatic Brain Injury ?? 2. Right parietal bone fracture: Reportedly extensive mastoid bone to the condylar fossa and right sphenoid bone. Continue cervical collar when out of bed. Consider flexion-extension films when nontender. maintain adequate pain control ?? 3. Nutrition: Reported Limited p.o. intake at [facility]. Continue supplements and regular consistency diet. Nutrition consult 4. Right temporal bone fracture: No additional intervention required. Reportedly seen by ENT at [facility]. She does have impaired hearing on the right, and is already set up for audiometric testing after discharge. 5. Anxiety: Long-standing. Medical psychology consultation. ?? DVT Prophylaxis: Pharmacologic Prophylaxis: Enoxaparin (Lovenox) 40 mg SQ daily Jus Atkinson MD 01/04/2017 12:37 * Noelle Liriano, ARMATURE REPAIRER - 01/04/2017 0943 EDT Speech-Language Pathology Daily and Current Progress Note Date of Onset: 12/27/2016 Date of Referral: 12/31/2016 ARMATURE REPAIRER Diagnosis: Cognitive Impairment due to intracranial injury: Medical Diagnosis: Traumatic brain injury Subjective/Objective SUBJECTIVE: I am trying my best. I'm tired. OBJECTIVE: Date of Service: 01/04/2017 Start Time: 1010 Total Therapy minutes: 30 minute(s) comm-cog tx Patient/Family Interview: Kim lives with her father, stepmother and stepsister, Genysis. She shares her time with-her mother (Misti), stepfather ([place]) and two brothers (Luis Alberto and Ross). She loves animals and has 5 dogs at her father's house and 3 dogs, rabbits, cats, horses, chickens, ducks and hamsters at her mother's house. Her favorite animals are owls and pigs. Kim attends [employer], in the [employer]. She loves to play piano, sing (especially ballads),and she also states that she loves to sleep. She earns A's and b's in school and her favorite subject is psychology. She has a boyfriend name Bin. Current Treatment Objectives: Complete Evaluation: Goal #1: The patient will complete the ARMATURE REPAIRER evaluation in the areas of: verbal expression, auditory comprehension, reading comprehension, written expression and higher level language. The Brief Test of Head Injury (BTHI) was initiated. Patient with fluctuating level of alertness. 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 All standard scores are based on a mean of 10 and standard deviation of 3. Results as follows: Subtest SS %ile I. Orientation/Attention: 9 37 II. Following Commands: 8 25 Patient/Family Education: Topic: Communication-cognitive sequelae of TBI Patient/Family education and training was completed today including the role of Speech-Language Pathology, results of today's exam/recommendations and rehab goals. RLA levels interpreted and reviewedwith patient's biological motherMisti. Learner: patient and patient's biological mother Misti Method of Education: Verbal and Written Barriers to Learning/Education: fatigue, patient's level of cooperation and patient's inability to learn/carry over information at this time Patient: needs further instruction and education Family: was able to verbalize understanding of information, was able to return demonstration and needs further instruction and education Assessment/Plan ASSESSMENT/CLINICAL IMPRESSIONS: Ms. Liu is a female 16 y.o. 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 Patient was unable to tolerate a sixty minute session today, due to fatigue. Session was abbreviated to 30 minutes and at bedside. At this time, patient presents with functioning consistent with moderate impairments across cognitive-linguistic domains of attention, memory and higher level cognitive-linguistic skills consistent with communication- cognitive sequelae of traumatic brain injury, RLA Level IV-V, as best judged. Patient presents with puberphonia at baseline that her mother reports is behavioral when she is sick or emotional, that is now exacerbated s/p TBI. The patient is able to respond to basic pointed questions in conversation pertaining to her prior level withmild amount of prompts from her mother. Verbal discourse is predominantly fluent and characterized by occasional anomia, occasional use of empty language, as well as production of language of confusion at times. This appears to occur in verbal output of increased length and complexity versus short,contextual phrase and sentence-length responses and appears to be more consistent with reduced auditory processing and linguistic organization versus benson language impairment. Patient demonstrated the ability to consistently follow 1 to 3-step directions, however displays decreased auditory processing with increased complexity of content. Patient demonstrates awareness of accident and reason forhospitalization. Patient is currently able to communicate her basic wants and needs and anticipate that she will require assistance to direct her medical care given reduced awareness/insight into deficits and increased fatigue s/p TBI. Given patient's age, independence prior to admission, and social/occupational demands, she will benefit from intensive ARMATURE REPAIRER intervention. Based on the patient's premorbid level of functioning, medical diagnosis, comorbidities and patient/family support, the patient's prognosis is considered: Excellent with anticipation that patient will return home and reconveneher education in high school. Formal evaluation to be completed next session. Given attention limitations, session intensity to be reduced. Functional Communication Measures ([place] [employer], 2002). The Functional Communication Measures (FCM???s) are a series of 7 point rating scales, ranging fromleast functional (Level 1) to most functional (Level 7). They have been developed by JESSI to describe different aspects of patient???s functional communication and swallowing abilities over the course of ARMATURE REPAIRER intervention. ?? Pragmatics Level 4: Pragmatics are functional a majority of the time without cues in structured settings or situations with familiar communication partners. With unfamiliar partners or in unstructured settings, the individual needs maximal cues. The individual uses and adheres to common and simple rules of social communication but is unaware of subtle feedback from the environment. Writing Level 3: The individual writes single letters and common words, and with consistent moderate cueing, can write some words that are less familiar, longer, and more complex. Attention Level 3: The individual maintains attention over time to complete simple living tasks of short duration with consistent maximal cueing in the absence of distracting stimuli. Memory Level 3: The individual usually requires maximum cues to recall or use external aids for simple routine and personal information (e.g., schedule, names of familiar staff, location of therapy areas, etc.) in structured environments. Problem Solving Level 3: The individual usually requires moderate cues/assistance and additional time to recognize problems, generate appropriate solutions and/or carry out steps to complete simple problem solving tasks in structured environments, although accuracy may vary. Close supervision is req uired. Spoken Language Expression Level 5: The individual is successfully able to initiate communication using spoken language in structured conversations with both familiar and unfamiliar communication partners. The individual occasionally requires minimal cueing to frame more complex sentences in messages. The individual occasionally self-cues when encountering difficulty. Spoken Language Comprehension Level 5: Individual is able to understand communication in structuredconversations with both familiar and unfamiliar communication partners. The individual occasionallyrequires minimal cueing to understand more complex sentences/messages. The individual occasionally i nitiates the use of compensatory strategies when encountering difficulty. GOALS: Transport Manager Goals: Projected Functional Communication Measures at discharge: Pragmatics Level 6: Pragmatics are functional in most settings or situations with occasional minimal cues. The majority of the time, the individual is able to modify behaviors in response to subtle feedback from the environment. Writing Level 7: The individual's ability to successfully and independently participate in vocational, avocational, and social activities is not limited by writing skills. Independent functioning mayoccasionally include use of compensatory strategies. Spoken Language Comprehension Level 7: Individual's ability to independently participate in vocational, avocational, and social activities is not limited by spoken language comprehension. When difficulty with comprehension occurs, the individual consistently uses a compensatory strategy. Spoken Language Expression Level 7: The individual's ability to successfully and independently participate in vocational, avocational, and social activities is not limited by spoken language skills. Independent functioning may occasionally include use of self-cueing. Attention Level 6: The individual maintains attention within complex activities, and can attend simultaneously to multiple demands with rare minimal cues. The individual usually uses compensatory strategies when encountering difficulty. The individual has mild difficulty or takes more than a reasonable amount of time to attend to multiple tasks/stimuli. Memory Level 6: The individual is able to recall or use external aids/memory strategies for complexinformation and planning complex future events most of the time. When there is a breakdown in the use of recall/memory strategies/external memory aids, the individual occasionally requires minimal cues. These breakdowns may occasionally interfere with the individual's functioning in vocational, avocational, and social activities. Problem Solving Level 6: Problem solving skills are functional in most settings, but some limitations in problem solving are still apparent in vocational, avocational and social activities. The individual rarely requires minimal cueing/assistance or additional time to generate multiple solutions and carry out steps to complete complex problem solving tasks. He/she usually self- monitors effectiveness of performance and uses strategies when encountering difficulty. Short Term Goals: Complete Evaluation: Goal #1: The patient will complete the ARMATURE REPAIRER evaluation in the areas of: verbal expression, auditory comprehension, reading comprehension, written expression and higher level language. New Target - Recall: Goal #1: The patient will be oriented to person, place, time and purpose 100% of the time during a session using an external aid. Goal #2: The patient will recall three pieces of novel information following a 5-minute delay with 100% accuracy across two consecutive sessions. ? New Target - Attention: Goal #1: The patient will attend to basic written directions with 90% accuracy. Goal #2: Patient will sustain attention to ARMATURE REPAIRER therapy tasks over the course of a 30-minute sessionwithout cues for redirection. Goal not met - downgraded ? New Target - Auditory Processing: Goal #1: The patient will listen to paragraph-level discourse and answer corresponding given multiple choice options with 90% accuracy. ? New Target - Problem Solving: Goal #1: The patient will identify the specific language category, given 3-4 items and add an additional exemplar to the category with 90% accuracy. Goal #2: Given information, the patient will draw a logical conclusion 90% of the time. Goal #3: The patient will solve basic deduction puzzles with 90% accuracy. ? New Target - Organization: Goal #1:??Patient will sequence and describe 4-step picture sequences with 80% accuracy. PLAN/RECOMMENDATIONS: Continue/Recommend ARMATURE REPAIRER services: Given attention limitations session intensity to be reduced and patient will be seen for a minimum of 5x/week @ 30 minutes BID. RAAD Perry 01/04/2017 12:29 * Georgiana Noriega, OT - 01/04/2017 0716 EDT Rehabilitation Therapies Inpatient Rehabilitation [facility] Occupational Therapy Encounter Note Date of Service: 01/04/2017 Subjective/Objective SUBJECTIVE: I'm tired and want to go back to bed. I play them all. (musical instruments) OBJECTIVE: Session One Start time: 0830 minute(s) Total Therapy Minutes: 45 minute(s) *Co-treatment with PT due to need for both disciplines simultaneously to progress pt's activity tolerance and functional mobility. Second session Start Time: 1330 Total Minutes Treatment 2: 30 minute(s) Interventions included: Session One: Self-Care/Home Management *Completed components of self-care routine and functional transfers this date to assess and progress pt's functional safety and independence with activities of daily living. PT co-treat due to need for two skilled therapists and energy conservation. Pt's eys remained closed often throughout session. Despite reports of pain and fatigue, pt followed simple directions for transfers. ?? Donning of Mcgrath J collar: Dependent. Completed in supine with 2 assist for optimal comfort. ?? Bed mobility: Supine-sit: Mod assist x 2 for trunk and leg management. Sit- supine (at end of session): Max assist x 2. ?? Stand-step transfer from bed>commode>w/c>bed towad R: Mod assist x 2 and min assist x 1with cues for motor planning and hand placement. ?? Sitting balance/tolerance: Mod assist x 1 and min contact assist x 1 to remain upright position while seated EOB. Date: 01/04/17 Grooming FIM 1 Requires Total Assist/Dependent - Patient does less than 1 item without assist and/or requires assist of 2 (assist fo all task Bathing FIM 0 Not evaluated - Unsafe/unable due to severity of impairments Upper Body Dressing FIM 0 Not evaluated - Patient Refused Lower Body Dressing FIM 0 Not evaluated - Patient Refused Toileting: FIM 0 Not evaluated - Patient Refused Toilet Transfer FIM 1 Requires Total Assist/Dependent - Patient does less than 25% of effort to transfer on and off or assist of 2 (mod assist x 2 and cueing for motor planning) Tub Transfer: FIM 0 Not evaluated - Pt's mother reporting wanted shower. Unsafe/unable at this timedue to severity of impairments. Functional Mobility: See above information. Session Two Self-Care/Home Management *Focus of session on improving static sitting balance, activity tolerance and functional transfers for increased independence with BADLs. Opened eyes for longer duration than first session and answered basic yes/no questions regarding interests. ?? Bed mobility: Supine-sitting: Mod assist x 2 for trunk and leg management. Sitting EOB-supine: Max assist x 1 and mod assist x 1. Dependent for placement of Mcgrath J collar. ?? Stand-step transfer from bed<>commode towad R: Mod assist x 2 and min contact assist x 1 with cues for motor planning. ?? Sitting balance: Min contact assist x 1 to maintain upright position on commode x 5 minutes. Pillow placed behind back for added support. Pt unable to void. Vital signs: Vital signs have been stable with interventions and were not monitored. Vital Signs: Position Heart Rate (bpm) Blood Pressure (mmHG) Oxygen Saturation SPO2 Liters of Oxygen Pre: Sidelying 66 104/64 98 Room air Post: Sidelying 64 92/62 97 Room air Patient/Family Education: Topic: Benefits of activity Safety awareness Positioning Learner: patient and family Method: verbal Barriers to Learning: pain, anxiety and cognitive deficits Outcome: reinforcement needed Team Communication: With PT regarding progress Assessment/Plan ASSESSMENT: Pt completed full session time but has limited activity tolerance. Pt c/o of pain and fatigue with maximal verbal cues. Family has been present for all sessions (mother during first session and father during second) and encourages pt to participate. Requires significant assistance for sitting balance and functional transfers. Declining to complete most ADLs at this time. Co-treatment with PT due to need for both disciplines simultaneously to progress pt's activity tolerance and functional mobility. Pt is appropriate for acute level OT services to work on independence with ADLs. PLAN: -Co-treatment with PT -Vision screen -Basic ADLs -Work on improving activity tolerance -Assess functional cognition Pager: [phone] Georgiana Noriega OT * Mayuri Jones MD - 01/02/2017 8227 EDT INPATIENT PROGRESS NOTE DATE OF SERVICE:01/02/2017 PCP Zina Daly LOS: 1 day REHABILITATION ADMISSION: 01/01/2017 REHAB ADMISSION DX: TBI 12/27/16 secondary to fall from horse with right parietal bone fracture , right temporal bone fracture , impaired hearing , left SDH, probable diffuse axonal injury with residual cognitive impairments CC: Head and neck pain , limited self reports SUBJECTIVE: Patient was seen today for deficits status post TBI. Mother present at bedside. Reporting for patient. States with getting pain medications and regularly she has been doing better but her daughter does not like to take the pain medications. Jaquelin does indicate she is having ear pain and neck pain. Difficult to get reports about any other complaints. Bladder: Some continent some incontinent voids Bowels: Some loose stools. Napping after therapies. Patient Active Problem List Diagnosis ??? 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 Fracture of temporal bone with routine healing Current Facility-Administered Medications: acetaminophen (TYLENOL) solution unit dose cup 650 mg oral Q4H PRN amantadine HCl (SYMMETREL) solution 50 mg oral DAILY bacitracin zinc 500 unit/gram ointment topical BID bisacodyl (DULCOLAX) suppository 10 mg rectal Daily PRN ciprofloxacin-dexamethasone (CIPRODEX) otic suspension 3 Drop right ear BID enoxaparin (LOVENOX) injection 40 mg subcutaneous DAILY ibuprofen (ADVIL;MOTRIN) suspension 400 mg oral Q6H PRN levETIRAcetam (KEPPRA) tablet 500 mg oral BID LORazepam (ATIVAN) concentrated solution 1 mg oral QID PRN methocarbamol (ROBAXIN) tablet 500 mg oral QID PRN ondansetron (ZOFRAN-ODT) disintegrating tablet 4 mg oral Q4H PRN oxyCODONE (ROXICODONE) solution 5 mg oral Q4H PRN risperiDONE (RISPERDAL) tablet 1 mg oral Q12H PRN OBJECTIVE: Estimated body mass index is 23.16 kg/(m^2) as calculated from the following: Height as of this encounter: 162.6 cm (64). Weight as of this encounter: 61.2 kg (134 lb 14.4 oz). Patient Vitals for the past 48 hrs: BP Pulse Resp Temp SpO2 O2 Flow Rate (L/min) O2 Device 01/02/17 0623 112/67 59 14 36.4 ??C (97.5 ??F) - - - 01/01/17 1700 122/68 - 18 36.5 ??C (97.7 ??F) 99 % 0 l/min None EXAM: Sleepy, slow to arouse. Brief eye contact only. HENT: Clear conjunctiva. Asymmetric eye opening with decreased opening on the right. Bruising around right ear. Mcgrath J collar in place. No thrush Heart rate regular. Respirations even, unlabored. Abdomen benign. Skin:intact. Reported abrasion of right shoulder on day of admission. Area covered and she is resistant to examination this morning Edema: No distal peripheral edema Motor exam: Moving all 4 extremities. Unable to do formal MMT. Symmetrical muscle bulk. Sensation: Unable to do formal exam. Responding to touch in all extremities. Neuro: tone normal. Speech. Speech: Verbal output limited. Brief request and responses. Aware of questions regarding pain and request for activity and movement but not getting consistent response to commands. Very fatigued after morning therapies. Cranial nerves: FAUSTINO CN III-IV, : Difficult to assess formal full extraocular movements. It does track to right and left and superiorly . Unable to assess visual pimentel yet. Unable to assess for double vision yet. CN V: Normal masseter bulk, tone. 2 sleepy this morning to fully assess sensation CN VII: Mild drooping right eyelid, mild right facial weakness CN VIII: Hearing grossly intact. CN IX-X: Mild dysarthria. Verbal tone very whiny. Coordination: Difficult to fully assess LABS: Kidney/Electrolytes: Lab Results Component Value Date NA 141 01/02/2017 K 3.8 01/02/2017 CL 99 01/02/2017 CO2 27 01/02/2017 CREATININE 0.50 01/02/2017 BUN 9 01/02/2017 CALCGFR Age <18 01/02/2017 Lab Results Component Value Date/Time NA 141 01/02/2017 07:21 Lab Results Component Value Date CALCIUM 9.3 01/02/2017 CALCCA 9.4 01/02/2017 Lab Results Component Value Date MG 2.1 01/02/2017 No results found for: INR Lab Results Component Value Date WBC 8.09 01/02/2017 HCT 37.6 01/02/2017 MCV 86 01/02/2017 MCH 30.2 01/02/2017 MCHC 35.4 01/02/2017 PLT 264 01/02/2017 RBC 4.40 01/02/2017 RDWCV 12.1 01/02/2017 Lab Results Component Value Date/Time HCT 37.6 01/02/2017 07:21 No results found for: GLUCOSEFINGE ASSESSMENT: The patient is medically stable to continue in the rehabilitation program. Team notes reviewed. Ongoing gains. Active Hospital Problems Diagnosis ??? 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 (HCC) [S02.91XA, S06.9X9A] ??? Fracture of temporal bone with routine healing [S02.19XD] Team/Patient/Family Communication: mother: Reviewing patient's response to rehabilitation program this morning. Focusing on pain. PLAN: 1. Traumatic brain injury: Left subdural hematoma, question diffuse axonal injury status post beingthrown from a horse 12/27/2016: Patient with residual cognitive impairments, but has some relative strengths with regards to overall awareness of her environment. Does appear that she has decreased attention, but some of this may be related to pain Full PT, OT, ARMATURE REPAIRER assessments and therapies to address mobility, self care, cognition. 24 hour rehabnursing for self care deficits Continue Aidan for seizure prophylaxis Dr. Atkinson discussed prehospital medications with her parents . Changed Valium to Ativan, continue Risperdal p.r.n. Dr. Atkinson also discussed starting her on amantadine which may have positive outcome on cognitive outcome and they are in agreement. ? 2. Right parietal bone fracture: Reportedly extensive mastoid bone to the condylar fossa and right sphenoid bone. Continue cervical collar when out of bed. Consider flexion-extension films when nontender. pain reportedly has been a ongoing issue and continue to work on adequate pain control, currently on Tylenol, oxycodone as needed. Ibuprofen as needed also ?? 3. Nutrition: Reported Limited p.o. intake at [facility]. Continue supplements and regular consistency diet. Nutrition consult 4. Right temporal bone fracture: No additional intervention required. Reportedly seen by ENT at [facility]. She does have impaired hearing on the right, and is already set up for audiometric testing after discharge. 5. Anxiety: Long-standing. Medical psychology consultation. ?? DVT Prophylaxis: Pharmacologic Prophylaxis: Enoxaparin (Lovenox) 40 mg SQ daily ELOS: 3 weeks Multidisciplinary team rounds to review progress/discharge barriers and plans: Every Wednesday DISCHARGE PLAN: Home with parents, [facility] services Mayuri Jones MD No future appointments. Portions of this document have been prepared with speech recognition software or keyboard data entry representative techniques. Minor irregularities or keyboarding misprints may be present. * Omar Menon RN - 01/02/2017 1437 EDT Pt is a mod 2x stand pivot transfer with max cueing([place] J and gait belt). She has had some urinary retention and requires cueing to use commode. BUS 351 at 1230; pt refused commode initially but with education and reinforcement pt agreed to attempt to void. Pt used commode while her mother stabilized her trunk. Pt has only been able to void after/while having a bm. Pt did move bowels/bladder intentionally on commode(refused PVR and PT had to work with pt). Pt was incontinent of loose/watery bowel 2x on day shift. Per report pt has a hx constipation and was given bowel medications which havecaused bowel incontinence. Skin healthy and intact aside from small abrasion R post shoulder and L lat to gluteal fold. Area cleansed and barrier cream applied, pt refused bacitracin. Staff is aware and wctm. * Magalis Abbott B - 01/02/2017 0907 EDT [facility] Rehabilitation Therapy Inpatient Rehabilitation [facility] Physical Therapy Initial Evaluation Note Date of Service: 01/02/2017 Reason for Referral: Evaluate and Treat Precautions: - 1:1 supervision - Level of risk B - Code Status: Full Code - Fall Risk - Mcgrath J color until flex-ex films are able to be done- worn when out of bed SUBJECTIVE: Pt states that she knows that she had a trauma and knows that she is weak. Pain: Location: neck Intensity: unable to provide number Frequency: constantly Quality: Unable to describe Aggravating factors: movement Alleviating factors: Sleeping; when asked if medication helps-she states that it doesn't OBJECTIVE: Patient Profile: Patient is a 16 y.o. female admitted on 01/01/2017 secondary to impaired mobility s/p thrown off a horse-right parietal & mastoid fractures. Left SDH, SAH, IVH & ? MAURICE. The patient lives at [address] [place] [address] History of present illness per Dr. China MD (01/01/2017): Patient is a 16-year-old female with a history of migraine who was admitted to [facility] on 12/27/2016 after beingthrown from a horse. She reportedly was sitting in the horse was not moving when the animal got spooked and through Rachel to the ground. She had 1 minute of loss of consciousness. Upon regaining consciousness he reportedly was lethargic and combative. Initially taken [facility], she was disoriented and lethargic but following commands. Her GCS was reported at 13. CT scan of the headshowed a right parietal skull fracture extending to the skull base and a left subdural hematoma. ?? She was transported to [facility] for further management, requiring fentanyl to keep her calm during transport. She was loaded with Keppra. At [facility], she had a GCS of 9, FAST exam was negative. CT scan of the head, face and cervical spine with a mildly displaced fracturewith depression to the right parietal bone extending to the mastoid bone to the condylar fossa and right sphenoid bone. She has small amount of pneumocephalus. She had a fracture line to the anteriorposterior nguyen of the right sphenoid sinus extending to the right carotid canal. There were blood products in the right middle cranial fossa anterior to the mastoid bone and areas of subarachnoid hemorrhage in the basilar cisterns. She had a small amount of intraventricular hemorrhage the fourth ventricle. Cervical spine with no fracture or malalignment. ET scan of the temporal bone with a highly comminuted fracture of the right mastoid bone, the middle ear ossicles being intact without evidence of dislocation. There was evidence of a right tympanic facial nerve canal fracture but no osseousfragments projecting into the facial nerve canal in the inner ear structures were intact. She was evaluated by ENT and no additional intervention required. CT angiogram with no traumatic vascular injury identified. ?? No surgical intervention has been required. She has been maintained in a Mcgrath J collar secondary to midline neck pain on exam. Flexion-extension films have not been completed secondary to ongoing pain and patient's inability to actively participate in the exam. Her hospital course is been notable for some intermittent agitation. Diffuse axonal injury has been suspected by MRI not completed to evaluate for structural changes. She has been cleared for a regular consistency diet but p.o. intake has been limited, with the patient taking in [employer] consistently. Speech able toparticipate in all therapies but remained with significant functional and cognitive deficits. Case was discussed with Dr. Sameer Kim, pediatric resident at [facility] who reassured me the patient wasmedically and neurologically stable, and participating in all therapies. She has been evaluated anddetermined to be an appropriate candidate for acute inpatient rehabilitation. ?? Home Environment Living arrangements: Dad's home: Bedroom located up a flight of stairs. Five little steps-3 steps platform then a couplemore to enter with nothing sturdy. Bathroom on the first floor with a tub with no grab bars. Dad- said he can live downstairs. Mother's home: Two steps to get into house with 2 railings. Bedroom available on first floor with walk-in shower and grab bars. Kim lives with her father, stepmother and stepsister,Genysis. She shares her time with-her mother ([place]) and stepfather ([place]), two brothers Luis Alberto, and Ross. She loves animals and has 3 dogs ather father's and 5 dogs, rabbits, cats, horses, chicken, ducks and hamsters at her mother's house. Her favorite animals are owls and pigs. ? Caregiver Support: Mom has custody. Lives with grandmother, mom and step-dad on weekends. Dad is anEMT and step-mom MANAGER CUSTOMS. Mom is former RN. 24-7 supervision available at time of discharge. Equipment Available: Mother has tub seat and commode. Prior Level of Function: Independent Services prior to admission: None Work: Student-Kim attends [employer] in the [facility]. She loves to play piano, sing (especially ballads) and she also stated that she loves to sleep. She has a boyfriend name Bin. Leisure: Loves Music, enjoys spending time with family and friends Medical/Surgical History: Current: Patient Active Problem List Diagnosis ??? 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 Fracture of temporal bone with routine healing Past: Past Medical History: Diagnosis Date ??? Fracture of temporal bone with routine healing 12/27/2016 Status post fall from horse ??? 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 (HCC) 12/27/2016 Subdural hemorrhage, right parietal skull fracture, suspected diffuse axonal injury No past surgical history on file. Medications: Current Facility-Administered Medications: acetaminophen (TYLENOL) solution unit dose cup 650 mg oral Q4H PRN amantadine HCl (SYMMETREL) solution 50 mg oral DAILY bacitracin zinc 500 unit/gram ointment topical BID bisacodyl (DULCOLAX) suppository 10 mg rectal Daily PRN ciprofloxacin-dexamethasone (CIPRODEX) otic suspension 3 Drop right ear BID enoxaparin (LOVENOX) injection 40 mg subcutaneous DAILY ibuprofen (ADVIL;MOTRIN) suspension 400 mg oral Q6H PRN levETIRAcetam (KEPPRA) tablet 500 mg oral BID LORazepam (ATIVAN) concentrated solution 1 mg oral QID PRN methocarbamol (ROBAXIN) tablet 500 mg oral QID PRN ondansetron (ZOFRAN-ODT) disintegrating tablet 4 mg oral Q4H PRN oxyCODONE (ROXICODONE) solution 5 mg oral Q4H PRN risperiDONE (RISPERDAL) tablet 1 mg oral Q12H PRN Arousal, Attention, and Cognition: Alert Oriented to Person and year- inconsistent on place knows that she had a head injury and that she isweak - but was unsure of where she is Communication: decreased voice production and announciation Cognition: ability to follow 2-3 step commands and able to converse and 75% of the time responds appropriately- unsure if she responds inappropriately at times due to decreased hearing RLA:5-6 Cardiopulmonary: Vital Signs: Activity Heart rate (bpm) Blood Pressure (mmHg) Respiratory rate (breaths/min) Oxygen Sat/ Fractions of inspired Oxygen SPO2/FIO2 % Pre-therapy in sitting 92 120/66 16 98% on RA Integumentary/Anthropometric Characteristics: Palpation/Observation: No problem noted Posture: Protracted shoulders Height: Height: 162.6 cm (64) Weight: Weight : 61.2 kg (134 lb 14.4 oz) Range of Motion and Joint Integrity: Range of Motion: Upper Quarter: not formally assessed due to high pain and fear avoidance of pain- however not limitations noted during functional mobility Lower Quarter: PROM tested in sitting Hip: Left Right Flexion 130 130 Knee: Flexion 130 130 Extension 0 0 Ankle: Dorsiflexion neutral neutral Plantarflexion 60 60 Muscle Performance: Strength: Upper Quarter: not formally assessed due to high pain and fear avoidance of pain- however not limitations noted during functional mobility- able to push herself up to standing Lower Quarter: Assessed in:sitting HIP: Left Right Flexion Against gravity Against gravity Knee: Flexion Min resistance Min resistance Extension Against gravity Against gravity ROM and MMT is very limited due to pain, limited activity tolerance, and pts limited participation Sensation, Reflexes, and Nerve Integrity: Light Touch Sensation: not assessed due to limited level of participation Proprioception:not assessed due to limited level of participation Hearing: states that she can't hear out of the R ear Vision: very limited eye opening and asymmetrical eye opening at time; unable to assess fully- pt states that she needs her glasses to see and she did track items to the R and L and stated that she had no double vision Neuromotor Function/Development: not assessed due to limited level of participation; however in sitting she is able to isolate movements, however, in standing she demonstrated some decreased muscle activation as well as coordination of advancing LE's. Balance, Mobility, and Gait Balance: Sitting Balance Static: able to sit edge of bed with no UE or trunk support with no loss of balance for up to 10 seconds Dynamic:unable to assess due to difficulty with static sitting Static: able to stand with mod-max assist of 1 Dynamic: unable to assess due to difficulty with static standing Locomotion: Wheelchair: Wheelchair FIM:0 Not evaluated - Unsafe/unable due to severity of impairments Gait: The patient ambulates with max assist of 2 using hand held assistance for 4 feet. Gait deviations: increased knee flexion during mid-stance with blocking of knees Walk FIM:1 Stairs: Stairs FIM:0 Not evaluated - Unsafe/unable due to severity of impairments Bed Mobility: Sit->supine: with mod assist of 1 with head of the bed up and rails. Supine->sit: with mod assist of 1 with head of the bed up and rails Transfers: Bed < > Chair: stand-step with mod assist of 2 Transfers - Bed, Chair, Wheelchair FIM: 1 Self-Care, Home Management, Work, and Leisure: Not evaluated- refer to OT note for further evaluation. Informed Consent: The patient consented to the physical therapy evaluation. The patient agrees to and understands the physical therapy treatment plan and goals. Interventions Completed Today: Physical Therapy today at: 1300 Examination:30 minutes Intervention: 30 minutes Total Therapy Minutes: 60 minutes Intervention included: Therapeutic activities(1) : Rolling: supervision for neck position and use of bed rail Supine to sit: with mod assist of 2 for LE and trunk management Sit to supine: with most assist of 1 for LE management Gait Training (1): Ambulation: with hand held assist and therapist blocking knees from buckling pt ambulated 4 feet forwards and 4 feet backwards with min assist of 2 for trunk management Patient/Family Education: Topic: Plan of care, goals, use of call light, importance of having assist with mobility, transfersand ambulation techniques, and TBI Learner: patient Method: verbal Barriers to Learning: cognitive deficits Outcome: verbalized understanding Team Communication: Whiteboard updated with mobility recommendations. Spoke with OT re: pt status and ELOS. ASSESSMENT: Patient presents to acute rehab with the physical therapy diagnosis of impaired mobility s/p TBI. The patient???s primary impairments include decreased strength and neuromuscular control (visible through difficulty with stance phase and need for assist for preventing B knees from buckling), decreased activity tolerance (visible through pt closing her eyes through out the session and requiring multiple cues to open eyes and participate), pain as verbalized by pt- however, unable to formally assess, decreased cognition (as visible through difficulty with following multi-step comments and limited orientation). These impairments contribute to the following functional limitations: including requiring assist of 1-2 for all functional mobility. Pt's functional activity tolerance and pain was a very limiting factor in today's session and formal evaluation. These two components demonstrate that pt is appropriate for a co-treat initially. Due to impairments and functional limitations listed above, in addition to recent hospitilization and TBI, pt is a high risk for falls. Upper Quarter Screen: Positive findings include hx of pain and increased dependence on UE's. Expectmod-high risk for upper quarter injury. Will monitor and consult with OT/team as needed. Physical Therapy Prognosis: Prior to admission, patient was I with all functional mobility and a highly active teenager who performed dance, acting, and cheerleading. She requires skilled physical therapy in acute rehab to provide her with an appropriate level of intensity to ensure pt is able to reach her highest potential. Expect patient to independent for transfers with supervision for mobility- especially community level mobility. Barriers to Discharge: current level of impairment, environmental barriers, need for 24/7 supervision Estimated Length of Stay: 3-4 weeks Short-Term Goals: 10 days ?? Bed Mobility: In order to progress towards functional I, pt will be able to perform supine<>sit with min assist with head of bed elevated and railing. ?? Transfers: In order to progress towards functional I, pt will be able to perform transfers c minassist of 2 and appropriate assistive device ?? Ambulation: In order to progress towards home DC, pt will be able to ambulate 50' c min-mod assist of 2 on level surfaces with appropriate assistive device. ?? Fall Risk: In order to decrease fall risk, pt will be able to stand with shoulder width base of support and eyes open for 60 seconds with B UE support and contact guard assist of 1. ?? Functional Strength: In order to demonstrate improved functional strength, pt will be able to stand from 22 inches with no UE assist. ?? Pt education: Pt and pt's mother and father will demonstrate safe guarding techniques for transfers. Long-Term Goals: 4 weeks ?? Bed Mobility: In order to progress towards functional I, pt will be able to perform supine<>sit I with flat bed and no bed rail. ?? Transfers: In order to progress towards functional I, pt will be able to perform transfers I c no assistive device. ?? Ambulation: In order to progress towards home DC, pt will be able to ambulate 300' c supervisionon level surfaces. ?? Car Transfers: In order to progress towards home DC, pt will be able to perform car transfer c caregiver and no VC from therapist. ?? Stairs: In order to progress towards prior level of function and DC home, pt will be able to do 12 stairs c 1 railing and supervision. ?? Fall Risk: In order to decrease fall risk, pt will be able to stand with decreased base of support and eyes closed for 60 seconds on uneven surfaces with min signes of instability. ?? Functional Strength: In order to demonstrate improved functional strength, pt will be able to stand from 16 inches with no UE assist. ?? Home Exercise Program: In order to progress towards home DC, pt will be able to complete Home Exercise Program I c visual assist from written instruction. ?? Pt education: Pt and pt's mother and father will demonstrate safe guarding techniques for stairs, car transfer, and ambulation on level and unlevel surfaces. PLAN: Treatment/Intervention: Physical therapy will be provided by physical therapist and/or therapist higher level teaching assistant as appropriate. Frequency: 2 times/day for at least 5 days per week Intensity: 30-60 minutes/session, 90 minutes per day Duration: During rehab admission Interventions May Include: Therapeutic exercise, Therapeutic activities, Gait Training, Neuromuscular re-education, Wheelchair training, Self-Care/Home management and pt education Further Data: sensation, coordination, motor control, vision assessment- particular visual motor assessment, WC mobility, vendor choice, car transfers, and further evaluation on ambulation on level and unlevel ground Patient/Family Education: PT role, POC, pt's goals, d/c planning, fall risk, balance components, DME, HEP, transfer and ambulation techniques, energy conservation, and TBI education Recommended Discharge Destination: Home with caregiver Recommended Discharge Services: Home health physical therapy Recommended Equipment Needs: To be determined closer to DC Other recommendations: To be determined closer to DC Contact information: Pager: [phone] Magalis Abbott 01/02/2017 16:22 * Yesenia PintoLakeisha - 01/02/2017 0848 EDT Speech-Language Pathology Initial Note ARMATURE REPAIRER Diagnosis: Cognitive Deficits (including hemorrhage): Medical Diagnosis: Traumatic brain injury Date of Onset: 12/27/16 Date of Referral: 12/31/16 Start Time: 1030 Total Therapy minutes: 30 minute(s) SUBJECTIVE: Leave me alone, I don't want to do anything. My everything hurts. I hurt to much to work with you. Mom stated she had just spent an hour on the phone with her boyfriend Bin. OBJECTIVE: Per MD H&P: Patient is a 16-year-old female with a history of migraine who was admitted to [facility] on 12/27/2016 after being thrown from a horse. She reportedly was sitting in(on) the horse was not moving when the animal got spooked and through(threw) Rachel to the ground. She had 1 minute of loss of consciousness. Upon regaining consciousness he(she) reportedly was lethargic and combative. Initially taken [facility], she was disoriented and lethargicbut following commands. Her GCS was reported at 13. CT scan of the head showed a right parietal skull fracture extending to the skull base and a left subdural hematoma. ?? She was transported to [facility] for further management, requiring fentanyl to keep her calm during transport. She was loaded with Keppra. At [facility], she had a GCS of 9, FAST exam was negative. CT scan of the head, face and cervical spine with a mildly displaced fracturewith depression to the right parietal bone extending to the mastoid bone to the condylar fossa and right sphenoid bone. She has small amount of pneumocephalus. She had a fracture line to the anteriorposterior nguyen of the right sphenoid sinus extending to the right carotid canal. There were blood products in the right middle cranial fossa anterior to the mastoid bone and areas of subarachnoid hemorrhage in the basilar cisterns. She had a small amount of intraventricular hemorrhage the fourth ventricle. Cervical spine with no fracture or malalignment. ET scan of the temporal bone with a highly comminuted fracture of the right mastoid bone, the middle ear ossicles being intact without evidence of dislocation. There was evidence of a right tympanic facial nerve canal fracture but no osseousfragments projecting into the facial nerve canal in the inner ear structures were intact. She was evaluated by ENT and no additional intervention required. CT angiogram with no traumatic vascular injury identified. ?? No surgical intervention has been required. She has been maintained in a Mcgrath J collar secondary to midline neck pain on exam. Flexion-extension films have not been completed secondary to ongoing pain and patient's inability to actively participate in the exam. Her hospital course is been notable for some intermittent agitation. Diffuse axonal injury has been suspected by MRI not completed to evaluate for structural changes. She has been cleared for a regular consistency diet but p.o. intake has been limited, with the patient taking in [employer] consistently. Speech able toparticipate in all therapies but remained with significant functional and cognitive deficits. Case was discussed with Dr. Sameer Kim, pediatric resident at [facility] who reassured me the patient wasmedically and neurologically stable, and participating in all therapies. She has been evaluated anddetermined to be an appropriate candidate for acute inpatient rehabilitation. ??ast Medical History: Past Medical History: Diagnosis Date ??? Fracture of temporal bone with routine healing 12/27/2016 Status post fall from horse ??? 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 (HCC) 12/27/2016 Subdural hemorrhage, right parietal skull fracture, suspected diffuse axonal injury Current Evaluation: Personal History :provided by Kim and her motherKim lives with her father, stepmother and stepsdakota,Gensiddhartha. She shares her time with-her mother ([place]) and stepfather ([place]) ,two brothers Luis Alberto, and Ross. She loves animals and has 5 dogs at her father's house and 3 dogs, rabbits, cats, horses, chickens, ducks and hamsters at her mother's house. Her favorite animals are owls and pigs. Yaa floyd attends [employer], in the [facility]. She loves to play piano, sing(especially ballads), and she also stated that she loves to sleep. She has a boyfriend name Bin. Informal measures were utilized to evaluate current speech-language/cognitive-linguistic functions. Behavior: During evaluation today, patient presented as arousable, restless and disengaged. Speech-Language Function: Auditory Comprehension: Informal measures- Kim was able to respond appropriately to structured task that were presented to her with prompting from her mother. Terry-Motor Evaluation/Motor Speech: Unable to assess due to patient's willingness to participate. Voice: Kim demonstrated nasal and a childlike affect to her voice. Her mother stated that Kim needs prompting to use her regular voice. Verbal Expression: Patient demonstrates ability to express basic thoughts and needs without evidence of anomia or paraphasias. Automatic Sequences: Counting able to count 1-10/count back from 20 by 3's 100%: Days of the week 07/12 with prompt to continue 09/11: and Months of the year 02/16. Generative Naming: and Conversational Level: Patient was able to respond appropriately to personal questions. Her mother reported that her conversational skills have improved significantly and once in a while she will throw in a word that doesn't make sense. She also stated that if Kim is interrupted she needs to be cued or reminded about what she was talking about. Reading Comprehension: Not formally evaluated. unable to participate due to neck pain) Written Expression: The patient wrote with her left hand as she was lying in bed. She wrote her name Kim in large letters and Kitten which is the name of her favored pet. Augmentative/Alternative Communication: Not an area of need Social-Pragmatic Skills: Unable to assess. During this session patient indicated that she was in pain and she was tired and did not want to participate. She used child-like voice-which her mother stated they were trying to discourage. Cognitive-Linguistic: Unable to formally evaluate secondary to fatigue and reduced level of alertness. Attention/Concentration: Informally- she demonstrated adequate sustained attention for 30 with her mother prompting. Tendency to delay responses (trumpet player uncertain at times if she was still awake.) 30 minute session. Orientation: Patient is oriented to person, and year. She stated that it was January(December)/(Wednesday) and she didn't know the date-but given cue from ARMATURE REPAIRER, Lucy is Halloween 01/05 she was able to calculate that Sat was the 28th. Recall: Not formally evaluated. (her mother stated that she is able to remember taking the horse tothe pasture but does not recall getting on the horse or being thrown from the horse.) Categorization/Association: Not formally evaluated. Informally-patient was given categories and asked to name elements within those categories given 1 minute. Animals 8; Foods 10; Letters /m/ 3/5; /d/ /13; /k/ 4/6-she was unable to retain direction of not using proper nouns/names of people. Organization: Not formally evaluated. Problem Solving/Reasoning: Not formally evaluated. Insight/Judgment: Patient is consumed with her pain and fatigue. PATIENT/FAMILY EDUCATION: Patient/Family Education: Topic: Receptive/Expressive and Cognition Skills Patient/Family education and training was completed today including the role of Speech-Language Pathology, results of today's (informal and limited) exam and expectations of future visits to completeformal evaluation. Learner: patient and family Method of Education: Verbal Barriers to Learning/Education: patient's level of arousal, patient's level of cooperation, patient's level of pain and depressed mood Patient: needs further instruction and education Family: was able to verbalize understanding of information Patient/Family Goals: To regain independence with communication. To return home with family. To return to previous social and occupational roles. ASSESSMENT/CLINICAL IMPRESSIONS: is a female 16 y.o. 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 Patient was unable to tolerate a sixty minute session today, due to discomfort and fatigue. Session was abbreviated to 30 minutes and at bedside (patient unable to sit up). Her motherstated that she does well with pain meds on board but the first hour requires prompting to attend due to fatigue from the meds, and the second hour is eventual fatigue, but she she stated that she isseeing improvement overall. The patient's presentation is mildly impaired based on the results of today's informal test results., The patient presents with functioning consistent with: Communication-C ognitive sequelae of traumatic brain injury, RLA Level 6., Basic receptive and expressive language function appears within functional limits based on evaluation. Kim produced baby-talk which her mother stated that the family is prompting to use her regular voice. She appeared to understand con versation, as she responded appropriately-and sometimes with her mother's prompting. Expressively she demonstrated the ability recall automatic sequences (GORDON/CHARISSE/Counting), and retrieve elements in categories but her organization (based on subcategories) presented as challenging, as was her ability to maintain specific instructions/parameters within that task. She did not produce extensive conversation but her mother stated that her conversation skills have improved. However, she has noted that Kim will produce an occasional unrelated word, or if she is interrupted, she will need cues to resume the topic. Patient Is currently able to communicate basic wants and needs. Being a minor her fa ancelmo will direct her medical care., Given patient's age, independence prior to admission, and social/occupational demands, she would benefit from intensive ARMATURE REPAIRER intervention. Based on the patient's premorbid level of functioning, medical diagnosis, comorbidities and patient/family support, the patient's prognosis is considered: Good with anticipation that patient will return home and reconvene hereducation in [employer]. More formal evaluation is required when patient can sit up and tolerate more time on task. Functional Communication Measures ([place] [employer], 2002). The Functional Communication Measures (FCM???s) are a series of 7 point rating scales, ranging fromleast functional (Level 1) to most functional (Level 7). They have been developed by JESSI to describe different aspects of patient???s functional communication and swallowing abilities over the course of ARMATURE REPAIRER intervention. Pragmatics Level 4: Pragmatics are functional a majority of the time without cues in structured settings or situations with familiar communication partners. With unfamiliar partners or in unstructured settings, the individual needs maximal cues. The individual uses and adheres to common and simple rules of social communication but is unaware of subtle feedback from the environment. Writing Level 3: The individual writes single letters and common words, and with consistent moderate cueing, can write some words that are less familiar, longer, and more complex. GOALS: Penitentiary Goals: Projected Functional Communication Measures at discharge: Pragmatics Level 6: Pragmatics are functional in most settings or situations with occasional minimal cues. The majority of the time, the individual is able to modify behaviors in response to subtle feedback from the environment. Writing Level 7: The individual's ability to successfully and independently participate in vocational, avocational, and social activities is not limited by writing skills. Independent functioning mayoccasionally include use of compensatory strategies. Short Term Goals: The patient will complete the ARMATURE REPAIRER evaluation in the areas of: verbal expression, auditory comprehension, reading comprehension, written expression and higher level language. PLANS/RECOMMENDATIONS: ARMATURE REPAIRER services recommended for a minimum of 300 minutes over a 7 day period. Lakeisha Lino CCC-ARMATURE REPAIRER 01/02/2017 8:48 * Georgiana Noriega, OT - 01/02/2017 0723 EDT Rehabilitation Therapies Inpatient Rehabilitation [facility] Occupational Therapy Initial Evaluation Note Date of Service: 01/02/2017 Reason for Referral: Evaluate and treat consistent with acute rehabilitation admission. Precautions: ?? Mcgrath J Collar: On when out of bed, may be off when in bed ?? Full code ?? Activity as tolerated ?? Level of risk: B SUBJECTIVE: I'm so tired. I just want to sleep. Mommy, I don't want to get up... My neck hurts. Pain: Pt unable to provide number. Reported pain in front of head, neck and rib cage. OBJECTIVE: Patient Profile: Rachel Liu is a left hand dominant 16 y.o. female admitted on 01/01/2017 secondary to self-care and mobility deficits s/p subdural hematoma, parietal and mastoid fractures and suspected diffuse axonal injury. The patient lives at [address] [place] [address] History of Present Illness/Injury: Per Dr. Atkinson's H&P dated 01/01/17: Patient is a 16-year-old female with a history of migraine who was admitted to [facility] on 12/27/2016 after being thrown from a horse. She reportedly was sitting in the horse was not moving when the animal got spooked and through Rachel to the ground. She had 1 minute of loss of consciousness. Upon regaining consciousness he reportedly was lethargic and combative. Initially taken [facility], she was disoriented and lethargic but following commands. Her GCSwas reported at 13. CT scan of the head showed a right parietal skull fracture extending to the skull base and a left subdural hematoma. ?? She was transported to [facility] for further management, requiring fentanyl to keep her calm during transport. She was loaded with Keppra. At [facility], she had a GCS of 9, FAST exam was negative. CT scan of the head, face and cervical spine with a mildly displaced fracturewith depression to the right parietal bone extending to the mastoid bone to the condylar fossa and right sphenoid bone. She has small amount of pneumocephalus. She had a fracture line to the anteriorposterior nguyen of the right sphenoid sinus extending to the right carotid canal. There were blood products in the right middle cranial fossa anterior to the mastoid bone and areas of subarachnoid hemorrhage in the basilar cisterns. She had a small amount of intraventricular hemorrhage the fourth ventricle. Cervical spine with no fracture or malalignment. ET scan of the temporal bone with a highly comminuted fracture of the right mastoid bone, the middle ear ossicles being intact without evidence of dislocation. There was evidence of a right tympanic facial nerve canal fracture but no osseousfragments projecting into the facial nerve canal in the inner ear structures were intact. She was evaluated by ENT and no additional intervention required. CT angiogram with no traumatic vascular injury identified. ?? No surgical intervention has been required. She has been maintained in a Mcgrath J collar secondary to midline neck pain on exam. Flexion-extension films have not been completed secondary to ongoing pain and patient's inability to actively participate in the exam. Her hospital course is been notable for some intermittent agitation. Diffuse axonal injury has been suspected by MRI not completed to evaluate for structural changes. She has been cleared for a regular consistency diet but p.o. intake has been limited, with the patient taking in [employer] Breakfast consistently. Speech able toparticipate in all therapies but remained with significant functional and cognitive deficits. Case was discussed with Dr. Sameer Kim, pediatric resident at [facility] who reassured me the patient wasmedically and neurologically stable, and participating in all therapies. She has been evaluated anddetermined to be an appropriate candidate for acute inpatient rehabilitation. ?? Living Environment/Home Set-up: Living arrangements: Father's home: Multi-level with three steps to enter. Pt's bedroom located up one flight of stairs.Bedroom available on first floor that pt can use. Bathroom on first floor with tub with no grab bars. Mother's home: Multi-level with two steps to enter home. Pt's bedroom on second floor but room available on first floor and walk-in shower with grab bars. Caregiver Support: 24-7 supervision available. Lives with father, stepmother and stepsister during weekdays. Stays with mother, stepfather and grandmother during weekend. Pt's mother has custody. Pt's family has medical background: mother is a former RN, father is an EMT and stepmother is an [employer]. Equipment Available: Pt's mother has tub bench, wheelchair and commode available. 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 Loves music and plays multiple instrument with piano and guitar being her favorite. Enjoys spending time with family and friends. Medical/Surgical History: Current: Patient Active Problem List Diagnosis ??? 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 Fracture of temporal bone with routine healing Past: Past Medical History: Diagnosis Date ??? Fracture of temporal bone with routine healing 12/27/2016 Status post fall from horse ??? 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 (HCC) 12/27/2016 Subdural hemorrhage, right parietal skull fracture, suspected diffuse axonal injury No past surgical history on file. Medications: Medications reviewed Body Functions and Performance Skills: Cardiovascular/Respiratory Systems Function Vital Signs: Position Heart Rate (bpm) Blood Pressure (mmHG) Oxygen Saturation SPO2 Liters of Oxygen Pre: Supine 98 103/65 98 Room air Mental Functions Specific Mental Functions (judgement,insight, awareness, attention, memory, spatial relations, coping, body image): *High level of pain during eval which limited formal assessment of cognitive functioning. Able to follow simple 1 step instructions for bed mobility and transfers. Pt's comprehension appeared greater than her verbal responsiveness. Answered questions regarding pain location but unable to provide number on pain scale. Pt's mother reports she has been able to do this and believes pain/medication impacting alertness level. The patient's current score is presenting between an RLA Level ofV and as best judged by this health science writer. [place] (RLA) Levels of Consciousness Scale RLA Level : Confused - appropriate. Patient shows goal directed behavior but requires external structure. Response to discomfort is appropriate, and may be able to tolerate unpleasant stimuli when need is explained. Follows simple directions consistently. Responses may be incorrect due to memory problem but they are appropriate to the situation. Responses may be delayed because of decreased ability to process information. May show vague recognition of staff. Global Mental Functions (orientation, arousal, energy and drive, impulse control): Pt sleeping upon therapist arrival and difficult to arouse. Upon waking up, pt groaned loudly reporting she wanted to return to sleep and was in pain. Voice quality mirrored childlike tone. Oriented to self and year, not location. Poor arousal and energy level. Pt had difficulty opening eyes throughout evaluation. Consistent cueing needed to participate. Pt concerned to learn that she was at a rehab, associated rehab with a drug and alcohol rehab center. After therapist explanation, pt did not perseverate on topic. Pt made some self-deprecating comments (I'm not doing well. I'm not [working hard].). Would most likely benefit from med psych services when appropriate. Cognitive FIM Comprehension: FIM 2 - Maximal Prompting - Understands basic communication 25- 49% of the therapy session. This includes patient with hearing deficits where you need to increase volume of voice all the time or where you need to gesture most of the time. Expression: FIM 3 - Moderate Prompting - Expresses basic needs and ideas 50-74% of the therapy session Social Interaction: FIM 5 - Patient requires supervision (monitoring, verbal control, cuing or coaxing) only under stressful or unfamiliar conditions, but less than 10% of the therapy session. May require encouragement to initiate participation. Problem Solving: FIM 1 - Total Assistance - Patient solves routine problems less than 25% of the therapy session. Need Direction nearly all the time or does not effectively solve problems and may require constant one-to-one direction to complete simple daily activities. May need a restraint for safety. Memory: FIM 2 - Maximal Prompting - Patient recognizes and remembers 25 to 49% of the therapy session and needs prompting more than half the time. Sensory Functions: Sensation and proprioception: Unable to assess; pt could not attend secondary to c/o pain and fatigue. To be assessed in an upcoming session. Vision: Pt typically wears contacts. Has glasses available for distance. Eyes remained closed for most of session. Further assessment is needed in this area. Hearing: Per Dr. Atkinson's H&P, ecchymosis around R ear, clear tympanic membrane but evidence ofblood underlying. Pt appeared to hear vocalizations tslightly above normal conversational tones. Taste: Pt has poor appetite per mother's report but enjoyed raspberry yogurt this morning. Favoritefoods include pizza, mac and cheese and salad. Neuromusculoskeletal and Movement Related Functions Range of motion: Unable to formally assess. Pt could not attend secondary to c/o pain and fatigue. Strength: Unable to formally assess. Pt could not attend secondary to c/o pain and fatigue. Areas of Occupation and Performance Skills: Basic Activities of Daily Living Date: 01/02/17 Feeding FIM 0 Not evaluated - Pt had eated yogurt prior to session. Grooming FIM 0 Not evaluated - Patient Refused Bathing FIM 0 Not evaluated - Unsafe/unable due to severity of impairments Upper Body Dressing FIM 0 Not evaluated - Patient does not have clothing available. Will follow-up with team to obtain clothing for assessment Lower Body Dressing FIM 0 Not evaluated - Patient does not have clothing available. Will follow-up with team to obtain clothing for assessment Toileting: FIM 0 Not evaluated - Attempted on commode but pt did not void. Toilet Transfer FIM 1 Requires Total Assist/Dependent - Patient does less than 25% of effort to transfer on and off or assist of 2 (Mod/max assist x 1 and min assist x 1 for stand pivot transfer to commode with max verbal cues.) Tub Transfer: FIM 0 Not evaluated - Unsafe/unable due to severity of impairments Functional Mobility: Mod assist x 2 to transition from supine to sit with max verbal cues. Mod/max assist x 1 and min assist x 1 for stand pivot transfer to commode with max verbal cues. Instrumental Activities of Daily Living Not addressed this date due to severity of impairments. Informed Consent The patient consented to the occupational therapy evaluation. The patient agrees to and understandsthe occupational therapy treatment plan and goals. Intervention Completed This Date: Occupational therapy today at 0830 and Evaluation: 60 minutes Total Therapy minutes: 60 minute(s) Therapeutic Activities -Family/pt was educated on the role of Occupational Therapy and set goals, along with current functional limitations and how they will affect function both here and at home. Patient/Family Education: Topic: Benefits of activity Role of OT Energy conservation D/C planning Adaptive equipment Safety awareness Head injury Learner: family Method: verbal Barriers to Learning: none noted Outcome: verbalized understanding and reinforcement needed Team Communication: With PT re: evaluation ASSESSMENT: Rachel Liu is a 16 y.o. female admitted on 01/01/2017 due to functional limitations s/p subdural hematoma, parietal and mastoid fractures and suspected diffuse axonal injury. She presents to rehabilitation with pain, fatigue, decreased strength, poor activity tolerance, decreased sitting balance, impaired standing balance, poor functional mobility, limited attention and cognitivedeficits impacting her ability to independently complete self-care, household management, leisure activities, and school. Prior to admission, the patient was independent in all aspects of ADL and IADL. This patient is currently removed from their baseline level of function due to deficits mentionedabove, impacting their roles as student, daughter and community member. Upper quarter screen could not be addressed at this time due to limited ability to follow instructions with pt c/o pain and fatigue. The patient does present with the following strengths which will positively affect her outcome: supportive family with a medical background. Given identified impairments, patient would benefit from skilled OT in order to achieve maximum level of function and ensure a safe discharge. OT will utilize both a restorative approach and compensatory strategies to maximize participation in meaningful activities. ELOS is 3-4 weeks. Anticipate patient will be at a supervision level for ADLs. Patientwill likely require 24-7 supervision upon discharge. Adaptive equipment will potentially consist oftransfer tub bench, grab bars in shower and Versa frame. Patient will likely require home health follow-up upon discharge. GOALS: Short Term Goals: 10 days ?? Pt will tolerate 30 minutes of sitting upright in wheelchair for increased ability to participate in ADLs. ?? As a measure of improved attention to task, pt will complete 5 minutes of ADL routine with minimal verbal cues to attend. ?? Pt will be orientated to facility name, location and date with use of memory aids as needed. ?? Pt will complete toilet transfer with min contact assist x 2. ?? Pt will complete simple seated sponge bath with mod assist x 1 and AE as needed. ?? Pt will complete tub shower transfer with close supervision and AE as needed. ?? Pt will complete upper body dressing with min contact assist x 1. ?? Pt will complete lower body dressing with mod assist x 1. ?? Pt will follow 2 step directions when completing tabletop activity to demonstrate improved ability to follow simple instructions during novel tasks. Penitentiary Goals: 3-4 weeks ?? Pt will complete toileting with supervision. ?? Pt will complete toilet transfer with supervision. ?? Pt will bath with supervision. ?? Pt will complete tub shower transfer with close supervision and AE as needed. ?? Pt will complete upper body dressing with modified independence. ?? Pt will complete lower body dressing with modified independence. ?? Pt will complete basic food prep with supervision only. ?? Pt will complete simple home management tasks, demonstrating good safety awareness and balance throughout. ?? Pt/family will verbalize understanding of recommendations for AE. ?? Pt/family will verbalize understanding of fall prevention strategies. ?? Pt/family will verbalize understanding of energy conservation techniques. ?? Pt/family will verbalize understanding of recommendation for return to driving. PLAN: Intervention: Occupational therapy treatment for 60-90 minutes a day 5-6 times a week for 3 weeks for: Occupation Based Activity - Basic Activities of Daily Living Occupation Based Activity - Instrumental Activities of Daily Living Purposeful Activity Preparatory Method - Exercise Preparatory Method - Neuromuscular Education Preparatory Method - Cognitive Re-training Patient/Family Education Standardized Cognitive Testing Further Data: FIM: see above, complete IRF-SUMIT Patient/Family Education: AE recommendations, fall prevention, energy conservation Discharge Plan: Home with 28/09 supervision Pager: [phone] Georgiana Noriega OT, 01/02/2017, 7:26 * Covert, Luke - 01/01/2017 1202 EDT [facility] - Inpatient Rehab Unit Discharge Planning Communication Tool Discharge Location and Caregiver: Plan is to d/c to her father, Xiang's home where she lives with her stepmother and her sister, Crystal. She will have 24 hour assistance. MELANY LEONE 01/05. Follow-Up Therapy Services: [facility] for home care, [facility] for DME and [facility] for outpatient. LMMaegan CM 01/05. UPDATE 01/12: Pt is scheduled for follow-up outpatient therapies at [facility] as follows: 01/19 PT @7am ARMATURE REPAIRER (@ [facility] office) @1:30pm Fri 02/05 OT @10am Pt should arrive 15 min early for appts and can call [phone] to change or cancel these appts. [phone] * Елена Winkler RN - 01/01/2017 1052 EDT [facility] Inpatient Acute Rehabilitation Unit Pre-Admission Screening Name: Rachel Liu : 2000 Age: 16 y.o. Sex: female Rehab Admission Date: 01/01/17 Rehab Unit: Rehab 2 From: [facility] [place] Arriving via Ambulance Time: 1300 HT: 5'2 WT: 139lbs Admit W/C: Recliner, Regular foot rests Bed to wheelchair transfers for transfer: mod assist of 2-3 - bear hug transfer to recliner Immediate Rehab Needs: Precautions: Fall risk Seizure precautions Mcgrath-J collar when OOB Safety/Behavior: A&Ox1-2 - confused 1:1 supervision Special bed/Lift Needs: *LIFT* Speech and Language Pathology Primary Rehab Diagnosis: BI Traumatic Hx of Present Illness: Previously healthy female admitted after being thrown from horse - unhelmeted (+) loc @ 1 min. She sustained right parietal & mastoid fractures. Left SDH, SAH, IVH & ? MAURICE. Cervical collar to be maintained until flex-ex films are able to be done. F/U required with Otolaryngology & Audiology as well as pediatric Neurosurgery. Acute Admission Date: 01/01/2017 Expected length of stay: 2-3 weeks Ongoing Medical Concerns: There is no problem list on file for this patient. Past Medical History: No past medical history on file. Pre-Hospital Living Setting and Support System: Lives in [place], [place] with parents Services prior to admission: none Prior Level of Function: Ambulated: independently and with no device Completed Self-care: independently Current Functional Status: Care Management: Pain Management: ongoing assessment - pain meds may need to be adjusted. Bladder/ Bowel: Continent. Skin Care: Mcgrath- J collar care. Positioning: assist with bed mobility/positioning, may have C-collar off in bed, Medication Management: Teaching as indicated. Safety: Fall risk. Functional mobility: carryover of therapy techniques and Mental Status: ongoing orientation & cues. Transfers: mod assist of 2-3 - bear hug transfer to recliner Locomotion: From: wheelchair level TBE - OOB to recliner Self-care: mod-max assist IADLs: Deficits below baseline with:, meal preparation, home management and community/school management Swallowing: Intact Communication: Deficits below baseline with expression Cognition: Deficits below baseline with safety awareness, processing, memory Social/Emotional: Followed by Medical Psychology/Psychiatry, Agitated at times, Impulsive, Confusedand Adjustment Issues Rehab Eligibility Assessment: Conditions that caused the need for rehabilitation: Patient has had a significant decline in function as the result of BI Traumatic . Need for Close Medical Supervision: An acute inpatient rehab setting is medically necessary to monitor and manage the Ongoing Medical Concerns listed above and to develop and oversee the plan of carefor Current Functional Deficits also listed above. No multi-disciplinary problems found TBI education Risk for Clinical Complications: Rachel is at Moderate risk for medical complications from these medical issues, impacting ability to participate in the rehabilitation program. Rehab Potential: Rachel has realistic goals and excellent rehab potential. Patient's condition is sufficiently stable at the time of admission to allow this patient to actively participate in an intensive rehabilitation program. Appropriate Therapy Needs: Rehab Nursing , Occupational Therapy , Physical Therapy , Speech and Language Pathology , Medical Psychology and Social Work including patient/caregiver education and DME recommendations and training. Expected Frequency and Duration of Treatment: Anticipate patient will be able to tolerate an acute rehab level intensity of care and for a total of 3 hours per day, 5 days per week, and be expected to make measurable improvement that will be of practical value to improve Rachel Liu's functional capacity or adaptation to impairments. Expected level of improvement: Expect Rachel to complete functional mobility with supervision and complete self-care with supervision at discharge. Anticipated Discharge: Location: Home Support available at discharge: supportive family - parents & step - parents Anticipated Post-Discharge Treatments: Outpatient with OT, PT and ARMATURE REPAIRER Physician Agreement: Co-signature of this note indicates that I have reviewed this pre-admission screening document and concur with the findings. I believe Rachel Liu meets criteria, is sufficiently stable to allow participation in the program, and requires and intensive level of therapy, close medical supervision and an interdisciplinary team approach provided through an individualized planof care. I approve admitting this patient for an intensive, inpatient rehabilitation hospital program. documented in this encounter H&P Notes * Jus Atkinson MD - 01/01/2017 1705 EDT Acute Rehab Admission H+P Admit Date: 01/01/2017 Date of Service: 01/01/2017 PCP: Zina Daly Chief Complaint: Patient is being admitted to Acute rehabilitation following a traumatic brain injury: Subdural hematoma status post fall from horse. History is obtained from full chart review and the results are summarized below. HPI Patient is a 16-year-old female with a history of migraine who was admitted to [facility] on 12/27/2016 after being thrown from a horse. She reportedly was sitting in the horse was not moving when the animal got spooked and through Rachel to the ground. She had 1 minuteof loss of consciousness. Upon regaining consciousness he reportedly was lethargic and combative. Initially taken [facility], she was disoriented and lethargic but following commands. HerGCS was reported at 13. CT scan of the head showed a right parietal skull fracture extending to theskull base and a left subdural hematoma. She was transported to [facility] for further management, requiring fentanyl to keep her calm during transport. She was loaded with Keppra. At [facility], she had a GCS of 9, FAST exam was negative. CT scan of the head, face and cervical spine with a mildly displaced fracturewith depression to the right parietal bone extending to the mastoid bone to the condylar fossa and right sphenoid bone. She has small amount of pneumocephalus. She had a fracture line to the anteriorposterior nguyen of the right sphenoid sinus extending to the right carotid canal. There were blood products in the right middle cranial fossa anterior to the mastoid bone and areas of subarachnoid hemorrhage in the basilar cisterns. She had a small amount of intraventricular hemorrhage the fourth ventricle. Cervical spine with no fracture or malalignment. ET scan of the temporal bone with a highly comminuted fracture of the right mastoid bone, the middle ear ossicles being intact without evidence of dislocation. There was evidence of a right tympanic facial nerve canal fracture but no osseousfragments projecting into the facial nerve canal in the inner ear structures were intact. She was evaluated by ENT and no additional intervention required. CT angiogram with no traumatic vascular injury identified. No surgical intervention has been required. She has been maintained in a Mcgrath J collar secondary to midline neck pain on exam. Flexion-extension films have not been completed secondary to ongoing pain and patient's inability to actively participate in the exam. Her hospital course is been notable for some intermittent agitation. Diffuse axonal injury has been suspected by MRI not completed to evaluate for structural changes. She has been cleared for a regular consistency diet but p.o. intake has been limited, with the patient taking in [employer] consistently. Speech able toparticipate in all therapies but remained with significant functional and cognitive deficits. Case was discussed with Dr. Sameer Kim, pediatric resident at [facility] who reassured me the patient wasmedically and neurologically stable, and participating in all therapies. She has been evaluated anddetermined to be an appropriate candidate for acute inpatient rehabilitation. This patient's current status is similar to the pre-admission screening and is appropriate for inpatient rehabilitation admission. PMH PSH Past Medical History: Diagnosis Date ??? Fracture of temporal bone with routine healing 12/27/2016 Status post fall from horse ??? 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 (HCC) 12/27/2016 Subdural hemorrhage, right parietal skull fracture, suspected diffuse axonal injury No past surgical history on file. Social History Family History Social History Substance Use Topics ??? Smoking status: Not on file ??? Smokeless tobacco: Not on file ??? 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 Lives with her father and stepmother in a two-story home, along with her stepsister. No family history on file. Medications Current Facility-Administered Medications: acetaminophen (TYLENOL) solution unit dose cup 650 mg oral Q4H PRN bacitracin zinc 500 unit/gram ointment topical BID bisacodyl (DULCOLAX) suppository 10 mg rectal Daily PRN ciprofloxacin-dexamethasone (CIPRODEX) otic suspension 3 Drop right ear BID ibuprofen (ADVIL;MOTRIN) suspension 400 mg oral Q6H PRN levETIRAcetam (KEPPRA) tablet 500 mg oral BID LORazepam (ATIVAN) concentrated solution 1 mg oral QID PRN methocarbamol (ROBAXIN) tablet 500 mg oral QID PRN ondansetron (ZOFRAN-ODT) disintegrating tablet 4 mg oral Q4H PRN oxyCODONE (ROXICODONE) solution 5 mg oral Q4H PRN risperiDONE (RISPERDAL) tablet 1 mg oral Q12H PRN Allergies No Known Allergies Review of Systems: A ten point review of systems was performed. Pertinent positives are listed below, all others are negative: Anxiety Objective/Physical Exam: VS: Patient Vitals for the past 8 hrs: BP Resp Temp SpO2 O2 Flow Rate (L/min) O2 Device 01/01/17 1700 122/68 18 36.5 ??C (97.7 ??F) 99 % 0 l/min None Pain: No data found. Weight: Weight : 61.2 kg (134 lb 14.4 oz) BMI: Body mass index is 23.16 kg/(m^2). Glucose Readings (last 8 readings): No results for input(s): GLUCOSEFINGE in the last 72 hours. Exam: Gen: Sleepy and restless HEENT: Head: Normocephalic, no lesions, without obvious abnormality. Eye: Normal external eye, conjunctiva, lids cornea, FAUSTINO. She has decreased ability to open the right eyelid. Ears: There is ecchymosis around the right ear. The right tympanic membrane is clear but evidence of blood underlying. Nose: Normal external nose, mucus membranes and septum. Pharynx: Dental Hygiene adequate. Normal buccal mucosa. Normal pharynx. Neck / Thyroid: No palpable thyromegaly or lymphadenopathy. She has some diffuse non-focal tenderness through the posterior neck, right greater than left. Head extraocular muscles cannot be fully assessed at this time as she is not cooperative. She is visually scanning to the right and left. Skin: Abrasion noted at the right shoulder Cardiac: Cor RRR Pulmonary: clear to auscultation bilaterally Abdomen: normal bowel sounds, soft, nontender Musculoskeletal: no joint tenderness, deformity or swelling, no muscular tenderness noted, full range of motion without pain Neuro: She has oriented to the hospital. When given a moment she was aware of that Halloween is next week. She is following basic commands Affect: tearful and emotionally labile Language: Mildly dysarthric speech fluent and spontaneous, volunteers information Cranial nerves: CN III-IV, : EOMI, No nystagmus. No ptosis or anisocoria is noted. CN V: Normal masseter bulk, tone. CN VII: Right facial droop CN VIII: Impaired hearing on the right CN IX-X: No dysphonia, mild dysarthria. Normal palatal and uvular elevation. Motor: Strength difficult to fully assess but at least 4/5 throughout and appears symmetric. Tone normal Reflexes: trace and symmetric Sensation: Decreased right facial sensation Cerebellar: Cannot be assessed at this time Station and gait: Not evaluated Pressure Ulcer Present on admission? No Data Review: Labs: I have personally reviewed the last labs available in [facility] and any transfer labs Other Studies: N/A Assessment/Problems: (update problem list daily as appropriate) Patient Active Problem List Diagnosis Date Noted ??? (H)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 (HCC) 12/27/2016 Priority: Medium Subdural hemorrhage, right parietal skull fracture, suspected diffuse axonal injury ??? (H)Fracture of temporal bone with routine healing 12/27/2016 Priority: Medium This patient's current status is similar to the pre-admission screening and is appropriate for inpatient rehabilitation admission. Patient has had a significant decline in function as the result of traumatic brain injury. She has impaired cognition, communication, self care, balance, and functionalmobility. An acute inpatient rehab setting is medically necessary for physician monitoring of nutrition, agitation, 24 hour nursing care, and acute level therapies including PT, OT, ARMATURE REPAIRER for 3 hours per day, 5 days per week. Patient has excellent rehab potential and is expected to be independent with functional mobility and self-care at discharge. Plan: 1. Traumatic brain injury: Left subdural hematoma, question diffuse axonal injury status post beingthrown from a horse 12/27/2016: Patient with residual cognitive impairments, but has some relative strengths with regards to overall awareness of her environment. Does appear that she has decreased attention, but some of this may be related to pain Full PT, OT, ARMATURE REPAIRER assessments and therapies to address mobility, self care, cognition. 24 hour rehabnursing for self care deficits Continue Keppra for seizure prophylaxis I discussed prehospital medications with her parents, we will change Valium to Ativan, continue Risperdal p.r.n. I also discussed starting her on amantadine which may have positive outcome on cognitive outcome and they are in agreement. Impairment Group Closed Traumatic Brain Injury 2. Right parietal bone fracture: Reportedly extensive mastoid bone to the condylar fossa and right sphenoid bone. Continue cervical collar when out of bed. Consider flexion-extension films when nontender. Ryan reportedly has been a ongoing issue and continue to work on adequate pain control, currently on oxycodone. 3. Nutrition: Reported Limited p.o. intake at [facility]. Continue supplements and regular consistency diet. Nutrition consult 4. Right temporal bone fracture: No additional intervention required. Reportedly seen by ENT at [facility]. She does have impaired hearing on the right, and is already set up for audiometric testing after discharge. 5. Anxiety: Long-standing. Medical psychology consultation. DVT Prophylaxis: Pharmacologic Prophylaxis: Enoxaparin (Lovenox) 40 mg SQ daily Discharge Plan: Home with home health ELOS: 3 weeks Jus Atkinson MD 01/01/2017 17:06 documented in this encounter Miscellaneous Notes * Plan of Care - Raina Morelos RN - 01/14/2017 2122 EST Problem: Daily Care Plan Goals Goal: Care Plan Documentation Outcome: Met This Shift 01/14/17 0930 Care Plan Focus Area of Focus Discharge Plan Goal This Shift Pt and family will have a good understanding of dc plan/instructions. Discharge instructions reviewed with pt and family - verbalized understanding. Prescription for Oxycodone given to family. Pt medicated with Oxycodone 5 mg, Ibuprofen 400 mg, Zofran 4 mg and Ativan 0.5 mg po for ride home. Pt discharge to home accompanied by family. * Plan of Care - Kim Pena RN - 01/14/2017 0738 EST Problem: Daily Care Plan Goals Goal: Care Plan Documentation Outcome: Met This Shift 01/14/17 0636 Care Plan Focus Area of Focus Sleep Goal This Shift Pt will get adequate sleep tonight Pt's last night on Rehab II. Pt's stepmother present in room. Pt noted to be asleep on all hourly rounds. Pt is independent with bed mobility. Pt's stepmother requested pt receive ibuprofen this AM to help with stiffness. Pt agreeable to this, however unable to provide pain number. Continue to monitor pt for pain control. * Plan of Care - Margarita Singh RN - 01/13/2017 2149 EST Problem: Daily Care Plan Goals Goal: Care Plan Documentation Outcome: Met This Shift 01/13/17 1800 Care Plan Focus Area of Focus Pain/ Comfort Goal This Shift relieve pain Data: AKBAR pain to 7/10. Pt resting in room, turns self in bed, sits up in bed. Encouraged to rest before supper. Action: Pt has rec'd pain meds as ordered prn, visit from parents, and step mom staying overnnight Response: At 2130 pt reports 0 pain. Stepmother Kristal and she are playing cards. Will ring for motrin when needed. Margarita Singh RN 01/13/2017 21:46 * Plan of Care - Cecilia Dumas - 01/13/2017 1402 EST Problem: Daily Care Plan Goals Goal: Care Plan Documentation Outcome: Ongoing 01/13/17 0900 Care Plan Focus Area of Focus Pain/ Comfort Goal This Shift adequate pain control Data: Patient c/o 10/10 pain in her pelvis/lower abdomen Action: Medicated with oxycodone 5mg, see eMAR. Response: Patient reported pain was much better, 2/10 upon reassessment. Will continue to monitor. Cecilia Dumas RN 01/13/2017 13:54 * Plan of Care - Cinthya Walsh RN - 01/13/2017 0514 EST Problem: Daily Care Plan Goals Goal: Care Plan Documentation Outcome: Ongoing 01/12/17 2333 Care Plan Focus Area of Focus Pain/ Comfort Goal This Shift pt will report relief from abdominal pain Patient asleep during all hourly checks. Awake x1 overnight, requesting additional blanket, reportsabdominal pain is better, will cont to monitor. * Plan of Care - Lorena Johnson RN - 01/12/2017 5954 EST Problem: Daily Care Plan Goals Goal: Care Plan Documentation Outcome: Ongoing 01/12/17 1541 Care Plan Focus Area of Focus Pain/ Comfort Goal This Shift Pt will report adequate pain control Data: Pt reporting continuous lower stomach ache. Reports having a BM today. Bowel sounds hypoactive. Pt states that menses was suppose to start 2 days ago, question as to whether pain is cramping related. Pt states that she has forgotten what period cramps feel like. Pt also reported pain in frontal head. Action: Warm pack given for abdomen. PRN analgesics given for pain. Lauren yosef given for upset stomach. Response: Pt still reporting pain in lower abdomen. Interventions not effective at this time. PRN Zofran given at this hour, awaiting results. Lorena Johnson RN 01/12/2017 22:50 * Plan of Care - Brielle Epps RN - 01/12/2017 1501 EST Problem: Daily Care Plan Goals Goal: Care Plan Documentation Outcome: Met This Shift 01/12/17 0910 Care Plan Focus Area of Focus Pain/ Comfort Goal This Shift patient's pain will be well controlled Data: Pt c/o pain 6/10 this morning Action: Medicated with PRN pain medications Response: Patient's pain decreased to 1/10. WCTM. Well controlled. Brielle Epps RN 01/12/2017 15:00 * Plan of Care - Maribell Santiago RN - 01/12/2017 0516 EST Problem: Daily Care Plan Goals Goal: Care Plan Documentation Outcome: Met This Shift 01/11/17 2355 Care Plan Focus Area of Focus Sleep Goal This Shift Patient will have adequate sleep. Patient has been asleep on all hourly rounds. Grandmother in room with patient this shift. * Plan of Care - Lorena Johnson RN - 01/11/2017 2255 EST Problem: Daily Care Plan Goals Goal: Care Plan Documentation Outcome: Met This Shift 01/11/17 1556 Care Plan Focus Area of Focus Pain/ Comfort Goal This Shift Pt will report adequate pain control. Data: Pt c/o an upset stomach and pain in posterior neck and frontal head rated 6/10. Action: Medicated with PRN Zofran for nausea and PRN Ibuprofen and Oxycodone for pain. Lauren yosef given for upset stomach. Response: Pt stated pain as 1/10 by HS and that upset stomach had subsided. Lorena Johnson RN 01/11/2017 22:48 * Plan of Care - Brielle Epps RN - 01/11/2017 1505 EST Problem: Daily Care Plan Goals Goal: Care Plan Documentation Outcome: Met This Shift 01/11/17 0809 Care Plan Focus Area of Focus Pain/ Comfort Goal This Shift patient's pain will be well controlled Data: Patient c/o pain in neck/head 4/10 Action: Medicated with PRN pain medications Response: Pain well controlled today with medications. 03/17 last checked. WCTM. Brielle Epps RN 01/11/2017 15:02 * Patient Care Conference - Jus Atkinson MD - 01/11/2017 1012 EST Inpatient Acute Rehabilitation Unit - Interdisciplinary Team Conference Note Rachel Liu 16 y.o. female Team Conference Date/Time: 01/12/2017 @1205 Admit Date/Time: 01/01/2017 16:14 Expected Discharge Date: 02/02/17 Primary Rehab diagnosis: BI Traumatic Comorbid Conditions: Patient Active Problem List Diagnosis ??? 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 Fracture of temporal bone with routine healing Progress towards goals: Nursing: Pain Management: pt's pain well controlled with PRN pain medications, pain located in neckand head, Bowel: pt states LBM yesterday, given colace and senna, prone to constipation since hospitalization, poor appetite, oxy, Medication Management: dependent with med management at this time- made pt a med card for her to start being more independent on HLTBI program, Nutritional deficits: poor appetite, and Safety: [place] J collar on when OOB OT: Notable gains include improved independence with bathing, dressing, functional mobility and cognitive functioning and Progress limited primarily by pain. See below for additional barriers PT: Notable gains includedecreased assistance required for all functional mobility Gait: The patient ambulates with supervison, cues and assistance of 1 with no assistive device for 1,000 feet. Gait deviations: minimal staggering with external distractions Stairs: Patient negotiates with min contact assist of 2 up and down 18 stairs with 2 rails. Self-Care:Bed Mobility: Sit->supine: independently with flat bed and no rails. Supine->sit: independently with flat bed and no rails. Transfers: Bed < > Chair: stand-step with supervison, cues and assistance of 1 ARMATURE REPAIRER: The patient requires encouragement to engage in session and demonstrates a low threshold for challenges resulting in reduced motivation. However, patient demonstrates improved performance She continues to demonstrate an impulsive approach when completing structured, therapeutic tasks and as a result, misses details which impedes overall task accuracy. Despite this, she implements organizational techniques including the cross-out strategy to systematically complete tasks. Patient demonstrates gains in short-term recall of functional information over the course of several days. The patientis demonstrating readiness to initiate the HLTBI program. At this time, patient presents with functioning consistent with mild impairments across cognitive-linguistic domains of attention, memory and higher level cognitive-linguistic skills consistent with communication-cognitive sequelae of traumatic brain injury, RLA Level VIII-IX, as best judged. Patient demonstrates mild impairments in reasoning skills (particularly with multiprocess deductive reasoning), consistent with TBI. Verbal discourse is fluent, however patient demonstrates reduced auditory processing in conversation resulting in off-topic and tangential commentary. The patient demonstrates increased insight into communication-cognitive deficits s/p TBI and reports that a decline in memory is the most noticeable change. Given patient's age, independence prior to admission, and social/occupational demands, she will benefit from intensive ARMATURE REPAIRER intervention. Based on the patient's premorbid level of functioning, medical diagnosis, comorbidities and patient/family support, the patient's prognosis is considered: Excellent with anticipation that patient will return home and reconvene her education in high school. Medical Complications: None identified at this timeLevel of Risk & Environmental Privilege: [facility] Level: 8 Pre-Hospital Living Setting and Support System: Pt lives in [place], [place] and her mother has custody;pt lives with grandmother, mom and step-dad on weekends. Dad is an EMT and step-mom MANAGER [employer]. Mom is former RN. 24-7 supervision available at time of discharge. Dad's home: Bedroom located up a flight of stairs. Five little steps-3 steps platform then a couplemore??to enter with nothing sturdy. Bathroom on the first floor with a tub with no grab bars. Dad- said he can live downstairs. ??Mother's home: Two steps to get into house with 2??railings. Bedroom available on first floor with walk-in shower and grab bars. Barriers to Discharge: ??Impaired mobility s/p TBI - pt is a high risk for falls and requires assist with functional mobility. Functional deficits with self-care and mobility with decreased strength and neuromuscular control, decreased activity tolerance, decreased cognition, and pain as verbalizedby pt- however, unable to formally assess. Efforts to Remove Barriers: Patient is tolerating Acute IP Rehab Program intensity well and making significant functional progress. Full rehab program to increase the patient's level of independence with self-care and functional mobility to decrease the amount of assistance and/or supervision needed at discharge. Additional Team Conference Discussion: Anticipated Actual Discharge Disposition: Discharge Location: Home Caregiver at Discharge: Parent Supervision/Assistance at Discharge: 24 hour supervision Revised Expected Discharge Date: 01/14/17 Follow-Up Services: Home health with OT, PT and ARMATURE REPAIRER and Outpatient with OT and PT, ARMATURE REPAIRER Anticipated Home Care Needs: None anticipated Reassessment of goals or treatment program: Goals maintained Assessment of need for Acute Rehabilitation level of care: The expected course of treatment continues to require an interdisciplinary approach to maximize interventions and progress towards functional goals established., The patient generally participates actively in therapy at expected intensity levels., Continue therapies by OT, PT and ARMATURE REPAIRER and For a total of 3 hours per day, 5 days per week Additional interdisciplinary team information: Patient/Caregiver Communication: Nurse will inform patient/family of discharge plan and estimated length of stay Team Conference Attendees: Rehab Physician: Jus Atkinson MD Dip Brazier: Sidra Alejo [facility] Rn Geriatric: Shana Johnson RN Nurse: Brielle Epps RN OT: Georgiana Noriega OT PT: Magalis Abbott PT AUTO LOCATOR: ARMATURE REPAIRER: Noelle Liriano M.S., [facility]-ARMATURE REPAIRER * Plan of Care - Maribell Santiago RN - 01/11/2017 0555 EST Problem: Daily Care Plan Goals Goal: Care Plan Documentation Outcome: Met This Shift 01/11/17 0100 Care Plan Focus Area of Focus Sleep Goal This Shift Patient will have adequate sleep. Patient asleep on all but first hourly round. PRN Oxy administered q 6 hours per patient request for neck pain (see eMAR). Mother in room all shift. Patient did not get out of bed this shift. * Plan of Care - Lorena Johnson RN - 01/10/2017 9393 EST Problem: Daily Care Plan Goals Goal: Care Plan Documentation Outcome: Met This Shift 01/10/17 1717 Care Plan Focus Area of Focus Pain/ Comfort Goal This Shift Pt will report adequate pain control Data: Pt c/o pain in posterior neck and frontal head, rated 7/10 at start of shift. Pt slightly tearful when c/o pain. Action: Medicated with PRN Ibuprofen and Oxycodone (see MAR). Applied ice and then heat pack to neck. Encouraged pt to decrease stimuli by turning off T.V. Response: Pt rated pain 1/10 a couple hours after interventions initiated. Pt requested Lorazepam and Robaxin at HS to sleep, meds administered (see MAR). Pt and family requesting that Ibuprofen and Oxycodone be given PRN around the clock to keep ahead of pain. Lorena Johnson RN 01/10/2017 22:47 * Plan of Care - Brielle Epps RN - 01/10/2017 1436 EST Problem: Daily Care Plan Goals Goal: Care Plan Documentation Outcome: Met This Shift 01/10/17 0930 Care Plan Focus Area of Focus Pain/ Comfort Goal This Shift patient's pain will be well controlled Data: Patient c/o pain in neck/head, 08/15 Action: Medicated with scheduled and PRN pain medications Response: Pain decreased to 2-3/10. Pain well controlled. [facility]. Brielle Epps RN 01/10/2017 14:34 * Plan of Care - Lorena Johnson RN - 01/09/2017 0704 EDT Problem: Daily Care Plan Goals Goal: Care Plan Documentation Outcome: Met This Shift 01/09/17 1533 Care Plan Focus Area of Focus Pain/ Comfort Goal This Shift Pt will report adequate pain control Data: Pt reported pain in frontal head rated 5/10. Action: Administered PRN Ibuprofen and Oxycodone (see MAR) for pain. Response: Per pt's step mom, pt sleep well last night when taking PRN Robaxin and Ativan before bed. PRN Robaxin and Ativan given this HS per request (see MAR), results pending. Pt stated that AKBAR resolved by HS. Will continue to monitor. Lorena Johnson, MONTY 01/09/2017 22:46 * Plan of Care - Brielle Epps RN - 01/09/2017 1456 EDT Problem: Daily Care Plan Goals Goal: Care Plan Documentation Outcome: Met This Shift 01/09/17 0911 Care Plan Focus Area of Focus Pain/ Comfort Goal This Shift pt's pain will be well controlled Data: Pt's pain 5/10 in neck Action: Medicated with PRN pain medications Response: Pain currently 0/10. Pain well controlled today. WCTM. Brielle Epps RN 01/09/2017 14:55 * Plan of Care - Ludwin Velázquez RN - 01/09/2017 0702 EDT Problem: Daily Care Plan Goals Goal: Care Plan Documentation 01/09/17 0329 Care Plan Focus Area of Focus Pain/ Comfort Goal This Shift pt will adequate pain control Pt received PRN oxycodone 5mg at 0430 per mother requested. Pt asleep on most hourly checked, declined pain or urge to void at 0645 this morning, Pt have not void yet this shift, refused bladder scan. No unsafe behaviors noted this shift. * Plan of Care - Omar Menon RN - 01/08/2017 2222 EDT Problem: Daily Care Plan Goals Goal: Care Plan Documentation Outcome: Ongoing 01/08/17 1650 Care Plan Focus Area of Focus Pain/ Comfort Goal This Shift pt will verbalize adequate pain control Data: Pt c/o 2/10 pain r/t AKBAR s/p TBI. Pt reported poor sleep last night due to high anxiety. Action: Pain analgesics given per emar. PRN Ativan given at HS for anxiety. Response: Pt reported good effect but c/o inability to sleep. Robaxin given for stiffness in neck/sleep at 2230. Staff is aware and wctm. Omar Menon RN 01/08/2017 22:20 * Plan of Care - Brielle Epps RN - 01/08/2017 1416 EDT Problem: Daily Care Plan Goals Goal: Care Plan Documentation Outcome: Ongoing 01/08/17 0754 Care Plan Focus Area of Focus Pain/ Comfort Goal This Shift patient's pain will be well controlled Data: Pt c/o pain 4/10 in head and neck Action: Medicated with PRN pain medications Response: Pain decreased to 2/10 but increased again to 4/10. Medicated again with PRN pain medications. Pain is an ongoing issue. WCTM. Brielle Epps RN 01/08/2017 14:15 * Plan of Care - Kim Pena RN - 01/08/2017 0640 EDT Problem: Daily Care Plan Goals Goal: Care Plan Documentation Outcome: Ongoing 01/08/17 0100 Care Plan Focus Area of Focus Sleep Goal This Shift Pt will get adequate sleep tonight Pt is alert and oriented to person. Pt reported feeling very anxious at the start of the shift and c/o hands shaking. Pt agreeable to ativan. Pt noted to be asleep within the hour and no further complaints of anxiety. Pt and pt's mother requested to be awakened for PRN Oxycodone during the night. See eMAR for medication administration. Pt denied urge to void thus far and per Mother pt voided at 2130 previous night. Continue to monitor pt for pain control, anxiety and urinary status. * Plan of Care - Gabrielle Padilla RN - 01/07/2017 2244 EDT Problem: Daily Care Plan Goals Goal: Care Plan Documentation Outcome: Met This Shift 01/07/17 2200 Care Plan Focus Area of Focus Pain/ Comfort Goal This Shift Adequate pain control. Data: Right parietal skull fracture, left SDH. Mother, [place] at bedside. Action: Medicated with 5 mg Oxycodone and 400 mg Motrin for neck pain, with good effect. Of Note: UA collected and sent to lab. Response: Pain control goals met this shift. Gabrielle Padilla RN 01/07/2017 22:40 * Plan of Care - Maria Luz Yanez RN - 01/07/2017 1340 EDT Problem: Daily Care Plan Goals Goal: Care Plan Documentation Outcome: Met This Shift 01/07/17 0809 Care Plan Focus Area of Focus Pain/ Comfort Goal This Shift Adequate pain control. Pt rating neck pain 2/10 today. Medicated with tylenol and oxy IR as ordered with good results. Participating with all therapies. Will continue to monitor. * Plan of Care - Ludwin Velázquez RN - 01/07/2017 0658 EDT Problem: Daily Care Plan Goals Goal: Care Plan Documentation Outcome: Ongoing 01/07/17 0050 Care Plan Focus Area of Focus Pain/ Comfort Goal This Shift pt will have adequate pain control this shift Data: Pt alert and oriented x3, able to make need to know. Pt c/o posterior neck pain when waken upin morning, pt keep yelling out I don't know when this health science writer assess pt's pain level. Action: Step mother at bedside provide emotional support. Medicated PRN pain meds, see eMar for detail, ice pack given. Response: Pt is appear clam down a bit, refused to interact to staff by ice puller blanket over head. Ludwin Velázquez RN 01/07/2017 6:55 * Plan of Care - Lorena Johnson RN - 01/06/2017 3194 EDT Problem: Daily Care Plan Goals Goal: Care Plan Documentation Outcome: Met This Shift 01/06/17 1557 Care Plan Focus Area of Focus Pain/ Comfort Goal This Shift Pt will report adequate pain control Data: Pt c/o pain in posterior neck and right ear, rated 6/10. Action: Administered PRN Oxycodone x2 and Ibuprofen (see MAR). Response: Pt rated pain as 2/10 after pain medications. Pt states that the pain in her neck is never at a 0, but manageable with current med regimen. Will continue to monitor. Lorena Johnson RN 01/06/2017 22:49 * Plan of Care - Cecilia Dumas - 01/06/2017 1632 EDT Problem: Pressure Ulcer Prevention Goal: Absence Of Pressure Ulcer Outcome: Ongoing Iftikhar score 17 on skin rounds. Skin on heels and coccyx intact. TRAMAINE elbows or under [place] J collardue to pain. Per family member in room, abrasion to right shoulder is healing well. Will continue to monitor skin integrity. * Plan of Care - Ludwin Velázquez RN - 01/06/2017 0658 EDT Problem: Daily Care Plan Goals Goal: Care Plan Documentation Outcome: Ongoing 01/06/17 0234 Care Plan Focus Area of Focus GI//Elimination Goal This Shift pt able to void x1 Data: Pt alert and oriented x3, parent at bedside and insist and require medicated PRN pain meds. Pt last void around 2300 at bedside commode. Action: Anticipated pt's needs, offer toilet x2, encourage po fluid. Response: Pt do not void till 0630, bladder scan =361ml. Pt refused attempt to use bedside commode. Ludwin Velázquez RN 01/06/2017 6:49 * Plan of Care - Loerna Johnson RN - 01/05/2017 2220 EDT Problem: Daily Care Plan Goals Goal: Care Plan Documentation Outcome: Met This Shift 01/05/17 1709 Care Plan Focus Area of Focus GI//Elimination Goal This Shift Pt will void on commode Data: According to report, pt's last void was 1130, with the need to be straight cathed. Action: Offered toileting q 2-3hrs. Monitored urine output. Encouraged fluids. Response: Pt agreed to sit on commode at 1700, despite feeling the need to void. Suggested pt to just try. Pt had output of 625cc omar, cloudy, and malodorous urine in commode. Pt again voided whilein shower at 2000. Will continue to monitor. Lorena Johnson RN 01/05/2017 22:20 * Plan of Care - Viviana Davila RN - 01/05/2017 1506 EDT Problem: Daily Care Plan Goals Goal: Care Plan Documentation 01/05/17 0844 Care Plan Focus Area of Focus Pain/ Comfort Goal This Shift adequate pain control Medicated X 1 in am for headache with Motrin and Tylenol 4/10-2/10. 5/10 headache during PT, anxious. Medicated with Oxycodone 5 mg x 1 with 0/10 relief. This Afternoon, c/o neck pain. Medicated withMotrin 400 mg at 1500. Family (Dad) would like to avoid Tylenol. Mcgrath J collar on when OOB to bedside commode with 2 assist. Stay with patient while on commode. Poor trunk control. UTV. ZLU=439 cc. Pt has sensation. Cath for 525 cc. Fluids encouraged at bedside. Dad and grandmother visiting. C/o ear pain during PT this afternoon that has resided. Music helpful with distraction during cath per pt request. 2 staff at bedside during cath done. * Plan of Care - Ludwin Velázquez RN - 01/05/2017 0731 EDT Problem: Daily Care Plan Goals Goal: Care Plan Documentation Outcome: Ongoing 01/05/17 0442 Care Plan Focus Area of Focus Pain/ Comfort Goal This Shift pt will have adequate pain control Pt's parent at bedside request around clock pain meds, medicated with PRN oxycodone at 0230 and 0630. Pt c/o unable to void on her own, bladder ncrg=[id number], straight cath fawcgr=[id number] at 0530ml. Very poor trunk control, required two person stabilized while on the commode. * Plan of Care - Dat Machuca RN - 01/04/2017 1732 EDT Problem: Daily Care Plan Goals Goal: Care Plan Documentation Outcome: Ongoing 01/04/17 1726 Care Plan Focus Area of Focus Pain/ Comfort Goal This Shift Adequate pain control Data: Patient rates pain 4/10 in head and neck. Action: Ibuprofen 400 mg given PO, see MAR. Response: Patient now sleeping comfortably in bed. Dat Machuca RN 01/04/2017 17:31 * Plan of Care - Brielle Epps RN - 01/04/2017 1426 EDT Problem: Daily Care Plan Goals Goal: Care Plan Documentation Outcome: Ongoing 01/04/17 0827 Care Plan Focus Area of Focus GI//Elimination Goal This Shift pt will void Data: Pt has not voided since approximately 1900 last evening. Action: Dr. Atkinson made aware. Bladder scanned patient this morning. 350cc. Dr. Atkinson said to havepatient attempt to void later in day and scan if no void. Patient attempted to void 2x this shift. Unable to void. Last attempt was at 1330. Scanned patient after she tried to void-459cc in bladder. Dr. Atkinson made aware. Encouraged fluids. Response: New order for bladder scan Q12h and cath if greater than 600cc. WCTM. Ongoing issue. Brielle Epps RN 01/04/2017 14:25 * Patient Care Conference - Jus Atkinson MD - 01/04/2017 2794 EDT Inpatient Acute Rehabilitation Unit - Interdisciplinary Team Conference Note Rachel Liu 16 y.o. female Team Conference Date/Time: 01/05/2017 @1205 Admit Date/Time: 01/01/2017 16:14 Primary Rehab diagnosis: BI Traumatic Comorbid Conditions: Patient Active Problem List Diagnosis ??? 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 Fracture of temporal bone with routine healing Progress towards goals: Nursing: Pain-headache 06/15 to 210 after Motrin and Tylenol this am. Oxycodone and Ativan prn on noc shift. Antibiotic ear drops bid to right ear. Bladder- Did not void on noc shift. Cath for 625 ccat 0545. Encourage fluids at bedside. Unable to void, MWO=345, cath at 1130 for 525 cc. Mobility-Refused oob for meal this am. Mcgrath J collar when OOB. Anticoagulation-Lovenox sc daily. OT: Notable gains include improved activity tolerance, increased independence with functional transfers and improved arousal level and Progress limited primarily by pain, fatigue and decreased strength. See below for additional barriers PT: Notable gains includeprogression to improved alertness Gait: Not evaluated due to level of impairment Stairs: Not evaluated due to level of impaiment Self-Care:Bed Mobility: Sit->supine: with mod assist of 2 with head of the bed up and rails. Supine->sit: with mod assist of 2 with head of the bed up and rails. 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 The patient is able to respond to basic pointed questions in conversation pertaining to her prior level with mild amount of prompts from her mother. Verbal discourse is predominantly fluent and characterized by occasional anomia, occasional use of empty language, as well as production of language of confusion at times. This appears to occur in verbal output of increased length and complexity versus short, contextual phrase and sentence-length responses and appears to be more consistent with reduced auditory processing and linguistic organizationversus benson language impairment. Patient demonstrated the ability to consistently follow 1 to 3-step directions, however displays decreased auditory??processing with increased complexity of??content. Patient demonstrates awareness of accident and reason for hospitalization. Patient is??currently able to communicate her basic wants and needs and anticipate that she will require assistance to??direct her??medical care given reduced awareness/insight into deficits and increased fatigue s/p TBI. Given patient's age, independence prior to admission, and social/occupational demands, she??will??benefit from intensive ARMATURE REPAIRER intervention. Based on the patient's premorbid level of functioning, medical diagnosis, comorbidities and patient/family support, the patient's prognosis is considered: Excellent with anticipation that patient will return home and reconvene her education in high school. Formal evaluation to be completed next session. Given attention limitations, session intensity to be reduced. Medical Complications: Impaired hearing right ear, AKBAR and neck pain. Level of Risk & Environmental Privilege: B [facility] Level: 5/6 Pre-Hospital Living Setting and Support System: Pt lives in [place], [place] and her mother has custody;pt lives with grandmother, mom and step-dad on weekends. Dad is an EMT and step-mom MANA[employer]. Mom is former RN. 24-7 supervision available at time of discharge. Dad's home: Bedroom located up a flight of stairs. Five little steps-3 steps platform then a couplemore to enter with nothing sturdy. Bathroom on the first floor with a tub with no grab bars. Dad- said he can live downstairs. ??Mother's home: Two steps to get into house with 2 railings. Bedroom available on first floor withwalk-in shower and grab bars. Barriers to Discharge: Impaired mobility s/p TBI - pt is a high risk for falls and requires assist with functional mobility. Functional deficits with self-care and mobility with decreased strength and neuromuscular control, decreased activity tolerance, decreased cognition, and pain as verbalized by pt- however, unable to formally assess. Efforts to Remove Barriers: Patient is tolerating Acute IP Rehab Program intensity well and making significant functional progress. Full rehab program to increase the patient's level of independence with self-care and functional mobility to decrease the amount of assistance and/or supervision needed at discharge. Additional Team Conference Discussion: Team discussion of initial evaluations, progress to date andgoals for Inpatient Acute Rehab program. Discussion of level of arousal and engage in therapy. Urinary retention. Impaired attention and some behavioral issues - discussion of baseline and personality vs new impairments. Anticipated Actual Discharge Disposition: Discharge Location: Home Caregiver at Discharge: Parent Supervision/Assistance at Discharge: 24 hour supervision Discharge Date: 02/02/2017 Follow-Up Services: Outpatient with OT, PT and ARMATURE REPAIRER, , Anticipated Home Care Needs: None anticipated Reassessment of goals or treatment program: Goals maintained Assessment of need for Acute Rehabilitation level of care: The expected course of treatment continues to require an interdisciplinary approach to maximize interventions and progress towards functional goals established., The patient generally participates actively in therapy at expected intensity levels., Continue therapies by OT, PT and ARMATURE REPAIRER and For a total of 3 hours per day, 5 days per week Additional interdisciplinary team information: Patient/Caregiver Communication: Nurse will inform patient/family of discharge plan and estimated length of stay Team Conference Attendees: Rehab Physician: Jus Atkinson MD Rn Geriatric: Shana Johnson RN Nurse: Viviana GO OT: Georgiana Noriega OT PT: Magalis Abbott PT AUTO LOCATOR: ARMATURE REPAIRER: Noelle Liriano CCC ARMATURE REPAIRER * Plan of Care - Ludwin Velázquez RN - 01/04/2017 0630 EDT Problem: Daily Care Plan Goals Goal: Care Plan Documentation Outcome: Met This Shift 01/04/17 0217 Care Plan Focus Area of Focus GI//Elimination Goal This Shift pt will able void x1 Pt's mother stay overnight, requested medicated around clock to prevent breakthrough pain. This health science writer medicated with PRN tylenol and oxycodone at 0130 and 0539, see eMar. Pt was crying out I am tried, leave me alone. Pt and pt's mother refused to get out to try to use bedside commode. Per pt's mother she doesn't have much to drink since she voided last night. She usually not peeing much. Wecan get her up after breakfast to try bedside commode. Pt refused bladder scan this shift, only hassips fluid with med. 4/4 side rail up per pt's mother request. No unsafe behaviors noted this shift. * Plan of Care - Jaquelin Payne RN - 01/03/2017 2234 EDT Problem: Daily Care Plan Goals Goal: Care Plan Documentation Outcome: Met This Shift 01/03/17 1653 Care Plan Focus Area of Focus GI//Elimination Goal This Shift pt will void this shift Pt went 18 hours between voids today. Pt had last voided at 0100. Pt taking very little PO despite frequent encouragement from parents and staff. Pt did take in 500cc apple juice throughout the day today, a few bites of yogurt and approx 250cc of milkshake made with lee flavored magic cup,vanillaice cream, and whole milk. Pt pre-medicated with pain medications and ativan before agreeing to transfer to [facility] in an attempt to void this evening. Pt did void on the commode at 1915. Pt voided 650cc concentrated omar urine. Urine notable for presence of flecks of small brown colored blood clots, and blown blood on wipe. Pt mother reports she had her period 2 weeks ago, but that she does sometimes have irregular periods. Will continue to encourage PO intake, and more frequent attempts to void. Pt mother reports that pt would hold her urine before this accident as well, to the point of UTI. * Plan of Care - Omar Menon RN - 01/03/2017 1531 EDT Problem: Daily Care Plan Goals Goal: Care Plan Documentation Outcome: Ongoing 01/03/17 0940 Care Plan Focus Area of Focus GI//Elimination Goal This Shift pt will empty her bladder independently Pt has urinary retention s/p TBI. Pt refused BUS this morning. BUS at 1130 for 288ml. Pt transferred to [facility](2 assist) but unable to void. Pt has poor fluid intake. This nurse discussed risks of poor fluid intake/urinary retention with pt and her mother. Per pt's mother Kim does not usually drink very much at home and has a hx of UTIs d/t holding her bladder too long. This nurse called on-call MD to update. Per do not straight cath pt unless BUS significantly high basedon hx of intentional retention(call MD if BUS 700ml or >). BUS 485ml at 1500; evening nurse aware and wctm. * Plan of Care - Cinthya Walsh RN - 01/03/2017 0549 EDT Problem: Daily Care Plan Goals Goal: Care Plan Documentation Outcome: Ongoing 01/03/17 0015 Care Plan Focus Area of Focus Pain/ Comfort Goal This Shift pt will report pain relief Data: Assumed care of patient at 1900, pt with recent TBI, Mom at bedside assisting in care. Patient easily becomes overwhelmed/emotional with directions/requests, crying intermittently over tasks (taking medication, waiting for relief with warm pack to neck). Per report, pt has not voided since noon today, had BM after 1800 but no void per Mom. Plan for pain medication and monitoring urine output reviewed with Mom. Pt OOB art 0015 to commode, reports urge to void after iniitally denying, unable to void with bladder scan of 485. Action: Monitored with hourly safety checks, pain medication as ordered (see MAR). MD notified of inability to void, order obtained for I/&O cath prn for volume >400, I&O cath x1 done, Ativan x1 for anxiety. Response: Patient noted to be asleep upon pain reassessments. Patient became upset with need for I/O cath, Mom requested Ativan to assist in calming patient, resting comfortably upon further assessment. Patient wearing Stanton collar for comfort while in bed, noted to be asleep during majority of hourly checks this shift, will cont to monitor. Cinthya Walsh RN 01/03/2017 5:38 * Plan of Care - Margarita Singh RN - 01/02/20172013 EDT Problem: Daily Care Plan Goals Goal: Care Plan Documentation Outcome: Ongoing 01/02/17 1600 Care Plan Focus Area of Focus Psychosocial Goal This Shift improved coping Childlike regressive behavior, using baby voice, with family at bedside. Pain level at neck 5-9 relieved after pain meds and with rest. Wails and states she can't follw cues for transfers etc; has been able to accomplish stand and walk max A x 2, sit at sink, brush and wash. Suggest to mother and staff to allow to accomplish activity, praise and reinforce accomplishment. Urge to use adult voice. * Plan of Care - Omar Menon RN - 01/02/2017 1437 EDT Problem: Daily Care Plan Goals Goal: Care Plan Documentation Outcome: Met This Shift 01/02/17 0830 Care Plan Focus Area of Focus Pain/ Comfort Goal This Shift pt will have adequate pain relief TBI pt s/p fall from horse; temporal fracture/SDH(see H&P). Pt c/o moderate pain mostly r/t movement of cervical spine; emotionally labile/vocal. Mcgrath J collar used when OOB. Pt's mother helped to stabilize pt's neck while she moved from sit-stand(mother and father have been taking turns staying with her overnight). PRN analgesics given consisently throughout day shift per EMAR(tylenol, oxyco done, ibuprofen, robaxin- see emar). Pt responded best to Robaxin; pt was able to participate with therapy with consistent pain medication admin.. * Plan of Care - Kim Pena RN - 01/02/2017 0534 EDT Problem: Daily Care Plan Goals Goal: Care Plan Documentation Outcome: Met This Shift 01/02/17 0035 Care Plan Focus Area of Focus Sleep Goal This Shift Pt will get adequate sleep tonight Pt's first night on Rehab II. Pt is alert and oriented to person, able to follow commands and no impulsive behavior noted. Pt is confused and does cry at times. Pt's mother present and assisting withcare. Pt awakened per evening RN to offer pain medication. See eMAR for medication administration. Pt noted to be asleep within the hour after receiving medication. Pt had not voided since arrival and was agreeable to have a BUS scan, value was 362 ml. Pt reluctantly agreeable to get up to C to attempt to void. Pt found to have been incontinent of loose BM, and was able to void and have anotherloose water BM while up. Collar in place when OOB. Pt's mother declined to have bed alarm in place,however did request 4 side rails up. Continue to monitor pt for pain control, safety and urinary and GI status. * Plan of Care - Kathie Jose LPN - 01/01/20171955 EDT Problem: Daily Care Plan Goals Goal: Care Plan Documentation Outcome: Met This Shift 01/01/171944 Care Plan Focus Area of Focus Pain/ Comfort Goal This Shift pt will inform nursing staff when pain is >5 D: Call light and bedside stand within reach. A: Monitored for safety as well as ability to sleep/rest; rounding hourly and attending to requestsfor personal care needs and change in comfort level (see flow sheet). Assisted with personal care as needed. Patient continues to require skilled Rehab nursing care. Encouraged patient to use call light if any need for assistance develop. Nightlight is in use. R: Monitor for personal care needs, and any change in comfort. Establish and maintain patient's night time rituals to promote sleep, paying attention to morning nursing/therapy schedules. Pt arrived via ambulance at 1600-pt is a 16 yr old female who was thrown from a horse-she suffered a SDH, SAH with resulting skull fracture with depression to the right side. Must have c-collar on when OOB-pt is confused but appropriate- one parent with pt always-pt has not been evaluated as of yet-per [facility] report pt is a max 2 assist S.P. -pt was loaded with bowel meds 2/2 not having a BM for 5 does-pt was incontinent of small liquid stool at 2100, pt normally is continent- pt in bed sleeping [id number]. documented in this encounter Plan of Treatment Scheduled Referrals Name Type Priority Associated Diagnoses Order Schedule AMB CONS/FOLLOW UP PHYSICAL THERAPY Outpatient Referral Routine Closed traumatic brain injury with depressed skull fracture with loss of consciousness, initial encounter ([facility] ([facility]) Cognitive deficits Ordered: 01/13/2017 AMB CONS/FOLLOW UP OCCUPATIONAL THERAPY Outpatient Referral Routine Closed traumatic brain injury with depressed skull fracture with loss of consciousness, initial encounter ([facility]) ([facility]) Cognitive deficits Ordered: 01/13/2017 AMB CONS/FOLLOW UP SPEECH & LANGUAGE PATHOLOGY Outpatient Referral Routine Closed traumatic brain injury with depressed skull fracture with loss of consciousness, initial encounter ([facility]) ([facility]) Cognitive deficits Ordered: 01/13/2017 documented as of this encounter Procedures Procedure Name Priority Date/Time Associated Diagnosis Comments URINE CULTURE IF POSITIVE Routine 01/07/2017 18:35 EDT URINE CHEMICAL (DIP) & SEDIMENT (MICRO) WITHOUT REFLEX TO CULTURE Routine 01/07/2017 18:35 EDT BACTERIAL CULTURE, URINE Routine 01/07/2017 18:35 EDT COMPLETE BLOOD COUNT Routine 01/02/2017 7:21 EDT BUN Routine 01/02/2017 7:21 EDT PREALBUMIN Routine 01/02/2017 7:21 EDT MAGNESIUM Routine 01/02/2017 7:21 EDT GLUCOSE, SERUM Routine 01/02/2017 7:21 EDT CREATININE Routine 01/02/2017 7:21 EDT CALCIUM Routine 01/02/2017 7:21 EDT ELECTROLYTES Routine 01/02/2017 7:21 EDT documented in this encounter Results * BACTERIAL CULTURE, URINE (01/07/2017 18:35 EDT) Result Greater than 100,000 CFU/ml ESCHERICHIA COLI 01/08/2017 13:01 EDT [facility] URINE / Unknown 01/07/2017 1 8:35 EDT 01/07/2017 22:31 EDT Narrative Organism Antibiotic Method Susceptibility Greater than 100,000 cfu/ml escherichia coli Ampicillin SUSCEPTIBILITY (MORGAN) Susceptible Greater than 100,000 cfu/ml escherichia coli Gentamicin SUSCEPTIBILITY (MORGAN) Susceptible Greater than 100,000 cfu/ml escherichia coli Trimethoprim-Sulfameth oxazole SUSCEPTIBILITY (MORGAN) Susceptible Greater than 100,000 cfu/ml escherichia coli Nitrofurantoin SUSCEPTIBILITY (MORGAN) Susceptible Greater than 100,000 cfu/ml escherichia coli Tobramycin SUSCEPTIBILITY (MORGAN) Susceptible Greater than 100,000 cfu/ml escherichia coli Ceftriaxone SUSCEPTIBILITY (MORGAN) Susceptible Greater than 100,000 cfu/ml escherichia coli Ciprofloxacin SUSCEPTIBILITY (MORGAN) Susceptible Greater than 100,000 cfu/ml escherichia coli Piperacillin Tazobactam SUSCEPTIBILITY (MORGAN) Susceptible Greater than 100,000 cfu/ml escherichia coli Meropenem SUSCEPTIBILITY (MORGAN) Susceptible Greater than 100,000 cfu/ml escherichia coli Ertapenem SUSCEPTIBILITY (MORGAN) Susceptible Greater than 100,000 cfu/ml escherichia coli Cefazolin SUSCEPTIBILITY (MORGAN) Susceptible Greater than 100,000 cfu/ml escherichia coli Cefazolin SUSCEPTIBILITY (MORGAN) Cefazolin susceptibility results can be used to predict susceptibility results for the following oral cephalosporins when used for therapy of uncomplicated UTIs due to E.coli, K.pneumoniae, and P.mirabilis: cefaclor, cefdinir, cefpodoxime, cefprozil, cefuroxime , cephalexin, loracarbef. Cefdinir, cefpodoxime, and cefuroxime may be tested individually because some isolates may be susceptible to these agents while testing resistant to cefazolin. Please note that only cefpodoxime and cephalexin are on the [facility] inpatient formulary. Jus Atkinson MD MICROBIOLOGY - GENERAL ORDERABLES [facility] [address] [place] [address] * URINE CULTURE IF UA POSITIVE - NON POCT URINALYSIS ONLY (01/07/2017 18:35 EDT) Culture if Indicated Culture indicated by urinalysis results. 01/07/2017 22:12 [facility] TOPOGRAPHY UNKNOWN / Unknown 01/07/2017 18:35 EDT 01/07/2017 18:45 EDT Jus Atkinson MD MICROBIOLOGY - GENERAL ORDERABLES [facility] [address] [place] [address] * (ABNORMAL) UA, CHEMICAL AND SEDIMENT ANALYSIS (DIPSTICK AND MICROSCOPIC) (01/07/2017 18:35 EDT) Color, UA Yellow 01/07/2017 22:12 [facility] Clarity, UA Clear 01/07/2017 22:12 [facility] Glucose, UA Neg Neg 01/07/2017 22:12 [facility] Bilirubin, UA Neg Neg 01/07/2017 22:12 [facility] Ketones, UA Neg Neg 01/07/2017 22:12 [facility] Refractometer SG,Urine 1.019 1.001 - 1.035 01/07/2017 22:12 [facility] Blood, UA Neg Neg 01/07/2017 22:12 [facility] pH, UA 6.0 4.6 - 8.0 01/07/2017 22:12 [facility] Protein, UA Neg Neg 01/07/2017 22:12 [facility] Urobilinogen, UA Normal Normal E.U./dl 01/07/2017 22:12 [facility] Nitrite, UA Pos(A) Neg 01/07/2017 22:12 [facility] Leuk Esterase 1+(A) Neg 01/07/2017 22:12 [facility] UA Method Used 01/07/2017 18:35 [facility] Comment: Testing performed using Department of Health and Human Services AU-4443. Performed at [facility], [place], [place] Urine RBC Count Automated 3 to 10(A) 0 to 2 /HPF 01/07/2017 22:12 [facility] Urine WBC Count Automated 11 to 50(A) 0 to 3 /HPF 01/07/2017 22:12 [facility] Urine Squamous Epithelial Cell Count, Automated None seen None seen /LPF 01/07/2017 22:12 [facility] Urine Hyaline Casts, Automated < or = 10 < or = 10 /LPF 01/07/2017 22:12 [facility] Urine Bacteria Count, Automated Few(A) None seen 01/07/2017 22:12 [facility] UA Comment Sediment results 01/07/2017 22:12 [facility] Comment: are unreliable on urines unrefrig >2hrs or refrig >8hrs. Urine specimen (specimen) URINE / Unknown 01/07/2017 18:35 EDT 01/07/2017 18:45 EDT Jus Atkinson MD URINALYSIS SURENDRA STEVENS [facility] [address] [place] [address] * HEMAGRAM (01/02/2017 7:21 EDT) WBC 8.09 4.6 - 11.2 K/cmm 01/02/2017 9:36 [facility] RBC 4.40 4.10 - 5.10 M/cmm 01/02/2017 9:36 [facility] Hemoglobin 13.3 12.0 - 16.0 gm/dl 01/02/2017 9:36 [facility] HCT 37.6 36.0 - 46.0 % 01/02/2017 9:36 [facility] MCV 86 78 - 102 fl 01/02/2017 9:36 [facility] MCH 30.2 pg 01/02/2017 9:36 [facility] MCHC 35.4 gm/dl 01/02/2017 9:36 EDT [facility] RDW-CV 12.1 % 01/02/2017 9:36 EDT [facility] RDW-SD 36.5 fl 01/02/2017 9:36 EDT [facility] PLT 264 156 - 312 K/cmm 01/02/2017 9:36 EDT [facility] MPV 8.8 fl 01/02/2017 9:36 EDT [facility] Comment:Performed at [place], [place] Blood specimen (specimen) BLOOD SPECIMEN / Unknown 01/02/2017 7:21 EDT 01/02/2017 8:20 EDT Jus Atkinson MD HEMATOLOGY & PF 4 ORDERABLES Performing Organization Address City/[facility]/ZIP Co de Phone Number [facility] [address] [place] [address] * GLUCOSE, SERUM (01/02/2017 7:21 EDT) Glucose, Serum 79 70 - 100 mg/dl 01/02/2017 9:36 EDT [facility] Comment:Performed at [place], [place] Blood specimen (specimen) BLOOD SPECIMEN / Unknown 01/02/2017 7:21 EDT 01/02/2017 8:20 EDT Jus Atkinson MD CHEMISTRY & BLO OD GAS ORDERABLES [facility] [address] [place] [address] * MAGNESIUM (01/02/2017 7:21 EDT) Magnesium 2.1 1.5 - 2.3 mg/dl 01/02/2017 10:01 EDT [facility] Comment:Performed at [place], [place] Blood specimen (specimen) BLOOD SPECIMEN / Unknown 01/02/2017 7:21 EDT 01/02/2017 8:20 EDT Jus Atkinson MD CHEMISTRY & BLO OD GAS ORDERABLES [facility] [address] [place] [address] * PREALBUMIN (01/02/2017 7:21 EDT) Prealbumin 24 mg/dl 01/04/2017 11:10 EDT [facility] Blood specimen (specimen) BLOOD SPECIMEN / Unknown 01/02/2017 7:21 EDT 01/02/2017 8:20 EDT Jsu Atkinson MD CHEMISTRY & BLO OD GAS ORDERABLES Performing Organization Address [facility] Co de Phone Number [facility] [address] [place] [address] * ELECTROLYTES (01/02/2017 7:21 EDT) Sodium 141 136 - 145 mEq/L 01/02/2017 9:36 EDT [facility] Potassium 3.8 3.3 - 4.6 mEq/L 01/02/2017 9:36 EDT [facility] Chloride 99 96 - 110 mEq/L 01/02/2017 9:36 EDT [facility] CO2 27 22 - 32 mEq/L 01/02/2017 9:36 EDT [facility] Comment:Performed at [facility], [place], [place] Blood specimen (specimen) BLOOD SPECIMEN / Unknown 01/02/2017 7:21 EDT 01/02/2017 8:20 EDT Jus Atkinson MD CHEMISTRY & BLO OD GAS ORDERABLES Performing Organization Address City/[facility]/ZIP Co de Phone Number [facility] [address] [place] [address] * CREATININE (01/02/2017 7:21 EDT) Creatinine 0.50 0.50 - 1.00 mg/dl 01/02/2017 9:36 EDT [facility] GFR, Calculated Age <18 ml/min/1.7 3m2 01/02/2017 9:36 EDT [facility] Comment:Performed at [place], [place] Blood specimen (specimen) BLOOD SPECIMEN / Unknown 01/02/2017 7:21 EDT 01/02/2017 8:20 EDT Jus Atkinson MD CHEMISTRY & BLO OD GAS ORDERABLES Performing Organization Address City/[facility]/ZIP Co de Phone Number [facility] [address] [place] [address] * CALCIUM (01/02/2017 7:21 EDT) Calcium 9.3 8.9 - 10.7 mg/dl 01/02/2017 9:36 EDT [facility] Calculated Calcium 9.4 8.9 - 10.7 mg/dl 01/02/2017 9:36 EDT [facility] Comment:Performed at [place], [place] Blood specimen (specimen) BLOOD SPECIMEN / Unknown 01/02/2017 7:21 EDT 01/02/2017 8:20 EDT Jus Atkinson MD CHEMISTRY & BLO OD GAS ORDERABLES Performing Organization Address [facility] Co de Phone Number [facility] [address] [place] [address] * BUN (01/02/2017 7:21 EDT) BUN 9 8 - 21 mg/dl 01/02/2017 9:36 EDT [facility] Comment:Performed at [place], [place] Blood specimen (specimen) BLOOD SPECIMEN / Unknown 01/02/2017 7:21 EDT 01/02/2017 8:20 EDT Jus Atkinson MD CHEMISTRY & BLO OD GAS ORDERABLES Performing Organization Address City/[facility] Care [facility]/ZIP Co de Phone Number [facility] [address] [place] [address] documented in this encounter Visit Diagnoses Diagnosis 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 ([facility])- Primary Other closed skull fracture with intracranial injury of other and unspecified nature, loss of consciousness of unspecified duration Closed traumatic brain injury with depressed skull fracture with loss of consciousness, initial encounter ([facility]) Cognitive deficits Unspecified persistent mental disorders due to conditions classified elsewhere Fracture of temporal bone with routine healing documented in this encounter Administered Medications Inactive Administered Medications - up to 3 most recent administrations Medication Order MAR Action Action Date Dose Rate Site acetaminophen (TYLENOL) solution unit dose cup 650 mg 650 mg, oral, EVERY 4 HOURS PRN, Starting on Wed01/01/17 at 1617, Until Felicia 01/14/17 at 1724, Pain, Routine Given 01/13/2017 15:55 EST 650 mg Given 01/12/2017 21:00 EST 650 mg Given 01/07/2017 10:38 EDT 650 mg amantadine HCl (SYMMETREL) solution 50 mg 50 mg, oral, DAILY, First dose on 01/02/17 at 0800, Until Discontinued, Routine Given 01/12/2017 9:10 EST 50 mg Given 01/11/2017 8:09 EST 50 mg Given 01/10/2017 9:23 EST 50 mg bacitracin zinc 500 unit/gram ointment topical, 2 TIMES DAILY, 10 doses, First dose on Wed01/01/17 at 2100, Last dose on Wed01/06/17 at 0800 Given 01/06/2017 8:18 EDT Given 01/05/2017 20:57 EDT Given 01/05/2017 8:40 EDT ciprofloxacin-dexamethasone (CIPRODEX) otic suspension 3 Drop 3 Drop, right ear, 2 TIMES DAILY, 14 doses, First dose on Wed01/01/17 at 2100, Last dose on Wed01/08/17 at 0800, Routine Given 01/08/2017 7:55 EDT 3 Drops Given 01/07/2017 20:02 EDT 3 Drops Given 01/07/2017 7:49 EDT 3 Drops docusate sodium (COLACE) capsule 100 mg 100 mg, oral, 2 TIMES DAILY PRN, Starting on 01/09/17 at 1212, Until Felicia 01/14/17 at 0839, Constipation, Routine Given 01/12/2017 9:13 EST 100 mg Given 01/11/2017 8:09 EST 100 mg Given 01/10/2017 9:24 EST 100 mg enoxaparin (LOVENOX) injection 40 mg 40 mg, subcutaneous, DAILY, First dose on 01/02/17 at 0800, Until Discontinued, Routine Given 01/09/2017 9:11 EDT 4 0 mg Given 01/08/2017 7:54 EDT 40 mg Given 01/07/2017 7:49 EDT 40 mg ibuprofen (ADVIL;MOTRIN) suspension 400 mg 400 mg, oral, EVERY 6 HOURS PRN, Starting on Wed01/01/17 at 1705, Until 01/10/17 at 0822, Pain, Routine Given 01/09/2017 19:23 EDT 400 mg Given 01/09/2017 9:12 EDT 400 mg Given 01/08/2017 21:20 EDT 400 mg ibuprofen (ADVIL;MOTRIN) suspension 400 mg 400 mg, oral, EVERY 4 HOURS PRN, Starting on 01/10/17 at 0830, Until Felicia 01/14/17 at 1724, Pain, Routine Given 01/14/2017 10:47 EST 400 mg Given 01/14/2017 7:09 EST 400 mg Given 01/13/2017 17:17 EST 400 mg levETIRAcetam (KEPPRA) tablet 500 mg 500 mg, oral, 2 TIMES DAILY, First dose on Wed01/01/17 at 2100, Until Discontinued, Routine Given 01/06/2017 8:11 EDT 5 00 mg Given 01/05/2017 20:49 EDT 500 mg Given 01/05/2017 8:32 EDT 500 mg levOFLOXacin (LEVAQUIN) tablet 500 mg 500 mg, oral, DAILY, 3 doses, First dose on Wed01/08/17 at 1100, Last dose on 01/10/17 at 0800, Routine Given 01/10/2017 9:24 EST 500 mg Given 01/09/2017 9:11 EDT 500 mg Given 01/08/2017 11:07 EDT 500 mg LORazepam (ATIVAN) concentrated solution 0.5 mg 0.5 mg, oral, 4 TIMES DAILY PRN, Starting on 01/10/17 at 0822, Until 01/12/17 at 1220, Anxiety, Pain, Routine Given 01/11/2017 20:46 EST 0.5 mg Given 01/10/2017 22:35 EST 0.5 mg LORazepam (ATIVAN) concentrated solution 1 mg 1 mg, oral, 4 TIMES DAILY PRN, Starting on Wed01/01/17 at 1704, Until Wed01/10/17 at 0822, Anxiety, Pain, Routine Given 01/09/2017 22:25 EDT 1 mg Given 01/08/2017 21:24 EDT 1 mg Given 01/07/2017 23:39 EDT 1 mg LORazepam (ATIVAN) tablet 0.5 mg 0.5 mg, oral, Once (Without Time Specified), 1 dose, Starting on Wed01/14/17 at 1045, Until Felicia 01/14/17 at 1046, Routine Given 01/14/2017 10:46 EST 0.5 mg methocarbamol (ROBAXIN) tablet 500 mg 500 mg, oral, 4 TIMES DAILY PRN, Starting on Wed01/01/17 at 1617, Until Felicia 01/14/17 at 1724, Pain, Routine Given 01/12/2017 21:00 EST 500 mg Given 01/10/2017 22:34 EST 500 mg Given 01/09/2017 22:23 EDT 500 mg ondansetron (ZOFRAN-ODT) disintegrating tablet 4 mg 4 mg, oral, EVERY 4 HOURS PRN, Starting on Wed01/01/17 at 1617, Until Felicai 01/14/17 at 0839, Nausea, Routine Given 01/12/2017 22:41 EST 4 mg Given 01/11/2017 16:40 EST 4 mg Given 01/10/2017 12:43 EST 4 mg ondansetron (ZOFRAN-ODT) disintegrating tablet 4 mg 4 mg, oral, Once (Without Time Specified), 1 dose, Starting on Wed01/14/17 at 1045, Until Felicia 01/14/17 at 1046, Routine Given 01/14/2017 10:46 EST 4 mg oxyCODONE (ROXICODONE) immediate release tablet 5 mg 5 mg, oral, EVERY 6 HOURS PRN, Starting on Wed01/11/17 at 0804, Until Felicia 01/14/17 at 1724, Pain, Routine Given 01/14/2017 10:47 EST 5 mg Given 01/13/2017 19:57 EST 5 mg Given 01/13/2017 14:35 EST 5 mg oxyCODONE (ROXICODONE) solution 5 mg 5 mg, oral, EVERY 4 HOURS PRN, Starting on 01/01/17 at 1617, Until 01/10/17 at 0822, Pain, Routine Given 01/10/2017 5:14 EST 5 mg Given 01/10/2017 0:39 EDT 5 mg Given 01/09/2017 20:44 EDT 5 mg oxyCODONE (ROXICODONE) solution 5 mg 5 mg, oral, EVERY 6 HOURS PRN, Starting on 01/10/17 at 0830, Until 01/11/17 at 0805, Pain, Routine Given 01/11/2017 6:26 EST 5 mg Given 01/10/2017 23:46 EST 5 mg Given 01/10/2017 17:17 EST 5 mg polyethylene glycol 3350 (MIRALAX) packet 17 g 17 g, oral, DAILY PRN, Starting on Felicia 01/07/17 at 1449, Until Felicia 01/14/17 at 0839, Constipation, Routine Given 01/11/2017 8:09 EST 17 g Given 01/08/2017 8:12 EDT 17 g Given 01/07/2017 14:57 EDT 17 g senna (SENOKOT) tablet 1 Tab 1 Tablet, oral, DAILY PRN, Starting on 01/09/17 at 1212, Until Felicia 01/14/17 at 0839, Constipation, Routine Given 01/12/2017 9:13 EST 1 Tablet Given 01/11/2017 8:09 EST 1 Tablet Given 01/10/2017 9:24 EST 1 Tablet traZODone (DESYREL) tablet 25 mg 25 mg, oral, AT BEDTIME, First dose on 01/11/17 at 2100, Until Discontinued, Routine Given 01/11/2017 21:41 EST 2 5 mg traZODone (DESYREL) tablet 25 mg 25 mg, oral, USER SPECIFIED (Daily), First dose (after last modification) on Tu01/12/17 at 2000, Until Discontinued, Routine Given 01/13/2017 21:16 EST 25 mg Given 01/12/2017 20:59 EST 25 mg documented in this encounter Active and Recently Administered Medications Times are shown in EST. Scheduled Medication Order 01/12/2017 01/13/2017 01/14/2017 amantadine HCl (SYMMETREL) solution 50 mg (CANCELED) 50 mg, oral, DAILY, First dose on 01/02/17 at 0800, Until Discontinued, Routine 0910 (Given - Provider: Brielle Epps, MONTY) LORazepam (ATIVAN) tablet 0.5 mg (COMPLETED) 0.5 mg, oral, Once (Without Time Specified), 1 dose, Starting on Wed01/14/17 at 1045, Until Wed01/14/17 at 1046, Routine 104 (Given - Provider: Raina Morelos, MONTY) ondansetron (ZOFRAN-ODT) disintegrating tablet 4 mg (COMPLETED) 4 mg, oral, Once (Without Time Specified), 1 dose, Starting on Felicia 01/14/17 at 1045, Until Wed01/14/17 at 1046, Routine 104 (Given - Provider: Raina Morelos, MONTY) traZODone (DESYREL) tablet 25 mg 25 mg, oral, USER SPECIFIED (Daily), First dose (after last modification) on Wed01/12/17 at 2000, Until Discontinued, Routine 2058 (Given - Provider: Lorena Johnson RN) 2116 (Given - Provider: Margarita Singh, MONTY) PRN Medication Order 01/12/2017 01/13/2017 01/14/2017 acetaminophen (TYLENOL) solution unit dose cup 650 mg 650 mg, oral, EVERY 4 HOURS PRN, Starting on Wed01/01/17 at 1617, Until Felicia 01/14/17 at 1724, Pain, Routine 2100 (Given - Provider: Lorena Johnson RN) 1555 (Given - Provider: Margarita Singh, MONTY) docusate sodium (COLACE) capsule 100 mg (CANCELED) 100 mg, oral, 2 TIMES DAILY PRN, Starting on 01/09/17 at 1212, Until Felicia 01/14/17 at 0839, Constipation, Routine 0913 (Given - Provider: Brielle Epps, MONTY) ibuprofen (ADVIL;MOTRIN) suspension 400 mg 400 mg, oral, EVERY 4 HOURS PRN, Starting on 01/10/17 at 0830, Until Wed01/14/17 at 1724, Pain, Routine 0913 (Given - Provider: Brielle Epps RN)1257 (Given - Provider: Brielle Epps RN)1815 (Given - Provider: Lorena Johnson RN) 1717 (Given - Provider: Margarita Singh RN) 0709 (Given - Provider: Kim Pena RN)1047 (Given - Provider: Raina Morelos, RN) methocarbamol (ROBAXIN) tablet 500 mg 500 mg, oral, 4 TIMES DAILY PRN, Starting on 01/01/17 at 1617, Until Felicia 01/14/17 at 1724, Pain, Routine 2100 (Given - Provider: Lorena Johnson, MONTY) ondansetron (ZOFRAN-ODT) disintegrating tablet 4 mg (CANCELED) 4 mg, oral, EVERY 4 HOURS PRN, Starting on 01/01/17 at 1617, Until Felicia 01/14/17 at 0839, Nausea, Routine 2241 (Given - Provider: Lorena Johnson RN) oxyCODONE (ROXICODONE) immediate release tablet 5 mg 5 mg, oral, EVERY 6 HOURS PRN, Starting on 01/11/17 at 0804, Until Felicia 01/14/17 at 1724, Pain, Routine 0913 (Given - Provider: Brielle Epps RN)1541 (Given - Provider: Lorena Johnson RN) 0833 (Given - Provider: Cecilia Dumas)1435 (Given - Provider: Cecilia Dumas)1957 (Given - Provider: Margarita Singh RN) 1047 (Given - Provider: Raina Morelos, MONTY) senna (SENOKOT) tablet 1 Tab (CANCELED) 1 Tablet, oral, DAILY PRN, Starting on 01/09/17 at 1212, Until Felicia 01/14/17 at 0839, Constipation, Routine 0913 (Given - Provider: Brielle Epps RN) documented in this encounter Orders Medications Ordered That Bernard ht Not Have Been Administered Count Last Ordered Date First Ordered Date LORazepam (ATIVAN) concentra flori solution 0.5 mg 1 01/12/2017 methyl salicylate-menthol (A NALGESIC BALM) ointment 1 01/05/2017 bisacodyl (DULCOLAX) suppository 10 mg 1 DIAZepam (VALIUM) tablet 5 mg 1 01/01/2017 ibuprofen (MOTRIN) tablet 400 mg 1 01/02/20 risperiDONE (RISPERDAL) tablet 1 mg 1 01/01 Nursing Count Last Ordered Date First Orde red Date CONTRAINDICATION TO ANTICOAG ULATION THERAPY 1 01/01/2017 PATIENT NOT A CANDIDATE FOR MECHANICAL VTE PROPHYLAXIS 1 01/01/2017 Consult Count Last Ordered Date First Orde red Date CONSULT CASE MANAGEMENT 1 01/01/2017 Admission Count Last Ordered Date First Orde red Date STATUS: INPATIENT REHAB ADMISSION 1 017 Transfer Count Last Ordered Date First Orde red Date NOTIFY PPS OF DISCHARGE COMPLETE 1 01/15/20 17 Discharge Count Last Ordered Date First Orde red Date DISCHARGE PATIENT 1 01/14/2017 documented in this encounter Care Teams Power Equipment Mechanics Instructor Relationship Specialty Start Date End Date Zina Daly MD [address] [place] [id number] PCP - General 01/17/15 01/04/17 Deacon Esposito DO [address] [place] [address] [id number] PCP - General 01/05/17 03/05/22 documented as of this encounter
[2023-10-19 22:35] LABS: Progesterone 20.4 ng/mL (See Table)
== END 2023-10-19 17:17 | disposition home or self-care (01) ==
LOC: LBO 17:18
PROVIDERS: Visit Provider Advanced Practice Midwife
DX: N92.6 Irregular menstruation, unspecified (principal); Z87.59 Personal history of other complications of pregnancy, childbirth and the puerperium
CPT/HCPCS: 36415; 86850; 86900; 86901; 84144; 84702

== ENCOUNTER 2023-10-21 04:28 | Outpatient (CLI) | payer MEDICAID, SELFPAY ==
[2023-10-21 18:33] LABS: HCG Quant, Pregnancy 2 mIU/mL (1-3)
== END 2023-10-21 04:29 | disposition home or self-care (01) ==
LOC: LBO 04:29
PROVIDERS: Visit Provider Advanced Practice Midwife
DX: N92.6 Irregular menstruation, unspecified (principal); Z87.59 Personal history of other complications of pregnancy, childbirth and the puerperium
CPT/HCPCS: 36415; 84702

== ENCOUNTER 2023-11-30 11:28 | Outpatient (CLI) | payer MEDICAID, SELFPAY ==
[2023-11-30 11:38] LABS: HCG Quant, Pregnancy 1 mIU/mL (1-3)
== END 2023-11-30 11:29 | disposition home or self-care (01) ==
LOC: LBO 11:29
PROVIDERS: Advanced Practice Midwife; Visit Provider Obstetrics & Gynecology
DX: N92.6 Irregular menstruation, unspecified (principal); N96 Recurrent pregnancy loss; L68.9 Hypertrichosis, unspecified
CPT/HCPCS: 36415; 84702

== ENCOUNTER 2023-12-20 14:27 | Outpatient (CLI) | payer MEDICAID, SELFPAY ==
[2023-12-20 14:50] LABS: Abs Immature Grans 0.01 10^3/uL (0.0-0.06); Absolute Basophil Count 0.02 10^3/uL (0.0-0.2); Absolute Eosinophil Count 0.11 10^3/uL (0.0-0.7); Absolute Monocyte Count 0.55 10^3/uL (0.1-0.8); Absolute Neutrophil Count 6.71 10^3/uL (1.2-6.7); Basophils % 0.2 %; Eosinophils % 1.2 %; HCT 40.2 % (36.0-46.0); HGB 12.8 g/dL (11.2-15.7); Immature Grans % 0.1 %; Lymphocytes % 21.3 %; MCHC 31.8 % (32.0-36.0); MCV 85 fL (80-95); MPV 8.6 fL (8.0-11.0); Monocytes % 5.9 %; Neutrophils % 71.3 %; Platelet Count 315 10^3/uL (130-400); RBC 4.74 10^6/uL (3.93-5.22); RDW-SD 39.8 fL
[2023-12-20 15:53] LABS: ALT 31 U/L (14-59); AST 21 U/L (15-37); Albumin 3.6 g/dL (3.4-5.0); Alkaline Phosphatase 118 U/L (46-116); Anion Gap 12.9 mmol/L (3-11); BUN 10 mg/dL (7-18); Bilirubin, Total 0.45 mg/dL (0.2-1.0); CO2 26.1 mmol/L (21.0-32.0); CREATININE 0.7 mg/dL (0.55-1.02); Calcium 9.2 mg/dL (8.5-10.1); Chloride 104 mmol/L (98-107); Estimated GFR 124.55 (mL/min/1.73m2); Glucose 81 mg/dL (74-106); Potassium 3.8 mmol/L (3.5-5.1); Sodium 143 mmol/L (136-145); Total Protein 8.1 g/dL (6.4-8.2)
[2023-12-20 15:54] LABS: HCG Quant, Pregnancy < 1 mIU/mL (1-3)
[2023-12-20 22:26] LABS: Estradiol 141 pg/mL (See Note); FSH 2.7 mIU/mL (See Note); Progesterone 7.2 ng/mL (See Table)
[2023-12-22 10:28] LABS: Activated Partial Thrombo Time 33 sec (25 - 37); DRVVT Screen Ratio 1.21 ratio (<1.20); INR 1.1 (0.9-1.1)
[2023-12-22 11:53] LABS: Ro60 Ab, IgG <7.0 CU (<20.0); SS-A/Ro, IgG <2.3 CU (<20.0); SS-B (La) Ab, IgG <3.3 CU (<20.0)
[2023-12-22 13:38] LABS: DRVVT Confirmation 0.94 ratio (<1.20); Thrombin Time (Bovine) 17.1 sec (15.8-24.9)
[2023-12-22 20:55] LABS: Beta 2 Glycoprotein 1 Ab IgA <9.4 SAU; Phospholipid Ab, IgG <9.4 GPL; Phospholipid Ab, IgM <9.4 MPL
[2023-12-23 11:14] LABS: HEX LA 3 sec (<13)
[2023-12-28 08:36] LABS: Testosterone, Free 0.72 ng/dL (<0.13-1.08); Testosterone, Total 29 ng/dL (8-60)
== END 2023-12-20 14:28 | disposition home or self-care (01) ==
LOC: LBO 14:28
PROVIDERS: Visit Provider Obstetrics & Gynecology
DX: N96 Recurrent pregnancy loss (principal); N92.6 Irregular menstruation, unspecified; O26.859 Spotting complicating pregnancy, unspecified trimester; N92.0 Excessive and frequent menstruation with regular cycle; L68.9 Hypertrichosis, unspecified; Z87.59 Personal history of other complications of pregnancy, childbirth and the puerperium
CPT/HCPCS: 36415; 80053; 84402; 84403; 85390; 85598; 85610; 85613; 85670; 85730; 86146; 86147; 82670; 83001; 84144; 84443; 84702; 85025; 86235

== ENCOUNTER 2024-01-13 11:48 | Outpatient (CLI) | payer MEDICAID, SELFPAY ==
[2024-01-28 10:33] LABS: Result 46,XX; Result Summary Normal; Specimen Blood
== END 2024-01-13 11:49 | disposition home or self-care (01) ==
LOC: LBO 11:48
PROVIDERS: Visit Provider Obstetrics & Gynecology
DX: N96 Recurrent pregnancy loss (principal)
CPT/HCPCS: 36415; 88230; 88291; 88262

== ENCOUNTER 2024-06-07 16:37 | Outpatient (CLI) | payer MEDICAID, SELFPAY ==
[2024-06-07 17:09] LABS: HCG Quant, Pregnancy 5 mIU/mL (1-3)
== END 2024-06-07 16:38 | disposition home or self-care (01) ==
LOC: LBO 16:38
PROVIDERS: Visit Provider Obstetrics & Gynecology
DX: O26.851 Spotting complicating pregnancy, first trimester (principal)
CPT/HCPCS: 36415; 84702

== ENCOUNTER 2024-06-12 03:28 | Outpatient (CLI) | payer MEDICAID, SELFPAY ==
[2024-06-12 11:30] LABS: HCG Quant, Pregnancy 1 mIU/mL (1-3)
[2024-06-12 19:07] LABS: Progesterone 0.6 ng/mL (See Table)
== END 2024-06-12 03:29 | disposition home or self-care (01) ==
LOC: LBO 03:31
PROVIDERS: Visit Provider Obstetrics & Gynecology
DX: O26.851 Spotting complicating pregnancy, first trimester (principal); N96 Recurrent pregnancy loss
CPT/HCPCS: 36415; 84144; 84702